=== PATIENT | female | born 1940 | race Caucasian/White ===

== ENCOUNTER 2016-07-25 13:57 | Inpatient (IN) | payer MEDICARE ==
[2016-07-25] MEDS ORDERED: methylPREDNISolone SOD SUCCI 125 MG/2 ML VIAL IV STA (14:29)
[2016-07-25] MEDS ORDERED: IPRATROPIUM-ALBUTEROL 3 ML NEB INHALATION STA ×2 (14:30→15:55)
--- NOTE | 2016-07-25 14:35 | ED ---
General Adult HPI - General Chief complaint: Shortness of Breath Stated complaint: Diff breathing Time Seen by Provider: 07/25/16 14:00 Source: EMS, RN notes reviewed Mode of arrival: EMS Limitations: no limitations - History of Present Illness Initial comments: This is a 76-year-old female who presents emergency Department complaining of inability to get her breath. Patient states phlegm gets caught in her airway and then she coughed so hard that eventually she fatigues herself to the point where she can't get any breath. Patient states currently she feels pretty good. Patient denies any shortness of breath at the moment. Patient denies chest pain or palpitations now or earlier. Patient denies any fever or chills. Patient denies headache patient denies numbness weakness. Patient denies any lightheadedness dizziness or near syncopal episode per patient denies abdominal pain patient denies nausea vomiting diarrhea. Patient does have a history of COPD. Patient takes her breathing treatments all the time. Patient states she was recently treated for sinusitis was on Levaquin and prednisone. - Related Data Home Medications Medication Instructions Recorded Confirmed Airborne 1 tab PO DAILY 07/25/16 07/25/16 Albuterol Nebulized [Ventolin 2.5 mg INHALATION RT-QID PRN 07/25/16 07/25/16 Nebulized] Fluticasone/Salmeterol [Advair 1 puff INHALATION RT-BID 07/25/16 07/25/16 250-50 Diskus] Montelukast [Singulair] 10 mg PO DAILY 07/25/16 07/25/16 Multivitamins, Thera [Multivitamin] 1 tab PO DAILY 07/25/16 07/25/16 Olmesartan [Benicar] 20 mg PO DAILY 07/25/16 07/25/16 metFORMIN HCL [Glucophage] 500 mg PO BID 07/25/16 07/25/16 Allergies Allergy/AdvReac Type Severity Reaction Status Date / Time No Known Drug Allergies Allergy Unknown Verified 07/25/16 14:58 Review of Systems ROS Statement: Those systems with pertinent positive or pertinent negative responses have been documented in the HPI. ROS Other: All systems not noted in ROS Statement are negative. Past Medical History Past Medical History: Asthma, COPD, Diabetes Mellitus History of Any Multi-Drug Resistant Organisms: None Reported Past Surgical History: Hysterectomy Additional Past Surgical History / Comment(s): cystocele Smoking Status: Former smoker Past Alcohol Use History: None Reported, Occasional Past Drug Use History: None Reported General Exam - General Exam Comments Initial Comments: GENERAL: Patient is well-developed and well-nourished. Patient is nontoxic and well- hydrated and is in mild distress. ENT: Neck is soft and supple. No significant lymphadenopathy is noted. Oropharynx is clear. Moist mucous membranes. Neck has full range of motion without eliciting any pain. EYES: The sclera were anicteric and conjunctiva were pink and moist. Extraocular movements were intact and pupils were equal round and reactive to light. Eyelids were unremarkable. PULMONARY: Unlabored respirations. Good breath sounds bilaterally. Patient has slight expiratory wheezing.. CARDIOVASCULAR: There is a regular rate and rhythm without any murmurs gallops or rubs. ABDOMEN: Soft and nontender with normal bowel sounds. No palpable organomegaly was noted. There is no palpable pulsatile mass. SKIN: Skin is clear with no lesions or rashes and otherwise unremarkable. NEUROLOGIC: Patient is alert and oriented x3. Cranial nerves II through XII are grossly intact. Motor and sensory are also intact. Normal speech, volume and content. Symmetrical smile. C MUSCULOSKELETAL: Normal extremities with adequate strength and full range of motion. No lower extremity swelling or edema. No calf tenderness. LYMPHATICS: No significant lymphadenopathy is noted PSYCHIATRIC: Normal psychiatric evaluation. Normal interpersonal interactions appears functionally intact in deals appropriately with others. No signs of depression. No signs of anxiety. Limitations: no limitations Course Vital Signs 07/25/16 07/25/16 07/25/16 13:59 14:06 14:33 Temperature 97 F L Pulse Rate 118 H 99 Respiratory 25 H 28 H Rate Blood Pressure 158/110 O2 Sat by Pulse 99 Oximetry 07/25/16 07/25/16 07/25/16 14:46 15:00 15:51 Temperature Pulse Rate 100 85 95 Respiratory 20 20 Rate Blood Pressure 152/89 128/74 O2 Sat by Pulse 97 99 Oximetry 07/25/16 07/25/16 15:58 16:03 Temperature Pulse Rate 85 118 H Respiratory 20 Rate Blood Pressure 152/83 O2 Sat by Pulse 98 Oximetry Medical Decision Making - Medical Decision Making EKG shows sinus tachycardia at 104 bpm GA interval is on a 44 Segundo is 82 QT interval 314 QTC is 412. Patient's EKG shows mild ST segment elevation in the precordial leads. Patient has some Q waves in the precordial leads as well which are new from an old EKG from 2012. Patient is currently chest pain-free Patient remained chest pain-free throughout her course in the emergency department . Troponin came back elevated to repeat an EKG did show normal sinus rhythm at 90 bpm GA interval 138 QRS is 82 QT interval 388 QTC is 474. Patient continues to have Q waves in the precordial leads however the ST segment elevation that was there previously is gone at this point. Because of the elevated troponin and EKG changes started the patient heparin give the patient aspirin and started Nitropaste. Patient continues to remain chest pain-free. - Lab Data Result diagrams: 07/25/16 14:10 07/25/16 14:10 Lab Results 07/25/16 07/25/16 07/25/16 Range/Units 14:10 14:10 14:10 WBC 13.3 H (3.8-10.6) k/uL RBC 5.40 (3.80-5.40) m/uL Hgb 15.6 (11.4-16.0) gm/dL Hct 47.3 H (34.0-46.0) % MCV 87.4 (80.0-100.0) fL MCH 28.8 (25.0-35.0) pg MCHC 32.9 (31.0-37.0) g/dL RDW 13.8 (11.5-15.5) % Plt Count 240 (150-450) k/uL Neutrophils % 69 % Lymphocytes % 22 % Monocytes % 5 % Eosinophils % 1 % Basophils % 1 % Neutrophils # 9.2 H (1.3-7.7) k/uL Lymphocytes # 2.9 (1.0-4.8) k/uL Monocytes # 0.7 (0-1.0) k/uL Eosinophils # 0.1 (0-0.7) k/uL Basophils # 0.1 (0-0.2) k/uL PT (9.0-12.0) sec INR (<1.1) APTT (22.0-30.0) sec D-Dimer (<0.60) mg/L FEU Sodium 140 (137-145) mmol/L Potassium 4.8 (3.5-5.1) mmol/L Chloride 108 H (98-107) mmol/L Carbon Dioxide 17 L (22-30) mmol/L Anion Gap 15 mmol/L BUN 23 H (7-17) mg/dL Creatinine 0.58 (0.52-1.04) mg/dL Est GFR (MDRD) Af Amer >60 (>60 ml/min/1.73 sqM) Est GFR (MDRD) Non-Af >60 (>60 ml/min/1.73 sqM) Glucose 167 H (74-99) mg/dL Calcium 9.2 (8.4-10.2) mg/dL Magnesium 1.9 (1.6-2.3) mg/dL Total Bilirubin 1.0 (0.2-1.3) mg/dL AST 50 H (14-36) U/L ALT 40 (9-52) U/L Alkaline Phosphatase 103 (38-126) U/L Total Creatine Kinase 131 (30-135) U/L CK-MB (CK-2) 6.5 H* (0.0-2.4) ng/mL CK-MB (CK-2) Rel Index 5.0 Troponin I 1.650 H* (0.000-0.034) ng/mL NT-Pro-B Natriuret Pep pg/mL Total Protein 7.2 (6.3-8.2) g/dL Albumin 4.2 (3.5-5.0) g/dL 07/25/16 07/25/16 Range/Units 14:10 14:10 WBC (3.8-10.6) k/uL RBC (3.80-5.40) m/uL Hgb (11.4-16.0) gm/dL Hct (34.0-46.0) % MCV (80.0-100.0) fL MCH (25.0-35.0) pg MCHC (31.0-37.0) g/dL RDW (11.5-15.5) % Plt Count (150-450) k/uL Neutrophils % % Lymphocytes % % Monocytes % % Eosinophils % % Basophils % % Neutrophils # (1.3-7.7) k/uL Lymphocytes # (1.0-4.8) k/uL Monocytes # (0-1.0) k/uL Eosinophils # (0-0.7) k/uL Basophils # (0-0.2) k/uL PT 9.8 (9.0-12.0) sec INR 1.0 (<1.1) APTT 21.5 L (22.0-30.0) sec D-Dimer 0.64 H (<0.60) mg/L FEU Sodium (137-145) mmol/L Potassium (3.5-5.1) mmol/L Chloride (98-107) mmol/L Carbon Dioxide (22-30) mmol/L Anion Gap mmol/L BUN (7-17) mg/dL Creatinine (0.52-1.04) mg/dL Est GFR (MDRD) Af Amer (>60 ml/min/1.73 sqM) Est GFR (MDRD) Non-Af (>60 ml/min/1.73 sqM) Glucose (74-99) mg/dL Calcium (8.4-10.2) mg/dL Magnesium (1.6-2.3) mg/dL Total Bilirubin (0.2-1.3) mg/dL AST (14-36) U/L ALT (9-52) U/L Alkaline Phosphatase (38-126) U/L Total Creatine Kinase (30-135) U/L CK-MB (CK-2) (0.0-2.4) ng/mL CK-MB (CK-2) Rel Index Troponin I (0.000-0.034) ng/mL NT-Pro-B Natriuret Pep 665 pg/mL Total Protein (6.3-8.2) g/dL Albumin (3.5-5.0) g/dL Disposition Clinical Impression: Acute RI, Acute bronchospasm Disposition: ADMITTED IP TO THIS HOSP Referrals: Catie Akhtar MD [Primary Care Provider] - 1-2 days Time of Disposition: 16:17
[2016-07-25 14:42] LABS: Basophils # (A) 0.1 k/uL (0-0.2); Basophils % (A) 1 %; CH 29.9; CHCM 34.5; Eosinophils # (A) 0.1 k/uL (0-0.7); Eosinophils % (A) 1 %; HCT 47.3 % (34.0-46.0); HDW 3.32; HGB 15.6 gm/dL (11.4-16.0); Luc # (Auto) 0.32; Luc % (Auto) 2; Lymphocytes # (A) 2.9 k/uL (1.0-4.8); Lymphocytes % (A) 22 %; MCH 28.8 pg (25.0-35.0); MCHC 32.9 g/dL (31.0-37.0); MCV 87.4 fL (80.0-100.0); Monocytes # (A) 0.7 k/uL (0-1.0); Monocytes % (A) 5 %; Neutrophils # (A) 9.2 k/uL (1.3-7.7); Neutrophils % (A) 69 %; RDW 13.8 % (11.5-15.5); WBC 13.3 k/uL (3.8-10.6); WBC (Perox) 12.99
[2016-07-25 14:56] LABS: ALT 40 U/L (9-52); AST 50 U/L (14-36); Alkaline Phosphatase 103 U/L (38-126); Anion Gap 15 mmol/L; Blood Urea Nitrogen 23 mg/dL (7-17); Calcium 9.2 mg/dL (8.4-10.2); Carbon Dioxide 17 mmol/L (22-30); Chloride 108 mmol/L (98-107); Glucose 167 mg/dL (74-99); Magnesium 1.9 mg/dL (1.6-2.3); Non-African American GFR(MDRD) >60 (>60 ml/min/1.73 sqM); Potassium 4.8 mmol/L (3.5-5.1); Sodium 140 mmol/L (137-145); Total Protein 7.2 g/dL (6.3-8.2)
[2016-07-25 15:10] LABS: Prothrombin Time 9.8 sec (9.0-12.0)
[2016-07-25 15:16] LABS: Partial Thromboplastin Time 21.5 sec (22.0-30.0)
[2016-07-25 15:18] LABS: Creatine Kinase MB 6.5 ng/mL (0.0-2.4); Troponin I 1.65 ng/mL (0.000-0.034)
[2016-07-25] MEDS ORDERED: HEPARIN SODIUM,PORCINE 5,000 UNIT/ML 1 ML VIAL IV ONE (15:21)
[2016-07-25] MEDS ORDERED: ASPIRIN 81 MG CHEW PO STA (15:23)
[2016-07-25] MEDS ORDERED: NITROGLYCERIN OINT 1 INCH/GM PACKET TOPICAL STA (15:23)
[2016-07-25] MEDS: HEPARIN SODIUM,PORCINE/D5W PMX 25,000 UNIT in DEXTROSE/WATER 1 500ML.BAG IV SCH (15:30)
--- NOTE | 2016-07-25 15:51 | XR ---
EXAMINATION TYPE: XR chest 2V DATE OF EXAM: 07/25/2016 3:37 PM COMPARISON: Prior chest x-ray 31 August 2012 HISTORY: Difficulty breathing, shortness of breath and asthma TECHNIQUE: Frontal and lateral views of the chest are obtained. FINDINGS: There is no focal air space opacity, pleural effusion, or pneumothorax seen. The cardiac silhouette size is stable. There are overlying cardiac leads and prominent lung volumes.. The osseo us structures are intact. IMPRESSION: No acute cardiopulmonary process.
[2016-07-25] MEDS ORDERED: LORazepam 2 MG/ML SYRINGE IV STA (15:55)
[2016-07-25] MEDS: SODIUM CHLORIDE 0.9% 1,000 ML IV SCH (16:10)
[2016-07-25] MEDS ORDERED: NITROGLYCERIN SL TABS 0.4 MG TAB SUBLINGUAL PRN (16:17)
[2016-07-25] MEDS ORDERED: BENZONATATE 100 MG CAP PO STA (16:19)
[2016-07-25] MEDS: methylPREDNISolone SOD SUCCI 125 MG/2 ML VIAL IV SCH ×2 (17:14→23:12)
[2016-07-25] MEDS: NITROGLYCERIN OINT 1 INCH/GM PACKET TOPICAL SCH ×2 (17:14→23:17)
[2016-07-25 18:40] VITALS: BMI 25.5
[2016-07-25] MEDS: IPRATROPIUM-ALBUTEROL 3 ML NEB INHALATION SCH (19:41)
[2016-07-25] MEDS ORDERED: ALPRAZolam 0.25 MG TAB PO STA (20:20)
[2016-07-25 20:57] LABS: Glucose,Whole Blood 223 mg/dL (75-99)
[2016-07-25] MEDS: metFORMIN 500 MG TAB PO SCH (21:50)
[2016-07-25] MEDS: MELATONIN 3 MG TABLET PO SCH (21:50)
[2016-07-25] MEDS: INSULIN LISPRO (humaLOG) 300 UNIT/3 ML VIAL SQ SCH (21:50)
[2016-07-25] MEDS: BENZONATATE 100 MG CAP PO SCH (21:56)
[2016-07-25 22:05] LABS: Creatine Kinase MB 6.4 ng/mL (0.0-2.4); Troponin I 1.27 ng/mL (0.000-0.034)
[2016-07-25] MEDS ORDERED: HEPARIN SODIUM,PORCINE 5,000 UNIT/ML 1 ML VIAL IV PRN (22:08)
[2016-07-25 22:35] LABS: Hemoglobin A1C 6.6 % (4.2-6.1)
[2016-07-26] MEDS: IPRATROPIUM-ALBUTEROL 3 ML NEB INHALATION SCH ×6 (04:01→20:20)
[2016-07-26 04:15] LABS: Creatine Kinase MB 5.5 ng/mL (0.0-2.4); Troponin I 0.912 ng/mL (0.000-0.034)
[2016-07-26 04:29] LABS: Cholesterol 201 mg/dL (<200); HDL Cholesterol 66 mg/dL (40-60); Triglycerides 100 mg/dL (<150)
[2016-07-26] MEDS: NITROGLYCERIN OINT 1 INCH/GM PACKET TOPICAL SCH ×3 (05:43→17:29)
[2016-07-26 06:28] LABS: Glucose,Whole Blood 237 mg/dL (75-99)
[2016-07-26] MEDS: INSULIN LISPRO (humaLOG) 300 UNIT/3 ML VIAL SQ SCH ×4 (06:31→21:04)
[2016-07-26] MEDS: methylPREDNISolone SOD SUCCI 125 MG/2 ML VIAL IV SCH (06:32)
--- NOTE | 2016-07-26 08:21 | P.CRDCN ---
History of Present Illness Consult date: 07/26/16 Requesting physician: Jose Wolfe Reason for Consult (text): Non-STEMI Chief complaint: Shortness of breath History of present illness: This is a 76-year-old female with history of hypertension, hyperlipidemia, diabetes, prior nicotine dependence, COPD, who presents to the hospital with symptoms of fairly sudden onset of shortness of breath. She states that she's been dealing with a sinus an upper respiratory infection, has been on antibiotics and steroids as an outpatient, without much relief in symptoms. The day before yesterday she states that she became quite short of breath, felt like she had to cough something up in her chest, woke up from sleep. She denies any chest pressure or heaviness, no palpitations. Blood pressure on EMS arrival 144/92, heart rate in the 120s, respirations in the 20s 96% on room air. Initial EKG on presentation here showed a sinus tachycardia with minimal ST elevation noted in the anterior lateral leads. Subsequent EKG showed normal normal sinus rhythm with anterior lateral changes. EKG performed this morning showed normal sinus rhythm with anterior lateral T-wave inversions. Laboratory data, WBC 13.3, hemoglobin 15.6, d-dimer 0.6. Troponins 1.6, 1.2, 0.9. BNP level DCLXV. Cholesterol 201, LDL 1:15, HDL 66, triglycerides 100, influenza A and B-. S2 x-ray does not reveal any acute cardiopulmonary process. At the time of my examination this morning, patient is currently chest pain free, she had just returned back to bed from the commode , quite short of breath. Patient is currently on aspirin, IV heparin, and Nitropaste. The pressure this morning 99/50 with a heart rate in the 80s, 97% on 6 L of oxygen. Past Medical History Past Medical History: Asthma, COPD, Diabetes Mellitus History of Any Multi-Drug Resistant Organisms: None Reported Past Surgical History: Hysterectomy Additional Past Surgical History / Comment(s): cystocele, rectocele Past Anesthesia/Blood Transfusion Reactions: No Reported Reaction Past Psychological History: No Psychological Hx Reported Smoking Status: Former smoker Past Alcohol Use History: None Reported, Occasional Past Drug Use History: None Reported - Past Family History Mother Family Medical History: Memory Impairment Father Family Medical History: Prostate Disorder Medications and Allergies Home Medications Medication Instructions Recorded Confirmed Type Airborne 1 tab PO DAILY 07/25/16 07/25/16 History Albuterol Nebulized [Ventolin 2.5 mg INHALATION RT-QID PRN 07/25/16 07/25/16 History Nebulized] Fluticasone/Salmeterol [Advair 1 puff INHALATION RT-BID 07/25/16 07/25/16 History 250-50 Diskus] Montelukast [Singulair] 10 mg PO DAILY 07/25/16 07/25/16 History Multivitamins, Thera [Multivitamin] 1 tab PO DAILY 07/25/16 07/25/16 History Olmesartan [Benicar] 20 mg PO DAILY 07/25/16 07/25/16 History metFORMIN HCL [Glucophage] 500 mg PO BID 07/25/16 07/25/16 History Allergies Allergy/AdvReac Type Severity Reaction Status Date / Time No Known Drug Allergies Allergy Unknown Verified 07/25/16 14:58 Physical Exam Vitals: Vital Signs Temp Pulse Pulse Resp BP BP Pulse Ox 07/26/16 04:09 80 07/26/16 04:00 97.2 F L 81 18 99/52 97 07/26/16 03:58 80 07/26/16 00:14 80 07/26/16 00:02 84 07/26/16 00:00 96.3 F L 80 18 100/55 99 07/25/16 20:02 100 07/25/16 20:00 96.5 F L 101 H 20 111/64 96 07/25/16 19:42 108 H 07/25/16 18:36 96.5 F L 96 19 98 07/25/16 17:57 97.9 F 82 20 112/65 99 07/25/16 17:00 97.5 F L 61 18 127/70 98 07/25/16 16:19 112 H Intake and Output 07/25/16 07/26/16 07/26/16 22:59 06:59 14:59 Intake Total 365.641 160 Output Total 175 Balance 365.641 -15 Intake: IV 272 160 Heparin Sodium,Porcine/ 112 D5w Pmx 25,000 unit In Dextrose/Water 1 500ml. bag @ 12 UNITS/KG/HR 14. 26 mls/hr IV .Q24H ON LICENSE OF [facility] Rx #:[id number] Sodium Chloride 0.9% 1, 160 160 000 ml @ 20 mls/hr IV . Q24H [facility] Rx#:[id number] Intake, IV Titration 93.641 Amount Heparin Sodium,Porcine/ 93.641 D5w Pmx 25,000 unit In Dextrose/Water 1 500ml. bag @ 12 UNITS/KG/HR 14. 26 mls/hr IV .Q24H [facility] Rx #:[id number] Output: Urine 175 Other: Weight 59.421 kg 59.5 kg PHYSICAL EXAMINATION: HEENT: Head is atraumatic, normocephalic. Pupils equal, round. Neck is supple. There is no elevated jugular venous pressure. HEART EXAMINATION: S1 and S2 1 systolic murmur is heard. CHEST EXAMINATION: His are clear with mild diminished air entry to posterior bases. ABDOMEN: Soft, nontender. Bowel sounds are heard. No organomegaly noted. EXTREMITIES: 2+ peripheral pulses with no evidence of peripheral edema and no calf tenderness noted. NEUROLOGIC patient is awake, alert and oriented -3. . Results 07/25/16 14:10 07/25/16 14:10 Cardiac Enzymes 07/25/16 07/26/16 Range/Units 21:06 03:20 CK-MB (CK-2) 6.4 H* 5.5 H* (0.0-2.4) ng/mL Troponin I 1.270 H* 0.912 H* (0.000-0.034) ng/mL Coagulation 07/25/16 07/26/16 Range/Units 21:06 03:20 APTT 42.8 H 59.9 H (22.0-30.0) sec Lipids 07/26/16 Range/Units 03:20 Triglycerides 100 (<150) mg/dL Cholesterol 201 H (<200) mg/dL HDL Cholesterol 66 H (40-60) mg/dL Current Medications Generic Name Dose Route Start Last Admin Trade Name Freq PRN Reason Stop Dose Admin Albuterol/Ipratropium 3 ml 07/25/16 20:00 07/26/16 08:02 Duoneb 0.5 Mg-3 Mg/3 Ml Soln INHALATION 3 ml RT-Q4H [facility] Administration Aspirin 325 mg 07/26/16 09:00 Aspirin PO DAILY [facility] Benzonatate 200 mg 07/25/16 22:00 07/25/16 21:56 Tessalon Perles PO 200 mg TID [facility] Administration Heparin Sodium (Porcine) 0 unit 07/25/16 22:08 07/25/16 23:00 Heparin IV 1,475 unit PER PROTOCOL PRN Administration Low PTT Protocol Heparin Sodium/Dextrose 25,000 500 mls @ 14.26 mls/hr 07/25/16 15:30 22:04 unit/ IV Solution IV 13.95 units/kg/hr .Q24H [facility] 16.57 mls/hr Protocol Titration 12 UNITS/KG/HR Sodium Chloride 1,000 mls @ 20 mls/hr 07/25/16 16:15 07/25/16 16:10 Saline 0.9% IV 20 mls/hr .Q24H [facility] Administration Insulin Human Lispro 0 unit 07/25/16 21:00 07/26/16 06:31 Humalog SQ 8 unit ACHS [facility] Administration Protocol Melatonin 3 mg 07/25/16 21:00 07/25/16 21:50 Melatonin PO 3 mg HS [facility] Administration Metformin HCl 500 mg 07/25/16 21:00 07/25/16 21:50 Glucophage PO 500 mg BID [facility] Administration Methylprednisolone Sodium Succinate 60 mg 07/25/16 18:00 07/26/16 06:32 Solu-Medrol IV 60 mg Q6HR [facility] Administration Nitroglycerin 1 inch 07/25/16 18:00 07/26/16 05:43 Nitro-Bid Oint TOPICAL Not Given Q6HR ON LICENSE OF [facility] Nitroglycerin 0.4 mg 07/25/16 16:17 Nitrostat SUBLINGUAL Q5M PRN Chest Pain Intake and Output 07/25/16 07/26/16 07/26/16 22:59 06:59 14:59 Intake Total 365.641 160 Output Total 175 Balance 365.641 -15 Intake: IV 272 160 Heparin Sodium,Porcine/ 112 D5w Pmx 25,000 unit In Dextrose/Water 1 500ml. bag @ 12 UNITS/KG/HR 14. 26 mls/hr IV .Q24H [facility] Rx #:[id number] Sodium Chloride 0.9% 1, 160 160 000 ml @ 20 mls/hr IV . Q24H [facility] Rx#:[id number] Intake, IV Titration 93.641 Amount Heparin Sodium,Porcine/ 93.641 D5w Pmx 25,000 unit In Dextrose/Water 1 500ml. bag @ 12 UNITS/KG/HR 14. 26 mls/hr IV .Q24H ON LICENSE OF [facility] Rx #:[id number] Output: Urine 175 Other: Weight 59.421 kg 59.5 kg EKG Interpretations (text) Initial EKG shows a sinus tachycardia with anterior lateral ST elevation, EKG this morning shows normal sinus rhythm with anterior lateral T-wave inversions Assessment and Plan Plan: Assessment and plan #1 symptoms of fairly sudden onset of shortness of breath with evidence of EKG changes in the anterior lateral region and abnormal troponins suggestive of acute coronary syndrome. #2 recent treatment for upper respiratory infection with antibiotics and steroids #3 hypertension #4 hyperlipidemia #5 diabetes #6 prior smoking history, patient quit smoking 50 years ago #7COPD Plan We will obtain an echocardiogram with Doppler study. Continue IV heparin. We' ll also start the patient on Lipitor. Patient has been advised that she may need to undergo cardiac catheterization for more definitive diagnosis. The risks and the benefits were explained to the patient in detail. Further recommendations to follow. DNP note has been reviewed, I agree with a documented findings and plan of care. Patient was seen and examined.
[2016-07-26] MEDS ORDERED: ATORVASTATIN 80 MG TAB PO SCH (09:00)
[2016-07-26] MEDS: BENZONATATE 100 MG CAP PO SCH ×3 (09:21→21:04)
[2016-07-26] MEDS: ASPIRIN 325 MG TAB PO SCH (09:21)
[2016-07-26] MEDS ORDERED: ALPRAZolam 0.25 MG TAB PO PRN (11:02)
[2016-07-26] MEDS ORDERED: ATORVASTATIN 80 MG TAB PO STA (11:02)
[2016-07-26] MEDS ORDERED: SODIUM CHLORIDE 0.9% 1,000 ML in EMPTY BAG 1 BAG IV ONE (11:02)
[2016-07-26] MEDS ORDERED: ASPIRIN 325 MG TAB PO STA (11:02)
[2016-07-26] MEDS ORDERED: NITROGLYCERIN SL TABS 0.4 MG TAB SUBLINGUAL PRN (11:02)
[2016-07-26] MEDS ORDERED: ALPRAZolam 0.5 MG TAB PO PRN (11:02)
--- NOTE | 2016-07-26 11:14 | P.CNPUL ---
History of Present Illness Consult date: 07/26/16 Requesting physician: Jose Wolfe Chief complaint: Cough, shortness of breath, and congestion over the sinuses. History of present illness: This is a 76-year-old female with history of hypertension, diabetes, remote smoking history, mild COPD, patient has been seeing her primary care physician for symptoms of sinusitis and URI. Has been on 2 different courses of antibiotics, she also received 1 course of prednisone burst and taper. Not much improvement was noted to have symptoms, patient was advised to go to the ER. Her symptoms at the time of presentation were mostly symptoms of congestion , cough which was productive with tenacious sputum. Chest x-ray on presentation showed no evidence of active disease. Her initial EKG on presentation showed sinus tachycardia and minimal ST elevation noted in the anterior leads. However the patient had no chest pain whatsoever. Patient was also noted to have T-wave inversion in the anterior leads. Troponins were elevated. Patient was admitted, placed on bronchodilators, antibiotics, steroids, she is also on heparin as per cardiology, and she is scheduled to possibly undergo further cardiac workup. Today the patient has no symptoms whatsoever. She denies any nasal congestion, no cough, no wheezing, no fever, no chills, no hemoptysis. Patient is requesting to be discharged home even. Presently completely asymptomatic. And apparently responded well to the treatment. But her cardiac issues are to be addressed by cardiology. Review of Systems 14 point review of systems were obtained please refer to pertinent positives and negatives as per HPI. Past Medical History Past Medical History: Asthma, COPD, Diabetes Mellitus History of Any Multi-Drug Resistant Organisms: None Reported Past Surgical History: Hysterectomy Additional Past Surgical History / Comment(s): cystocele, rectocele Past Anesthesia/Blood Transfusion Reactions: No Reported Reaction Past Psychological History: No Psychological Hx Reported Smoking Status: Former smoker Past Alcohol Use History: None Reported, Occasional Past Drug Use History: None Reported - Past Family History Mother Family Medical History: Memory Impairment Father Family Medical History: Prostate Disorder Medications and Allergies Home Medications Medication Instructions Recorded Confirmed Type Airborne 1 tab PO DAILY 07/25/16 07/25/16 History Albuterol Nebulized [Ventolin 2.5 mg INHALATION RT-QID PRN 07/25/16 07/25/16 History Nebulized] Fluticasone/Salmeterol [Advair 1 puff INHALATION RT-BID 07/25/16 07/25/16 History 250-50 Diskus] Montelukast [Singulair] 10 mg PO DAILY 07/25/16 07/25/16 History Multivitamins, Thera [Multivitamin] 1 tab PO DAILY 07/25/16 07/25/16 History Olmesartan [Benicar] 20 mg PO DAILY 07/25/16 07/25/16 History metFORMIN HCL [Glucophage] 500 mg PO BID 07/25/16 07/25/16 History Allergies Allergy/AdvReac Type Severity Reaction Status Date / Time No Known Drug Allergies Allergy Unknown Verified 07/25/16 14:58 Physical Exam Vitals: Vital Signs Temp Pulse Pulse Resp BP BP Pulse Ox 07/26/16 08:10 76 07/26/16 08:04 76 07/26/16 04:09 80 07/26/16 04:00 97.2 F L 81 18 99/52 97 07/26/16 03:58 80 07/26/16 00:14 80 07/26/16 00:02 84 07/26/16 00:00 96.3 F L 80 18 100/55 99 07/25/16 20:02 100 07/25/16 20:00 96.5 F L 101 H 20 111/64 96 07/25/16 19:42 108 H 07/25/16 18:36 96.5 F L 96 19 98 07/25/16 17:57 97.9 F 82 20 112/65 99 07/25/16 17:00 97.5 F L 61 18 127/70 98 07/25/16 16:19 112 H Intake and Output 07/25/16 07/26/16 07/26/16 22:59 06:59 14:59 Intake Total 365.641 160 Output Total 175 Balance 365.641 -15 Intake: IV 272 160 Heparin Sodium,Porcine/ 112 D5w Pmx 25,000 unit In Dextrose/Water 1 500ml. bag @ 12 UNITS/KG/HR 14. 26 mls/hr IV .Q24H [facility] Rx #:[id number] Sodium Chloride 0.9% 1, 160 160 000 ml @ 20 mls/hr IV . Q24H [facility] Rx#:[id number] Intake, IV Titration 93.641 Amount Heparin Sodium,Porcine/ 93.641 D5w Pmx 25,000 unit In Dextrose/Water 1 500ml. bag @ 12 UNITS/KG/HR 14. 26 mls/hr IV .Q24H [facility] Rx #:[id number] Output: Urine 175 Other: Weight 59.421 kg 59.5 kg Physical Exam: Revealed a 76-year-old female in no distress. HEENT:[Neck is supple.] [No neck masses.] [No thyromegaly.] [No JVD.] Chest: [Clear throughout, no crackles, no rhonchi, no wheezes.] Cardiac Exam: [Normal S1 and S2, no S3 gallop, no murmur.] Abdomen: [Soft, nontender, no megaly, no rebound, no guarding, normal bowel sounds.] Extremities: [No clubbing, no edema, no cyanosis.] Neurological Exam: [No focal neurologic deficit.] Results - Laboratory Findings CBC and BMP: 07/25/16 14:10 07/25/16 14:10 PT/INR, D-dimer PT 9.8 sec (9.0-12.0) 07/25/16 14:10 INR 1.0 (<1.1) 07/25/16 14:10 D-Dimer 0.64 mg/L FEU (<0.60) H 07/25/16 14:10 Abnormal lab findings: Abnormal Labs 07/25/16 07/25/16 07/25/16 20:54 21:06 21:06 APTT 42.8 H POC Glucose (mg/dL) 223 H Hemoglobin A1c Total Creatine Kinase 148 H CK-MB (CK-2) 6.4 H* Troponin I 1.270 H* Cholesterol LDL Cholesterol, Calc HDL Cholesterol 07/25/16 07/26/16 07/26/16 21:06 03:20 03:20 APTT POC Glucose (mg/dL) Hemoglobin A1c 6.6 H Total Creatine Kinase CK-MB (CK-2) 5.5 H* Troponin I 0.912 H* Cholesterol 201 H LDL Cholesterol, Calc 115 H HDL Cholesterol 66 H 07/26/16 07/26/16 03:20 06:27 APTT 59.9 H POC Glucose (mg/dL) 237 H Hemoglobin A1c Total Creatine Kinase CK-MB (CK-2) Troponin I Cholesterol LDL Cholesterol, Calc HDL Cholesterol - Diagnostic Findings Chest x-ray: image reviewed (No evidence of active disease) Assessment and Plan Plan: Impression: 1 acute URI, acute maxillary sinusitis. 2 acute exacerbation of COPD secondary to URI 3 abnormal EKG and abnormal cardiac panel suggestive of acute coronary syndrome , workup is in progress as per cardiology. Patient remains on heparin in the meantime. Presently asymptomatic. 4 multiple comorbidities including COPD, diabetes, remote smoking history, history of hypertension Recommendation: Agree with the present treatment plan, consider switching methylprednisolone to oral prednisone burst and taper, patient already received more than adequate courses of antibiotics, and once the patient is cleared by cardiology, patient could be clear for discharge home. Time with Patient: Greater than 30
[2016-07-26 12:01] LABS: Glucose,Whole Blood 198 mg/dL (75-99)
[2016-07-26] MEDS: metFORMIN 500 MG TAB PO SCH ×2 (12:27→21:03)
[2016-07-26 16:42] LABS: Glucose,Whole Blood 239 mg/dL (75-99)
[2016-07-26] MEDS: predniSONE 20 MG TAB PO SCH (17:11)
--- NOTE | 2016-07-26 17:49 | P.HPIM ---
History of Present Illness H&P Date: 07/26/16 Chief Complaint: cough Is a 76-year-old female with history of chronic hypoxic respiratory failure remote history of smoking comes in the hospital with the intermittent episodes of choking. Patient apparently has had URI-like symptoms has undergone 2 courses of antibiotics and steroid therapy and has failed and was noted to have symptoms where patient falls asleep and suddenly wakes up to gasping for air. This happened multiple times over the past 2 weeks. Patient also states that she has had these episodes in the past as well. Patient denies any chest pain difficulty breathing nausea vomiting or diarrhea at this time. However patient states that she is sick of not knowing why her breathing gets worse intermittently. In the ER patient was noted to have a troponin leak and some subtle EKG changes. Patient is started on IV heparin was given steroids and thereafter triaged to the selective floor. Examination patient states that she has a cough however is minimally productive in nature. Review of Systems All systems: negative (noted In HPI) Past Medical History Past Medical History: Asthma, COPD, Diabetes Mellitus History of Any Multi-Drug Resistant Organisms: None Reported Past Surgical History: Hysterectomy Additional Past Surgical History / Comment(s): cystocele, rectocele Past Anesthesia/Blood Transfusion Reactions: No Reported Reaction Past Psychological History: No Psychological Hx Reported Smoking Status: Former smoker Past Alcohol Use History: None Reported, Occasional Past Drug Use History: None Reported - Past Family History Mother Family Medical History: Memory Impairment Father Family Medical History: Prostate Disorder Medications and Allergies Home Medications Medication Instructions Recorded Confirmed Type Airborne 1 tab PO DAILY 07/25/16 07/25/16 History Albuterol Nebulized [Ventolin 2.5 mg INHALATION RT-QID PRN 07/25/16 07/25/16 History Nebulized] Fluticasone/Salmeterol [Advair 1 puff INHALATION RT-BID 07/25/16 07/25/16 History 250-50 Diskus] Montelukast [Singulair] 10 mg PO DAILY 07/25/16 07/25/16 History Multivitamins, Thera [Multivitamin] 1 tab PO DAILY 07/25/16 07/25/16 History Olmesartan [Benicar] 20 mg PO DAILY 07/25/16 07/25/16 History metFORMIN HCL [Glucophage] 500 mg PO BID 07/25/16 07/25/16 History Allergies Allergy/AdvReac Type Severity Reaction Status Date / Time No Known Drug Allergies Allergy Unknown Verified 07/25/16 14:58 Physical Exam Vitals: Vital Signs Temp Pulse Pulse Resp BP BP Pulse Ox 07/26/16 16:08 76 07/26/16 15:57 72 07/26/16 12:00 67 16 113/63 95 07/26/16 11:47 72 07/26/16 11:39 68 07/26/16 08:10 76 07/26/16 08:04 76 07/26/16 04:09 80 07/26/16 04:00 97.2 F L 81 18 99/52 97 07/26/16 03:58 80 07/26/16 00:14 80 07/26/16 00:02 84 07/26/16 00:00 96.3 F L 80 18 100/55 99 07/25/16 20:02 100 07/25/16 20:00 96.5 F L 101 H 20 111/64 96 07/25/16 19:42 108 H 07/25/16 18:36 96.5 F L 96 19 98 07/25/16 17:57 97.9 F 82 20 112/65 99 Intake and Output 07/26/16 07/26/16 07/26/16 06:59 14:59 22:59 Intake Total 160 Output Total 175 Balance -15 Intake: IV 160 Sodium Chloride 0.9% 1, 160 000 ml @ 20 mls/hr IV . Q24H [facility] Rx#:[id number] Output: Urine 175 Other: Weight 59.5 kg Physical exam Gen. appearance oriented 3 in no distress Neck is supple no JVD Lungs good air entry clear to auscultation no rhonchi or wheezing Heart S1-S2 heard regular rate and rhythm no murmurs appreciated Abdomen is soft nontender no organomegaly bowel sounds are intact Neurologically cranial nerves II-12 grossly intact no focal motor or sensory deficits noted Skin no abnormalities appreciated Results CBC & Chem 7: 07/25/16 14:10 07/25/16 14:10 Labs: Abnormal Lab Results - Last 24 Hours (Table) 07/25/16 07/25/16 07/25/16 Range/Units 20:54 21:06 21:06 APTT 42.8 H (22.0-30.0) sec POC Glucose (mg/dL) 223 H (75-99) mg/dL Hemoglobin A1c (4.2-6.1) % Total Creatine Kinase 148 H (30-135) U/L CK-MB (CK-2) 6.4 H* (0.0-2.4) ng/mL Troponin I 1.270 H* (0.000-0.034) ng/mL Cholesterol (<200) mg/dL LDL Cholesterol, Calc (0-99) mg/dL HDL Cholesterol (40-60) mg/dL 07/25/16 07/26/16 07/26/16 Range/Units 21:06 03:20 03:20 APTT (22.0-30.0) sec POC Glucose (mg/dL) (75-99) mg/dL Hemoglobin A1c 6.6 H (4.2-6.1) % Total Creatine Kinase (30-135) U/L CK-MB (CK-2) 5.5 H* (0.0-2.4) ng/mL Troponin I 0.912 H* (0.000-0.034) ng/mL Cholesterol 201 H (<200) mg/dL LDL Cholesterol, Calc 115 H (0-99) mg/dL HDL Cholesterol 66 H (40-60) mg/dL 07/26/16 07/26/16 07/26/16 Range/Units 03:20 06:27 12:00 APTT 59.9 H (22.0-30.0) sec POC Glucose (mg/dL) 237 H 198 H (75-99) mg/dL Hemoglobin A1c (4.2-6.1) % Total Creatine Kinase (30-135) U/L CK-MB (CK-2) (0.0-2.4) ng/mL Troponin I (0.000-0.034) ng/mL Cholesterol (<200) mg/dL LDL Cholesterol, Calc (0-99) mg/dL HDL Cholesterol (40-60) mg/dL 07/26/16 Range/Units 16:40 APTT (22.0-30.0) sec POC Glucose (mg/dL) 239 H (75-99) mg/dL Hemoglobin A1c (4.2-6.1) % Total Creatine Kinase (30-135) U/L CK-MB (CK-2) (0.0-2.4) ng/mL Troponin I (0.000-0.034) ng/mL Cholesterol (<200) mg/dL LDL Cholesterol, Calc (0-99) mg/dL HDL Cholesterol (40-60) mg/dL Thrombosis Risk Factor Assmnt - Choose All That Apply Each Factor Represents 1 point: Acute VA, Obesity (BMI >25) Each Risk Factor Represents 3 Points: Age 75 years or older Thrombosis Risk Factor Assessment Total Risk Factor Score: 5 Thrombosis Risk Factor Assessment Level: High Risk Assessment and Plan Plan: #1 acute on chronic hypoxic respiratory failure secondary to bronchospasm likely from postnasal drip versus reflux disease #2 non-Q wave myocardial infarction per #3 history of COPD #4 history of hypertension #5 dyslipidemia. #6 acute maxillary sinusitis 7 diabetes mellitus type 2 Plan Continue IV heparin therapy. Patient is to undergo catheterization. Likely is from prolonged hypoxia however patient does not have a previous workup. Steroids were tapered. Blood pressure stable. Patient is encouraged to maintain greater than 30 at night PPI is to be continued are started.
[2016-07-26] MEDS: HEPARIN SODIUM,PORCINE/D5W PMX 25,000 UNIT in DEXTROSE/WATER 1 500ML.BAG IV SCH (20:09)
[2016-07-26] MEDS: SODIUM CHLORIDE 0.9% 1,000 ML IV SCH (20:12)
[2016-07-26 21:01] LABS: Glucose,Whole Blood 204 mg/dL (75-99)
[2016-07-26] MEDS: MELATONIN 3 MG TABLET PO SCH (21:03)
[2016-07-26] MEDS: PANTOPRAZOLE 40 MG TABLET PO SCH (21:05)
[2016-07-27] MEDS: IPRATROPIUM-ALBUTEROL 3 ML NEB INHALATION SCH ×6 (00:02→19:58)
[2016-07-27] MEDS: NITROGLYCERIN OINT 1 INCH/GM PACKET TOPICAL SCH ×4 (00:19→20:25)
[2016-07-27] MEDS: INSULIN LISPRO (humaLOG) 300 UNIT/3 ML VIAL SQ SCH ×5 (05:12→21:18)
[2016-07-27] MEDS: predniSONE 20 MG TAB PO SCH (05:42)
[2016-07-27] MEDS: ATORVASTATIN 80 MG TAB PO SCH (05:42)
[2016-07-27] MEDS: BENZONATATE 100 MG CAP PO SCH ×3 (05:42→21:18)
[2016-07-27] MEDS: ASPIRIN 325 MG TAB PO SCH (05:42)
[2016-07-27] MEDS: PANTOPRAZOLE 40 MG TABLET PO SCH (05:42)
[2016-07-27 06:19] LABS: Glucose,Whole Blood 184 mg/dL (75-99)
[2016-07-27 06:36] LABS: Basophils % (A) 0 %; CH 29.9; CHCM 33.5; Eosinophils % (A) 0 %; HCT 40.7 % (34.0-46.0); HDW 3.38; HGB 13.3 gm/dL (11.4-16.0); Luc # (Auto) 0.18; Luc % (Auto) 1; Lymphocytes # (A) 0.9 k/uL (1.0-4.8); Lymphocytes % (A) 6 %; MCH 29.3 pg (25.0-35.0); MCHC 32.6 g/dL (31.0-37.0); MCV 89.9 fL (80.0-100.0); Monocytes # (A) 0.9 k/uL (0-1.0); Monocytes % (A) 6 %; Neutrophils # (A) 13.5 k/uL (1.3-7.7); Neutrophils % (A) 87 %; RBC 4.52 m/uL (3.80-5.40); RDW 14.4 % (11.5-15.5); WBC 15.6 k/uL (3.8-10.6); WBC (Perox) 16.89
[2016-07-27 07:08] LABS: ALT 37 U/L (9-52); AST 45 U/L (14-36); Alkaline Phosphatase 62 U/L (38-126); Anion Gap 13 mmol/L; Blood Urea Nitrogen 34 mg/dL (7-17); Calcium 9.2 mg/dL (8.4-10.2); Carbon Dioxide 17 mmol/L (22-30); Chloride 112 mmol/L (98-107); Glucose 180 mg/dL (74-99); Non-African American GFR(MDRD) >60 (>60 ml/min/1.73 sqM); Sodium 142 mmol/L (137-145); Total Bilirubin 0.8 mg/dL (0.2-1.3); Total Protein 6.1 g/dL (6.3-8.2)
[2016-07-27] MEDS ORDERED: LIDOCAINE 2% INJ 20 MG/ML (20 ML MDV) ONE (09:49)
[2016-07-27] MEDS ORDERED: diphenhydrAMINE 50 MG/ML 1 ML VIAL ONE (09:50)
[2016-07-27] MEDS ORDERED: fentaNYL (PF) 50 MCG/ML 2 ML AMP ONE (09:50)
[2016-07-27] MEDS ORDERED: SODIUM CHLORIDE 0.9% 1,000 ML IV ONE (09:58)
[2016-07-27] MEDS ORDERED: MIDAZOLAM 2 MG/2 ML VIAL ONE (10:12)
[2016-07-27] MEDS ORDERED: diphenhydrAMINE 50 MG/ML 1 ML VIAL IVP ONE (10:15)
[2016-07-27] MEDS ORDERED: MIDAZOLAM 2 MG/2 ML VIAL IVP ONE (10:15)
[2016-07-27] MEDS ORDERED: fentaNYL (PF) 50 MCG/ML 2 ML AMP IV ONE (10:15)
[2016-07-27] MEDS ORDERED: LIDOCAINE 2% INJ 20 MG/ML SQ ONE (10:16)
[2016-07-27] MEDS ORDERED: TICAGRELOR 90 MG TAB ONE (10:34)
[2016-07-27] MEDS ORDERED: TICAGRELOR 90 MG TAB PO ONE (10:37)
[2016-07-27] MEDS ORDERED: BIVALIRUDIN 250 MG in SODIUM CHLORIDE 0.9% 50 ML IV ONE ×4 (10:53)
[2016-07-27] MEDS ORDERED: BIVALIRUDIN BOLUS 250 MG/50 ML IV ONE ×2 (10:53)
[2016-07-27] MEDS ORDERED: NITROGLYCERIN 1000MCG/10ML SYRINGE INTRACORON ONE (11:16)
[2016-07-27] MEDS ORDERED: niCARdipine Syringe (1,000 mcg/10 mL) INTRACORON ONE (11:16)
[2016-07-27] MEDS ORDERED: RX INFO: IV CONTRAST WAS GIVEN 1 EACH MISC MISCELLANE PRN (11:23)
[2016-07-27] MEDS ORDERED: ZOLPIDEM 5 MG TAB PO PRN (11:23)
[2016-07-27] MEDS ORDERED: MAG HYDROX/AL HYDROX/SIMETH 30 ML CUP PO PRN (11:23)
[2016-07-27] MEDS ORDERED: NITROGLYCERIN SL TABS 0.4 MG TAB SUBLINGUAL PRN (11:23)
[2016-07-27] MEDS ORDERED: ATROPINE SULFATE 0.1 MG/ML 10ML SYRINGE IV PRN (11:23)
[2016-07-27] MEDS ORDERED: SODIUM CHLORIDE 0.9% 1,000 ML IV SCH (11:30)
[2016-07-27] MEDS ORDERED: IODIXANOL 320 MG/ML 100 ML INTRAARTER ONE (11:38)
--- NOTE | 2016-07-27 11:38 | CC ---
DATE OF SERVICE: Mrs. Pro was admitted to the hospital with symptoms of shortness of breath of 2 to 3 days with some vague chest discomfort. Initial EKG showed minimal ST elevation in the anterolateral leads. Subsequent EKG showed a progressive T-wave inversions in the anterolateral leads. Troponin was mildly elevated suggestive of ser-PQ-arxflru elevation myocardial infarction. Echocardiogram revealed extensive anteroapical and apical septal hypokinesia. In view of that, the patient was recommended to have a cardiac catheterization for definitive diagnosis. PROCEDURE: The right groin was prepped and draped in the usual manner and the skin was infiltrated with 2% Xylocaine. The right femoral artery was entered using Seldinger technique, a #6 Bulgarian sheath was placed. The selective coronary angiography was then performed in multiple projections and the left ventricular pressure was obtained. Patient tolerated the procedure well. HEMODYNAMICS: Left ventricular end-diastolic pressure is 20 to 24 mmHg prior to angiography. No gradient is noted across the aortic valve. SELECTIVE CORONARY ANGIOGRAPHY: The left main coronary artery is normal and patent. LAD is a good caliber blood vessel and mid-LAD has a long area of stenosis with focal stenosis of about 80%. There is a diffuse stenosis of 70%. Circumflex coronary artery is a good caliber blood vessel and gives a good size obtuse marginal branch. Circumflex coronary artery and its branches are normal. The right coronary artery is normal caliber blood vessels, gives rise to the posterior descending artery and it is normal. RECOMMENDATIONS: We will proceed with stent, films were reviewed with Dr. Turner and proceed with stent to the LAD.
--- NOTE | 2016-07-27 11:46 | PTCA ---
DATE OF SERVICE: 07/27/2016 PERCUTANEOUS CORONARY INTERVENTION PERFORMING PHYSICIAN: Chase Lua, Customer Relations Consultant. PROCEDURE PERFORMED: Successful stenting of the proximal left anterior descending artery, LAD using 2.75 x 38 mm Xience YENNIFER which was postdilated using 3.5 mm balloon with a good angiographic results. INDICATION: This is a pleasant 76-year-old female patient who presented to the hospital with dyspnea. She was ruled in for acute non-ST elevation myocardial infarction. She underwent a heart catheterization by Dr. Roslyn Camejo and was found to have severe lesion, which was a long tubular lesion involving the proximal LAD. The decision was made toward percutaneous coronary intervention. APPROACH: Right common femoral artery. COMPLICATIONS: None. LEVEL OF SEDATION: Moderate with a length of sedation of about 30 minutes. PROCEDURE DESCRIPTION: After diagnostic heart catheterization was performed by Dr. Roslyn Camejo and after reviewing the angiogram, we decided to pursue with an intervention on the LAD. Anticoagulation was initiated using Angiomax. Subsequently, I tried to engage the left main using an XB35 LAD guide but the guide was not seated well in the left main so at that point, I decided to switch to a JL4 guide. Subsequently, I wired the LAD using a whisper wire. I did predilatation using 2.5 x 20 mm balloon and subsequently I deployed a 2.75 x 38 mm Xience YENNIFER, where the stent was positioned under fluoroscopy guidance and it was deployed under 14 atmospheres for 20 seconds. After that, I did post dilate using 3.0 x 27 mm balloon which was inflated 3 times inside the stent. The following angiogram showed good angiographic result without perforation and without dissection with excellent flow in the LAD. POSTPROCEDURE MANAGEMENT: 1. Dual antiplatelet therapy. 2. Risk factor modification. 3. Follow up with the patient.
[2016-07-27 12:03] LABS: Glucose,Whole Blood 131 mg/dL (75-99)
--- NOTE | 2016-07-27 15:42 | P.PN ---
Subjective Is a 76-year-old female with history of chronic hypoxic respiratory failure remote history of smoking comes in the hospital with the intermittent episodes of choking. Patient apparently has had URI-like symptoms has undergone 2 courses of antibiotics and steroid therapy and has failed and was noted to have symptoms where patient falls asleep and suddenly wakes up to gasping for air. This happened multiple times over the past 2 weeks. Patient also states that she has had these episodes in the past as well. Patient denies any chest pain difficulty breathing nausea vomiting or diarrhea at this time. However patient states that she is sick of not knowing why her breathing gets worse intermittently. In the ER patient was noted to have a troponin leak and some subtle EKG changes. Patient is started on IV heparin was given steroids and thereafter triaged to the selective floor. Examination patient states that she has a cough however is minimally productive in nature. 07/27/2069 Patient is seen status post cardiac catheterization and PCI. States her breathing is significantly improved. Patient states that her condition and the sinuses is improved. States that she has some pain in her right knee. Denies any fevers chills nausea vomiting diarrhea. Objective - Vital Signs Vital signs: Vital Signs Temp 96.6 F L 07/27/16 04:00 Pulse 84 07/27/16 07:34 Resp 16 07/27/16 11:38 BP 140/74 07/27/16 13:08 Pulse Ox 96 07/27/16 11:23 Intake & Output 07/26/16 07/27/16 07/27/16 18:59 06:59 18:59 Intake Total 620 1125.921 405.613 Output Total 500 Balance 620 625.921 405.613 Weight 60.3 kg Intake: IV 400 760 225 Heparin Sodium,Porcine/ 120 D5w Pmx 25,000 unit In Dextrose/Water 1 500ml. bag @ 12 UNITS/KG/HR 14. 26 mls/hr IV .Q24H [facility] Rx #:[id number] Sodium Chloride 0.9% 1, 400 640 000 ml @ 20 mls/hr IV . Q24H [facility] Rx#:[id number] Intake, IV Titration 365.921 180.613 Amount Heparin Sodium,Porcine/ 365.921 180.613 D5w Pmx 25,000 unit In Dextrose/Water 1 500ml. bag @ 12 UNITS/KG/HR 14. 26 mls/hr IV .Q24H [facility] Rx #:[id number] Oral 220 Output: Urine 500 Other: Voiding Method Bedside Commode Bedside Commode # Voids 2 - Exam Physical exam Gen. appearance oriented 3 in no distress Neck is supple no JVD Lungs good air entry clear to auscultation no rhonchi or wheezing Heart S1-S2 heard regular rate and rhythm no murmurs appreciated Abdomen is soft nontender no organomegaly bowel sounds are intact Neurologically cranial nerves II-12 grossly intact no focal motor or sensory deficits noted Left groin there is a FemoStop that is noted during the time of my examination Skin no abnormalities appreciated - Labs CBC & Chem 7: 07/27/16 06:24 07/27/16 06:24 Labs: Abnormal Lab Results - Last 24 Hours (Table) 07/26/16 07/26/16 07/27/16 Range/Units 16:40 20:59 06:17 WBC (3.8-10.6) k/uL Neutrophils # (1.3-7.7) k/uL Lymphocytes # (1.0-4.8) k/uL APTT (22.0-30.0) sec Chloride (98-107) mmol/L Carbon Dioxide (22-30) mmol/L BUN (7-17) mg/dL Glucose (74-99) mg/dL POC Glucose (mg/dL) 239 H 204 H 184 H (75-99) mg/dL AST (14-36) U/L Total Protein (6.3-8.2) g/dL 07/27/16 07/27/16 07/27/16 Range/Units 06:24 06:24 06:24 WBC 15.6 H (3.8-10.6) k/uL Neutrophils # 13.5 H (1.3-7.7) k/uL Lymphocytes # 0.9 L (1.0-4.8) k/uL APTT 40.3 H (22.0-30.0) sec Chloride 112 H (98-107) mmol/L Carbon Dioxide 17 L (22-30) mmol/L BUN 34 H (7-17) mg/dL Glucose 180 H (74-99) mg/dL POC Glucose (mg/dL) (75-99) mg/dL AST 45 H (14-36) U/L Total Protein 6.1 L (6.3-8.2) g/dL 07/27/16 07/27/16 Range/Units 12:01 12:54 WBC (3.8-10.6) k/uL Neutrophils # (1.3-7.7) k/uL Lymphocytes # (1.0-4.8) k/uL APTT 51.5 H (22.0-30.0) sec Chloride (98-107) mmol/L Carbon Dioxide (22-30) mmol/L BUN (7-17) mg/dL Glucose (74-99) mg/dL POC Glucose (mg/dL) 131 H (75-99) mg/dL AST (14-36) U/L Total Protein (6.3-8.2) g/dL Assessment and Plan Plan: #1 acute on chronic hypoxic respiratory failure secondary to bronchospasm likely from postnasal drip versus reflux disease #2 non-Q wave myocardial infarction , CAD status post PCI and PTCA to the LAD #3 history of COPD #4 history of hypertension #5 dyslipidemia. #6 acute maxillary sinusitis 7 diabetes mellitus type 2 Plan Continue ongoing care. Dual antiplatelet therapy. Blood pressure management. States patient is feeling better. Vascular checks. Potential discharge in the next 24-48 hours.
[2016-07-27 16:42] LABS: Glucose,Whole Blood 160 mg/dL (75-99)
[2016-07-27] MEDS: HEPARIN SODIUM,PORCINE/D5W PMX 25,000 UNIT in DEXTROSE/WATER 1 500ML.BAG IV SCH (17:01)
[2016-07-27 20:53] LABS: Glucose,Whole Blood 192 mg/dL (75-99)
[2016-07-27] MEDS: metFORMIN 500 MG TAB PO SCH (21:17)
[2016-07-27] MEDS: MELATONIN 3 MG TABLET PO SCH (21:18)
[2016-07-27] MEDS: TICAGRELOR 90 MG TAB PO SCH (21:18)
[2016-07-27] MEDS: SODIUM CHLORIDE 0.9% 1,000 ML IV SCH (21:29)
[2016-07-28] MEDS: IPRATROPIUM-ALBUTEROL 3 ML NEB INHALATION SCH ×7 (00:02→23:22)
[2016-07-28] MEDS: NITROGLYCERIN OINT 1 INCH/GM PACKET TOPICAL SCH ×4 (00:41→17:49)
[2016-07-28 06:39] LABS: Basophils % (A) 0 %; CHCM 34.3; Eosinophils % (A) 0 %; HCT 39.6 % (34.0-46.0); HDW 3.34; HGB 12.9 gm/dL (11.4-16.0); Luc # (Auto) 0.17; Luc % (Auto) 2; Lymphocytes % (A) 10 %; MCH 28.6 pg (25.0-35.0); MCHC 32.4 g/dL (31.0-37.0); MCV 88.2 fL (80.0-100.0); Mean Platelet Volume 8.4; Monocytes % (A) 9 %; Neutrophils # (A) 8.5 k/uL (1.3-7.7); Neutrophils % (A) 80 %; RBC 4.49 m/uL (3.80-5.40); RDW 14.5 % (11.5-15.5); WBC 10.7 k/uL (3.8-10.6); WBC (Perox) 11.07
[2016-07-28 06:48] LABS: Anion Gap 11 mmol/L; Blood Urea Nitrogen 23 mg/dL (7-17); Calcium 8.9 mg/dL (8.4-10.2); Carbon Dioxide 19 mmol/L (22-30); Chloride 110 mmol/L (98-107); Glucose 180 mg/dL (74-99); Non-African American GFR(MDRD) >60 (>60 ml/min/1.73 sqM); Potassium 3.9 mmol/L (3.5-5.1); Sodium 140 mmol/L (137-145)
[2016-07-28] MEDS: PANTOPRAZOLE 40 MG TABLET PO SCH (06:48)
[2016-07-28] MEDS: INSULIN LISPRO (humaLOG) 300 UNIT/3 ML VIAL SQ SCH ×4 (06:50→21:20)
[2016-07-28 07:05] LABS: Glucose,Whole Blood 170 mg/dL (75-99)
[2016-07-28] MEDS: BENZONATATE 100 MG CAP PO SCH ×3 (09:44→21:19)
[2016-07-28] MEDS: ASPIRIN 81 MG CHEW PO SCH (09:45)
[2016-07-28] MEDS: ATORVASTATIN 80 MG TAB PO SCH (09:45)
[2016-07-28] MEDS: predniSONE 20 MG TAB PO SCH (09:46)
[2016-07-28] MEDS: TICAGRELOR 90 MG TAB PO SCH ×2 (09:47→21:19)
[2016-07-28] MEDS: LISINOPRIL 10 MG TAB PO SCH (11:56)
[2016-07-28] MEDS: METOPROLOL TARTRATE 25 MG TAB PO SCH ×2 (11:56→21:20)
[2016-07-28 12:01] LABS: Glucose,Whole Blood 160 mg/dL (75-99)
--- NOTE | 2016-07-28 13:47 | P.PN ---
Subjective Progress note dated 07/28/2016 This is a 76-year-old female with history of upper respiratory infection and a maxillary sinusitis as well as COPD exacerbation. Patient is doing relatively well for the pulmonary standpoint. Was not seen by Dr. Green yesterday. I believe he sign off of her. Anyway the patient is doing relatively well. Feeling well. The patient apparently sees Dr. Vance and our clinic for her COPD. She states she may be discharged home today. She wasn't sure. She was eating time of the evaluation. No distress. Not wearing any supplemental oxygen. She was actually eating [employer]'s. Objective - Vital Signs Vital signs: Vital Signs Temp 97.5 F L 07/28/16 08:00 Pulse 102 H 07/28/16 12:00 Resp 20 07/28/16 12:00 BP 187/90 07/28/16 12:00 Pulse Ox 96 07/28/16 12:00 Intake & Output 07/27/16 07/28/16 07/28/16 18:59 06:59 18:59 Intake Total 1125.613 960 120 Output Total 550 200 Balance 1125.613 410 -80 Weight 61.8 kg Intake: IV 825 960 Sodium Chloride 0.9% 1, 800 000 ml @ 100 mls/hr IV . Q10H [facility] Rx#:[id number] Sodium Chloride 0.9% 1, 600 160 000 ml @ 20 mls/hr IV . Q24H [facility] Rx#:[id number] Intake, IV Titration 180.613 Amount Heparin Sodium,Porcine/ 180.613 D5w Pmx 25,000 unit In Dextrose/Water 1 500ml. bag @ 12 UNITS/KG/HR 14. 26 mls/hr IV .Q24H [facility] Rx #:[id number] Oral 120 120 Output: Urine 550 200 Other: Voiding Method Bedside Commode Bedside Commode Bedside Commode # Bowel Movements 0 - Exam No acute distress, oriented 3. Sitting up in bed eating her lunch. HEENT examination is grossly unremarkable. Mucous membranes are moist. No oral lesions. TMs EACs normal. Neck supple. Full range of motion. No adenopathy or thyromegaly. Cardiovascular examination reveals regular rhythm rate. S1 and S2 normal. No S3-S4 murmur. Lungs are clear breath sounds are equal. No wheezes rhonchi or crackles. Abdomen soft bowel sounds are heard. Extremities are intact. - Labs CBC & Chem 7: 07/28/16 06:02 07/28/16 06:02 Labs: Abnormal Lab Results - Last 24 Hours (Table) 07/27/16 07/27/16 07/28/16 Range/Units 16:40 20:51 06:02 WBC 10.7 H (3.8-10.6) k/uL Neutrophils # 8.5 H (1.3-7.7) k/uL Chloride (98-107) mmol/L Carbon Dioxide (22-30) mmol/L BUN (7-17) mg/dL Glucose (74-99) mg/dL POC Glucose (mg/dL) 160 H 192 H (75-99) mg/dL 07/28/16 07/28/16 07/28/16 Range/Units 06:02 06:50 11:44 WBC (3.8-10.6) k/uL Neutrophils # (1.3-7.7) k/uL Chloride 110 H (98-107) mmol/L Carbon Dioxide 19 L (22-30) mmol/L BUN 23 H (7-17) mg/dL Glucose 180 H (74-99) mg/dL POC Glucose (mg/dL) 170 H 160 H (75-99) mg/dL Assessment and Plan (1) Acute SD Status: Acute Plan: Plan dated 07/28/2016 The patient's doing well. Possible discharge home today. Additional recommendations are made. She does have an appointment to see Dr. Swift I believe on August 11. We'll continue to follow. Prognosis is guarded. Time with Patient: Less than 30
--- NOTE | 2016-07-28 15:03 | P.PN ---
Subjective This is a 76-year-old female with history of hypertension, hyperlipidemia, diabetes, prior nicotine dependence, COPD, who presents to the hospital with symptoms of fairly sudden onset of shortness of breath. She states that she's been dealing with a sinus an upper respiratory infection, has been on antibiotics and steroids as an outpatient, without much relief in symptoms. The day before yesterday she states that she became quite short of breath, felt like she had to cough something up in her chest, woke up from sleep. Patient ruled in for non-Q-wave myocardial infarction, was taken to the cardiac catheterization lab yesterday where she underwent angioplasty with stent placement of the left anterior descending artery. Patient was seen and examined this morning, denies any chest pain, breathing is overall stable. Continues to have some mild wheezing. Blood pressure 145/85 with a heart rate in the 90s. Echo pending. EKG shows normal sinus rhythm with improvement in anterior ST-T wave changes. Objective - Vital Signs Vital signs: Vital Signs Temp 97.5 F L 07/28/16 08:00 Pulse 102 H 07/28/16 12:00 Resp 20 07/28/16 12:00 BP 187/90 07/28/16 12:00 Pulse Ox 96 07/28/16 12:00 Intake & Output 07/27/16 07/28/16 07/28/16 18:59 06:59 18:59 Intake Total 1125.613 960 120 Output Total 550 200 Balance 1125.613 410 -80 Weight 61.8 kg Intake: IV 825 960 Sodium Chloride 0.9% 1, 800 000 ml @ 100 mls/hr IV . Q10H [facility] Rx#:[id number] Sodium Chloride 0.9% 1, 600 160 000 ml @ 20 mls/hr IV . Q24H [facility] Rx#:[id number] Intake, IV Titration 180.613 Amount Heparin Sodium,Porcine/ 180.613 D5w Pmx 25,000 unit In Dextrose/Water 1 500ml. bag @ 12 UNITS/KG/HR 14. 26 mls/hr IV .Q24H [facility] Rx #:[id number] Oral 120 120 Output: Urine 550 200 Other: Voiding Method Bedside Commode Bedside Commode Bedside Commode # Bowel Movements 0 - Exam PHYSICAL EXAMINATION: HEENT: Head is atraumatic, normocephalic. Pupils equal, round. Neck is supple. There is no elevated jugular venous pressure. HEART EXAMINATION: Heart S1, S2 normal. No murmur or gallop heard. CHEST EXAMINATION: His reveal decreased air exchange with wheezing throughout. ABDOMEN: Soft, nontender. Bowel sounds are heard. No organomegaly noted. Right groin soft, no evidence of hematoma. EXTREMITIES: 2+ peripheral pulses with no evidence of peripheral edema and no calf tenderness noted. NEUROLOGIC patient is awake, alert and oriented -3. . - Labs CBC & Chem 7: 07/28/16 06:02 07/28/16 06:02 Labs: Abnormal Lab Results - Last 24 Hours (Table) 07/27/16 07/27/16 07/28/16 Range/Units 16:40 20:51 06:02 WBC 10.7 H (3.8-10.6) k/uL Neutrophils # 8.5 H (1.3-7.7) k/uL Chloride (98-107) mmol/L Carbon Dioxide (22-30) mmol/L BUN (7-17) mg/dL Glucose (74-99) mg/dL POC Glucose (mg/dL) 160 H 192 H (75-99) mg/dL 07/28/16 07/28/16 07/28/16 Range/Units 06:02 06:50 11:44 WBC (3.8-10.6) k/uL Neutrophils # (1.3-7.7) k/uL Chloride 110 H (98-107) mmol/L Carbon Dioxide 19 L (22-30) mmol/L BUN 23 H (7-17) mg/dL Glucose 180 H (74-99) mg/dL POC Glucose (mg/dL) 170 H 160 H (75-99) mg/dL Assessment and Plan Plan: Assessment and plan #1 symptoms of fairly sudden onset of shortness of breath with evidence of EKG changes in the anterior lateral region and abnormal troponins suggestive of acute coronary syndrome.s/p Stent of LAD. #2 recent treatment for upper respiratory infection with antibiotics and steroids #3 hypertension #4 hyperlipidemia #5 diabetes #6 prior smoking history, patient quit smoking 50 years ago #[id number] Plan Cardiology's perspective, we will add JOCY inhibitor and beta jarvis to the patient's medication regime. Continue baby aspirin, Brilinta, Lipitor. Increase activity as tolerated today. DNP note has been reviewed, I agree with a documented findings and plan of care. Patient was seen and examined.
--- NOTE | 2016-07-28 15:36 | ECHOF ---
Referral Reason:nstemi MEASUREMENTS -------- HEIGHT: 152.4 cm WEIGHT: 59.4 kg BP: 99/52 RVIDd: 2.6 cm (< 3.3) IVSd: 1.0 cm (0.6 - 1.1) LVIDd: 4.0 cm (3.9 - 5.3) LVPWd: 1.3 cm (0.6 - 1.1) IVSs: 1.1 cm LVIDs: 3.3 cm LVPWs: 1.8 cm LA Diam: 3.1 cm (2.7 - 3.8) LAESV Index (A-L): 20.92 ml/m Ao Diam: 2.5 cm (2.0 - 3.7) AV Cusp: 1.4 cm (1.5 - 2.6) LA Diam: 2.7 cm (2.7 - 3.8) MV EXCURSION: 13.189 mm (> 18.000) MV EF SLOPE: 49 mm/s (70 - 150) EPSS: 0.7 cm MV E Osmin: 0.80 m/s MV DecT: 140 ms MV A Osmin: 1.15 m/s MV E/A Ratio: 0.70 FINDINGS -------- Sinus rhythm. This was a technically good study. There is mild concentric left ventricular hypertrophy. Overall left ventricular systolic function is mildly impaired with, an EF between 45 - 50 %. Basal anteroseptal LV wall motion is hypokinetic. Mid anteroseptal LV wall motion is hypokinetic. Apical septum LV wall motion is hypokinetic. Possible [place] The right ventricle is normal in size. Normal LA size by volume 22+/-6 ml/m2. The right atrium is normal in size. Aneurysmal Interatrial septum. Aortic valve is trileaflet and is mildly thickened. The mitral valve leaflets are mildly thickened. Mild mitral annular calcification present. Mild mitral regurgitation is present. Trace tricuspid regurgitation present. Pulmonic valve appears structurally normal. The aortic root, ascending aorta and aortic arch are normal. Normal inferior vena cava with normal inspiratory collapse consistent with estimated right atrial pressure of 5 mmHg. Echo free space may represent effusion or a pericardial fat pad. CONCLUSIONS -------- 1. Sinus rhythm. 2. Normal LA size by volume 22+/-6 ml/m2. 3. The right atrium is normal in size. 4. Aneurysmal Interatrial septum. 5. Aortic valve is trileaflet and is mildly thickened. 6. The mitral valve leaflets are mildly thickened. 7. Mild mitral annular calcification present. 8. Mild mitral regurgitation is present. 9. Trace tricuspid regurgitation present. 10. Pulmonic valve appears structurally normal. 11. The aortic root, ascending aorta and aortic arch are normal. 12. This was a technically good study. 13. Normal inferior vena cava with normal inspiratory collapse consistent with estimated right atrial pressure of 5 mmHg. 14. Echo free space may represent effusion or a pericardial fat pad. 15. There is mild concentric left ventricular hypertrophy. 16. Overall left ventricular systolic function is mildly impaired with, an EF between 45 - 50 %. 17. Basal anteroseptal LV wall motion is hypokinetic. 18. Mid anteroseptal LV wall motion is hypokinetic. 19. Apical septum LV wall motion is hypokinetic. 20. Possible [place] 21. The right ventricle is normal in size. TAILING HAND: Kenneth Burns RDCS
[2016-07-28 16:58] LABS: Glucose,Whole Blood 220 mg/dL (75-99)
--- NOTE | 2016-07-28 17:41 | P.PN ---
Subjective Is a 76-year-old female with history of chronic hypoxic respiratory failure remote history of smoking comes in the hospital with the intermittent episodes of choking. Patient apparently has had URI-like symptoms has undergone 2 courses of antibiotics and steroid therapy and has failed and was noted to have symptoms where patient falls asleep and suddenly wakes up to gasping for air. This happened multiple times over the past 2 weeks. Patient also states that she has had these episodes in the past as well. Patient denies any chest pain difficulty breathing nausea vomiting or diarrhea at this time. However patient states that she is sick of not knowing why her breathing gets worse intermittently. In the ER patient was noted to have a troponin leak and some subtle EKG changes. Patient is started on IV heparin was given steroids and thereafter triaged to the selective floor. Examination patient states that she has a cough however is minimally productive in nature. 07/27/2069 Patient is seen status post cardiac catheterization and PCI. States her breathing is significantly improved. Patient states that her condition and the sinuses is improved. States that she has some pain in her right knee. Denies any fevers chills nausea vomiting diarrhea. 07/28/2016 Patient states her symptoms are significantly improved states to have mild cough which is also improving. Denies having any chest pain, difficulty breathing, nausea, vomiting. Objective - Vital Signs Vital signs: Vital Signs Temp 97.5 F L 07/28/16 08:00 Pulse 88 07/28/16 15:15 Resp 20 07/28/16 12:00 BP 187/90 07/28/16 12:00 Pulse Ox 96 07/28/16 12:00 Intake & Output 07/27/16 07/28/16 07/28/16 18:59 06:59 18:59 Intake Total 1125.613 960 120 Output Total 550 200 Balance 1125.613 410 -80 Weight 61.8 kg Intake: IV 825 960 Sodium Chloride 0.9% 1, 800 000 ml @ 100 mls/hr IV . Q10H [facility] Rx#:[id number] Sodium Chloride 0.9% 1, 600 160 000 ml @ 20 mls/hr IV . Q24H [facility] Rx#:[id number] Intake, IV Titration 180.613 Amount Heparin Sodium,Porcine/ 180.613 D5w Pmx 25,000 unit In Dextrose/Water 1 500ml. bag @ 12 UNITS/KG/HR 14. 26 mls/hr IV .Q24H [facility] Rx #:[id number] Oral 120 120 Output: Urine 550 200 Other: Voiding Method Bedside Commode Bedside Commode Bedside Commode # Voids 1 # Bowel Movements 0 - Exam Physical exam Gen. appearance oriented 3 in no distress Neck is supple no JVD Lungs good air entry clear to auscultation no rhonchi or wheezing Heart S1-S2 heard regular rate and rhythm no murmurs appreciated Abdomen is soft nontender no organomegaly bowel sounds are intact Neurologically cranial nerves II-12 grossly intact no focal motor or sensory deficits noted Skin no abnormalities appreciated - Labs CBC & Chem 7: 07/28/16 06:02 07/28/16 06:02 Labs: Abnormal Lab Results - Last 24 Hours (Table) 07/27/16 07/28/16 07/28/16 Range/Units 20:51 06:02 06:02 WBC 10.7 H (3.8-10.6) k/uL Neutrophils # 8.5 H (1.3-7.7) k/uL Chloride 110 H (98-107) mmol/L Carbon Dioxide 19 L (22-30) mmol/L BUN 23 H (7-17) mg/dL Glucose 180 H (74-99) mg/dL POC Glucose (mg/dL) 192 H (75-99) mg/dL 07/28/16 07/28/16 07/28/16 Range/Units 06:50 11:44 16:27 WBC (3.8-10.6) k/uL Neutrophils # (1.3-7.7) k/uL Chloride (98-107) mmol/L Carbon Dioxide (22-30) mmol/L BUN (7-17) mg/dL Glucose (74-99) mg/dL POC Glucose (mg/dL) 170 H 160 H 220 H (75-99) mg/dL Assessment and Plan Plan: #1 acute on chronic hypoxic respiratory failure secondary to bronchospasm likely from postnasal drip versus reflux disease #2 non-Q wave myocardial infarction , CAD status post PCI and PTCA to the LAD #3 history of COPD #4 history of hypertension #5 dyslipidemia. #6 acute maxillary sinusitis 7 diabetes mellitus type 2 Plan Dual antiplatelet therapy . JOCY inhibitor, beta jarvis. Continue ongoing care cough suppressants. Patient's dyspnea is significantly improved.
[2016-07-28] MEDS: SODIUM CHLORIDE 0.9% 1,000 ML IV SCH (17:55)
[2016-07-28 21:18] LABS: Glucose,Whole Blood 183 mg/dL (75-99)
[2016-07-28] MEDS: MELATONIN 3 MG TABLET PO SCH (21:20)
[2016-07-29] MEDS: NITROGLYCERIN OINT 1 INCH/GM PACKET TOPICAL SCH ×3 (00:49→13:03)
[2016-07-29] MEDS: IPRATROPIUM-ALBUTEROL 3 ML NEB INHALATION SCH ×4 (03:43→17:18)
[2016-07-29 06:06] LABS: Glucose,Whole Blood 151 mg/dL (75-99)
[2016-07-29 06:09] LABS: Basophils % (A) 0 %; CH 29.9; CHCM 34.5; Eosinophils # (A) 0.1 k/uL (0-0.7); Eosinophils % (A) 1 %; HCT 40.8 % (34.0-46.0); HDW 3.38; HGB 13.7 gm/dL (11.4-16.0); Luc # (Auto) 0.16; Luc % (Auto) 1; Lymphocytes # (A) 1.7 k/uL (1.0-4.8); Lymphocytes % (A) 14 %; MCH 29.5 pg (25.0-35.0); MCHC 33.7 g/dL (31.0-37.0); MCV 87.5 fL (80.0-100.0); Monocytes % (A) 8 %; Neutrophils # (A) 9.3 k/uL (1.3-7.7); Neutrophils % (A) 76 %; RBC 4.66 m/uL (3.80-5.40); RDW 14.3 % (11.5-15.5); WBC 12.3 k/uL (3.8-10.6); WBC (Perox) 12.88
[2016-07-29 06:23] LABS: ALT 48 U/L (9-52); AST 53 U/L (14-36); Alkaline Phosphatase 99 U/L (38-126); Anion Gap 9 mmol/L; Blood Urea Nitrogen 24 mg/dL (7-17); Calcium 8.4 mg/dL (8.4-10.2); Carbon Dioxide 21 mmol/L (22-30); Chloride 108 mmol/L (98-107); Glucose 153 mg/dL (74-99); Non-African American GFR(MDRD) >60 (>60 ml/min/1.73 sqM); Potassium 3.8 mmol/L (3.5-5.1); Sodium 138 mmol/L (137-145); Total Bilirubin 0.8 mg/dL (0.2-1.3); Total Protein 5.6 g/dL (6.3-8.2)
[2016-07-29] MEDS: INSULIN LISPRO (humaLOG) 300 UNIT/3 ML VIAL SQ SCH ×2 (06:49→13:03)
[2016-07-29] MEDS: PANTOPRAZOLE 40 MG TABLET PO SCH (06:49)
[2016-07-29] MEDS: ATORVASTATIN 80 MG TAB PO SCH (09:10)
[2016-07-29] MEDS: LISINOPRIL 10 MG TAB PO SCH (09:10)
[2016-07-29] MEDS: BENZONATATE 100 MG CAP PO SCH (09:10)
[2016-07-29] MEDS: ASPIRIN 81 MG CHEW PO SCH (09:10)
[2016-07-29] MEDS: METOPROLOL TARTRATE 25 MG TAB PO SCH (09:11)
[2016-07-29] MEDS: TICAGRELOR 90 MG TAB PO SCH (09:11)
[2016-07-29] MEDS: predniSONE 20 MG TAB PO SCH (09:11)
[2016-07-29 11:36] VITALS: BP 133/71; RESP 18; TEMP 96.8
[2016-07-29 11:38] LABS: Glucose,Whole Blood 156 mg/dL (75-99)
--- NOTE | 2016-07-29 13:58 | P.PN ---
Subjective Progress note dated 07/28/2016 This is a 76-year-old female with history of upper respiratory infection and a maxillary sinusitis as well as COPD exacerbation. Patient is doing relatively well for the pulmonary standpoint. Was not seen by Dr. Green yesterday. I believe he sign off of her. Anyway the patient is doing relatively well. Feeling well. The patient apparently sees Dr. Vance and our clinic for her COPD. She states she may be discharged home today. She wasn't sure. She was eating time of the evaluation. No distress. Not wearing any supplemental oxygen. She was actually eating [employer]. Progress note dated 07/29/2016 This is a 76-year-old female with history of upper respiratory infection maxillary sinusitis and recent acute myocardial infarction with stent placement. From the pulmonary standpoint she is doing very well. She likely will be discharged home today. Feeling much better. No cough no wheezing. No chest pain. No fever no chills. No nausea vomiting or diarrhea. Objective - Vital Signs Vital signs: Vital Signs Temp 96.8 F L 07/29/16 11:15 Pulse 88 07/29/16 11:36 Resp 18 07/29/16 11:15 BP 133/71 07/29/16 11:15 Pulse Ox 95 07/29/16 11:15 Intake & Output 07/28/16 07/29/16 07/29/16 18:59 06:59 18:59 Intake Total 240 640 240 Output Total 900 1150 300 Balance -660 -510 -60 Weight 61.8 kg 60.6 kg Intake: IV 40 Sodium Chloride 0.9% 1, 40 000 ml @ 20 mls/hr IV . Q24H [facility] Rx#:[id number] Oral 240 600 240 Output: Urine 900 1150 300 Other: Voiding Method Bedside Commode Bedside Commode # Voids 1 1 # Bowel Movements 0 1 - Exam No acute distress, oriented 3. Sitting up in bed eating her lunch. HEENT examination is grossly unremarkable. Mucous membranes are moist. No oral lesions. TMs EACs normal. Neck supple. Full range of motion. No adenopathy or thyromegaly. Cardiovascular examination reveals regular rhythm rate. S1 and S2 normal. No S3-S4 murmur. Lungs are clear breath sounds are equal. No wheezes rhonchi or crackles. Abdomen soft bowel sounds are heard. Extremities are intact. - Labs CBC & Chem 7: 07/29/16 05:55 07/29/16 05:55 Labs: Abnormal Lab Results - Last 24 Hours (Table) 07/28/16 07/28/16 07/29/16 Range/Units 16:27 21:01 05:55 WBC 12.3 H (3.8-10.6) k/uL Neutrophils # 9.3 H (1.3-7.7) k/uL Chloride (98-107) mmol/L Carbon Dioxide (22-30) mmol/L BUN (7-17) mg/dL Glucose (74-99) mg/dL POC Glucose (mg/dL) 220 H 183 H (75-99) mg/dL AST (14-36) U/L Total Protein (6.3-8.2) g/dL Albumin (3.5-5.0) g/dL 07/29/16 07/29/16 07/29/16 Range/Units 05:55 06:04 11:34 WBC (3.8-10.6) k/uL Neutrophils # (1.3-7.7) k/uL Chloride 108 H (98-107) mmol/L Carbon Dioxide 21 L (22-30) mmol/L BUN 24 H (7-17) mg/dL Glucose 153 H (74-99) mg/dL POC Glucose (mg/dL) 151 H 156 H (75-99) mg/dL AST 53 H (14-36) U/L Total Protein 5.6 L (6.3-8.2) g/dL Albumin 3.3 L (3.5-5.0) g/dL Assessment and Plan (1) Acute NM Status: Acute Plan: Plan dated 07/28/2016 The patient's doing well. Possible discharge home today. Additional recommendations are made. She does have an appointment to see Dr. Swift I believe on August 11. We'll continue to follow. Prognosis is guarded. Next Plan dated 07/29/2016 The patient is doing much better. Will likely be discharged from the hospital today. Feeling better. Family at the bedside. This 20 for the primary service and the millwright apprentice if they're okay. For the pulmonary service doing well. We'll sign off this patient. Time with Patient: Less than 30
[2016-07-29 14:45] VITALS: PULSE 72
--- NOTE | 2016-07-29 16:08 | P.PN ---
Subjective Principal diagnosis: 9 STEMI This is a 76-year-old female with history of hypertension, hyperlipidemia, diabetes, prior nicotine dependence, COPD, who presents to the hospital with symptoms of fairly sudden onset of shortness of breath. She states that she's been dealing with a sinus an upper respiratory infection, has been on antibiotics and steroids as an outpatient, without much relief in symptoms. The day before yesterday she states that she became quite short of breath, felt like she had to cough something up in her chest, woke up from sleep. Patient ruled in for non-Q-wave myocardial infarction, was taken to the cardiac catheterization lab yesterday where she underwent angioplasty with stent placement of the left anterior descending artery. Patient was seen and examined this morning, denies any chest pain, breathing is overall stable. Patient should be able to be discharged home today. A follow-up appointment will be made with Dr. Camejo in the office post discharge. Objective - Vital Signs Vital signs: Vital Signs Temp 96.8 F L 07/29/16 11:15 Pulse 72 07/29/16 12:00 Resp 18 07/29/16 11:15 BP 133/71 07/29/16 11:15 Pulse Ox 95 07/29/16 11:15 Intake & Output 07/28/16 07/29/16 07/29/16 18:59 06:59 18:59 Intake Total 240 640 240 Output Total 900 1150 300 Balance -660 -510 -60 Weight 61.8 kg 60.6 kg Intake: IV 40 Sodium Chloride 0.9% 1, 40 000 ml @ 20 mls/hr IV . Q24H [facility] Rx#:[id number] Oral 240 600 240 Output: Urine 900 1150 300 Other: Voiding Method Bedside Commode Bedside Commode # Voids 1 1 # Bowel Movements 0 1 - Exam PHYSICAL EXAMINATION: HEENT: Head is atraumatic, normocephalic. Pupils equal, round. Neck is supple. There is no elevated jugular venous pressure. HEART EXAMINATION: Heart S1, S2 normal. No murmur or gallop heard. CHEST EXAMINATION: His reveal decreased air exchange with wheezing throughout. ABDOMEN: Soft, nontender. Bowel sounds are heard. No organomegaly noted. Right groin soft, no evidence of hematoma. EXTREMITIES: 2+ peripheral pulses with no evidence of peripheral edema and no calf tenderness noted. NEUROLOGIC patient is awake, alert and oriented -3. . - Labs CBC & Chem 7: 07/29/16 05:55 07/29/16 05:55 Labs: Abnormal Lab Results - Last 24 Hours (Table) 07/28/16 07/28/16 07/29/16 Range/Units 16:27 21:01 05:55 WBC 12.3 H (3.8-10.6) k/uL Neutrophils # 9.3 H (1.3-7.7) k/uL Chloride (98-107) mmol/L Carbon Dioxide (22-30) mmol/L BUN (7-17) mg/dL Glucose (74-99) mg/dL POC Glucose (mg/dL) 220 H 183 H (75-99) mg/dL AST (14-36) U/L Total Protein (6.3-8.2) g/dL Albumin (3.5-5.0) g/dL 07/29/16 07/29/16 07/29/16 Range/Units 05:55 06:04 11:34 WBC (3.8-10.6) k/uL Neutrophils # (1.3-7.7) k/uL Chloride 108 H (98-107) mmol/L Carbon Dioxide 21 L (22-30) mmol/L BUN 24 H (7-17) mg/dL Glucose 153 H (74-99) mg/dL POC Glucose (mg/dL) 151 H 156 H (75-99) mg/dL AST 53 H (14-36) U/L Total Protein 5.6 L (6.3-8.2) g/dL Albumin 3.3 L (3.5-5.0) g/dL Assessment and Plan Plan: Assessment and plan #1 symptoms of fairly sudden onset of shortness of breath with evidence of EKG changes in the anterior lateral region and abnormal troponins suggestive of acute coronary syndrome.s/p Stent of LAD. #2 recent treatment for upper respiratory infection with antibiotics and steroids #3 hypertension #4 hyperlipidemia #5 diabetes #6 prior smoking history, patient quit smoking 50 years ago #7COPD Plan Cardiology's perspective, patient should be able to be discharged home today. We'll make a follow-up appointment with Dr. VC Camejo in the office post discharge. Patient will be discharged home on aspirin 81 mg daily, Lipitor 80 mg daily, lisinopril 10 mg daily, metoprolol tartrate 25 mg one tablet by mouth twice a day, Brilinta 90 mg twice a day and sublingual nitroglycerin as needed for chest pain. Patient has been provided prescriptions for the above medications and she has been educated regarding them as well. DNP note has been reviewed, I agree with a documented findings and plan of care. Patient was seen and examined.
--- NOTE | 2016-07-29 16:59 | P.DS ---
Providers Date of admission: 07/25/16 16:17 Attending physician: Jose Wolfe Consults: 07/25/16 16:20 Consult Physician Urgent Consulting Provider: Maynor Vance Consult Reason/Comments: Bronchospasms Do you want consulting provider notified?: Yes 07/27/16 11:23 Consult Physician Routine Consulting Provider: [facility] Consult Reason/Comments: Post Interventional patient Do you want consulting provider notified?: Already Contacted Primary care physician: Catie Akhtar [place] Hospital Course: Is a 76-year-old female with history of chronic hypoxic respiratory failure remote history of smoking comes in the hospital with the intermittent episodes of choking. Patient apparently has had URI-like symptoms has undergone 2 courses of antibiotics and steroid therapy and has failed and was noted to have symptoms where patient falls asleep and suddenly wakes up to gasping for air. This happened multiple times over the past 2 weeks. Patient also states that she has had these episodes in the past as well. Patient denies any chest pain difficulty breathing nausea vomiting or diarrhea at this time. However patient states that she is sick of not knowing why her breathing gets worse intermittently. In the ER patient was noted to have a troponin leak and some subtle EKG changes. Patient is started on IV heparin was given steroids and thereafter triaged to the selective floor. Examination patient states that she has a cough however is minimally productive in nature. 07/27/2069 Patient is seen status post cardiac catheterization and PCI. States her breathing is significantly improved. Patient states that her condition and the sinuses is improved. States that she has some pain in her right knee. Denies any fevers chills nausea vomiting diarrhea. 07/28/2016 Patient states her symptoms are significantly improved states to have mild cough which is also improving. Denies having any chest pain, difficulty breathing, nausea, vomiting. 07/29/2016 Patient is doing well denies having any chest pain cough, nausea, vomiting, difficulty breathing at this time. - Exam Physical exam Gen. appearance oriented 3 in no distress Neck is supple no JVD Lungs good air entry clear to auscultation no rhonchi or wheezing Heart S1-S2 heard regular rate and rhythm no murmurs appreciated Abdomen is soft nontender no organomegaly bowel sounds are intact Neurologically cranial nerves II-12 grossly intact no focal motor or sensory deficits noted Skin no abnormalities appreciated Plan: #1 dyspnea likely secondary to #2 and some degree of acute on chronic hypoxic respiratory failure secondary to his exacerbation of COPD #2 non-Q wave myocardial infarction , CAD status post PCI and PTCA to the LAD #3 history of COPD #4 history of hypertension #5 dyslipidemia. #6 acute maxillary sinusitis 7 diabetes mellitus type 2 Patient's meds reconciled. Patient is to follow-up with cardiology and PCP in 1 week. Plan - Discharge Summary New Discharge Prescriptions: Atorvastatin [Lipitor] 80 mg PO DAILY #30 tab Metoprolol Tartrate [Lopressor] 25 mg PO BID #60 tab Nitroglycerin Sl Tabs [Nitrostat] 0.4 mg SUBLINGUAL Q5M PRN #25 tab PRN Reason: Chest Pain Pantoprazole [Protonix] 40 mg PO AC-BRKFST #30 tablet. Ticagrelor [Brilinta] 90 mg PO BID #60 tab Discharge Medication List Airborne 1 tab PO DAILY 07/25/16 [History] Albuterol Nebulized [Ventolin Nebulized] 2.5 mg INHALATION RT-QID PRN 07/25/16 [ History] Fluticasone/Salmeterol [Advair 250-50 Diskus] 1 puff INHALATION RT-BID 07/25/16 [History] Montelukast [Singulair] 10 mg PO DAILY 07/25/16 [History] Multivitamins, Thera [Multivitamin] 1 tab PO DAILY 07/25/16 [History] Olmesartan [Benicar] 20 mg PO DAILY 07/25/16 [History] metFORMIN HCL [Glucophage] 500 mg PO BID 07/25/16 [History] Aspirin 81 mg PO DAILY chew 07/29/16 [Rx] Atorvastatin [Lipitor] 80 mg PO DAILY #30 tab 07/29/16 [Rx] Metoprolol Tartrate [Lopressor] 25 mg PO BID #60 tab 07/29/16 [Rx] Nitroglycerin Sl Tabs [Nitrostat] 0.4 mg SUBLINGUAL Q5M PRN #25 tab 07/29/16 [Rx ] Pantoprazole [Protonix] 40 mg PO AC-BRKFST #30 tablet. 07/29/16 [Rx] Ticagrelor [Brilinta] 90 mg PO BID #60 tab 07/29/16 [Rx] Follow up Appointment(s)/Referral(s): Catie Akhtar MD [Primary Care Provider] - 08/01/16 10:00 am Jamin Camejo MD [STAFF PHYSICIAN] - 08/05/16 3:45 pm Patient Instructions/Handouts: After Heart Catheterization - [employer] Discharge Disposition: HOME SELF-CARE
== END 2016-07-29 18:28 | disposition home or self-care (01) | DRG 246 ==
LOC: EC 13:57 → 6SEL 16:17
PROVIDERS: ADMIT Internal Medicine; ATTEND Internal Medicine
PROC: B211YZZ Fluoroscopy of Multiple Coronary Arteries using Other Contrast (ICD-10-PCS; 2016-07-27)
PROC: 027034Z Dilation of Coronary Artery, One Artery with Drug-eluting Intraluminal Device, Percutaneous Approach (ICD-10-PCS; principal; 2016-07-27 09:48)
PROC: 4A023N7 Measurement of Cardiac Sampling and Pressure, Left Heart, Percutaneous Approach (ICD-10-PCS; 2016-07-27 09:48)
DX: I21.4 Non-ST elevation (NSTEMI) myocardial infarction (principal); J96.21 Acute and chronic respiratory failure with hypoxia; J44.1 Chronic obstructive pulmonary disease with (acute) exacerbation; E11.9 Type 2 diabetes mellitus without complications; I10 Essential (primary) hypertension; J01.00 Acute maxillary sinusitis, unspecified; E78.5 Hyperlipidemia, unspecified; I25.10 Atherosclerotic heart disease of native coronary artery without angina pectoris; J45.909 Unspecified asthma, uncomplicated; E66.9 Obesity, unspecified; K21.9 Gastro-esophageal reflux disease without esophagitis; R09.82 Postnasal drip; Z79.84 Long term (current) use of oral hypoglycemic drugs; Z79.899 Other long term (current) drug therapy; Z87.891 Personal history of nicotine dependence; Z68.26 Body mass index [BMI] 26.0-26.9, adult
CPT/HCPCS: 36415; 71020; 80048; 80053; 80061; 82550; 82553; 83036; 83735; 83880; 84484; 85025; 85379; 85610; 85730; 87040; 87502; 93005; 93306; 93458; 94640; 94760; 96365; 96366; 96375; 96376; 99285

== ENCOUNTER → 2016-09-13 | Outpatient (CLI) | payer MEDICARE | END | disposition home or self-care (01) | LOC: LABWHC1 09:03 | PROVIDERS: ATTEND Internal Medicine Cardiovascular Disease | DX: I25.10 Atherosclerotic heart disease of native coronary artery without angina pectoris (principal) | CPT/HCPCS: 36415; 83704 ==

== ENCOUNTER 2017-02-25 11:00 | Emergency (ER) | payer MEDICARE ==
[2017-02-25 11:41] VITALS: BP 168/85; PULSE 77; RESP 24; TEMP 98.1
--- NOTE | 2017-02-25 11:59 | ED ---
General Adult HPI - General Chief complaint: Upper Respiratory Infection Stated complaint: mucous in throat Time Seen by Provider: 02/25/17 11:17 Source: patient Mode of arrival: wheelchair Limitations: no limitations - History of Present Illness Initial comments: Patient is a 76-year-old female who presents with a chief complaint of mucus in her throat, and postnasal drip. Patient has been seen 3 times by primary care recently for the same issue. Initially patient was given a course of steroids and antibiotics, and recently was given one shot of penicillin at the office. Patient states that despite previous treatment, her symptoms have not improved. She describes a sensation of having phlegm in her throat that she needs to clear all the time. Patient denies any shortness of breath, or chest pain. She denies any other symptoms, and further states that she feels good other than the fact that she has to keep clearing her throat. Patient states that she takes Zyrtec daily though this is not helping. Patient has no other complaints at this time - Related Data Home Medications Medication Instructions Recorded Confirmed Albuterol Nebulized [Ventolin 2.5 mg INHALATION RT-QID PRN 07/25/16 02/25/17 Nebulized] Fluticasone/Salmeterol [Advair 1 puff INHALATION RT-BID 07/25/16 02/25/17 250-50 Diskus] Montelukast [Singulair] 10 mg PO DAILY 07/25/16 02/25/17 Multivitamins, Thera [Multivitamin 1 tab PO DAILY 07/25/16 02/25/17 (formulary)] Olmesartan [Benicar] 20 mg PO DAILY 07/25/16 02/25/17 metFORMIN HCL [Glucophage] 500 mg PO BID 07/25/16 02/25/17 Levothyroxine Sodium [Synthroid] 50 mcg PO DAILY 02/25/17 02/25/17 Previous Rx's Medication Instructions Recorded Aspirin 81 mg PO DAILY chew 07/29/16 Atorvastatin [Lipitor] 80 mg PO DAILY #30 tab 07/29/16 Metoprolol Tartrate [Lopressor] 25 mg PO BID #60 tab 07/29/16 Nitroglycerin Sl Tabs [Nitrostat] 0.4 mg SUBLINGUAL Q5M PRN #25 tab 07/29/16 Pantoprazole [Protonix] 40 mg PO AC-BRKFST #30 tablet. 07/29/16 Ticagrelor [Brilinta] 90 mg PO BID #60 tab 07/29/16 Loratadine-Pseudoeph 10-240 mg 1 each PO DAILY #30 tab 02/25/17 [Claritin-D 24 Hr] Pseudoephedrine 12Hr [Sudafed 12 120 mg PO Q12H PRN #10 tablet.er 02/25/17 Hour] Allergies Allergy/AdvReac Type Severity Reaction Status Date / Time No Known Drug Allergies Allergy Unknown Verified 02/25/17 11:29 Review of Systems ROS Statement: Those systems with pertinent positive or pertinent negative responses have been documented in the HPI. ROS Other: All systems not noted in ROS Statement are negative. Constitutional: Denies: fever Eyes: Denies: vision change ENT: Reports: congestion Respiratory: Reports: cough Cardiovascular: Denies: chest pain, dyspnea on exertion Endocrine: Denies: fatigue Gastrointestinal: Denies: abdominal pain, nausea, vomiting Genitourinary: Denies: dysuria Musculoskeletal: Denies: back pain Skin: Denies: rash, lesions Neurological: Denies: headache Past Medical History Past Medical History: Asthma, COPD, Diabetes Mellitus History of Any Multi-Drug Resistant Organisms: None Reported Past Surgical History: Hysterectomy Additional Past Surgical History / Comment(s): cystocele, rectocele Past Anesthesia/Blood Transfusion Reactions: No Reported Reaction Past Psychological History: No Psychological Hx Reported Smoking Status: Former smoker Past Alcohol Use History: None Reported, Occasional Past Drug Use History: None Reported - Past Family History Mother Family Medical History: Memory Impairment Father Family Medical History: Prostate Disorder General Exam Limitations: no limitations General appearance: alert, in no apparent distress Head exam: Present: atraumatic, normocephalic Eye exam: Present: normal appearance ENT exam: Present: normal oropharynx, other (Post nasal drip is noted.) Neck exam: Present: normal inspection. Absent: lymphadenopathy Respiratory exam: Present: wheezes (Patient has mild wheezes however she is not in any respiratory distress. She has a history of COPD) Cardiovascular Exam: Present: regular rate, normal rhythm, normal heart sounds GI/Abdominal exam: Present: soft. Absent: distended, tenderness, guarding Rectal exam: Present: deferred Extremities exam: Present: normal inspection Neurological exam: Present: alert, oriented X3 Psychiatric exam: Present: normal affect, normal mood Skin exam: Present: warm, dry, intact Course Vital Signs 02/25/17 02/25/17 11:06 11:40 Temperature 97.8 F 98.1 F Pulse Rate 79 77 Respiratory 20 24 Rate Blood Pressure 150/80 168/85 O2 Sat by Pulse 96 95 Oximetry Medical Decision Making - Medical Decision Making Patient presents with a chief complaint nasal and throat congestion. Patient has been seen multiple times by primary care, and has been treated with antibiotics and steroids very recently. On initial evaluation, vital signs are stable. Patient states that she feels well other than the fact that she is to keep clearing her throat. At this time, there does not seem to be any infectious etiology of the patient's symptoms, but rather this is likely seasonal ALLERGIES. Patient takes Zyrtec but she states this does not help. I switched the patient to Claritin-D, and give her a short course of Sudafed for initial relief. I discussed these changes and management the patient, she is agreeable with the current care plan. At this time, all of her questions are answered as best my ability, patient is stable for discharge. She is instructed to return to the emergency department for symptoms worsen or change, otherwise follow-up with primary care. Disposition Clinical Impression: Allergic pharyngitis Disposition: HOME SELF-CARE Condition: Good Instructions: Allergies (ED) Prescriptions: Loratadine-Pseudoeph 10-240 mg [Claritin-D 24 Hr] 1 each PO DAILY #30 tab Pseudoephedrine 12Hr [Sudafed 12 Hour] 120 mg PO Q12H PRN #10 tablet.er PRN Reason: Congestion Referrals: Catie Akhtar MD [Primary Care Provider] - 1-2 days
== END 2017-02-25 12:30 | disposition home or self-care (01) ==
LOC: EC 11:00
DX: J02.9 Acute pharyngitis, unspecified (principal); J44.9 Chronic obstructive pulmonary disease, unspecified; E11.9 Type 2 diabetes mellitus without complications; Z87.891 Personal history of nicotine dependence; Z79.84 Long term (current) use of oral hypoglycemic drugs; Z79.51 Long term (current) use of inhaled steroids; Z79.899 Other long term (current) drug therapy
CPT/HCPCS: 99283

== ENCOUNTER 2017-07-15 16:02 | Inpatient (IN) | payer MEDICARE ==
[2017-07-15] MEDS ORDERED: ALBUTEROL NEBULIZED 2.5 MG/3 ML INHALATION STA (16:19)
[2017-07-15] MEDS ORDERED: methylPREDNISolone SOD SUCCI 125 MG/2 ML VIAL IV STA (16:19)
--- NOTE | 2017-07-15 16:27 | ED ---
General Adult HPI - General Chief complaint: Shortness of Breath Stated complaint: SOB Time Seen by Provider: 07/15/17 16:10 Source: patient, RN notes reviewed Mode of arrival: wheelchair Limitations: no limitations - History of Present Illness Initial comments: Is a 77-year-old female with a past medical history significant for COPD and appendix up on 2 L of oxygen as well as having had an IA in the past. Patient comes in today after she has had 6 days of coughing up green sputum. Patient states she saw her primary medical care doctor has been on Levaquin and steroids for the last few days and symptoms are getting any better so she went back to her physician the physician sent her into the emergency department. Patient denies any fever chills. Patient denies any chest pain or palpitations. Patient denies abdominal pain. Patient denies any nausea or vomiting. Patient denies headache patient denies numbness weakness. - Related Data Home Medications Medication Instructions Recorded Confirmed Albuterol Nebulized [Ventolin 2.5 mg INHALATION RT-QID PRN 07/25/16 07/15/17 Nebulized] Fluticasone/Salmeterol [Advair 1 puff INHALATION RT-BID 07/25/16 07/15/17 250-50 Diskus] Montelukast [Singulair] 10 mg PO DAILY 07/25/16 07/15/17 Multivitamins, Thera [Multivitamin 1 tab PO DAILY 07/25/16 07/15/17 (formulary)] Olmesartan [Benicar] 20 mg PO DAILY 07/25/16 07/15/17 metFORMIN HCL [Glucophage] 500 mg PO BID 07/25/16 07/15/17 Levothyroxine Sodium [Synthroid] 50 mcg PO DAILY 02/25/17 07/15/17 Albuterol Inhaler [Ventolin Hfa 2 puff INHALATION RT-Q6H PRN 05/07/17 07/15/17 Inhaler] Mv-Min/Vit C/Glut/Lysine/Hc124 1 tab PO DAILY 05/07/17 07/15/17 [Airborne Tablet Chewable] guaiFENesin [Mucinex] 600 mg PO Q12H PRN 07/15/17 07/15/17 predniSONE See Taper PO DIRECTED 07/15/17 07/15/17 Previous Rx's Medication Instructions Recorded Aspirin 81 mg PO DAILY chew 07/29/16 Atorvastatin [Lipitor] 80 mg PO DAILY #30 tab 07/29/16 Metoprolol Tartrate [Lopressor] 25 mg PO BID #60 tab 07/29/16 Nitroglycerin Sl Tabs [Nitrostat] 0.4 mg SUBLINGUAL Q5M PRN #25 tab 07/29/16 Pantoprazole [Protonix] 40 mg PO MALLORIE-MICHAELKFST #30 tablet. 07/29/16 Ticagrelor [Brilinta] 90 mg PO BID #60 tab 07/29/16 Allergies Allergy/AdvReac Type Severity Reaction Status Date / Time No Known Drug Allergies Allergy Unknown Verified 07/15/17 16:42 Review of Systems ROS Statement: Those systems with pertinent positive or pertinent negative responses have been documented in the HPI. ROS Other: All systems not noted in ROS Statement are negative. Past Medical History Past Medical History: Asthma, COPD, Diabetes Mellitus, Hearing Disorder / Deafness, Hyperlipidemia, Hypertension, Myocardial Infarction ([place]), Thyroid Disorder Last Myocardial Infarction Date:: 07/2016 History of Any Multi-Drug Resistant Organisms: None Reported Past Surgical History: Adenoidectomy, Heart Catheterization With Stent, Hysterectomy, Tonsillectomy Additional Past Surgical History / Comment(s): cystocele, rectocele Past Anesthesia/Blood Transfusion Reactions: No Reported Reaction Date of Last Stent Placement:: 07/2016 Past Psychological History: No Psychological Hx Reported Smoking Status: Former smoker Past Alcohol Use History: Rare Past Drug Use History: None Reported - Past Family History Mother Family Medical History: Memory Impairment Father Family Medical History: Prostate Disorder General Exam - General Exam Comments Initial Comments: GENERAL: Patient is well-developed and well-nourished. Patient is nontoxic and well- hydrated and is in mild distress. ENT: Neck is soft and supple. No significant lymphadenopathy is noted. Oropharynx is clear. Moist mucous membranes. Neck has full range of motion without eliciting any pain. EYES: The sclera were anicteric and conjunctiva were pink and moist. Extraocular movements were intact and pupils were equal round and reactive to light. Eyelids were unremarkable. PULMONARY: Patient has diminished breath sounds CARDIOVASCULAR: There is a regular rate and rhythm without any murmurs gallops or rubs. ABDOMEN: Soft and nontender with normal bowel sounds. No palpable organomegaly was noted. There is no palpable pulsatile mass. SKIN: Skin is clear with no lesions or rashes and otherwise unremarkable. NEUROLOGIC: Patient is alert and oriented x3. Cranial nerves II through XII are grossly intact. Motor and sensory are also intact. Normal speech, volume and content. Symmetrical smile. MUSCULOSKELETAL: Normal extremities with adequate strength and full range of motion. LYMPHATICS: No significant lymphadenopathy is noted PSYCHIATRIC: Normal psychiatric evaluation. Normal interpersonal interactions appears functionally intact in deals appropriately with others. No signs of depression. No signs of anxiety. Limitations: no limitations Course Vital Signs 07/15/17 07/15/17 07/15/17 16:08 16:39 16:49 Temperature 97.7 F Pulse Rate 99 106 H Respiratory 20 24 Rate Blood Pressure 150/84 O2 Sat by Pulse 93 L Oximetry 07/15/17 07/15/17 07/15/17 16:52 17:02 17:15 Temperature Pulse Rate 99 100 104 H Respiratory 20 Rate Blood Pressure 138/68 O2 Sat by Pulse 100 Oximetry 07/15/17 17:46 Temperature 98.1 F Pulse Rate 103 H Respiratory 18 Rate Blood Pressure 118/74 O2 Sat by Pulse 96 Oximetry Medical Decision Making - Medical Decision Making EKG shows normal sinus rhythm at 93 bpm SD interval 130 QRS is 86 QT interval 336 QTC is 417. Patient's EKG shows no ST segment elevation or depression. Chest x-ray shows no obvious pneumonia. Patient continues to cough and coughs up green sputum. Patient doesn't like him. Patient's breathing is still difficult so I will be keeping the patient place her on antibiotics. - Lab Data Result diagrams: 07/15/17 16:55 07/15/17 16:55 Lab Results 07/15/17 07/15/17 07/15/17 Range/Units 16:55 16:55 16:55 WBC 13.7 H (3.8-10.6) k/uL RBC 5.04 (3.80-5.40) m/uL Hgb 14.7 (11.4-16.0) gm/dL Hct 43.6 (34.0-46.0) % MCV 86.5 (80.0-100.0) fL MCH 29.1 (25.0-35.0) pg MCHC 33.7 (31.0-37.0) g/dL RDW 14.7 (11.5-15.5) % Plt Count 230 (150-450) k/uL Neutrophils % 90 % Lymphocytes % 5 % Monocytes % 3 % Eosinophils % 1 % Basophils % 0 % Neutrophils # 12.4 H (1.3-7.7) k/uL Lymphocytes # 0.7 L (1.0-4.8) k/uL Monocytes # 0.4 (0-1.0) k/uL Eosinophils # 0.2 (0-0.7) k/uL Basophils # 0.0 (0-0.2) k/uL PT (9.0-12.0) sec INR (<1.2) APTT (22.0-30.0) sec Sodium 141 (137-145) mmol/L Potassium 4.0 (3.5-5.1) mmol/L Chloride 104 (98-107) mmol/L Carbon Dioxide 23 (22-30) mmol/L Anion Gap 14 mmol/L BUN 24 H (7-17) mg/dL Creatinine 0.50 L (0.52-1.04) mg/dL Est GFR (MDRD) Af Amer >60 (>60 ml/min/1.73 sqM) Est GFR (MDRD) Non-Af >60 (>60 ml/min/1.73 sqM) Glucose 191 H (74-99) mg/dL Calcium 9.5 (8.4-10.2) mg/dL Magnesium 1.8 (1.6-2.3) mg/dL Total Bilirubin 1.1 (0.2-1.3) mg/dL AST 29 (14-36) U/L ALT 45 (9-52) U/L Alkaline Phosphatase 113 (38-126) U/L Total Creatine Kinase 55 (30-135) U/L CK-MB (CK-2) 1.3 (0.0-2.4) ng/mL CK-MB (CK-2) Rel Index 2.4 Troponin I <0.012 (0.000-0.034) ng/mL NT-Pro-B Natriuret Pep pg/mL Total Protein 7.0 (6.3-8.2) g/dL Albumin 4.3 (3.5-5.0) g/dL 07/15/17 07/15/17 Range/Units 16:55 16:55 WBC (3.8-10.6) k/uL RBC (3.80-5.40) m/uL Hgb (11.4-16.0) gm/dL Hct (34.0-46.0) % MCV (80.0-100.0) fL MCH (25.0-35.0) pg MCHC (31.0-37.0) g/dL RDW (11.5-15.5) % Plt Count (150-450) k/uL Neutrophils % % Lymphocytes % % Monocytes % % Eosinophils % % Basophils % % Neutrophils # (1.3-7.7) k/uL Lymphocytes # (1.0-4.8) k/uL Monocytes # (0-1.0) k/uL Eosinophils # (0-0.7) k/uL Basophils # (0-0.2) k/uL PT 9.9 (9.0-12.0) sec INR 1.0 (<1.2) APTT 21.8 L (22.0-30.0) sec Sodium (137-145) mmol/L Potassium (3.5-5.1) mmol/L Chloride (98-107) mmol/L Carbon Dioxide (22-30) mmol/L Anion Gap mmol/L BUN (7-17) mg/dL Creatinine (0.52-1.04) mg/dL Est GFR (MDRD) Af Amer (>60 ml/min/1.73 sqM) Est GFR (MDRD) Non-Af (>60 ml/min/1.73 sqM) Glucose (74-99) mg/dL Calcium (8.4-10.2) mg/dL Magnesium (1.6-2.3) mg/dL Total Bilirubin (0.2-1.3) mg/dL AST (14-36) U/L ALT (9-52) U/L Alkaline Phosphatase (38-126) U/L Total Creatine Kinase (30-135) U/L CK-MB (CK-2) (0.0-2.4) ng/mL CK-MB (CK-2) Rel Index Troponin I (0.000-0.034) ng/mL NT-Pro-B Natriuret Pep 123 pg/mL Total Protein (6.3-8.2) g/dL Albumin (3.5-5.0) g/dL Disposition Clinical Impression: Acute exacerbation of chronic obstructive pulmonary disease (COPD), Acute bronchitis Disposition: ADMITTED IP TO THIS HOSP Referrals: Catie Akhtar MD [Primary Care Provider] - 1-2 days Time of Disposition: 19:07
[2017-07-15 17:05] LABS: Basophils % (A) 0 %; Eosinophils # (A) 0.2 k/uL (0-0.7); Eosinophils % (A) 1 %; HCT 43.6 % (34.0-46.0); HGB 14.7 gm/dL (11.4-16.0); Lymphocytes # (A) 0.7 k/uL (1.0-4.8); Lymphocytes % (A) 5 %; MCH 29.1 pg (25.0-35.0); MCHC 33.7 g/dL (31.0-37.0); MCV 86.5 fL (80.0-100.0); Mean Platelet Volume 7.3; Monocytes # (A) 0.4 k/uL (0-1.0); Monocytes % (A) 3 %; Neutrophils # (A) 12.4 k/uL (1.3-7.7); Neutrophils % (A) 90 %; Platelet Count 230 k/uL (150-450); RBC 5.04 m/uL (3.80-5.40); RDW 14.7 % (11.5-15.5); WBC 13.7 k/uL (3.8-10.6)
[2017-07-15 17:14] LABS: Prothrombin Time 9.9 sec (9.0-12.0)
[2017-07-15 17:17] LABS: ALT 45 U/L (9-52); AST 29 U/L (14-36); Albumin 4.3 g/dL (3.5-5.0); Alkaline Phosphatase 113 U/L (38-126); Anion Gap 14 mmol/L; Blood Urea Nitrogen 24 mg/dL (7-17); Calcium 9.5 mg/dL (8.4-10.2); Carbon Dioxide 23 mmol/L (22-30); Chloride 104 mmol/L (98-107); Glucose 191 mg/dL (74-99); Magnesium 1.8 mg/dL (1.6-2.3); Sodium 141 mmol/L (137-145); Total Bilirubin 1.1 mg/dL (0.2-1.3)
[2017-07-15 17:21] LABS: Partial Thromboplastin Time 21.8 sec (22.0-30.0)
[2017-07-15 17:31] LABS: Creatine Kinase 55 U/L (30-135)
[2017-07-15 17:44] LABS: Creatine Kinase MB 1.3 ng/mL (0.0-2.4); Troponin I <0.012 ng/mL (0.000-0.034)
[2017-07-15] MEDS ORDERED: LEVOFLOXACIN 750MG-D5W PMX 750 MG in DEXTROSE/WATER 1 150ML.BAG IVPB STA (19:08)
[2017-07-15] MEDS ORDERED: PIPERACILLIN-TAZOBACTAM 3.375 GM in DEXTROSE/WATER 1 50ML.BAG IVPB STA (19:08)
[2017-07-15] MEDS ORDERED: PNEUMONIA PROTOCOL UTILIZED 1 EACH MISC PO PRN (19:08)
--- NOTE | 2017-07-15 19:13 | XR ---
EXAMINATION TYPE: XR chest 2V DATE OF EXAM: 07/15/2017 COMPARISON: 05/07/2017 HISTORY: Shortness of breath TECHNIQUE: Frontal and lateral views of the chest are obtained. FINDINGS: Scattered senescent parenchymal changes noted. Hyperinflation compatible with COPD. No evidence for infiltrate. No evidence for atelectasis. Heart size is stable. Mediastinal structures are stable and grossly unremarkable. No evidence for hilar prominence. Degenerative changes dorsal spine. IMPRESSION: 1. No evidence for acute pulmonary disease.
[2017-07-15] MEDS ORDERED: IPRATROPIUM-ALBUTEROL 3 ML NEB INHALATION PRN (19:32)
[2017-07-15] MEDS ORDERED: IPRATROPIUM-ALBUTEROL 3 ML NEB INHALATION SCH (20:00)
[2017-07-15] MEDS: IPRATROPIUM-ALBUTEROL 3 ML NEB INHALATION SCH (20:26)
[2017-07-15 21:45] VITALS: BMI 22.8
[2017-07-15] MEDS ORDERED: guaiFENesin 600 MG TABLET.ER PO PRN (23:08)
[2017-07-15] MEDS: metFORMIN 500 MG TAB PO SCH (23:38)
[2017-07-15] MEDS: TICAGRELOR 90 MG TAB PO SCH (23:38)
[2017-07-15] MEDS: METOPROLOL TARTRATE 25 MG TAB PO SCH (23:38)
[2017-07-15] MEDS: methylPREDNISolone SOD SUCCI 125 MG/2 ML VIAL IV SCH (23:38)
[2017-07-16] MEDS ORDERED: NITROGLYCERIN SL TABS 0.4 MG TAB SUBLINGUAL PRN (00:30)
[2017-07-16] MEDS ORDERED: ALPRAZolam 0.25 MG TAB PO PRN (00:32)
--- NOTE | 2017-07-16 03:58 | HP ---
HISTORY AND PHYSICAL DATE OF SERVICE: 07/15/2017 CHIEF COMPLAINT: Shortness of breath. HISTORY OF PRESENT ILLNESS: This 77-year-old woman with a past medical history of multiple medical problems including COPD, history of CAD, diabetes and hypertension being followed by Dr. Akhtar in the outpatient setting, was complaining of shortness of breath over the past several days. Patient had 6 days of cough with green sputum and patient came to [facility] and was admitted for further evaluation and treatment. A chest x-ray did not show any acute pneumonia. There is no history of fever, rigors or chills. No history of headache, loss of consciousness, seizures at this time. The flu swab is negative. PAST MEDICAL HISTORY: History of COPD, history of asthma, diabetes type 2, hypertension, myocardial infarction, history of CAD, stent. MEDICATIONS: 1. Prednisone taper. 2. Glucophage 500 mg p.o. b.i.d. 3. Mucinex 600 mg p.o. b.i.d. 4. Brilinta 90 mg p.o. b.i.d. 5. Protonix 40 mg. 6. Benicar 20 mg daily. 7. Nitrostat 0.4 mg p.r.n. 8. Multivitamins one p.o. daily. 9. Singulair 10 mg p.o. daily. 10.Lopressor 25 mg p.o. b.i.d. 11.Synthroid 50 mcg p.o. daily. 12.Advair 250/50 one puff b.i.d. 13.Lipitor 80 mg daily. 14.Aspirin 81 mg. 15.Ventolin 2.5 q.i.d. p.r.n. ALLERGIES: None. FAMILY HISTORY: History of memory impairment in the family. SOCIAL HISTORY: No history of alcohol, previous history of being a smoker. REVIEW OF SYSTEMS: ENT: No diminished hearing or vision. Cardiovascular: No angina or palpitations. Respiration: No cough. GI: As mentioned earlier. : As mentioned earlier. Nervous systems: No numbness, weakness. Allergy/Immunology: No asthma or hayfever. Musculoskeletal: As mentioned earlier. Hematology/Oncology: No history of anemia. Endocrine: Hypothyroidism. Constitutional: As mentioned earlier. Dermatology: Negative. Rheumatology: Negative. Psychiatric: As mentioned earlier. EXAMINATION: The patient is alert, oriented times three. Pulse 78, blood pressure 145/63, respirations 16, temperature 97.4, pulse ox 98% on 2 L. HEENT: Conjunctivae normal. Neck: No jugular venous distention. Cardiovascular: S1, S2 muffled. Respiratory: Breath sounds diminished in the bases. A few rhonchi and expiratory wheezing and crackles also. ABDOMEN: Soft, nontender. No mass palpable. Legs: No edema and no swelling. NERVOUS SYSTEM: Higher functions as mentioned earlier. Moves all four limbs. No focal deficits. Lymphatics: No lymph nodes palpable in the neck, axillae or groin. SKIN: No ulcers, rash or bleeding. LABS: WBC 13.2, hemoglobin 14.7. ASSESSMENT: 1. Chronic obstructive pulmonary disease acute exacerbation with acute purulent tracheobronchitis with failure of outpatient treatment. 2. Increased WBC. 3. History of asthma. 4. Diabetes type 2. 5. Hard of hearing. 6. Hypertension. 7. Hyperlipidemia. 8. Myocardial infarction. 9. Hypothyroidism. 10.History of coronary artery disease/stent. 11.Remote history of nicotine dependence. RECOMMENDATIONS AND DISCUSSION: In this 77-year-old woman who presented with multiple complex medical issues, we will monitor the patient closely, continue the current medication, continue with symptomatic treatment. Continue the bronchodilators. Continue with steroids. Continue empiric antibiotics. Otherwise I would also recommend resume the home medications, also recommend evaluation with Dr. Green also. Otherwise prognosis guarded because of multiple complex medical issues and further recommendations to follow. MMODL / IJN: [id number] /
[2017-07-16] MEDS: PIPERACILLIN-TAZOBACTAM 3.375 GM in DEXTROSE/WATER 1 50ML.BAG IVPB SCH ×3 (04:52→19:47)
[2017-07-16] MEDS: methylPREDNISolone SOD SUCCI 125 MG/2 ML VIAL IV SCH ×2 (05:43→11:17)
[2017-07-16] MEDS: LEVOTHYROXINE 50 MCG TAB PO SCH (05:43)
[2017-07-16] MEDS: IPRATROPIUM-ALBUTEROL 3 ML NEB INHALATION SCH ×4 (07:10→21:15)
[2017-07-16] MEDS: SYMBICORT 80-4.5 MCG INHALER INHALATION SCH ×2 (07:11→21:15)
[2017-07-16 07:26] LABS: Glucose,Whole Blood 238 mg/dL (75-99)
[2017-07-16] MEDS: INSULIN ASPART 100 UNIT/ML 1 ML 10 ML VIAL SQ SCH ×4 (07:42→20:23)
--- NOTE | 2017-07-16 08:15 | XR ---
EXAMINATION TYPE: XR chest 2V DATE OF EXAM: 07/16/2017 COMPARISON: Prior chest x-ray 07/15/2017 HISTORY: Pneumonia TECHNIQUE: Frontal and lateral views of the chest are obtained. FINDINGS: Patchy basilar density persists. Prominent lung volumes compatible with underlying COPD. C ardiac mediastinal silhouette, pulmonary vascularity and forest are stable. No evident pneumothorax or pleural effusion. The aorta is dense. IMPRESSION: Correlate for pneumonia versus basilar atelectasis or scarring. Follow-up recommended.
[2017-07-16] MEDS: HEPARIN SODIUM,PORCINE 5,000 UNIT/ML 1 ML VIAL SQ SCH ×2 (08:46→20:24)
[2017-07-16] MEDS: LOSARTAN 50 MG TAB PO SCH (08:48)
[2017-07-16] MEDS: METOPROLOL TARTRATE 25 MG TAB PO SCH ×2 (08:50→20:24)
[2017-07-16] MEDS: MONTELUKAST 10 MG TAB PO SCH (08:50)
[2017-07-16] MEDS: PANTOPRAZOLE 40 MG TABLET PO SCH (08:51)
[2017-07-16] MEDS: ASPIRIN 81 MG PO SCH (08:52)
[2017-07-16] MEDS: metFORMIN 500 MG TAB PO SCH ×2 (08:52→17:59)
[2017-07-16] MEDS: MULTIVITAMINS, THERA 1 EACH TAB PO SCH (08:52)
[2017-07-16] MEDS: ATORVASTATIN 80 MG TAB PO SCH (08:53)
[2017-07-16] MEDS: TICAGRELOR 90 MG TAB PO SCH ×2 (08:54→20:24)
[2017-07-16] MEDS: [UNRECOGNIZED DRUG - OTHER] PO SCH (08:55)
[2017-07-16] MEDS: MV MIN PO SCH (08:55)
[2017-07-16] MEDS: LYSINE PO SCH (08:55)
[2017-07-16] MEDS: GLUT PO SCH (08:55)
[2017-07-16] MEDS: VIT C PO SCH (08:55)
[2017-07-16 11:39] LABS: Glucose,Whole Blood 207 mg/dL (75-99)
[2017-07-16 13:32] LABS: Hemoglobin A1C 7.2 % (4.0-6.0)
[2017-07-16] MEDS: guaiFENesin 600 MG TABLET.ER PO SCH ×2 (16:09→20:24)
[2017-07-16] MEDS: methylPREDNISolone SOD SUCCI 40 MG/ML 1 ML VIAL IV SCH ×2 (16:09→23:37)
--- NOTE | 2017-07-16 16:19 | P.CNPUL ---
History of Present Illness Consult date: 07/16/17 Requesting physician: Qamar Linares Reason for consult: dyspnea, cough, asthma, COPD Chief complaint: Dyspnea, cough, nasal congestion History of present illness: Beatriz is a 77-year-old white female patient of Dr. Catie Akhtar, who presented to the emergency department on 07/15/2017 at 1602 with complaints of increasing dyspnea, cough, and increased generalized fatigue after of weeklong upper respiratory illness which was being treated on an outpatient basis by Dr. Akhtar with a course of prednisone and Levaquin. She states a week ago on she started with increased nasal congestion, and drainage of copious amounts of green nasal drainage. Did have some chills then, but no fevers. Denied any body aches. Dr. Akhtar treated her with prednisone and Levaquin, and patient was starting to feel better, however yesterday on Thursday she noted that she was increasingly short of breath, even with normal conversation. Her nasal congestion and nasal drainage have subsided, but now she has a loose congested nonproductive cough, unable to clear any phlegm. Denies any fever, denies any chills, no body [place], no chest pain. She does have underlying history of COPD and asthma on home oxygen at 2 L/m. Other medical history includes diabetes mellitus type 2, coronary artery disease, myocardial infarction, previous coronary artery stenting, hyperlipidemia, hypertension, hypothyroidism. Patient is a former smoker. Her maintenance inhalers include Advair, albuterol nebulized treatment, Flonase, and albuterol rescue inhaler. Chest x-ray from showed hyperinflation compatible with COPD, scattered senescent parenchymal changes, but no evidence of any acute pulmonary disease. Follow-up chest x-ray from 07/16/2017 showed patchy basilar density, appears to be basilar atelectasis. She is afebrile, hemodynamically stable, she is wearing oxygen intermittently. Patient was started on IV steroids, Levaquin, Zosyn, DuoNeb nebulized treatments, Symbicort. Review of Systems All systems: negative Constitutional: Reports weakness, Denies chills, Denies fever Eyes: denies blurred vision, denies pain Ears, nose, mouth and throat: Reports nasal congestion, Reports nasal discharge , Reports post-nasal drip, Reports sinus pressure, Denies headache, Denies sore throat Cardiovascular: Denies chest pain, Denies shortness of breath Respiratory: Reports cough with sputum, Reports dyspnea, Reports home oxygen, Reports respiratory infections, Denies cough Gastrointestinal: Denies abdominal pain, Denies diarrhea, Denies nausea, Denies vomiting Genitourinary: Denies dysuria, Denies hematuria Musculoskeletal: Denies myalgias Integumentary: Denies pruritus, Denies rash Neurological: Denies numbness, Denies weakness Psychiatric: Denies anxiety, Denies depression Endocrine: Denies fatigue, Denies weight change Past Medical History Past Medical History: Asthma, COPD, Diabetes Mellitus, Hearing Disorder / Deafness, Hyperlipidemia, Hypertension, Myocardial Infarction ([place]), Thyroid Disorder Last Myocardial Infarction Date:: 07/2016 History of Any Multi-Drug Resistant Organisms: None Reported Past Surgical History: Adenoidectomy, Heart Catheterization With Stent, Hysterectomy, Tonsillectomy Additional Past Surgical History / Comment(s): cystocele, rectocele Past Anesthesia/Blood Transfusion Reactions: No Reported Reaction Date of Last Stent Placement:: 07/2016 Past Psychological History: No Psychological Hx Reported Smoking Status: Former smoker Past Alcohol Use History: Rare Past Drug Use History: None Reported - Past Family History Mother Family Medical History: Memory Impairment Father Family Medical History: Prostate Disorder Medications and Allergies Home Medications Medication Instructions Recorded Confirmed Type Albuterol Nebulized [Ventolin 2.5 mg INHALATION RT-QID PRN 07/25/16 07/15/17 History Nebulized] Fluticasone/Salmeterol [Advair 1 puff INHALATION RT-BID 07/25/16 07/15/17 History 250-50 Diskus] Montelukast [Singulair] 10 mg PO DAILY 07/25/16 07/15/17 History Multivitamins, Thera [Multivitamin 1 tab PO DAILY 07/25/16 07/15/17 History (formulary)] Olmesartan [Benicar] 20 mg PO DAILY 07/25/16 07/15/17 History metFORMIN HCL [Glucophage] 500 mg PO BID 07/25/16 07/15/17 History Aspirin 81 mg PO DAILY chew 07/29/16 07/15/17 Rx Atorvastatin [Lipitor] 80 mg PO DAILY #30 tab 07/29/16 07/15/17 Rx Metoprolol Tartrate [Lopressor] 25 mg PO BID #60 tab 07/29/16 07/15/17 Rx Nitroglycerin Sl Tabs [Nitrostat] 0.4 mg SUBLINGUAL Q5M PRN #25 tab 07/29/16 Rx Pantoprazole [Protonix] 40 mg PO AC-BRKFST #30 tablet. 07/29/16 07/15/17 Rx Ticagrelor [Brilinta] 90 mg PO BID #60 tab 07/29/16 07/15/17 Rx Levothyroxine Sodium [Synthroid] 50 mcg PO DAILY 02/25/17 07/15/17 History Albuterol Inhaler [Ventolin Hfa 2 puff INHALATION RT-Q6H PRN 05/07/17 07/15/17 History Inhaler] Mv-Min/Vit C/Glut/Lysine/Hc124 1 tab PO DAILY 05/07/17 07/15/17 History [Airborne Tablet Chewable] guaiFENesin [Mucinex] 600 mg PO Q12H PRN 07/15/17 07/15/17 History predniSONE See Taper PO DIRECTED 07/15/17 07/15/17 History Allergies Allergy/AdvReac Type Severity Reaction Status Date / Time No Known Drug Allergies Allergy Unknown Verified 07/15/17 16:42 Physical Exam Vitals: Vital Signs Temp Pulse Pulse Resp BP BP Pulse Ox 07/16/17 11:13 88 07/16/17 11:05 88 07/16/17 09:19 77 18 07/16/17 07:24 84 07/16/17 07:11 78 07/16/17 07:00 98.3 F 77 18 133/79 93 L 07/15/17 23:45 97.5 F L 76 16 145/63 98 07/15/17 20:36 99 07/15/17 20:30 97 07/15/17 20:26 96 07/15/17 19:55 109 H 20 122/55 96 07/15/17 19:10 98.5 F 106 H 18 116/59 98 07/15/17 17:46 98.1 F 103 H 18 118/74 96 07/15/17 17:15 104 H 07/15/17 17:02 100 20 138/68 100 07/15/17 16:52 99 07/15/17 16:49 24 07/15/17 16:39 106 H 07/15/17 16:08 97.7 F 99 20 150/84 93 L Intake and Output 07/15/17 07/16/17 07/16/17 22:59 06:59 14:59 Intake Total 640 Balance 640 Intake: Intake, IV Titration 50 Amount Piperacillin-Tazobactam 3 50 .375 gm In Dextrose/Water 1 50ml.bag @ 12.5 mls/hr IVPB Q8H [facility] Rx#: [id number] Oral 590 Other: Voiding Method Toilet # Voids 2 Weight 53.07 kg 53.07 kg Patient Weight 07/17/17 06:59 Weight 53.07 kg GENERAL EXAM: Alert, pleasant, 77-year-old white female, mildly dyspneic with normal conversation, comfortable in no apparent distress. HEAD: Normocephalic/atraumatic. EYES: Normal reaction of pupils, equal size. Conjunctiva pink, sclera white. NOSE: Clear with pink turbinates. THROAT: No erythema or exudates. NECK: No masses, no JVD, no thyroid enlargement, no adenopathy. CHEST: No chest wall deformity. Symmetrical expansion. LUNGS: Equal air entry with scattered coarse rhonchi, and bronchial sounds over left posterior lower lobe CVS: Regular rate and rhythm, normal S1 and S2, no gallops, no murmurs, no rubs ABDOMEN: Soft, nontender. No hepatosplenomegaly, normal bowel sounds, no guarding or rigidity. EXTREMITIES: No clubbing, no edema, no cyanosis, 2+ pulses and upper and lower extremities. MUSCULOSKELETAL: Muscle strength and tone normal. SPINE: No scoliosis or deformity SKIN: No rashes CENTRAL NERVOUS SYSTEM: Alert and oriented -3. No focal deficits, tone is normal in all 4 extremities. PSYCHIATRIC: Alert and oriented -3. Appropriate affect. Intact judgment and insight. Results - Laboratory Findings CBC and BMP: 07/15/17 16:55 07/15/17 16:55 PT/INR, D-dimer PT 9.9 sec (9.0-12.0) 07/15/17 16:55 INR 1.0 (<1.2) 07/15/17 16:55 Abnormal lab findings: Abnormal Labs 07/15/17 07/15/17 07/15/17 16:55 16:55 16:55 WBC 13.7 H Neutrophils # 12.4 H Lymphocytes # 0.7 L APTT 21.8 L BUN 24 H Creatinine 0.50 L Glucose 191 H POC Glucose (mg/dL) 07/16/17 07/16/17 07:23 11:32 WBC Neutrophils # Lymphocytes # APTT BUN Creatinine Glucose POC Glucose (mg/dL) 238 H 207 H - Diagnostic Findings Chest x-ray: report reviewed Additional studies: Twelve-lead EKG reviewed Assessment and Plan Plan: Assessment: #1. Acute exacerbation of COPD with tracheobronchitis. Chest x-ray patchy basilar density, consistent with atelectasis, no clear evidence of pneumonia noted. #2. Recent upper respiratory infection, treated on an outpatient basis with prednisone and Levaquin #3. Moderate persistent asthma #4. Diabetes mellitus type 2 #5. Coronary artery disease with previous stenting #6. Hypothyroidism #7. Hyperlipidemia, hypertension #8. Myocardial infarction in July 2016 #9. Nicotine dependence, in remission Plan: Continue nebulized treatments, Symbicort, continue IV steroids, continue Levaquin and Zosyn. We'll add Mucinex, we'll try to obtain a sputum specimen. She already reports some improvement in her condition, anticipate further improvement. Anticipate discharge home in the next 24-48 hours, provided she continues to improve. I performed a history & physical examination of the patient and discussed their management with my nurse practitioner, Gabby Jordan. I reviewed the nurse practitioner's note and agree with the documented findings and plan of care. Lung sounds are positive for scattered rhonchi. The findings and the impression was discussed with the patient. I attest to the documentation by the nurse practitioner. Time with Patient: Greater than 30
[2017-07-16 16:53] LABS: Glucose,Whole Blood 172 mg/dL (75-99)
--- NOTE | 2017-07-16 17:17 | PN ---
PROGRESS NOTE DATE OF SERVICE: 07/16/2017. INTERVAL HISTORY: This 77-year-old woman who was admitted after COPD acute exacerbation with acute purulent tracheobronchitis is being closely monitored. Patient is on broad-spectrum IV antibiotics. The most recent chest x-ray done today which was reviewed personally by me showed possible bronchopneumonia. No chest pain. No palpitations. No fever. The cough is still present. PHYSICAL EXAM: Alert and oriented times three. Pulse 94, blood pressure 100/90, respirations 18, temperature 98.1, pulse ox 94% on 2 L. HEENT: Conjunctivae normal. Neck: No jugular venous distention. Cardiovascular: S1, S2 muffled. Respiratory: Breath sounds diminished in the bases. Bilateral scattered rhonchi and expiratory wheezing and crackles. ABDOMEN: Soft, nontender. No mass palpable. Legs no edema and no swelling. NERVOUS SYSTEM: Higher functions as mentioned earlier, moves all 4 limbs. Lymphatics: No lymph nodes palpable in the neck, axillae or groin. Skin no ulcer, rash or bleeding. LAB STUDIES: WBC 13.7. Glucose 238. Influenza is negative. ASSESSMENT: 1. Chronic obstructive pulmonary disease acute exacerbation with acute purulent tracheobronchitis or early bronchopneumonia right. 2. Possibly gram-negative with failure of outpatient treatment. 3. Increased WBC. 4. History of asthma. 5. Diabetes type 2. 6. Hard of hearing. 7. Hypertension. 8. Hyperlipidemia. 9. History of myocardial infarction. 10.History of hypothyroidism. 11.History of coronary artery disease/stent. 12.Remote history of nicotine dependence. RECOMMENDATIONS AND DISCUSSION: Recommend to continue current medications, management. Symptomatic treatment. Otherwise at this time, we will monitor the patient closely. Taper the steroids. Closely follow with pulmonary. Guarded prognosis. Further recommendations to follow. MMODL / IJN: [id number] /
[2017-07-16] MEDS ORDERED: LEVOFLOXACIN 750MG-D5W PMX 750 MG in DEXTROSE/WATER 1 150ML.BAG IVPB SCH (18:00)
[2017-07-16] MEDS: MELATONIN 3 MG TABLET PO SCH (20:24)
[2017-07-16 20:29] LABS: Glucose,Whole Blood 266 mg/dL (75-99)
[2017-07-17] MEDS: PIPERACILLIN-TAZOBACTAM 3.375 GM in DEXTROSE/WATER 1 50ML.BAG IVPB SCH ×3 (03:50→21:36)
[2017-07-17] MEDS: LEVOTHYROXINE 50 MCG TAB PO SCH (05:54)
[2017-07-17] MEDS: SYMBICORT 80-4.5 MCG INHALER INHALATION SCH ×2 (07:20→20:32)
[2017-07-17] MEDS: IPRATROPIUM-ALBUTEROL 3 ML NEB INHALATION SCH ×4 (07:20→20:32)
[2017-07-17 07:41] LABS: Glucose,Whole Blood 167 mg/dL (75-99)
[2017-07-17] MEDS: INSULIN ASPART 100 UNIT/ML 1 ML 10 ML VIAL SQ SCH ×4 (08:25→20:27)
[2017-07-17] MEDS: HEPARIN SODIUM,PORCINE 5,000 UNIT/ML 1 ML VIAL SQ SCH ×2 (08:26→20:25)
[2017-07-17] MEDS: MONTELUKAST 10 MG TAB PO SCH (08:29)
[2017-07-17] MEDS: metFORMIN 500 MG TAB PO SCH ×2 (08:29→17:33)
[2017-07-17] MEDS: MULTIVITAMINS, THERA 1 EACH TAB PO SCH (08:30)
[2017-07-17 08:31] LABS: Basophils % (A) 0 %; Eosinophils % (A) 0 %; HGB 12.7 gm/dL (11.4-16.0); Lymphocytes % (A) 7 %; MCH 28.7 pg (25.0-35.0); MCHC 32.7 g/dL (31.0-37.0); MCV 87.9 fL (80.0-100.0); Mean Platelet Volume 7.6; Monocytes # (A) 0.7 k/uL (0-1.0); Monocytes % (A) 5 %; Neutrophils # (A) 12.6 k/uL (1.3-7.7); Neutrophils % (A) 88 %; Platelet Count 238 k/uL (150-450); RBC 4.44 m/uL (3.80-5.40); RDW 14.8 % (11.5-15.5); WBC 14.4 k/uL (3.8-10.6)
[2017-07-17] MEDS: ASPIRIN 81 MG PO SCH (08:31)
[2017-07-17] MEDS: guaiFENesin 600 MG TABLET.ER PO SCH ×2 (08:31→20:25)
[2017-07-17] MEDS: LOSARTAN 50 MG TAB PO SCH (08:32)
[2017-07-17] MEDS: METOPROLOL TARTRATE 25 MG TAB PO SCH ×2 (08:32→20:26)
[2017-07-17] MEDS: ATORVASTATIN 80 MG TAB PO SCH (08:33)
[2017-07-17] MEDS: PANTOPRAZOLE 40 MG TABLET PO SCH (08:33)
[2017-07-17] MEDS: TICAGRELOR 90 MG TAB PO SCH ×2 (08:33→20:26)
[2017-07-17] MEDS: [UNRECOGNIZED DRUG - OTHER] PO SCH (08:34)
[2017-07-17] MEDS: VIT C PO SCH (08:34)
[2017-07-17] MEDS: LYSINE PO SCH (08:34)
[2017-07-17] MEDS: MV MIN PO SCH (08:34)
[2017-07-17] MEDS: GLUT PO SCH (08:34)
[2017-07-17 08:53] LABS: Anion Gap 14 mmol/L; Blood Urea Nitrogen 28 mg/dL (7-17); Calcium 9.5 mg/dL (8.4-10.2); Carbon Dioxide 20 mmol/L (22-30); Chloride 105 mmol/L (98-107); Glucose 161 mg/dL (74-99); Sodium 139 mmol/L (137-145)
[2017-07-17] MEDS: methylPREDNISolone SOD SUCCI 40 MG/ML 1 ML VIAL IV SCH ×2 (09:16→17:47)
[2017-07-17 12:15] LABS: Glucose,Whole Blood 192 mg/dL (75-99)
--- NOTE | 2017-07-17 13:30 | P.PN ---
Subjective Progress Note Date: 07/17/17 Principal diagnosis: Acute exacerbation of COPD with tracheobronchitis Beatriz is a 77-year-old white female patient of Dr. Catie Akhtar, who presented to the emergency department on 07/15/2017 at 1602 with complaints of increasing dyspnea, cough, and increased generalized fatigue after of weeklong upper respiratory illness which was being treated on an outpatient basis by Dr. Akhtar with a course of prednisone and Levaquin. She states a week ago on she started with increased nasal congestion, and drainage of copious amounts of green nasal drainage. Did have some chills then, but no fevers. Denied any body aches. Dr. Akhtar treated her with prednisone and Levaquin, and patient was starting to feel better, however yesterday on Thursday she noted that she was increasingly short of breath, even with normal conversation. Her nasal congestion and nasal drainage have subsided, but now she has a loose congested nonproductive cough, unable to clear any phlegm. Denies any fever, denies any chills, no body Chano, no chest pain. She does have underlying history of COPD and asthma on home oxygen at 2 L/m. Other medical history includes diabetes mellitus type 2, coronary artery disease, myocardial infarction, previous coronary artery stenting, hyperlipidemia, hypertension, hypothyroidism. Patient is a former smoker. Her maintenance inhalers include Advair, albuterol nebulized treatment, Flonase, and albuterol rescue inhaler. Chest x-ray from showed hyperinflation compatible with COPD, scattered senescent parenchymal changes, but no evidence of any acute pulmonary disease. Follow-up chest x-ray from 07/16/2017 showed patchy basilar density, appears to be basilar atelectasis. She is afebrile, hemodynamically stable, she is wearing oxygen intermittently. Patient was started on IV steroids, Levaquin, Zosyn, DuoNeb nebulized treatments, Symbicort. On 07/17/2017 patient seen in follow-up. She reports improvement in terms of coughing, head and chest congestion. Lung sounds are improved on today's exam, less rhonchorous, no wheezing or rales noted. Patient's cough is dry, nonproductive. The nasal congestion has completely resolved. Patient's vital signs are stable, she is on room air with O2 sat 96%. She has been up ambulating, tolerated well. Blood culture is negative, patient continues on Levaquin, nebulized treatments, Symbicort, and IV steroids. Anticipate further improvement, and anticipate discharge home in the next 24 hours. Objective - Vital Signs Vital signs: Vital Signs Temp 98.3 F 07/17/17 07:52 Pulse 92 07/17/17 11:22 Resp 16 07/17/17 09:20 BP 139/71 07/17/17 07:52 Pulse Ox 96 07/17/17 07:52 Intake & Output 07/16/17 07/17/17 07/17/17 18:59 06:59 18:59 Intake Total 50 240 Balance 50 240 Weight 53.07 kg Intake: Intake, IV Titration 50 Amount Piperacillin-Tazobactam 3 50 .375 gm In Dextrose/Water 1 50ml.bag @ 12.5 mls/hr IVPB Q8H [facility] Rx#: [id number] Oral 240 Other: Voiding Method Toilet Toilet Toilet # Voids 3 2 - Exam GENERAL EXAM: Alert, pleasant, 77-year-old white female, mildly dyspneic with normal conversation, comfortable in no apparent distress. HEAD: Normocephalic/atraumatic. EYES: Normal reaction of pupils, equal size. Conjunctiva pink, sclera white. NOSE: Clear with pink turbinates. THROAT: No erythema or exudates. NECK: No masses, no JVD, no thyroid enlargement, no adenopathy. CHEST: No chest wall deformity. Symmetrical expansion. LUNGS: Equal air entry with some diminished rhonchi, improvement noted since yesterday exam. CVS: Regular rate and rhythm, normal S1 and S2, no gallops, no murmurs, no rubs ABDOMEN: Soft, nontender. No hepatosplenomegaly, normal bowel sounds, no guarding or rigidity. EXTREMITIES: No clubbing, no edema, no cyanosis, 2+ pulses and upper and lower extremities. MUSCULOSKELETAL: Muscle strength and tone normal. SPINE: No scoliosis or deformity SKIN: No rashes CENTRAL NERVOUS SYSTEM: Alert and oriented -3. No focal deficits, tone is normal in all 4 extremities. PSYCHIATRIC: Alert and oriented -3. Appropriate affect. Intact judgment and insight. - Labs CBC & Chem 7: 07/17/17 07:18 07/17/17 07:18 Labs: Abnormal Lab Results - Last 24 Hours (Table) 07/15/17 07/16/17 07/16/17 Range/Units 16:55 16:47 20:07 WBC (3.8-10.6) k/uL Neutrophils # (1.3-7.7) k/uL Carbon Dioxide (22-30) mmol/L BUN (7-17) mg/dL Glucose (74-99) mg/dL POC Glucose (mg/dL) 172 H 266 H (75-99) mg/dL Hemoglobin A1c 7.2 H (4.0-6.0) % 07/17/17 07/17/17 07/17/17 Range/Units 07:05 07:18 07:18 WBC 14.4 H (3.8-10.6) k/uL Neutrophils # 12.6 H (1.3-7.7) k/uL Carbon Dioxide 20 L (22-30) mmol/L BUN 28 H (7-17) mg/dL Glucose 161 H (74-99) mg/dL POC Glucose (mg/dL) 167 H (75-99) mg/dL Hemoglobin A1c (4.0-6.0) % 07/17/17 Range/Units 11:57 WBC (3.8-10.6) k/uL Neutrophils # (1.3-7.7) k/uL Carbon Dioxide (22-30) mmol/L BUN (7-17) mg/dL Glucose (74-99) mg/dL POC Glucose (mg/dL) 192 H (75-99) mg/dL Hemoglobin A1c (4.0-6.0) % Microbiology - Last 24 Hours (Table) 07/15/17 16:58 Blood Culture - Preliminary Blood No Growth after 24 hours Assessment and Plan Plan: Assessment: #1. Acute exacerbation of COPD with tracheobronchitis. Chest x-ray patchy basilar density, consistent with atelectasis, no clear evidence of pneumonia noted. #2. Recent upper respiratory infection, treated on an outpatient basis with prednisone and Levaquin #3. Moderate persistent asthma #4. Diabetes mellitus type 2 #5. Coronary artery disease with previous stenting #6. Hypothyroidism #7. Hyperlipidemia, hypertension #8. Myocardial infarction in July 2016 #9. Nicotine dependence, in remission Plan: Patient reports improvement as far as hadn't chest congestion, her cough is dry , nonproductive. She is able to tolerate ambulation, lung sounds are positive for some scattered rhonchi. Continue current medical treatment, continue Levaquin, Symbicort, DuoNeb and IV Solu-Medrol. Anticipate further improvement , patient may be considered for discharge in next 24 hours, if she remains stable. I performed a history & physical examination of the patient and discussed their management with my nurse practitioner, Gabby Jordan. I reviewed the nurse practitioner's note and agree with the documented findings and plan of care. Lung sounds are positive for scattered rhonchi. The findings and the impression was discussed with the patient. I attest to the documentation by the nurse practitioner. Time with Patient: Less than 30
[2017-07-17 16:19] VITALS: RESP 18
[2017-07-17 17:30] LABS: Glucose,Whole Blood 219 mg/dL (75-99)
[2017-07-17] MEDS: predniSONE 20 MG TAB PO SCH (17:45)
[2017-07-17] MEDS ORDERED: LEVOFLOXACIN 750 MG TAB PO SCH (18:00)
--- NOTE | 2017-07-17 19:48 | PN ---
PROGRESS NOTE DATE OF SERVICE: 07/17/2017 INTERVAL HISTORY: This 77-year-old woman was admitted with COPD acute exacerbation, acute purulent tracheobronchitis, early bronchopneumonia and pneumonia right has improved significantly. No chest pain. No palpitations. No fever. EXAM: Alert and oriented x3. The pulse is 95, blood pressure 134/62, respiration 18, temperature 98.4, pulse ox is 96% on 2 L. HEENT is conjunctivae normal. Neck is no jugular venous distention. Cardiovascular: S1, S2 muffled. Respiratory: Breath sounds diminished at the bases. Bilateral scattered rhonchi and crackles. Abdomen is soft nontender. Legs: No edema. No swelling. Central nervous system: No focal deficits. LABS: WBC 14.3, hemoglobin 12.7. ASSESSMENT: 1. Chronic obstructive pulmonary disease exacerbation with acute purulent tracheobronchitis with early bronchopneumonia possibly gram-negative with failure of outpatient treatment. 2. Increased WBC. 3. History of asthma. 4. Diabetes type 2. 5. History of hard of hearing. 6. Hypertension. 7. Hyperlipidemia. 8. History of myocardial infarction. 9. History of hypothyroidism. 10.History of coronary artery disease/stent. 11.Remote history of nicotine dependence. RECOMMENDATION AND DISCUSSION: Recommend to continue current management and symptomatic treatment. Otherwise at this time I would recommend continue the bronchodilators, continue with tapering steroids. Otherwise closely follow with Pulmonary. Further recommendations to follow. MMDAVIDL / IJN: [id number] /
[2017-07-17 20:08] VITALS: TEMP 98.7
[2017-07-17 20:22] LABS: Glucose,Whole Blood 180 mg/dL (75-99)
[2017-07-17] MEDS: MELATONIN 3 MG TABLET PO SCH (20:26)
[2017-07-18] MEDS: PIPERACILLIN-TAZOBACTAM 3.375 GM in DEXTROSE/WATER 1 50ML.BAG IVPB SCH ×2 (04:42→12:10)
[2017-07-18] MEDS: LEVOTHYROXINE 50 MCG TAB PO SCH (05:26)
[2017-07-18 07:12] LABS: Glucose,Whole Blood 244 mg/dL (75-99)
[2017-07-18 07:17] LABS: Basophils % (A) 0 %; Eosinophils % (A) 0 %; HCT 39.2 % (34.0-46.0); HGB 12.8 gm/dL (11.4-16.0); Lymphocytes # (A) 0.6 k/uL (1.0-4.8); Lymphocytes % (A) 5 %; MCH 28.9 pg (25.0-35.0); MCHC 32.7 g/dL (31.0-37.0); MCV 88.4 fL (80.0-100.0); Mean Platelet Volume 7.4; Monocytes # (A) 0.6 k/uL (0-1.0); Monocytes % (A) 6 %; Neutrophils # (A) 9.6 k/uL (1.3-7.7); Neutrophils % (A) 88 %; Platelet Count 243 k/uL (150-450); RBC 4.44 m/uL (3.80-5.40); RDW 14.8 % (11.5-15.5); WBC 10.9 k/uL (3.8-10.6)
[2017-07-18] MEDS: PANTOPRAZOLE 40 MG TABLET PO SCH (07:19)
[2017-07-18] MEDS: ASPIRIN 81 MG PO SCH (07:20)
[2017-07-18] MEDS: metFORMIN 500 MG TAB PO SCH (07:20)
[2017-07-18] MEDS: HEPARIN SODIUM,PORCINE 5,000 UNIT/ML 1 ML VIAL SQ SCH (07:21)
[2017-07-18] MEDS: guaiFENesin 600 MG TABLET.ER PO SCH (07:21)
[2017-07-18] MEDS: ATORVASTATIN 80 MG TAB PO SCH (07:21)
[2017-07-18] MEDS: predniSONE 20 MG TAB PO SCH (07:21)
[2017-07-18] MEDS: METOPROLOL TARTRATE 25 MG TAB PO SCH (07:22)
[2017-07-18] MEDS: MONTELUKAST 10 MG TAB PO SCH (07:22)
[2017-07-18] MEDS: LOSARTAN 50 MG TAB PO SCH (07:22)
[2017-07-18] MEDS: MULTIVITAMINS, THERA 1 EACH TAB PO SCH (07:22)
[2017-07-18] MEDS: TICAGRELOR 90 MG TAB PO SCH (07:27)
[2017-07-18] MEDS: MV MIN PO SCH (07:27)
[2017-07-18] MEDS: GLUT PO SCH (07:27)
[2017-07-18] MEDS: [UNRECOGNIZED DRUG - OTHER] PO SCH (07:27)
[2017-07-18] MEDS: LYSINE PO SCH (07:27)
[2017-07-18] MEDS: VIT C PO SCH (07:27)
[2017-07-18] MEDS: INSULIN ASPART 100 UNIT/ML 1 ML 10 ML VIAL SQ SCH ×2 (07:35→12:11)
[2017-07-18 07:36] LABS: Anion Gap 13 mmol/L; Blood Urea Nitrogen 28 mg/dL (7-17); Calcium 9.1 mg/dL (8.4-10.2); Carbon Dioxide 20 mmol/L (22-30); Chloride 104 mmol/L (98-107); Glucose 244 mg/dL (74-99); Potassium 4.1 mmol/L (3.5-5.1); Sodium 137 mmol/L (137-145)
[2017-07-18] MEDS: IPRATROPIUM-ALBUTEROL 3 ML NEB INHALATION SCH ×2 (08:06→11:40)
[2017-07-18] MEDS: SYMBICORT 80-4.5 MCG INHALER INHALATION SCH (08:07)
[2017-07-18 08:41] VITALS: BP 132/69
[2017-07-18 11:51] VITALS: PULSE 80
[2017-07-18 11:59] LABS: Glucose,Whole Blood 167 mg/dL (75-99)
--- NOTE | 2017-07-18 14:01 | P.PN ---
Subjective Progress Note Date: 07/18/17 Principal diagnosis: Acute exacerbation of COPD and tracheobronchitis Beatriz is a 77-year-old white female patient of Dr. Catie Akhtar, who presented to the emergency department on 07/15/2017 at 1602 with complaints of increasing dyspnea, cough, and increased generalized fatigue after of weeklong upper respiratory illness which was being treated on an outpatient basis by Dr. Akhtar with a course of prednisone and Levaquin. She states a week ago on she started with increased nasal congestion, and drainage of copious amounts of green nasal drainage. Did have some chills then, but no fevers. Denied any body aches. Dr. Akhtar treated her with prednisone and Levaquin, and patient was starting to feel better, however yesterday on Thursday she noted that she was increasingly short of breath, even with normal conversation. Her nasal congestion and nasal drainage have subsided, but now she has a loose congested nonproductive cough, unable to clear any phlegm. Denies any fever, denies any chills, no body Chano, no chest pain. She does have underlying history of COPD and asthma on home oxygen at 2 L/m. Other medical history includes diabetes mellitus type 2, coronary artery disease, myocardial infarction, previous coronary artery stenting, hyperlipidemia, hypertension, hypothyroidism. Patient is a former smoker. Her maintenance inhalers include Advair, albuterol nebulized treatment, Flonase, and albuterol rescue inhaler. Chest x-ray from showed hyperinflation compatible with COPD, scattered senescent parenchymal changes, but no evidence of any acute pulmonary disease. Follow-up chest x-ray from 07/16/2017 showed patchy basilar density, appears to be basilar atelectasis. She is afebrile, hemodynamically stable, she is wearing oxygen intermittently. Patient was started on IV steroids, Levaquin, Zosyn, DuoNeb nebulized treatments, Symbicort. On 07/17/2017 patient seen in follow-up. She reports improvement in terms of coughing, head and chest congestion. Lung sounds are improved on today's exam, less rhonchorous, no wheezing or rales noted. Patient's cough is dry, nonproductive. The nasal congestion has completely resolved. Patient's vital signs are stable, she is on room air with O2 sat 96%. She has been up ambulating, tolerated well. Blood culture is negative, patient continues on Levaquin, nebulized treatments, Symbicort, and IV steroids. Anticipate further improvement, and anticipate discharge home in the next 24 hours. Reevaluated today on 07/18/2017, patient is feeling much better, less cough and less wheezing less shortness of breath. Patient would like to be discharged home, and I believe that is reasonable to discharge the patient home today and follow up on outpatient basis with Dr. Vance. Labs were reviewed, meds were also reviewed. Objective - Vital Signs Vital signs: Vital Signs Temp 98.7 F 07/17/17 20:07 Pulse 80 07/18/17 11:51 Resp 18 07/18/17 07:00 BP 132/69 07/18/17 07:00 Pulse Ox 95 07/18/17 08:09 Intake & Output 07/17/17 07/18/17 07/18/17 18:59 06:59 18:59 Intake Total 370 325 700 Balance 370 325 700 Weight 53.07 kg Intake: IV 80 225 240 0.9 80 225 240 Intake, IV Titration 50 100 100 Amount Piperacillin-Tazobactam 3 50 100 100 .375 gm In Dextrose/Water 1 50ml.bag @ 12.5 mls/hr IVPB Q8H [facility] Rx#: [id number] Oral 240 360 Other: Voiding Method Toilet Toilet Toilet # Voids 2 3 # Bowel Movements 1 1 - Exam GENERAL EXAM: Alert, pleasant, 77-year-old white female, mildly dyspneic with normal conversation, comfortable in no apparent distress. HEAD: Normocephalic/atraumatic. EYES: Normal reaction of pupils, equal size. Conjunctiva pink, sclera white. NOSE: Clear with pink turbinates. THROAT: No erythema or exudates. NECK: No masses, no JVD, no thyroid enlargement, no adenopathy. CHEST: No chest wall deformity. Symmetrical expansion. LUNGS: Equal air entry minimal wheezing on forced expiratory maneuver only otherwise lungs are clear CVS: Regular rate and rhythm, normal S1 and S2, no gallops, no murmurs, no rubs ABDOMEN: Soft, nontender. No hepatosplenomegaly, normal bowel sounds, no guarding or rigidity. EXTREMITIES: No clubbing, no edema, no cyanosis, 2+ pulses and upper and lower extremities. MUSCULOSKELETAL: Muscle strength and tone normal. SPINE: No scoliosis or deformity SKIN: No rashes CENTRAL NERVOUS SYSTEM: Alert and oriented -3. No focal deficits, tone is normal in all 4 extremities. PSYCHIATRIC: Alert and oriented -3. Appropriate affect. Intact judgment and insight. - Labs CBC & Chem 7: 07/18/17 06:25 07/18/17 06:25 Labs: Abnormal Lab Results - Last 24 Hours (Table) 07/17/17 07/17/17 07/18/17 Range/Units 17:11 20:20 06:25 WBC 10.9 H (3.8-10.6) k/uL Neutrophils # 9.6 H (1.3-7.7) k/uL Lymphocytes # 0.6 L (1.0-4.8) k/uL Carbon Dioxide (22-30) mmol/L BUN (7-17) mg/dL Glucose (74-99) mg/dL POC Glucose (mg/dL) 219 H 180 H (75-99) mg/dL 07/18/17 07/18/17 07/18/17 Range/Units 06:25 07:07 11:53 WBC (3.8-10.6) k/uL Neutrophils # (1.3-7.7) k/uL Lymphocytes # (1.0-4.8) k/uL Carbon Dioxide 20 L (22-30) mmol/L BUN 28 H (7-17) mg/dL Glucose 244 H (74-99) mg/dL POC Glucose (mg/dL) 244 H 167 H (75-99) mg/dL Microbiology - Last 24 Hours (Table) 07/15/17 16:58 Blood Culture - Preliminary Blood No Growth after 48 hours Assessment and Plan Assessment: #1. Acute exacerbation of COPD with tracheobronchitis. Chest x-ray patchy basilar density, consistent with atelectasis, no clear evidence of pneumonia noted. #2. Recent upper respiratory infection, treated on an outpatient basis with prednisone and Levaquin #3. Moderate persistent asthma #4. Diabetes mellitus type 2 #5. Coronary artery disease with previous stenting #6. Hypothyroidism #7. Hyperlipidemia, hypertension #8. Myocardial infarction in July 2016 #9. Nicotine dependence, in remission Recommendation: Clear for discharge today on antibiotics, prednisone burst and taper onto she sees Dr. Vance next week. Patient could be discharged home on Levaquin, and prednisone 30 mg tapered over 21 days. Time with Patient: Less than 30
--- NOTE | 2017-07-18 23:31 | DS ---
DISCHARGE SUMMARY DATE OF SERVICE: 07/18/2017. FINAL DIAGNOSES: 1. Chronic obstructive pulmonary disease exacerbation with acute purulent tracheobronchitis with early bronchopneumonia possibly gram-negative with failure of outpatient treatment. 2. Increased WBC. 3. History of asthma chronic intermittent. 4. Diabetes type 2. 5. History of hard of hearing. 6. Hypertension. 7. Hyperlipidemia. 8. History of myocardial infarction. 9. History hypothyroidism. 10.History of coronary artery disease/stent. 11.Remote history of nicotine dependence. DISCHARGE DISPOSITION: The patient is being discharged in stable condition with guarded prognosis. HISTORY OF PRESENT ILLNESS: This 77-year-old woman with a past history of multiple medical problems, COPD exacerbation as well as bronchopneumonia. Treated with antibiotics, steroids and bronchodilators. Dr. Green saw the patient. Patient improved significantly. PHYSICAL EXAMINATION: On exam, vitals are stable. Cardiovascular: S1, S2. Respiratory: A few rhonchi. Abdomen soft, nontender. DISCHARGE ADVICE AND MEDICATION: The patient is being discharged in stable condition with guarded prognosis with the following advice and medications: 1. Diet is cardiac diet. 2. Activity limited until followup. 3. Follow up Dr. Akhtar in 2-3 days. 4. Follow up with Dr. Green as advised. MEDICATIONS: Will be as follows: 1. Albuterol p.r.n. 2. Albuterol nebulized q.i.d. and p.r.n. 3. Augmentin 875 mg p.o. b.i.d. 4. Aspirin 81 mg p.o. 5. Lipitor 80 mg p.o. daily. 6. Advair 1 puff b.i.d. 7. Mucinex 600 mg p.o. b.i.d. 8. Synthroid 50 mcg p.o. daily. 9. Glucophage 500 mg p.o. b.i.d. 10.Lopressor 25 mg p.o. b.i.d. 11.Singular 10 mg p.o. 12.Multivitamins 1 p.o. daily. 13.Nitro 0.4 mg p.r.n. 14.Benicar 20 mg daily. 15.Protonix 40 mg daily. 16.Prednisone taper that will be 40 mg for 3 days, 30 for three days, 20 for three days and then ten for 3 days. 17.Brilinta 90 mg p.o. b.i.d. 18.DuoNeb q.i.d. and p.r.n. UNA / CARLO: [id number] /
== END 2017-07-18 16:05 | disposition home or self-care (01) | DRG 190 ==
LOC: EC 16:02 → 5MS5E 19:08
PROVIDERS: ADMIT Hospitalist; ATTEND Hospitalist
DX: J44.1 Chronic obstructive pulmonary disease with (acute) exacerbation (principal); J15.6 Pneumonia due to other Gram-negative bacteria; E11.9 Type 2 diabetes mellitus without complications; Z99.81 Dependence on supplemental oxygen; J98.11 Atelectasis; E03.9 Hypothyroidism, unspecified; J44.0 Chronic obstructive pulmonary disease with (acute) lower respiratory infection; E78.5 Hyperlipidemia, unspecified; F17.201 Nicotine dependence, unspecified, in remission; H91.90 Unspecified hearing loss, unspecified ear; I10 Essential (primary) hypertension; I25.10 Atherosclerotic heart disease of native coronary artery without angina pectoris; I25.2 Old myocardial infarction; J45.40 Moderate persistent asthma, uncomplicated; Z79.84 Long term (current) use of oral hypoglycemic drugs; Z79.82 Long term (current) use of aspirin; Z79.899 Other long term (current) drug therapy; Z79.52 Long term (current) use of systemic steroids; Z95.5 Presence of coronary angioplasty implant and graft; Z90.710 Acquired absence of both cervix and uterus
CPT/HCPCS: 36415; 71046; 80048; 80053; 82550; 82553; 83036; 83735; 83880; 84484; 85025; 85610; 85730; 87040; 87502; 93005; 94640; 94760; 96365; 96375; 99285

== ENCOUNTER 2018-05-02 15:33 | Inpatient (IN) | payer MEDICARE ==
[2018-05-02] MEDS ORDERED: IPRATROPIUM-ALBUTEROL 3 ML NEB INHALATION STA (15:55)
[2018-05-02] MEDS ORDERED: methylPREDNISolone SOD SUCCI 125 MG/2 ML VIAL IV STA (15:55)
[2018-05-02] MEDS ORDERED: SODIUM CHLORIDE 0.9% 1,000 ML IV STA (15:55)
--- NOTE | 2018-05-02 15:57 | ED ---
General Adult HPI - General Chief complaint: Shortness of Breath Stated complaint: SOB Time Seen by Provider: 05/02/18 15:40 Source: patient, family, RN notes reviewed Mode of arrival: ambulatory Limitations: no limitations - History of Present Illness Initial comments: Patient is a pleasant 69-year-old female presenting to the emergency Department with complaints of difficulty in breathing. Symptoms have been intermittent over the past month. Patient started with sinus congestion and drainage. This does continue. Patient has had some associated cough with thick green sputum. Patient has some associated dyspnea. Patient did see her doctor twice and was prescribed antibiotics twice and steroids once with temporary improvement of symptoms. No chest pain. No fevers. Symptoms are similar to previous COPD problems. - Related Data Home Medications Medication Instructions Recorded Confirmed Albuterol Nebulized [Ventolin 2.5 mg INHALATION RT-QID PRN 07/25/16 05/02/18 Nebulized] Fluticasone/Salmeterol [Advair 1 puff INHALATION RT-BID 07/25/16 05/02/18 250-50 Diskus] Multivitamins, Thera [Multivitamin 1 tab PO DAILY 07/25/16 05/02/18 (formulary)] Levothyroxine Sodium [Synthroid] 50 mcg PO DAILY 02/25/17 05/02/18 Albuterol Inhaler [Ventolin Hfa 2 puff INHALATION RT-Q6H PRN 05/07/17 05/02/18 Inhaler] Alendronate Sodium 70 mg PO FR 05/02/18 05/02/18 Losartan(Unknown Dose) 1 tab PO DAILY 05/02/18 05/02/18 Montelukast [Singulair] 10 mg PO DAILY 05/02/18 05/02/18 Mv-Min/Vit C/Glut/Lysine/Hb124 1 tab PO DAILY 05/02/18 05/02/18 [Airborne Effervescent Tablet] guaiFENesin [Mucinex] 600 mg PO BID PRN 05/02/18 05/02/18 metFORMIN HCL [Glucophage] 500 mg PO BID 05/02/18 05/02/18 Previous Rx's Medication Instructions Recorded Aspirin 81 mg PO DAILY chew 07/29/16 Atorvastatin [Lipitor] 80 mg PO DAILY #30 tab 07/29/16 Metoprolol Tartrate [Lopressor] 25 mg PO BID #60 tab 07/29/16 Pantoprazole [Protonix] 40 mg PO AC-BRKFST #30 tablet. 07/29/16 Ticagrelor [Brilinta] 90 mg PO BID #60 tab 07/29/16 Allergies Allergy/AdvReac Type Severity Reaction Status Date / Time No Known Drug Allergies Allergy Unknown Verified 05/02/18 15:51 Review of Systems ROS Statement: Those systems with pertinent positive or pertinent negative responses have been documented in the HPI. ROS Other: All systems not noted in ROS Statement are negative. Constitutional: Denies: fever Eyes: Denies: eye pain ENT: Reports: congestion. Denies: ear pain Respiratory: Reports: cough, dyspnea Cardiovascular: Denies: chest pain Endocrine: Denies: fatigue Gastrointestinal: Denies: abdominal pain Genitourinary: Denies: dysuria Musculoskeletal: Denies: back pain Skin: Denies: rash Neurological: Denies: weakness Past Medical History Past Medical History: Asthma, COPD, Diabetes Mellitus, Hearing Disorder / Deafness, Hyperlipidemia, Hypertension, Myocardial Infarction ([place]), Thyroid Disorder Last Myocardial Infarction Date:: 07/2016 History of Any Multi-Drug Resistant Organisms: None Reported Past Surgical History: Adenoidectomy, Heart Catheterization With Stent, Hysterectomy, Tonsillectomy Additional Past Surgical History / Comment(s): cystocele, rectocele Past Anesthesia/Blood Transfusion Reactions: No Reported Reaction Date of Last Stent Placement:: 07/2016 Past Psychological History: No Psychological Hx Reported Smoking Status: Former smoker Past Alcohol Use History: Rare Past Drug Use History: None Reported - Past Family History Mother Family Medical History: Memory Impairment Father Family Medical History: Prostate Disorder General Exam Limitations: no limitations General appearance: alert, in no apparent distress Head exam: Present: atraumatic Eye exam: Present: normal appearance, PERRL ENT exam: Present: normal oropharynx Neck exam: Present: normal inspection Respiratory exam: Present: wheezes Cardiovascular Exam: Present: tachycardia GI/Abdominal exam: Present: soft. Absent: tenderness Extremities exam: Present: normal inspection. Absent: pedal edema, calf tenderness Neurological exam: Present: alert Psychiatric exam: Present: normal affect, normal mood Skin exam: Present: normal color Course Vital Signs 05/02/18 05/02/18 05/02/18 15:33 17:18 17:27 Temperature 98.6 F Pulse Rate 109 H 102 H 92 Respiratory 24 Rate Blood Pressure 173/89 O2 Sat by Pulse 92 L Oximetry EKG Findings - EKG Comments: EKG Findings:: Sinus tachycardia 106. NV 156. QRS 82. QT 292. QTC 387. Normal axis. Septal Q waves. No acute ST change. Medical Decision Making - Medical Decision Making Patient reevaluated and resting comfortably in bed. Heart rate remains 108. Patient with continued wheezing. Patient and family updated on results. Case was discussed in detail with Dr. Debora Carney, who will admit covered for Dr. Akhtar. - Lab Data Result diagrams: 05/02/18 16:19 05/02/18 16:19 Lab Results 05/02/18 05/02/18 05/02/18 Range/Units 16:19 16:19 16:19 WBC 10.3 (3.8-10.6) k/uL RBC 4.75 (3.80-5.40) m/uL Hgb 14.1 (11.4-16.0) gm/dL Hct 40.9 (34.0-46.0) % MCV 86.0 (80.0-100.0) fL MCH 29.6 (25.0-35.0) pg MCHC 34.4 (31.0-37.0) g/dL RDW 13.8 (11.5-15.5) % Plt Count 210 (150-450) k/uL Neutrophils % 71 % Lymphocytes % 15 % Monocytes % 7 % Eosinophils % 4 % Basophils % 0 % Neutrophils # 7.3 (1.3-7.7) k/uL Lymphocytes # 1.6 (1.0-4.8) k/uL Monocytes # 0.8 (0-1.0) k/uL Eosinophils # 0.4 (0-0.7) k/uL Basophils # 0.0 (0-0.2) k/uL PT (9.0-12.0) sec INR (<1.2) APTT (22.0-30.0) sec Sodium 142 (137-145) mmol/L Potassium 4.2 (3.5-5.1) mmol/L Chloride 109 H (98-107) mmol/L Carbon Dioxide 21 L (22-30) mmol/L Anion Gap 12 mmol/L BUN 16 (7-17) mg/dL Creatinine 0.46 L (0.52-1.04) mg/dL Est GFR (CKD-EPI)AfAm >90 (>60 ml/min/1.73 sqM) Est GFR (CKD-EPI)NonAf >90 (>60 ml/min/1.73 sqM) Glucose 122 H (74-99) mg/dL Calcium 9.8 (8.4-10.2) mg/dL Total Bilirubin 0.8 (0.2-1.3) mg/dL AST 31 (14-36) U/L ALT 33 (9-52) U/L Alkaline Phosphatase 111 (38-126) U/L Total Creatine Kinase 110 (30-135) U/L CK-MB (CK-2) 1.6 (0.0-2.4) ng/mL CK-MB (CK-2) Rel Index 1.5 Troponin I <0.012 (0.000-0.034) ng/mL Total Protein 7.4 (6.3-8.2) g/dL Albumin 4.3 (3.5-5.0) g/dL 05/02/18 Range/Units 16:19 WBC (3.8-10.6) k/uL RBC (3.80-5.40) m/uL Hgb (11.4-16.0) gm/dL Hct (34.0-46.0) % MCV (80.0-100.0) fL MCH (25.0-35.0) pg MCHC (31.0-37.0) g/dL RDW (11.5-15.5) % Plt Count (150-450) k/uL Neutrophils % % Lymphocytes % % Monocytes % % Eosinophils % % Basophils % % Neutrophils # (1.3-7.7) k/uL Lymphocytes # (1.0-4.8) k/uL Monocytes # (0-1.0) k/uL Eosinophils # (0-0.7) k/uL Basophils # (0-0.2) k/uL PT 9.6 (9.0-12.0) sec INR 0.9 (<1.2) APTT 23.0 (22.0-30.0) sec Sodium (137-145) mmol/L Potassium (3.5-5.1) mmol/L Chloride (98-107) mmol/L Carbon Dioxide (22-30) mmol/L Anion Gap mmol/L BUN (7-17) mg/dL Creatinine (0.52-1.04) mg/dL Est GFR (CKD-EPI)AfAm (>60 ml/min/1.73 sqM) Est GFR (CKD-EPI)NonAf (>60 ml/min/1.73 sqM) Glucose (74-99) mg/dL Calcium (8.4-10.2) mg/dL Total Bilirubin (0.2-1.3) mg/dL AST (14-36) U/L ALT (9-52) U/L Alkaline Phosphatase (38-126) U/L Total Creatine Kinase (30-135) U/L CK-MB (CK-2) (0.0-2.4) ng/mL CK-MB (CK-2) Rel Index Troponin I (0.000-0.034) ng/mL Total Protein (6.3-8.2) g/dL Albumin (3.5-5.0) g/dL - Radiology Data Radiology results: image reviewed (Chest x-ray shows no acute process) Disposition Clinical Impression: Acute exacerbation of chronic obstructive pulmonary disease (COPD) Disposition: ADMITTED IP TO THIS HOSP Is patient prescribed a controlled substance at d/c from ED?: No Referrals: Catie Akhtar MD [Primary Care Provider] - 1-2 days Decision Time: 17:42
[2018-05-02 16:51] LABS: ALT 33 U/L (9-52); AST 31 U/L (14-36); Albumin 4.3 g/dL (3.5-5.0); Alkaline Phosphatase 111 U/L (38-126); Anion Gap 12 mmol/L; Blood Urea Nitrogen 16 mg/dL (7-17); Calcium 9.8 mg/dL (8.4-10.2); Carbon Dioxide 21 mmol/L (22-30); Chloride 109 mmol/L (98-107); Glucose 122 mg/dL (74-99); INR 0.9 (<1.2); Potassium 4.2 mmol/L (3.5-5.1); Prothrombin Time 9.6 sec (9.0-12.0); Sodium 142 mmol/L (137-145); Total Bilirubin 0.8 mg/dL (0.2-1.3); Total Protein 7.4 g/dL (6.3-8.2)
[2018-05-02 16:54] LABS: Creatine Kinase 110 U/L (30-135)
[2018-05-02 16:55] LABS: Basophils % (A) 0 %; Eosinophils # (A) 0.4 k/uL (0-0.7); Eosinophils % (A) 4 %; HCT 40.9 % (34.0-46.0); HGB 14.1 gm/dL (11.4-16.0); Lymphocytes # (A) 1.6 k/uL (1.0-4.8); Lymphocytes % (A) 15 %; MCH 29.6 pg (25.0-35.0); MCHC 34.4 g/dL (31.0-37.0); Monocytes # (A) 0.8 k/uL (0-1.0); Monocytes % (A) 7 %; Neutrophils # (A) 7.3 k/uL (1.3-7.7); Neutrophils % (A) 71 %; Platelet Count 210 k/uL (150-450); RBC 4.75 m/uL (3.80-5.40); RDW 13.8 % (11.5-15.5); WBC 10.3 k/uL (3.8-10.6)
[2018-05-02 17:07] LABS: Creatine Kinase MB 1.6 ng/mL (0.0-2.4); Troponin I <0.012 ng/mL (0.000-0.034)
--- NOTE | 2018-05-02 17:33 | XR ---
EXAMINATION TYPE: XR chest 2V DATE OF EXAM: 05/02/2018 COMPARISON: 07/16/2017 HISTORY: Difficulty breathing TECHNIQUE: Frontal and lateral views of the chest are obtained. FINDINGS: There is no heart failure nor confluent pneumonic infiltrate. Costophrenic angles are carter r. Thoracic aorta is atheromatous. Bony thorax is intact. IMPRESSION: No active cardiopulmonary disease. No change.
[2018-05-02] MEDS ORDERED: IPRATROPIUM-ALBUTEROL 3 ML NEB INHALATION PRN (17:42)
[2018-05-02] MEDS: IPRATROPIUM-ALBUTEROL 3 ML NEB INHALATION SCH (20:17)
[2018-05-02] MEDS ORDERED: guaiFENesin 600 MG TABLET.ER PO PRN (20:37)
[2018-05-02] MEDS ORDERED: ALBUTEROL INHALER 60 PUFF/8 GM INHALER INHALATION PRN (20:37)
[2018-05-02] MEDS ORDERED: ALBUTEROL NEBULIZED 2.5 MG/3 ML INHALATION PRN (20:37)
[2018-05-02] MEDS ORDERED: CEFDINIR 300 MG CAP PO SCH (21:00)
[2018-05-02 21:01] LABS: Glucose,Whole Blood 222 mg/dL (75-99)
[2018-05-02] MEDS ORDERED: MELATONIN 3 MG TABLET PO PRN (23:33)
[2018-05-02] MEDS ORDERED: AZITHROMYCIN 500 MG in SODIUM CHLORIDE 0.9% 250 ML IVPB SCH (23:45)
[2018-05-03] MEDS: methylPREDNISolone SOD SUCCI 125 MG/2 ML VIAL IV SCH ×5 (00:14→23:34)
[2018-05-03] MEDS: metFORMIN 500 MG TAB PO SCH ×3 (00:15→22:17)
[2018-05-03] MEDS: METOPROLOL TARTRATE 25 MG TAB PO SCH ×3 (00:15→22:17)
[2018-05-03] MEDS: ALPRAZolam 0.25 MG TAB PO PRN (00:15)
[2018-05-03] MEDS: INSULIN ASPART 100 UNIT/ML 1 ML 10 ML VIAL SQ SCH ×5 (00:15→22:16)
[2018-05-03] MEDS: TICAGRELOR 90 MG TAB PO SCH ×3 (00:15→22:17)
[2018-05-03] MEDS: LEVOTHYROXINE 50 MCG TAB PO SCH (05:38)
[2018-05-03 07:03] LABS: Glucose,Whole Blood 218 mg/dL (75-99)
[2018-05-03] MEDS: PANTOPRAZOLE 40 MG TABLET PO SCH (07:52)
[2018-05-03] MEDS: HEPARIN SODIUM,PORCINE 5,000 UNIT/ML 1 ML VIAL SQ SCH ×2 (07:52→22:17)
[2018-05-03] MEDS: MONTELUKAST 10 MG TAB PO SCH (07:52)
[2018-05-03] MEDS: ATORVASTATIN 80 MG TAB PO SCH (07:53)
[2018-05-03] MEDS: ASPIRIN 81 MG PO SCH (07:53)
[2018-05-03] MEDS: MULTIVITAMINS, THERA 1 EACH TAB PO SCH (07:53)
--- NOTE | 2018-05-03 08:27 | HP ---
HISTORY AND PHYSICAL CHIEF COMPLAINT: Shortness of breath. HISTORY OF PRESENT ILLNESS: This 77-year-old woman with a past medical history of COPD, history of asthma, diabetes mellitus type 2, hypertension, hyperlipidemia, myocardial infarction being followed by Dr. Akhtar in the outpatient setting, was complaining of shortness of breath. Patient had shortness of breath intermittently for the past 1 month and the patient also has sinus drainage and congestion. Today, patient also had thick green sputum. Patient came to [facility] and admitted for further evaluation and treatment. Patient is seeing Dr. Vance from the Pulmonary standpoint. Chest x-ray done in the ER showed no active pulmonary disease. There is no history of fever, chills, or rigors. There is no history of headache, loss of consciousness, or seizures. PAST MEDICAL HISTORY: History of COPD, history of asthma, diabetes, CAD, hypertension, hypertension, myocardial infarction, history of CAD stent. HOME MEDICATIONS: 1. Metformin 500 mg p.o. b.i.d. 2. Mucinex 60 mg b.i.d. p.r.n. 3. Brilinta 90 mg p.o. b.i.d. 4. Protonix 40 mg a.c. breakfast. 5. Airborne effervescent tablets 1 p.o. daily. 6. Multivitamin 1 p.o. daily. 7. Singulair 10 mg p.o. daily. 8. Lopressor 25 mg p.o. b.i.d. 9. Losartan 1 tablet p.o. daily. 10.Synthroid 50 mcg p.o. daily. 11.Advair 260 one puff b.i.d. 12.Lipitor 80 mg p.o. daily. 13.Aspirin 81 mg p.o. daily. 14.Fosamax 70 mg p.o. Thursday. 15.Ventolin inhaler 2.5 q.i.d. p.r.n.. ALLERGIES: None. FAMILY HISTORY: Memory impairment in the family. SOCIAL HISTORY: Previous history of smoking. No history of smoking or alcohol intake. REVIEW OF SYSTEMS: ENT: Diminished hearing, diminished vision. CARDIOVASCULAR: No angina. RESPIRATORY: As mentioned earlier. GI: No nausea. : No dysuria. NERVOUS SYSTEM: No numbness or weakness. ALLERGY/IMMUNOLOGY: No asthma. MUSCULOSKELETAL: As mentioned earlier. HEMATOLOGY: No history of anemia. ENDOCRINE: Diabetes, hypothyroidism present. CONSTITUTIONAL: mentioned earlier. DERMATOLOGY: Negative. RHEUMATOLOGY: Negative. PSYCHIATRY: As mentioned earlier. PHYSICAL EXAMINATION: Patient is alert, oriented x3. Pulse 82, blood pressure 151/82, respirations 16, temperature 98.2, pulse ox 98% on room air. HEENT: Conjunctive normal NECK: No jugular venous distension. CARDIOVASCULAR: S1, S2, muffled. RESPIRATORY: Breath sounds diminished at the bases, bilateral scattered rhonchi, no crackles. ABDOMEN: Soft, nontender, no mass palpable. LEGS: No edema. No swelling. NERVOUS SYSTEM: Higher functions as mentioned earlier. LYMPHATICS: No lymph node enlargement of the neck and axilla. SKIN: No ulcer, rash, bleeding. LABS: WBC is 9.2, hemoglobin is 14.1, creatinine 0.46. Chest x-ray personally reviewed. ASSESSMENT: 1. Chronic obstructive pulmonary disease acute exacerbation with acute purulent tracheobronchitis. 2. History of bronchial asthma, chronic intermittent. 3. Diabetes mellitus type 2. 4. Hard of hearing. 5. Hypertension. 6. Hyperlipidemia. 7. Myocardial infarction. 8. Hypothyroidism. 9. History of coronary artery disease, stent. 10.Remote history of nicotine dependence. RECOMMENDATION: In this 77-year-old woman who presented with multiple complex medical issues, will monitor the patient closely, continue with the current management and symptomatic treatment. Will initiate intensive bronchodilator treatment, empiric antibiotics. I would also recommend consultation with Dr. Vance; otherwise, IV steroids. Monitor blood sugars closely. Guarded prognosis because of multiple complex medical issues. Further recommendation will be made. MMODL / IJN: [id number] /
[2018-05-03] MEDS: SYMBICORT 80-4.5 MCG INHALER INHALATION SCH ×2 (09:09→19:53)
[2018-05-03] MEDS: IPRATROPIUM-ALBUTEROL 3 ML NEB INHALATION SCH ×4 (09:10→19:53)
--- NOTE | 2018-05-03 09:33 | P.CNPUL ---
History of Present Illness Consult date: 05/03/18 Requesting physician: Qamar Linares Reason for consult: dyspnea, cough, asthma Chief complaint: Acute exacerbation of moderate persistent bronchial asthma History of present illness: This is a 77-year-old white female patient of Dr. Akhtar, with past medical history of moderate persistent bronchial asthma, chronic hypercapnic respiratory failure, diabetes mellitus type 2, coronary artery disease, previous myocardial infarction, hypertension, hyperlipidemia, hypothyroidism who presented to the emergency department on 05/12/2018 for evaluation of worsening shortness of breath, month-long history of upper respiratory infection , cough, production of green sputum, sinus congestion. Patient was treated for upper respiratory infection a month ago by Dr. Akhtar with a 5 day course of oral prednisone and Levaquin, had initial improvement, however in the last few days her symptoms recurred, and patient was having increased sinus congestion, copious drainage of green sputum, some mild cough with production, increased shortness of breath. She denied any fever or chills, patient's has similar symptoms at home. Shiela in the pulmonary office, has a remote history of smoking, she quit smoking in 1966, and prior to that smoked only for 10 years. She does wear oxygen on as-needed basis, usually her exacerbation of bronchial asthma are associated with the upper respiratory infections. Patient was started on a combination of Rocephin and Zithromax, IV steroids, nebulized bronchodilators, this morning she seen in consultation for evaluation for breathing problems. She still tight and congested, not bringing up much phlegm , having coughing spells and still very dyspneic with exertion. Chest x-ray did not show any acute cardiopulmonary disease. Lab work was negative for leukocytosis, sodium was 142, potassium 0.2, chloride is 109, CO2 is 21, BUN 16 and creatinine 0.46, were within normal limits, troponin was negative 1. Review of Systems All systems: negative Constitutional: Denies chills, Denies fever Eyes: denies blurred vision, denies pain Ears, nose, mouth and throat: Denies headache, Denies sore throat Cardiovascular: Denies chest pain, Denies shortness of breath Respiratory: Reports congestion, Reports cough with sputum, Reports dyspnea, Reports home oxygen, Reports respiratory infections, Reports wheezing, Denies cough Gastrointestinal: Denies abdominal pain, Denies diarrhea, Denies nausea, Denies vomiting Genitourinary: Denies dysuria, Denies hematuria Musculoskeletal: Denies myalgias Integumentary: Denies pruritus, Denies rash Neurological: Denies numbness, Denies weakness Psychiatric: Denies anxiety, Denies depression Endocrine: Denies fatigue, Denies weight change Past Medical History Past Medical History: Asthma, COPD, Diabetes Mellitus, Hearing Disorder / Deafness, Hyperlipidemia, Hypertension, Myocardial Infarction ([place]), Thyroid Disorder Last Myocardial Infarction Date:: 06/25/2016 History of Any Multi-Drug Resistant Organisms: None Reported Past Surgical History: Adenoidectomy, Heart Catheterization With Stent, Hysterectomy, Tonsillectomy Additional Past Surgical History / Comment(s): cystocele, rectocele Past Anesthesia/Blood Transfusion Reactions: No Reported Reaction Date of Last Stent Placement:: 07/2016 Past Psychological History: No Psychological Hx Reported Smoking Status: Former smoker Past Alcohol Use History: Rare Past Drug Use History: None Reported - Past Family History Mother Family Medical History: Memory Impairment Father Family Medical History: Prostate Disorder Medications and Allergies Home Medications Medication Instructions Recorded Confirmed Type Albuterol Nebulized [Ventolin 2.5 mg INHALATION RT-QID PRN 07/25/16 05/02/18 History Nebulized] Fluticasone/Salmeterol [Advair 1 puff INHALATION RT-BID 07/25/16 05/02/18 History 250-50 Diskus] Multivitamins, Thera [Multivitamin 1 tab PO DAILY 07/25/16 05/02/18 History (formulary)] Aspirin 81 mg PO DAILY chew 07/29/16 05/02/18 Rx Atorvastatin [Lipitor] 80 mg PO DAILY #30 tab 07/29/16 05/02/18 Rx Metoprolol Tartrate [Lopressor] 25 mg PO BID #60 tab 07/29/16 05/02/18 Rx Pantoprazole [Protonix] 40 mg PO AC-BRKFST #30 tablet.dr 07/29/16 05/02/18 Rx Ticagrelor [Brilinta] 90 mg PO BID #60 tab 07/29/16 05/02/18 Rx Levothyroxine Sodium [Synthroid] 50 mcg PO DAILY 02/25/17 05/02/18 History Albuterol Inhaler [Ventolin Hfa 2 puff INHALATION RT-Q6H PRN 05/07/17 05/02/18 History Inhaler] Alendronate Sodium 70 mg PO FR 05/02/18 05/02/18 History Losartan(Unknown Dose) 1 tab PO DAILY 05/02/18 05/02/18 History Montelukast [Singulair] 10 mg PO DAILY 05/02/18 05/02/18 History Mv-Min/Vit C/Glut/Lysine/Hb124 1 tab PO DAILY 05/02/18 05/02/18 History [Airborne Effervescent Tablet] guaiFENesin [Mucinex] 600 mg PO BID PRN 05/02/18 05/02/18 History metFORMIN HCL [Glucophage] 500 mg PO BID 05/02/18 05/02/18 History Allergies Allergy/AdvReac Type Severity Reaction Status Date / Time No Known Drug Allergies Allergy Unknown Verified 05/02/18 15:51 Physical Exam Vitals: Vital Signs Temp Pulse Pulse Pulse Resp BP BP 05/03/18 09:10 84 05/03/18 01:00 97.4 F L 81 16 05/03/18 00:38 98.2 F 81 18 147/60 05/02/18 21:55 98.0 F 77 18 05/02/18 21:10 96.3 F L 89 14 05/02/18 20:28 92 05/02/18 20:21 88 05/02/18 19:05 98.6 F 82 16 151/82 05/02/18 18:37 82 16 151/82 05/02/18 18:00 91 23 128/92 05/02/18 17:27 92 05/02/18 17:18 102 H 05/02/18 17:00 90 9 L 128/92 05/02/18 16:40 18 05/02/18 16:31 05/02/18 15:33 98.6 F 109 H 24 173/89 BP Pulse Ox 05/03/18 09:10 05/03/18 01:00 135/77 97 05/03/18 00:38 96 05/02/18 21:55 139/80 97 05/02/18 21:10 147/70 94 L 05/02/18 20:28 05/02/18 20:21 05/02/18 19:05 96 05/02/18 18:37 96 05/02/18 18:00 95 05/02/18 17:27 1209/18 17:18 05/02/18 17:00 96 05/02/18 16:40 05/02/18 16:31 95 05/02/18 15:33 92 L Intake and Output 05/02/18 05/03/18 05/03/18 22:59 06:59 14:59 Intake Total 640 Balance 640 Intake: Intake, IV Titration 100 Amount Sodium Chloride 0.9% 1, 100 000 ml @ 100 mls/hr IV . Q10H STA Rx#:[id number] Oral 540 Other: Voiding Method Toilet # Voids 1 Weight 51.256 kg GENERAL EXAM: Alert, pleasant 77-year-old white female, comfortable in no apparent distress. HEAD: Normocephalic/atraumatic. EYES: Normal reaction of pupils, equal size. Conjunctiva pink, sclera white. NOSE: Clear with pink turbinates. THROAT: No erythema or exudates. NECK: No masses, no JVD, no thyroid enlargement, no adenopathy. CHEST: No chest wall deformity. Symmetrical expansion. LUNGS: Diminished air entry bilaterally, deep breathing triggers coughing spells , faint wheezing on forced exhale maneuver, scattered rhonchi CVS: Regular rate and rhythm, normal S1 and S2, no gallops, no murmurs, no rubs ABDOMEN: Soft, nontender. No hepatosplenomegaly, normal bowel sounds, no guarding or rigidity. EXTREMITIES: No clubbing, no edema, no cyanosis, 2+ pulses and upper and lower extremities. MUSCULOSKELETAL: Muscle strength and tone normal. SPINE: No scoliosis or deformity SKIN: No rashes CENTRAL NERVOUS SYSTEM: Alert and oriented -3. No focal deficits, tone is normal in all 4 extremities. PSYCHIATRIC: Alert and oriented -3. Appropriate affect. Intact judgment and insight. Results - Laboratory Findings CBC and BMP: 05/02/18 16:19 05/02/18 16:19 PT/INR, D-dimer PT 9.6 sec (9.0-12.0) 05/02/18 16:19 INR 0.9 (<1.2) 05/02/18 16:19 Abnormal lab findings: Abnormal Labs 05/02/18 05/02/18 05/03/18 16:19 20:50 06:48 Chloride 109 H Carbon Dioxide 21 L Creatinine 0.46 L Glucose 122 H POC Glucose (mg/dL) 222 H 218 H - Diagnostic Findings Chest x-ray: report reviewed, image reviewed Additional studies: EKG reviewed Assessment and Plan Plan: Assessment: #1. Acute exacerbation of moderate persistent bronchial asthma and acute purulent tracheobronchitis. Chest x-ray did not show any evidence of pneumonic infiltrate #2. Recent upper respiratory infection, treated on an outpatient basis with prednisone and Levaquin #3. Moderate persistent asthma #4. Chronic hypoxemic respiratory failure, patient wears 2 L of oxygen at home on is needed basis #5. Diabetes mellitus type 2 #6. Coronary artery disease with previous stenting #7. Hypothyroidism #8. Hyperlipidemia, hypertension #9. Myocardial infarction in July 2016 #10. Remote history of nicotine dependence, patient quit in 1966, smoked for 10 years Plan: We'll continue current antibiotics, IV steroids and nebulized bronchodilators. We'll check the influenza screen. Monitor blood sugars. His x-ray did not show any evidence of pneumonia. Continue to follow I performed a history & physical examination of the patient and discussed their management with my nurse practitioner, Gabby Jordan. I reviewed the nurse practitioner's note and agree with the documented findings and plan of care. Lung sounds are positive for faint wheezes, prolongation of expiratory phase. The findings and the impression was discussed with the patient. I attest to the documentation by the nurse practitioner. Time with Patient: Greater than 30
[2018-05-03 09:51] LABS: Basophils % (A) 0 %; Eosinophils # (A) 0.1 k/uL (0-0.7); Eosinophils % (A) 1 %; Lymphocytes % (A) 12 %; MCHC 32.6 g/dL (31.0-37.0); Mean Platelet Volume 7.7; Monocytes # (A) 0.1 k/uL (0-1.0); Monocytes % (A) 2 %; Neutrophils # (A) 7.1 k/uL (1.3-7.7); Neutrophils % (A) 85 %; Platelet Count 205 k/uL (150-450); RBC 4.83 m/uL (3.80-5.40); WBC 8.4 k/uL (3.8-10.6)
[2018-05-03 10:00] LABS: Anion Gap 14 mmol/L; Blood Urea Nitrogen 20 mg/dL (7-17); Calcium 9.5 mg/dL (8.4-10.2); Carbon Dioxide 17 mmol/L (22-30); Chloride 111 mmol/L (98-107); Glucose 206 mg/dL (74-99); Potassium 4.4 mmol/L (3.5-5.1); Sodium 142 mmol/L (137-145)
[2018-05-03 11:25] LABS: Glucose,Whole Blood 253 mg/dL (75-99)
[2018-05-03] MEDS: guaiFENesin 600 MG TABLET.ER PO SCH ×2 (15:08→22:26)
[2018-05-03 16:55] LABS: Glucose,Whole Blood 266 mg/dL (75-99)
[2018-05-03 18:17] LABS: Hemoglobin A1C 6.8 % (4.0-6.0)
--- NOTE | 2018-05-03 18:39 | PN ---
PROGRESS NOTE This 77-year-old woman was admitted with COPD exacerbation also had tracheobronchitis. Patient being closely monitored. Pulmonary is following the patient closely. No chest pain. No palpitations. No fever. EXAM: Alert and oriented times three. Pulse 98, blood pressure ntd. Respirations 16. Temperature 98.2, pulse ox 94% on room air. HEENT: Conjunctivae normal. NECK: No jugular venous distention. Cardiovascular: S1, S2 muffled. Respirations: Breath sounds diminished in the bases. Bilateral scattered rhonchi and crackles. Abdomen is soft, nontender. Legs are no edema, no swelling. Central nervous system: No focal deficits. LABS: WBC 8.2, hemoglobin is 14. Sodium 142, potassium 4.4. ASSESSMENT: 1. Chronic obstructive pulmonary disease exacerbation with acute purulent tracheobronchitis. 2. History of bronchial asthma chronic and intermittent. 3. Diabetes type 2. 4. Hard of hearing. 5. Hypertension. 6. Hyperlipidemia. 7. History of myocardial infarction. 8. Hypothyroidism. 9. History of coronary artery disease, stent. 10.Remote history of nicotine dependence. RECOMMENDATIONS AND DISCUSSION: Recommend to continue current medications, continue with monitoring and symptomatic treatment. Otherwise, at this time, I recommend continue with current medications. We will closely follow with Pulmonary and monitor blood sugars closely. Continue with IV steroids. I would also recommend increase ambulation. Further recommendations to follow. MMODL / IJN: [id number] / DEIDRE
[2018-05-03 20:54] LABS: Glucose,Whole Blood 308 mg/dL (75-99)
[2018-05-03] MEDS: AZITHROMYCIN 500 MG TAB PO SCH (22:17)
[2018-05-04] MEDS: ALPRAZolam 0.25 MG TAB PO PRN (00:47)
[2018-05-04] MEDS: LEVOTHYROXINE 50 MCG TAB PO SCH (05:54)
[2018-05-04] MEDS: methylPREDNISolone SOD SUCCI 125 MG/2 ML VIAL IV SCH ×3 (05:54→17:28)
[2018-05-04] MEDS: SYMBICORT 80-4.5 MCG INHALER INHALATION SCH (07:12)
[2018-05-04] MEDS: IPRATROPIUM-ALBUTEROL 3 ML NEB INHALATION SCH ×4 (07:12→20:53)
[2018-05-04 07:49] LABS: Glucose,Whole Blood 197 mg/dL (75-99)
[2018-05-04] MEDS: MULTIVITAMINS, THERA 1 EACH TAB PO SCH (08:07)
[2018-05-04] MEDS: MONTELUKAST 10 MG TAB PO SCH (08:08)
[2018-05-04] MEDS: metFORMIN 500 MG TAB PO SCH ×2 (08:08→21:35)
[2018-05-04] MEDS: METOPROLOL TARTRATE 25 MG TAB PO SCH ×2 (08:08→21:35)
[2018-05-04] MEDS: PANTOPRAZOLE 40 MG TABLET PO SCH (08:08)
[2018-05-04] MEDS: ATORVASTATIN 80 MG TAB PO SCH (08:08)
[2018-05-04] MEDS: ASPIRIN 81 MG PO SCH (08:08)
[2018-05-04] MEDS: HEPARIN SODIUM,PORCINE 5,000 UNIT/ML 1 ML VIAL SQ SCH ×2 (08:09→21:35)
[2018-05-04] MEDS: INSULIN ASPART 100 UNIT/ML 1 ML 10 ML VIAL SQ SCH ×4 (08:09→21:35)
[2018-05-04] MEDS: TICAGRELOR 90 MG TAB PO SCH ×2 (08:10→22:14)
[2018-05-04] MEDS: guaiFENesin 600 MG TABLET.ER PO SCH ×2 (08:11→21:35)
[2018-05-04 10:00] LABS: Basophils % (A) 0 %; Eosinophils % (A) 0 %; HCT 40.6 % (34.0-46.0); HGB 13.1 gm/dL (11.4-16.0); Lymphocytes # (A) 0.7 k/uL (1.0-4.8); Lymphocytes % (A) 5 %; MCH 28.6 pg (25.0-35.0); MCHC 32.2 g/dL (31.0-37.0); MCV 88.8 fL (80.0-100.0); Monocytes # (A) 0.4 k/uL (0-1.0); Monocytes % (A) 3 %; Neutrophils % (A) 91 %; Platelet Count 217 k/uL (150-450); RBC 4.57 m/uL (3.80-5.40); RDW 13.9 % (11.5-15.5); WBC 13.1 k/uL (3.8-10.6)
[2018-05-04 10:17] LABS: Anion Gap 13 mmol/L; Blood Urea Nitrogen 25 mg/dL (7-17); Calcium 9.6 mg/dL (8.4-10.2); Carbon Dioxide 17 mmol/L (22-30); Chloride 110 mmol/L (98-107); Glucose 316 mg/dL (74-99); Potassium 4.1 mmol/L (3.5-5.1); Sodium 140 mmol/L (137-145)
[2018-05-04 12:12] LABS: Glucose,Whole Blood 213 mg/dL (75-99)
[2018-05-04] MEDS ORDERED: guaiFENesin-Coden 100-10MG/5ML 10 ML CUP PO PRN (13:37)
--- NOTE | 2018-05-04 13:40 | P.PN ---
Subjective Progress Note Date: 05/04/18 Principal diagnosis: Exacerbation of moderate persistent bronchial asthma This is a 77-year-old white female patient of Dr. Akhtar, with past medical history of moderate persistent bronchial asthma, chronic hypercapnic respiratory failure, diabetes mellitus type 2, coronary artery disease, previous myocardial infarction, hypertension, hyperlipidemia, hypothyroidism who presented to the emergency department on 05/12/2018 for evaluation of worsening shortness of breath, month-long history of upper respiratory infection , cough, production of green sputum, sinus congestion. Patient was treated for upper respiratory infection a month ago by Dr. Akhtar with a 5 day course of oral prednisone and Levaquin, had initial improvement, however in the last few days her symptoms recurred, and patient was having increased sinus congestion, copious drainage of green sputum, some mild cough with production, increased shortness of breath. She denied any fever or chills, patient's has similar symptoms at home. Shiela in the pulmonary office, has a remote history of smoking, she quit smoking in 1966, and prior to that smoked only for 10 years. She does wear oxygen on as-needed basis, usually her exacerbation of bronchial asthma are associated with the upper respiratory infections. Patient was started on a combination of Rocephin and Zithromax, IV steroids, nebulized bronchodilators, this morning she seen in consultation for evaluation for breathing problems. She still tight and congested, not bringing up much phlegm , having coughing spells and still very dyspneic with exertion. Chest x-ray did not show any acute cardiopulmonary disease. Lab work was negative for leukocytosis, sodium was 142, potassium 0.2, chloride is 109, CO2 is 21, BUN 16 and creatinine 0.46, were within normal limits, troponin was negative 1. On 05/04/2018 patient seen in follow-up on medical surgical floor. She is awake and alert, she states she is still quite dyspneic with any exertion, although slightly improved, patient was able to get up and walk to the bathroom and brush her teeth today, however does take her a long time to recover. She states she had an episode of respiratory distress early in the morning, needed a dose of Xanax, nebulized treatments. Still coughing some, not able to clear any phlegm, remains on 3 L per nasal cannula her pulse ox of 95%, no fever no chills, blood culture showed no growth at the 24-hour demarcus. She is on Zithromax and Rocephin, IV steroids, Mucinex, and she has made very modest improvement if any. Continue current plan of treatment, not ready for discharge. Continue antibiotics, nebulized dilators and current dose of steroids Objective - Vital Signs Vital signs: Vital Signs Temp 98.2 F 05/04/18 07:56 Pulse 100 05/04/18 11:07 Resp 19 05/04/18 08:30 BP 165/68 05/04/18 07:56 Pulse Ox 95 05/04/18 07:56 Intake & Output 05/03/18 05/04/18 05/04/18 18:59 06:59 18:59 Intake Total 1320 260 Balance 1320 260 Intake: Oral 1320 260 Other: Voiding Method Toilet # Voids 2 1 1 # Bowel Movements 1 - Exam GENERAL EXAM: Alert, pleasant 77-year-old white female, moderately short of breath at rest HEAD: Normocephalic/atraumatic. EYES: Normal reaction of pupils, equal size. Conjunctiva pink, sclera white. NOSE: Clear with pink turbinates. THROAT: No erythema or exudates. NECK: No masses, no JVD, no thyroid enlargement, no adenopathy. CHEST: No chest wall deformity. Symmetrical expansion. LUNGS: Diminished air entry bilaterally, deep breathing triggers coughing spells , faint wheezing on forced exhale maneuver, scattered rhonchi CVS: Regular rate and rhythm, normal S1 and S2, no gallops, no murmurs, no rubs ABDOMEN: Soft, nontender. No hepatosplenomegaly, normal bowel sounds, no guarding or rigidity. EXTREMITIES: No clubbing, no edema, no cyanosis, 2+ pulses and upper and lower extremities. MUSCULOSKELETAL: Muscle strength and tone normal. SPINE: No scoliosis or deformity SKIN: No rashes CENTRAL NERVOUS SYSTEM: Alert and oriented -3. No focal deficits, tone is normal in all 4 extremities. PSYCHIATRIC: Alert and oriented -3. Appropriate affect. Intact judgment and insight. - Labs CBC & Chem 7: 05/04/18 09:36 05/04/18 09:36 Labs: Abnormal Lab Results - Last 24 Hours (Table) 05/03/18 05/03/18 05/03/18 Range/Units 09:14 16:42 20:42 WBC (3.8-10.6) k/uL Neutrophils # (1.3-7.7) k/uL Lymphocytes # (1.0-4.8) k/uL Chloride (98-107) mmol/L Carbon Dioxide (22-30) mmol/L BUN (7-17) mg/dL Glucose (74-99) mg/dL POC Glucose (mg/dL) 266 H 308 H (75-99) mg/dL Hemoglobin A1c 6.8 H (4.0-6.0) % 05/04/18 05/04/18 05/04/18 Range/Units 07:37 09:36 09:36 WBC 13.1 H (3.8-10.6) k/uL Neutrophils # 12.0 H (1.3-7.7) k/uL Lymphocytes # 0.7 L (1.0-4.8) k/uL Chloride 110 H (98-107) mmol/L Carbon Dioxide 17 L (22-30) mmol/L BUN 25 H (7-17) mg/dL Glucose 316 H (74-99) mg/dL POC Glucose (mg/dL) 197 H (75-99) mg/dL Hemoglobin A1c (4.0-6.0) % 05/04/18 Range/Units 12:00 WBC (3.8-10.6) k/uL Neutrophils # (1.3-7.7) k/uL Lymphocytes # (1.0-4.8) k/uL Chloride (98-107) mmol/L Carbon Dioxide (22-30) mmol/L BUN (7-17) mg/dL Glucose (74-99) mg/dL POC Glucose (mg/dL) 213 H (75-99) mg/dL Hemoglobin A1c (4.0-6.0) % Microbiology - Last 24 Hours (Table) 05/02/18 16:19 Blood Culture - Preliminary Blood No Growth after 24 hours Assessment and Plan Plan: Assessment: #1. Acute exacerbation of moderate persistent bronchial asthma and acute purulent tracheobronchitis. Chest x-ray did not show any evidence of pneumonic infiltrate #2. Recent upper respiratory infection, treated on an outpatient basis with prednisone and Levaquin #3. Moderate persistent asthma #4. Chronic hypoxemic respiratory failure, patient wears 2 L of oxygen at home on is needed basis #5. Diabetes mellitus type 2 #6. Coronary artery disease with previous stenting #7. Hypothyroidism #8. Hyperlipidemia, hypertension #9. Myocardial infarction in July 2016 #10. Remote history of nicotine dependence, patient quit in 1966, smoked for 10 years Plan: Continue current antibiotic coverage, nebulized bronchodilators, we'll switch Symbicort to Pulmicort and Perforomist, with current dose of IV steroids, although better air entry noted bilaterally and today's exam, she still remains quite tight and bronchospastic, dyspneic with any exertion. We'll continue to follow. I performed a history & physical examination of the patient and discussed their management with my nurse practitioner, Gabby Jordan. I reviewed the nurse practitioner's note and agree with the documented findings and plan of care. Lung sounds are positive for faint wheezes, prolongation of expiratory phase. The findings and the impression was discussed with the patient. I attest to the documentation by the nurse practitioner. Time with Patient: Less than 30
[2018-05-04 17:20] LABS: Glucose,Whole Blood 244 mg/dL (75-99)
--- NOTE | 2018-05-04 20:31 | PN ---
PROGRESS NOTE DATE OF SERVICE: 05/04/2018 This 77-year-old woman who was admitted with COPD, acute exacerbation, still has significant shortness of breath. Dr. Green is following the patient closely. Patient is on IV steroids. No chest pain. No palpitations. No fever. On exam, alert and oriented x3. Pulse 98, blood pressure 166/84, respiration 16, temperature 97.7, pulse ox 95% on room air. HEENT: Conjunctivae normal. NECK: No jugular venous distention. CARDIOVASCULAR SYSTEM: S1, S2 muffled. RESPIRATORY SYSTEM: Breath sounds diminished at the bases. Bilateral scattered rhonchi and expiratory wheezing and crackles. ABDOMEN: Soft, non-tender. NERVOUS SYSTEM: No focal deficit. LABS: WBC 13.2, hemoglobin 13.1. ASSESSMENT: 1. Chronic obstructive pulmonary disease, acute exacerbation, with acute purulent tracheobronchitis. 2. History of bronchial asthma, chronic intermittent. 3. Diabetes mellitus, type 2. 4. Hard of hearing. 5. Hypertension. 6. Hyperlipidemia. 7. History of myocardial infarction. 8. History of hypothyroidism. 9. History of coronary artery disease, stent. 10.Remote history of nicotine dependence. RECOMMENDATIONS AND DISCUSSION: I recommend to continue current medication, continue with the monitoring, symptomatic treatment. Otherwise at this time I would recommend continuing with the bronchodilators, IV steroids, empiric antibiotics. Guarded prognosis because of multiple complex medical issues. Further recommendations to follow. MMODL / IJN: [id number] /
[2018-05-04 20:52] LABS: Glucose,Whole Blood 222 mg/dL (75-99)
[2018-05-04] MEDS: FORMOTEROL FUMARATE 20 MCG/2 ML NEBU INHALATION SCH (20:53)
[2018-05-04] MEDS: BUDESONIDE 1 MG/2 ML NEBU INHALATION SCH (20:53)
[2018-05-04] MEDS: AZITHROMYCIN 500 MG TAB PO SCH (22:14)
[2018-05-05 00:20] LABS: Appearance,Urine Clear (Clear); Bilirubin,Urine Negative (Negative); Blood,Urine Moderate (Negative); Color,Urine Yellow; Glucose,Urine (UA) 3+ (Negative); Ketones,Urine Negative (Negative); Leukocyte Esterase,Urine Negative (Negative); Mucus,Urine Rare /hpf; Nitrite,Urine Negative (Negative); PH, Urine 5.5 (5.0-8.0); Protein,Urine Trace (Negative); RBC,Urine 139 /hpf (0-5); Specific Gravity,Urine 1.013 (1.001-1.035); Squamous Epithelial Cell,Urine 1 /hpf (0-4); Urobilinogen,Urine <2.0 mg/dL (<2.0); WBC,Urine 1 /hpf (0-5)
[2018-05-05] MEDS: methylPREDNISolone SOD SUCCI 125 MG/2 ML VIAL IV SCH ×4 (00:55→18:30)
[2018-05-05] MEDS: LEVOTHYROXINE 50 MCG TAB PO SCH (05:33)
[2018-05-05 07:10] LABS: Glucose,Whole Blood 271 mg/dL (75-99)
[2018-05-05] MEDS: BUDESONIDE 1 MG/2 ML NEBU INHALATION SCH ×2 (07:16→20:14)
[2018-05-05] MEDS: IPRATROPIUM-ALBUTEROL 3 ML NEB INHALATION SCH ×4 (07:16→20:14)
[2018-05-05] MEDS: FORMOTEROL FUMARATE 20 MCG/2 ML NEBU INHALATION SCH ×2 (07:16→20:14)
[2018-05-05 08:38] LABS: Basophils % (A) 0 %; Eosinophils % (A) 0 %; HCT 39.7 % (34.0-46.0); HGB 12.8 gm/dL (11.4-16.0); Lymphocytes # (A) 0.6 k/uL (1.0-4.8); Lymphocytes % (A) 5 %; MCH 28.5 pg (25.0-35.0); MCHC 32.2 g/dL (31.0-37.0); MCV 88.5 fL (80.0-100.0); Mean Platelet Volume 8.1; Monocytes # (A) 0.4 k/uL (0-1.0); Monocytes % (A) 4 %; Neutrophils # (A) 10.1 k/uL (1.3-7.7); Neutrophils % (A) 90 %; Platelet Count 188 k/uL (150-450); RBC 4.49 m/uL (3.80-5.40); WBC 11.2 k/uL (3.8-10.6)
[2018-05-05] MEDS: HEPARIN SODIUM,PORCINE 5,000 UNIT/ML 1 ML VIAL SQ SCH ×2 (09:03→21:12)
[2018-05-05] MEDS: INSULIN ASPART 100 UNIT/ML 1 ML 10 ML VIAL SQ SCH ×4 (09:03→21:13)
[2018-05-05] MEDS: METOPROLOL TARTRATE 25 MG TAB PO SCH ×2 (09:04→21:13)
[2018-05-05] MEDS: PANTOPRAZOLE 40 MG TABLET PO SCH (09:04)
[2018-05-05] MEDS: metFORMIN 500 MG TAB PO SCH ×2 (09:04→21:13)
[2018-05-05] MEDS: guaiFENesin 600 MG TABLET.ER PO SCH ×2 (09:04→21:13)
[2018-05-05] MEDS: MULTIVITAMINS, THERA 1 EACH TAB PO SCH (09:04)
[2018-05-05] MEDS: ATORVASTATIN 80 MG TAB PO SCH (09:04)
[2018-05-05] MEDS: MONTELUKAST 10 MG TAB PO SCH (09:04)
[2018-05-05] MEDS: ASPIRIN 81 MG PO SCH (09:04)
[2018-05-05] MEDS: TICAGRELOR 90 MG TAB PO SCH ×2 (09:05→18:57)
[2018-05-05 09:06] LABS: Anion Gap 12 mmol/L; Blood Urea Nitrogen 26 mg/dL (7-17); Calcium 9.3 mg/dL (8.4-10.2); Carbon Dioxide 17 mmol/L (22-30); Chloride 111 mmol/L (98-107); Glucose 278 mg/dL (74-99); Potassium 4.2 mmol/L (3.5-5.1); Sodium 140 mmol/L (137-145)
[2018-05-05 11:39] LABS: Glucose,Whole Blood 209 mg/dL (75-99)
--- NOTE | 2018-05-05 14:03 | P.PN ---
Subjective Progress Note Date: 05/05/18 Principal diagnosis: Exacerbation of moderate persistent bronchial asthma This is a 77-year-old white female patient of Dr. Akhtar, with past medical history of moderate persistent bronchial asthma, chronic hypercapnic respiratory failure, diabetes mellitus type 2, coronary artery disease, previous myocardial infarction, hypertension, hyperlipidemia, hypothyroidism who presented to the emergency department on 05/12/2018 for evaluation of worsening shortness of breath, month-long history of upper respiratory infection , cough, production of green sputum, sinus congestion. Patient was treated for upper respiratory infection a month ago by Dr. Akhtar with a 5 day course of oral prednisone and Levaquin, had initial improvement, however in the last few days her symptoms recurred, and patient was having increased sinus congestion, copious drainage of green sputum, some mild cough with production, increased shortness of breath. She denied any fever or chills, patient's has similar symptoms at home. Shiela in the pulmonary office, has a remote history of smoking, she quit smoking in 1966, and prior to that smoked only for 10 years. She does wear oxygen on as-needed basis, usually her exacerbation of bronchial asthma are associated with the upper respiratory infections. Patient was started on a combination of Rocephin and Zithromax, IV steroids, nebulized bronchodilators, this morning she seen in consultation for evaluation for breathing problems. She still tight and congested, not bringing up much phlegm , having coughing spells and still very dyspneic with exertion. Chest x-ray did not show any acute cardiopulmonary disease. Lab work was negative for leukocytosis, sodium was 142, potassium 0.2, chloride is 109, CO2 is 21, BUN 16 and creatinine 0.46, were within normal limits, troponin was negative 1. On 05/04/2018 patient seen in follow-up on medical surgical floor. She is awake and alert, she states she is still quite dyspneic with any exertion, although slightly improved, patient was able to get up and walk to the bathroom and brush her teeth today, however does take her a long time to recover. She states she had an episode of respiratory distress early in the morning, needed a dose of Xanax, nebulized treatments. Still coughing some, not able to clear any phlegm, remains on 3 L per nasal cannula her pulse ox of 95%, no fever no chills, blood culture showed no growth at the 24-hour demarcus. She is on Zithromax and Rocephin, IV steroids, Mucinex, and she has made very modest improvement if any. Continue current plan of treatment, not ready for discharge. Continue antibiotics, nebulized dilators and current dose of steroids On 05/05/2018 patient seen in follow-up on the surgical floor. She is breathing easier, she is able to tolerate activity better, she is walking to the bathroom. Lung sounds reveal better air entry bilaterally. She is now able to bring up some greenish colored sputum. She is on 3 L per nasal cannula and her pulse ox is 94%, fever no chills, blood cultures negative, today's blood work has been reviewed, WBC is 11.2, sodium is 140, potassium is 4.2, chloride is 111, CO2 17, bun is 26 and creatinine 0.55. Objective - Vital Signs Vital signs: Vital Signs Temp 98.4 F 05/05/18 07:55 Pulse 92 05/05/18 11:52 Resp 16 05/05/18 07:55 BP 174/89 05/05/18 07:55 Pulse Ox 94 L 05/05/18 07:55 Intake & Output 05/04/18 05/05/18 05/05/18 18:59 06:59 18:59 Intake Total 260 210 300 Balance 260 210 300 Intake: Intake, IV Titration 50 Amount cefTRIAXone 1,000 mg In 50 Sodium Chloride 0.9% 50 ml @ 100 mls/hr IVPB Q24H [facility] Rx#:[id number] Oral 260 160 300 Other: Voiding Method Toilet Toilet # Voids 1 1 - Exam GENERAL EXAM: Alert, pleasant 77-year-old white female, moderately short of breath at rest HEAD: Normocephalic/atraumatic. EYES: Normal reaction of pupils, equal size. Conjunctiva pink, sclera white. NOSE: Clear with pink turbinates. THROAT: No erythema or exudates. NECK: No masses, no JVD, no thyroid enlargement, no adenopathy. CHEST: No chest wall deformity. Symmetrical expansion. LUNGS: Improved air entry bilaterally, with some faint is on forced expiration CVS: Regular rate and rhythm, normal S1 and S2, no gallops, no murmurs, no rubs ABDOMEN: Soft, nontender. No hepatosplenomegaly, normal bowel sounds, no guarding or rigidity. EXTREMITIES: No clubbing, no edema, no cyanosis, 2+ pulses and upper and lower extremities. MUSCULOSKELETAL: Muscle strength and tone normal. SPINE: No scoliosis or deformity SKIN: No rashes CENTRAL NERVOUS SYSTEM: Alert and oriented -3. No focal deficits, tone is normal in all 4 extremities. PSYCHIATRIC: Alert and oriented -3. Appropriate affect. Intact judgment and insight. - Labs CBC & Chem 7: 05/05/18 07:09 05/05/18 07:09 Labs: Abnormal Lab Results - Last 24 Hours (Table) 05/04/18 05/04/18 05/04/18 Range/Units 17:08 20:40 21:40 WBC (3.8-10.6) k/uL Neutrophils # (1.3-7.7) k/uL Lymphocytes # (1.0-4.8) k/uL Chloride (98-107) mmol/L Carbon Dioxide (22-30) mmol/L BUN (7-17) mg/dL Glucose (74-99) mg/dL POC Glucose (mg/dL) 244 H 222 H (75-99) mg/dL Urine Protein Trace H (Negative) Urine Glucose (UA) 3+ H (Negative) Urine Blood Moderate H (Negative) Urine RBC 139 H (0-5) /hpf Urine Mucus Rare H (None) /hpf 05/05/18 05/05/18 05/05/18 Range/Units 06:57 07:09 07:09 WBC 11.2 H (3.8-10.6) k/uL Neutrophils # 10.1 H (1.3-7.7) k/uL Lymphocytes # 0.6 L (1.0-4.8) k/uL Chloride 111 H (98-107) mmol/L Carbon Dioxide 17 L (22-30) mmol/L BUN 26 H (7-17) mg/dL Glucose 278 H (74-99) mg/dL POC Glucose (mg/dL) 271 H (75-99) mg/dL Urine Protein (Negative) Urine Glucose (UA) (Negative) Urine Blood (Negative) Urine RBC (0-5) /hpf Urine Mucus (None) /hpf 05/05/18 Range/Units 11:26 WBC (3.8-10.6) k/uL Neutrophils # (1.3-7.7) k/uL Lymphocytes # (1.0-4.8) k/uL Chloride (98-107) mmol/L Carbon Dioxide (22-30) mmol/L BUN (7-17) mg/dL Glucose (74-99) mg/dL POC Glucose (mg/dL) 209 H (75-99) mg/dL Urine Protein (Negative) Urine Glucose (UA) (Negative) Urine Blood (Negative) Urine RBC (0-5) /hpf Urine Mucus (None) /hpf Microbiology - Last 24 Hours (Table) 05/02/18 16:19 Blood Culture - Preliminary Blood No Growth after 48 hours Assessment and Plan Plan: Assessment: #1. Acute exacerbation of moderate persistent bronchial asthma and acute purulent tracheobronchitis. Chest x-ray did not show any evidence of pneumonic infiltrate #2. Recent upper respiratory infection, treated on an outpatient basis with prednisone and Levaquin #3. Moderate persistent asthma #4. Chronic hypoxemic respiratory failure, patient wears 2 L of oxygen at home on is needed basis #5. Diabetes mellitus type 2 #6. Coronary artery disease with previous stenting #7. Hypothyroidism #8. Hyperlipidemia, hypertension #9. Myocardial infarction in July 2016 #10. Remote history of nicotine dependence, patient quit in 1966, smoked for 10 years Plan: Continue current medical treatment, current dose of IV steroids, nebulized bronchodilators and antibiotics, starting to improve, breathing easier, tolerating activity better, improved air entry bilaterally. Starting to clear some sputum. Vital signs are stable, we'll continue to follow I performed a history & physical examination of the patient and discussed their management with my nurse practitioner, Gabby Jordan. I reviewed the nurse practitioner's note and agree with the documented findings and plan of care. Lung sounds are positive for faint wheezes, prolongation of expiratory phase. The findings and the impression was discussed with the patient. I attest to the documentation by the nurse practitioner. Time with Patient: Less than 30
--- NOTE | 2018-05-05 15:17 | PN ---
PROGRESS NOTE DATE OF SERVICE: 05/05/2018 This is a 77-year-old woman who was admitted with COPD acute exacerbation, is still having periodic exacerbation of shortness of breath. Pulmonary is following the patient closely. No chest pain. No palpitations. No fever. PHYSICAL EXAM: Alert and oriented x3, pulse 111, blood pressure 175/89, respirations 16, temperature 98.4, pulse ox 94% on room air. HEENT: Conjunctivae normal. NECK: No jugular venous distension. CARDIOVASCULAR SYSTEM: S1, S2, muffled. RESPIRATION: Breath sounds diminished at the bases, a few scattered rhonchi, no crackles. Expiratory wheezing also present. ABDOMEN: Soft, nontender. LEGS: No edema. No swelling. LABS: WBC is 11.2, sodium 140, potassium 4.2, UA noted. ASSESSMENT: 1. Chronic obstructive pulmonary disease exacerbation with acute purulent tracheobronchitis with slow improvement. 2. History of bronchial asthma, chronic intermittent. 3. Diabetes type 2. 4. Hard of hearing. 5. Hypertension. 6. Hyperlipidemia. 7. History of myocardial infarction. 8. History of hypothyroidism. 9. History of coronary artery disease, stent. 10.Remote history of nicotine dependence. RECOMMENDATION: Recommend to continue medication and symptomatic treatment. Continue with bronchodilators. Continue with the IV steroids. Patient is still on Solu-Medrol [address] Green's and Dr. Jarrett' notes appreciated. Guarded prognosis because of multiple complex medical issues. Further recommendations to follow. MMODL / IJN: [id number] /
[2018-05-05 17:37] LABS: Glucose,Whole Blood 254 mg/dL (75-99)
[2018-05-05 20:40] LABS: Glucose,Whole Blood 235 mg/dL (75-99)
[2018-05-05] MEDS: BRILINTA 60MG PO SCH (21:07)
[2018-05-05] MEDS: AZITHROMYCIN 500 MG TAB PO SCH (21:13)
[2018-05-06] MEDS: methylPREDNISolone SOD SUCCI 125 MG/2 ML VIAL IV SCH ×3 (00:21→11:54)
[2018-05-06] MEDS: LEVOTHYROXINE 50 MCG TAB PO SCH (05:57)
[2018-05-06 07:16] LABS: Basophils % (A) 0 %; Eosinophils # (A) 0.1 k/uL (0-0.7); Eosinophils % (A) 1 %; HCT 41.9 % (34.0-46.0); HGB 13.6 gm/dL (11.4-16.0); Lymphocytes % (A) 9 %; MCH 28.6 pg (25.0-35.0); MCHC 32.5 g/dL (31.0-37.0); MCV 88.1 fL (80.0-100.0); Mean Platelet Volume 7.4; Monocytes # (A) 0.6 k/uL (0-1.0); Monocytes % (A) 5 %; Neutrophils # (A) 9.5 k/uL (1.3-7.7); Neutrophils % (A) 84 %; Platelet Count 213 k/uL (150-450); RBC 4.76 m/uL (3.80-5.40); WBC 11.3 k/uL (3.8-10.6)
[2018-05-06 07:27] LABS: Anion Gap 12 mmol/L; Blood Urea Nitrogen 29 mg/dL (7-17); Calcium 9.3 mg/dL (8.4-10.2); Carbon Dioxide 18 mmol/L (22-30); Chloride 109 mmol/L (98-107); Glucose 230 mg/dL (74-99); Potassium 4.1 mmol/L (3.5-5.1); Sodium 139 mmol/L (137-145)
[2018-05-06 07:40] LABS: Glucose,Whole Blood 228 mg/dL (75-99)
[2018-05-06] MEDS: HEPARIN SODIUM,PORCINE 5,000 UNIT/ML 1 ML VIAL SQ SCH (08:21)
[2018-05-06] MEDS: MONTELUKAST 10 MG TAB PO SCH (08:21)
[2018-05-06] MEDS: ATORVASTATIN 80 MG TAB PO SCH (08:21)
[2018-05-06] MEDS: MULTIVITAMINS, THERA 1 EACH TAB PO SCH (08:21)
[2018-05-06] MEDS: guaiFENesin 600 MG TABLET.ER PO SCH (08:22)
[2018-05-06] MEDS: PANTOPRAZOLE 40 MG TABLET PO SCH (08:22)
[2018-05-06] MEDS: INSULIN ASPART 100 UNIT/ML 1 ML 10 ML VIAL SQ SCH ×2 (08:22→11:59)
[2018-05-06] MEDS: METOPROLOL TARTRATE 25 MG TAB PO SCH (08:22)
[2018-05-06] MEDS: ASPIRIN 81 MG PO SCH (08:22)
[2018-05-06] MEDS: metFORMIN 500 MG TAB PO SCH (08:22)
[2018-05-06 08:28] VITALS: TEMP 98
[2018-05-06] MEDS: FORMOTEROL FUMARATE 20 MCG/2 ML NEBU INHALATION SCH (08:45)
[2018-05-06] MEDS: IPRATROPIUM-ALBUTEROL 3 ML NEB INHALATION SCH ×3 (08:45→15:54)
[2018-05-06] MEDS: BUDESONIDE 1 MG/2 ML NEBU INHALATION SCH (08:45)
[2018-05-06] MEDS: BRILINTA 60MG PO SCH (09:41)
--- NOTE | 2018-05-06 11:37 | P.PN ---
Subjective Progress Note Date: 05/06/18 Principal diagnosis: Exacerbation of moderate persistent bronchial asthma This is a 77-year-old white female patient of Dr. Akhtar, with past medical history of moderate persistent bronchial asthma, chronic hypercapnic respiratory failure, diabetes mellitus type 2, coronary artery disease, previous myocardial infarction, hypertension, hyperlipidemia, hypothyroidism who presented to the emergency department on 05/12/2018 for evaluation of worsening shortness of breath, month-long history of upper respiratory infection , cough, production of green sputum, sinus congestion. Patient was treated for upper respiratory infection a month ago by Dr. Akhtar with a 5 day course of oral prednisone and Levaquin, had initial improvement, however in the last few days her symptoms recurred, and patient was having increased sinus congestion, copious drainage of green sputum, some mild cough with production, increased shortness of breath. She denied any fever or chills, patient's has similar symptoms at home. Shiela in the pulmonary office, has a remote history of smoking, she quit smoking in 1966, and prior to that smoked only for 10 years. She does wear oxygen on as-needed basis, usually her exacerbation of bronchial asthma are associated with the upper respiratory infections. Patient was started on a combination of Rocephin and Zithromax, IV steroids, nebulized bronchodilators, this morning she seen in consultation for evaluation for breathing problems. She still tight and congested, not bringing up much phlegm , having coughing spells and still very dyspneic with exertion. Chest x-ray did not show any acute cardiopulmonary disease. Lab work was negative for leukocytosis, sodium was 142, potassium 0.2, chloride is 109, CO2 is 21, BUN 16 and creatinine 0.46, were within normal limits, troponin was negative 1. On 05/04/2018 patient seen in follow-up on medical surgical floor. She is awake and alert, she states she is still quite dyspneic with any exertion, although slightly improved, patient was able to get up and walk to the bathroom and brush her teeth today, however does take her a long time to recover. She states she had an episode of respiratory distress early in the morning, needed a dose of Xanax, nebulized treatments. Still coughing some, not able to clear any phlegm, remains on 3 L per nasal cannula her pulse ox of 95%, no fever no chills, blood culture showed no growth at the 24-hour demarcus. She is on Zithromax and Rocephin, IV steroids, Mucinex, and she has made very modest improvement if any. Continue current plan of treatment, not ready for discharge. Continue antibiotics, nebulized dilators and current dose of steroids On 05/05/2018 patient seen in follow-up on the surgical floor. She is breathing easier, she is able to tolerate activity better, she is walking to the bathroom. Lung sounds reveal better air entry bilaterally. She is now able to bring up some greenish colored sputum. She is on 3 L per nasal cannula and her pulse ox is 94%, fever no chills, blood cultures negative, today's blood work has been reviewed, WBC is 11.2, sodium is 140, potassium is 4.2, chloride is 111, CO2 17, bun is 26 and creatinine 0.55. On 05/06/2018 patient seen in follow-up on medical surgical floor. She continues to improve, lung sounds show better air entry bilaterally, she is coughing less. She still dyspneic with exertion, takes her a while to recover after even going to the bathroom brushing her teeth. But overall she is improving, vital signs are stable. Pulse ox on 3 L per nasal cannula is 96%, she started to bring up some phlegm, and it's holistic health practitioner in color. Blood cultures negative. Today's labs have been reviewed, WBC is 11.3, hemoglobin is 13.6, sodium is 139, potassium is 4.1, chloride is 109 CO2 is 18, BUN is 29 creatinine 0.54. Objective - Vital Signs Vital signs: Vital Signs Temp 98.0 F 05/06/18 07:00 Pulse 92 05/06/18 09:10 Resp 18 05/06/18 08:00 BP 153/75 05/06/18 07:00 Pulse Ox 96 05/06/18 07:00 Intake & Output 05/05/18 05/06/18 05/06/18 18:59 06:59 18:59 Intake Total 450 Balance 450 Intake: Oral 450 Other: Voiding Method Toilet # Voids 3 2 - Exam GENERAL EXAM: Alert, pleasant 77-year-old white female, moderately short of breath at rest HEAD: Normocephalic/atraumatic. EYES: Normal reaction of pupils, equal size. Conjunctiva pink, sclera white. NOSE: Clear with pink turbinates. THROAT: No erythema or exudates. NECK: No masses, no JVD, no thyroid enlargement, no adenopathy. CHEST: No chest wall deformity. Symmetrical expansion. LUNGS: Improved air entry bilaterally, with some faint is on forced expiration CVS: Regular rate and rhythm, normal S1 and S2, no gallops, no murmurs, no rubs ABDOMEN: Soft, nontender. No hepatosplenomegaly, normal bowel sounds, no guarding or rigidity. EXTREMITIES: No clubbing, no edema, no cyanosis, 2+ pulses and upper and lower extremities. MUSCULOSKELETAL: Muscle strength and tone normal. SPINE: No scoliosis or deformity SKIN: No rashes CENTRAL NERVOUS SYSTEM: Alert and oriented -3. No focal deficits, tone is normal in all 4 extremities. PSYCHIATRIC: Alert and oriented -3. Appropriate affect. Intact judgment and insight. - Labs CBC & Chem 7: 05/06/18 06:23 05/06/18 06:23 Labs: Abnormal Lab Results - Last 24 Hours (Table) 05/05/18 05/05/18 05/05/18 Range/Units 11:26 17:25 20:29 WBC (3.8-10.6) k/uL Neutrophils # (1.3-7.7) k/uL Chloride (98-107) mmol/L Carbon Dioxide (22-30) mmol/L BUN (7-17) mg/dL Glucose (74-99) mg/dL POC Glucose (mg/dL) 209 H 254 H 235 H (75-99) mg/dL 05/06/18 05/06/18 05/06/18 Range/Units 06:23 06:23 07:10 WBC 11.3 H (3.8-10.6) k/uL Neutrophils # 9.5 H (1.3-7.7) k/uL Chloride 109 H (98-107) mmol/L Carbon Dioxide 18 L (22-30) mmol/L BUN 29 H (7-17) mg/dL Glucose 230 H (74-99) mg/dL POC Glucose (mg/dL) 228 H (75-99) mg/dL Microbiology - Last 24 Hours (Table) 05/02/18 16:19 Blood Culture - Preliminary Blood No Growth after 72 hours Assessment and Plan Plan: Assessment: #1. Acute exacerbation of moderate persistent bronchial asthma and acute purulent tracheobronchitis. Chest x-ray did not show any evidence of pneumonic infiltrate #2. Recent upper respiratory infection, treated on an outpatient basis with prednisone and Levaquin #3. Moderate persistent asthma #4. Chronic hypoxemic respiratory failure, patient wears 2 L of oxygen at home on is needed basis #5. Diabetes mellitus type 2 #6. Coronary artery disease with previous stenting #7. Hypothyroidism #8. Hyperlipidemia, hypertension #9. Myocardial infarction in July 2016 #10. Remote history of nicotine dependence, patient quit in 1966, smoked for 10 years Plan: Patient is improving, less coughing, better air entry noted bilaterally. Still quite dyspneic with any exertion. Continue current medical treatment, current dose of IV steroids, antibiotics, and bronchodilators. We'll continue to follow. I performed a history & physical examination of the patient and discussed their management with my nurse practitioner, Gabby Jordan. I reviewed the nurse practitioner's note and agree with the documented findings and plan of care. Lung sounds are positive for faint wheezes, prolongation of expiratory phase. The findings and the impression was discussed with the patient. I attest to the documentation by the nurse practitioner. Time with Patient: Less than 30
[2018-05-06 12:03] LABS: Glucose,Whole Blood 181 mg/dL (75-99)
[2018-05-06] MEDS ORDERED: predniSONE 10 MG TAB PO SCH (12:30)
[2018-05-06] MEDS ORDERED: NYSTATIN 100,000 UNIT/ML SUSP 500,000 UNIT/5 ML CUP PO SCH (13:00)
[2018-05-06 16:04] VITALS: BP 152/73; PULSE 86; RESP 15
--- NOTE | 2018-05-06 23:15 | DS ---
DISCHARGE SUMMARY DATE OF SERVICE: 05/06/2018. FINAL DIAGNOSES: 1. Chronic obstructive pulmonary disease/bronchial asthma exacerbation with acute purulent tracheobronchitis. 2. History of bronchial asthma, chronic and intermittent. 3. Diabetes mellitus type 2. 4. Hard of hearing. 5. History of hypertension. 6. History of hyperlipidemia. 7. History of myocardial infarction. 8. History of hypothyroidism. 9. History of coronary artery disease with stent. 10.Remote history of nicotine dependence. DISCHARGE CONDITION: The patient is being discharged in stable condition with guarded prognosis. HISTORY OF PRESENT ILLNESS: This 77-year-old woman presented with multiple medical problems, being followed by Dr. Akhtar in the outpatient setting. The patient has COPD, bronchial asthma acute exacerbation, treated with bronchodilators and steroids. Dr. Green saw the patient. The patient improved significantly. The patient is being discharged in stable condition with guarded prognosis. On exam, vital signs are stable. Cardiovascular, S1 and S2 muffled. Few scattered rhonchi. Abdomen soft. No. DISCHARGE INSTRUCTIONS: 1. Diet is cardiac. 2. Activity is limited. FOLLOWUP: 1. Follow up with Dr. Akhtar to in 2 to 3 days. 2. Follow up with Dr. Green and Dr. Vance as recommend. MEDICATIONS: 1. Albuterol every 6 hours p.r.n. 2. Fosamax 70 mg p.o. Thursday. 3. Advair 1 puff b.i.d. 4. Mucinex 600 mg b.i.d. p.r.n. 5. Synthroid 50 mcg p.o. daily. 6. Losartan 1 tablet p.o. daily. 7. Glucophage 500 mg p.o. b.i.d. 8. Singular 10 mg p.o. daily. 9. Multivitamins 1 p.o. daily. 10.Brilinta 60 mg p.o. b.i.d. 11.Aspirin 81 mg p.o. daily. 12.Lipitor 80 mg. 13.Zithromax 500 mg at bedtime for 3 days. 14.Ceftin 500 mg p.o. daily for 3 days. 15.DuoNeb q.i.d. and p.r.n. 16.Lopressor 25 mg p.o. b.i.d. 17.Mycostatin q.i.d. 18.Protonix 40 mg daily. 19.Prednisone taper 30 mg daily for 3 days, 20 for 3 days, 10 for 3 days, then stop. Once again, the patient will be discharged in stable condition with guarded prognosis. MMLESLIE / ENION: [id number] /
[2018-05-07] MEDS ORDERED: NON-FORMULARY DRUG (Alendronate Sodium [Alendronate Sodium] 70 MG) PO SCH (20:37)
== END 2018-05-06 16:56 | disposition home or self-care (01) | DRG 191 ==
LOC: EC 15:33 → 4SSUR 17:44 → OBSVTOIN 05-04 23:10
PROVIDERS: ADMIT Internal Medicine; ATTEND Internal Medicine
DX: J44.0 Chronic obstructive pulmonary disease with (acute) lower respiratory infection (principal); J45.41 Moderate persistent asthma with (acute) exacerbation; J96.11 Chronic respiratory failure with hypoxia; J96.12 Chronic respiratory failure with hypercapnia; J44.1 Chronic obstructive pulmonary disease with (acute) exacerbation; J20.9 Acute bronchitis, unspecified; E11.9 Type 2 diabetes mellitus without complications; E78.5 Hyperlipidemia, unspecified; I10 Essential (primary) hypertension; E03.9 Hypothyroidism, unspecified; I25.10 Atherosclerotic heart disease of native coronary artery without angina pectoris; I25.2 Old myocardial infarction; H91.90 Unspecified hearing loss, unspecified ear; Z79.84 Long term (current) use of oral hypoglycemic drugs; Z79.02 Long term (current) use of antithrombotics/antiplatelets; Z79.82 Long term (current) use of aspirin; Z79.83 Long term (current) use of bisphosphonates; Z79.890 Hormone replacement therapy; Z79.51 Long term (current) use of inhaled steroids; Z79.899 Other long term (current) drug therapy; Z87.891 Personal history of nicotine dependence; Z95.5 Presence of coronary angioplasty implant and graft; Z90.710 Acquired absence of both cervix and uterus; Z99.81 Dependence on supplemental oxygen; Z81.8 Family history of other mental and behavioral disorders; Z84.89 Family history of other specified conditions
CPT/HCPCS: 36415; 71046; 80048; 80053; 81001; 82550; 82553; 83036; 84484; 85025; 85610; 85730; 87040; 87502; 93005; 94640; 94760; 96361; 96374; 99285

== ENCOUNTER 2018-10-07 10:09 | Inpatient (IN) | payer MEDICARE ==
[2018-10-07] MEDS ORDERED: ALBUTEROL NEBULIZED 2.5 MG/3 ML INHALATION STA (10:25)
[2018-10-07] MEDS ORDERED: IPRATROPIUM 0.5 MG/2.5 ML NEBU INHALATION STA (10:25)
[2018-10-07] MEDS ORDERED: methylPREDNISolone SOD SUCCI 125 MG/2 ML VIAL IV STA (10:25)
--- NOTE | 2018-10-07 10:27 | ED ---
General Adult HPI - General Chief complaint: Shortness of Breath Stated complaint: cough, SOB Time Seen by Provider: 10/07/18 10:16 Source: patient, RN notes reviewed, old records reviewed Mode of arrival: wheelchair Limitations: no limitations - History of Present Illness Initial comments: 78-year-old female history of COPD presenting with 4 days of cough and dyspnea. Patient describes cough is wet but was unable to cough up any significant sputum. She denies fever or chills. Denies chest pain. She was seen by her primary care physician earlier in the week and prescribed 10 mg prednisone daily and azithromycin. She has failed to improve to denies lower extremity pain or swelling. Denies abdominal pain. Denies chest pain. - Related Data Home Medications Medication Instructions Recorded Confirmed Multivitamins, Thera [Multivitamin 1 tab PO DAILY 07/25/16 10/07/18 (formulary)] Levothyroxine Sodium [Synthroid] 50 mcg PO DAILY 02/25/17 10/07/18 Alendronate Sodium 70 mg PO FR 05/02/18 10/07/18 Montelukast [Singulair] 10 mg PO DAILY 05/02/18 10/07/18 Mv-Min/Vit C/Glut/Lysine/Hb124 1 tab PO DAILY 05/02/18 10/07/18 [Airborne Effervescent Tablet] guaiFENesin [Mucinex] 600 mg PO BID PRN 05/02/18 10/07/18 metFORMIN HCL [Glucophage] 500 mg PO BID 05/02/18 10/07/18 Azithromycin [Zithromax] See Taper PO DIRECTED 10/07/18 10/07/18 Losartan Potassium 50 mg PO DAILY 10/07/18 10/07/18 predniSONE 10 mg PO DAILY 10/07/18 10/07/18 Previous Rx's Medication Instructions Recorded Aspirin 81 mg PO DAILY chew 07/29/16 Atorvastatin [Lipitor] 80 mg PO DAILY #30 tab 07/29/16 Metoprolol Tartrate [Lopressor] 25 mg PO BID #60 tab 07/29/16 Pantoprazole [Protonix] 40 mg PO AC-BRKFST #30 tablet. 07/29/16 Allergies Allergy/AdvReac Type Severity Reaction Status Date / Time No Known Drug Allergies Allergy Unknown Verified 10/07/18 10:29 Review of Systems ROS Statement: Those systems with pertinent positive or pertinent negative responses have been documented in the HPI. ROS Other: All systems not noted in ROS Statement are negative. Past Medical History Past Medical History: Asthma, COPD, Diabetes Mellitus, Hearing Disorder / Deafness, Hyperlipidemia, Hypertension, Myocardial Infarction ([place]), Thyroid Disorder Last Myocardial Infarction Date:: 06/25/2016 History of Any Multi-Drug Resistant Organisms: None Reported Past Surgical History: Adenoidectomy, Heart Catheterization With Stent, Hysterectomy, Tonsillectomy Additional Past Surgical History / Comment(s): cystocele, rectocele Past Anesthesia/Blood Transfusion Reactions: No Reported Reaction Date of Last Stent Placement:: 07/2016 Past Psychological History: No Psychological Hx Reported Smoking Status: Former smoker Past Alcohol Use History: Rare Past Drug Use History: None Reported - Past Family History Mother Family Medical History: Memory Impairment Father Family Medical History: Prostate Disorder General Exam Limitations: no limitations General appearance: alert, in no apparent distress Head exam: Present: atraumatic, normocephalic Eye exam: Present: normal appearance, PERRL ENT exam: Present: normal exam Neck exam: Present: normal inspection. Absent: tenderness, meningismus Respiratory exam: Present: respiratory distress, wheezes, rhonchi, decreased breath sounds, prolonged expiratory Cardiovascular Exam: Present: regular rate, normal rhythm GI/Abdominal exam: Present: soft. Absent: distended, tenderness Extremities exam: Present: normal inspection, normal capillary refill. Absent: pedal edema, calf tenderness Neurological exam: Present: alert, oriented X3 Psychiatric exam: Present: normal affect, normal mood Skin exam: Present: warm, dry, intact. Absent: cyanosis, diaphoretic Course Vital Signs 10/07/18 10/07/18 10/07/18 10:11 10:59 11:20 Temperature 98.3 F Pulse Rate 99 90 92 Respiratory 18 Rate Blood Pressure 157/71 O2 Sat by Pulse 96 Oximetry 10/07/18 10/07/18 11:30 12:00 Temperature Pulse Rate 111 H 95 Respiratory 15 21 Rate Blood Pressure 146/88 148/69 O2 Sat by Pulse 93 L 93 L Oximetry Medical Decision Making - Medical Decision Making 78-year-old female with 5 days of cough and dyspnea history of COPD. Patient is wheezing bilaterally with rhonchi and diminished breath sounds. Normal oxygenation. Moderate respiratory distress. Given albuterol, Atrovent steroids. Chest x-rays obtained, shows COPD with no focal pneumonia. Patient states has normal CBC, she has normal CMP, lactic is elevated 4.0. She is given IV hydration started on IV antibiotics. She will be admitted with COPD exacerbation fell outpatient treatment. Case discussed with admitting physician. Pulmonology placed on consult. - Lab Data Result diagrams: 10/07/18 10:45 10/07/18 10:45 Lab Results 10/07/18 10/07/18 10/07/18 Range/Units 10:45 10:45 10:45 WBC 8.8 (3.8-10.6) k/uL RBC 5.10 (3.80-5.40) m/uL Hgb 14.6 (11.4-16.0) gm/dL Hct 43.5 (34.0-46.0) % MCV 85.3 (80.0-100.0) fL MCH 28.7 (25.0-35.0) pg MCHC 33.6 (31.0-37.0) g/dL RDW 14.8 (11.5-15.5) % Plt Count 178 (150-450) k/uL Neutrophils % 86 % Lymphocytes % 8 % Monocytes % 5 % Eosinophils % 0 % Basophils % 0 % Neutrophils # 7.5 (1.3-7.7) k/uL Lymphocytes # 0.7 L (1.0-4.8) k/uL Monocytes # 0.4 (0-1.0) k/uL Eosinophils # 0.0 (0-0.7) k/uL Basophils # 0.0 (0-0.2) k/uL Sodium 140 (137-145) mmol/L Potassium 4.1 (3.5-5.1) mmol/L Chloride 107 (98-107) mmol/L Carbon Dioxide 20 L (22-30) mmol/L Anion Gap 13 mmol/L BUN 18 H (7-17) mg/dL Creatinine 0.45 L (0.52-1.04) mg/dL Est GFR (CKD-EPI)AfAm >90 (>60 ml/min/1.73 sqM) Est GFR (CKD-EPI)NonAf >90 (>60 ml/min/1.73 sqM) Glucose 198 H (74-99) mg/dL Plasma Lactic Acid Ramon 4.0 H* (0.7-2.0) mmol/L Calcium 9.8 (8.4-10.2) mg/dL Magnesium 1.8 (1.6-2.3) mg/dL Total Bilirubin 0.9 (0.2-1.3) mg/dL AST 38 H (14-36) U/L ALT 25 (9-52) U/L Alkaline Phosphatase 96 (38-126) U/L Total Protein 7.4 (6.3-8.2) g/dL Albumin 4.7 (3.5-5.0) g/dL Critical Care Time Critical Care Time: Yes Total Critical Care Time: 35 Disposition Clinical Impression: Acute exacerbation of chronic obstructive pulmonary disease (COPD) Disposition: [facility] Condition: Stable Is patient prescribed a controlled substance at d/c from ED?: No Referrals: Catie Akhtar MD [Primary Care Provider] - 1-2 days Decision to Admit Reason: Admit from EC Decision Date: 10/07/18 Decision Time: 13:11
[2018-10-07 11:05] LABS: Basophils % (A) 0 %; Eosinophils % (A) 0 %; HCT 43.5 % (34.0-46.0); HGB 14.6 gm/dL (11.4-16.0); Lymphocytes # (A) 0.7 k/uL (1.0-4.8); Lymphocytes % (A) 8 %; MCH 28.7 pg (25.0-35.0); MCHC 33.6 g/dL (31.0-37.0); MCV 85.3 fL (80.0-100.0); Mean Platelet Volume 8.5; Monocytes # (A) 0.4 k/uL (0-1.0); Monocytes % (A) 5 %; Neutrophils # (A) 7.5 k/uL (1.3-7.7); Neutrophils % (A) 86 %; Platelet Count 178 k/uL (150-450); RDW 14.8 % (11.5-15.5); WBC 8.8 k/uL (3.8-10.6)
[2018-10-07 11:17] LABS: ALT 25 U/L (9-52); AST 38 U/L (14-36); Albumin 4.7 g/dL (3.5-5.0); Alkaline Phosphatase 96 U/L (38-126); Anion Gap 13 mmol/L; Blood Urea Nitrogen 18 mg/dL (7-17); Calcium 9.8 mg/dL (8.4-10.2); Carbon Dioxide 20 mmol/L (22-30); Chloride 107 mmol/L (98-107); Glucose 198 mg/dL (74-99); Magnesium 1.8 mg/dL (1.6-2.3); Potassium 4.1 mmol/L (3.5-5.1); Sodium 140 mmol/L (137-145); Total Bilirubin 0.9 mg/dL (0.2-1.3); Total Protein 7.4 g/dL (6.3-8.2)
[2018-10-07] MEDS ORDERED: SODIUM CHLORIDE 0.9% 1,000 ML IV ONE (12:13)
--- NOTE | 2018-10-07 12:49 | XR ---
EXAMINATION TYPE: XR chest 2V DATE OF EXAM: 10/07/2018 COMPARISON: 05/02/2018 HISTORY: 78-year-old female difficulty breathing TECHNIQUE: AP and lateral views FINDINGS: Heart upper limits of normal in size. Hyperinflation. Mild strandy bibasilar densities. No denilson cons olidation or pleural effusion. IMPRESSION: 1. Borderline heart size. 2. COPD. 3. Strandy bibasilar atelectasis. No definite acute process.
[2018-10-07] MEDS ORDERED: IPRATROPIUM-ALBUTEROL 3 ML NEB INHALATION PRN (13:05)
[2018-10-07] MEDS ORDERED: AZITHROMYCIN 500 MG in SODIUM CHLORIDE 0.9% 250 ML IVPB STA (13:09)
[2018-10-07] MEDS ORDERED: guaiFENesin 600 MG TABLET.ER PO PRN (14:22)
--- NOTE | 2018-10-07 15:06 | P.HPIM ---
History of Present Illness [id number] pleasant female with history of COPD he quit smoking in 1966 came in with complaints of cough sputum production has been going on for 4 days patient was given oral steroids and antibiotics as an outpatient without any significant improvement patient continued to get worse because of his came to ER in today patient received breathing treatments and systemic strides after that patient has significant improvement. Patient is presently on 2 L of falls and doesn't use oxygen at home on regular basis. Patient the is unable to cough up much, whenever she coughs sputum is greenish in color there is no fever and the patient chest x-ray did not show any pneumonic process. Patient follows with Dr. Vance who will be consulted. Review of Systems REVIEW OF SYSTEMS: CONSTITUTIONAL: No fever, no malaise, no fatigue. HEENT: No recent visual problems or hearing problems. Denied any sore throat. CARDIOVASCULAR: No chest pain, orthopnea, PND, no palpitations, no syncope. PULMONARY no hemoptysis. GASTROINTESTINAL: No diarrhea, no nausea, no vomiting, no abdominal pain. NEUROLOGICAL: No headaches, no weakness, no numbness. HEMATOLOGICAL: Denies any bleeding or petechiae. GENITOURINARY: Denies any burning micturition, frequency, or urgency. MUSCULOSKELETAL/RHEUMATOLOGICAL: Denies any joint pain, swelling, or any muscle pain. ENDOCRINE: Denies any polyuria or polydipsia. The rest of the 14-point review of systems is negative. Past Medical History Past Medical History: Asthma, Coronary Artery Disease (CAD), COPD, Diabetes Megan itus, Hearing Disorder / Deafness, Hyperlipidemia, Hypertension, Myocardial Infarction ([place]), Thyroid Disorder Additional Past Medical History / Comment(s): Tracheobronchitis, bronchiectasis, home O2 at @2L/[place] prn, NIDDM type II, hypothyroid, past migraines, sinus problems, anemia, past L wrist fracture, [place] bilaterally-wears aides. Last Myocardial Infarction Date:: 07/25/2016 History of Any Multi-Drug Resistant Organisms: None Reported Past Surgical History: Adenoidectomy, Heart Catheterization With Stent, Hysterectomy, Tonsillectomy Additional Past Surgical History / Comment(s): cystocele, rectocele, D&C Past Anesthesia/Blood Transfusion Reactions: No Reported Reaction Date of Last Stent Placement:: 07/2016 Smoking Status: Former smoker - Past Family History Mother Family Medical History: Dementia, Memory Impairment Father Family Medical History: Prostate Disorder Medications and Allergies Home Medications Medication Instructions Recorded Confirmed Type Multivitamins, Thera [Multivitamin 1 tab PO DAILY 07/25/16 10/07/18 History (formulary)] Aspirin 81 mg PO DAILY chew 07/29/16 10/07/18 Rx Atorvastatin [Lipitor] 80 mg PO DAILY #30 tab 07/29/16 10/07/18 Rx Metoprolol Tartrate [Lopressor] 25 mg PO BID #60 tab 07/29/16 10/07/18 Rx Pantoprazole [Protonix] 40 mg PO AC-BRKFST #30 tablet.dr 07/29/16 10/07/18 Rx Levothyroxine Sodium [Synthroid] 50 mcg PO DAILY 02/25/17 10/07/18 History Alendronate Sodium 70 mg PO FR 05/02/18 10/07/18 History Montelukast [Singulair] 10 mg PO DAILY 05/02/18 10/07/18 History Mv-Min/Vit C/Glut/Lysine/Hb124 1 tab PO DAILY 05/02/18 10/07/18 History [Airborne Effervescent Tablet] guaiFENesin [Mucinex] 600 mg PO BID PRN 05/02/18 10/07/18 History metFORMIN HCL [Glucophage] 500 mg PO BID 05/02/18 10/07/18 History Azithromycin [Zithromax] See Taper PO DIRECTED 10/07/18 10/07/18 History Losartan Potassium 50 mg PO DAILY 10/07/18 10/07/18 History predniSONE 10 mg PO DAILY 10/07/18 10/07/18 History Allergies Allergy/AdvReac Type Severity Reaction Status Date / Time No Known Drug Allergies Allergy Unknown Verified 10/07/18 10:29 Physical Exam Vitals: Vital Signs Temp Pulse Resp BP Pulse Ox 10/07/18 13:43 71 20 141/66 94 L 10/07/18 12:00 95 21 148/69 93 L 10/07/18 11:30 111 H 15 146/88 93 L 10/07/18 11:20 92 10/07/18 10:59 90 10/07/18 10:11 98.3 F 99 18 157/71 96 Intake and Output 10/07/18 10/07/18 10/07/18 06:59 14:59 22:59 Other: Voiding Method Toilet Weight 53.977 kg PHYSICAL EXAMINATION: GENERAL: The patient is alert and oriented x3, not in any acute distress. Well developed, well nourished. HEENT: Pupils are round and equally reacting to light. EOMI. No scleral icterus. No conjunctival pallor. Normocephalic, atraumatic. No pharyngeal erythema. No thyromegaly. CARDIOVASCULAR: S1 and S2 present. No murmurs, rubs, or gallops. PULMONARY: Rate entry with minimal expiratory wheezing on exam ABDOMEN: Soft, nontender, nondistended, normoactive bowel sounds. No palpable organomegaly. MUSCULOSKELETAL: No joint swelling or deformity. EXTREMITIES: No cyanosis, clubbing, or pedal edema. NEUROLOGICAL: Gross neurological examination did not reveal any focal deficits. SKIN: No rashes. Results CBC & Chem 7: 10/07/18 10:45 10/07/18 10:45 Labs: Abnormal Lab Results - Last 24 Hours (Table) 10/07/18 10/07/18 10/07/18 Range/Units 10:45 10:45 10:45 Lymphocytes # 0.7 L (1.0-4.8) k/uL Carbon Dioxide 20 L (22-30) mmol/L BUN 18 H (7-17) mg/dL Creatinine 0.45 L (0.52-1.04) mg/dL Glucose 198 H (74-99) mg/dL Plasma Lactic Acid Ramon 4.0 H* (0.7-2.0) mmol/L AST 38 H (14-36) U/L Thrombosis Risk Factor Assmnt - Choose All That Apply Any of the Below Risk Factors Present?: Yes Each Factor Represents 1 point: Abnormal pulmonary function (COPD) Other Risk Factors: Yes Each Risk Factor Represents 3 Points: Age 75 years or older Other congenital or acquired thrombophilia - If yes, enter type in comment: No Thrombosis Risk Factor Assessment Total Risk Factor Score: 4 Thrombosis Risk Factor Assessment Level: Moderate Risk Assessment and Plan Plan: -COPD exacerbation: Patient will be started on replacement treatment systemic steroids patient was started on doxycycline for bronchitis -Coronary artery disease -Type 2 diabetes mellitus blood sugars are expected to go up because of systemic steroids -Hyperlipidemia -Hypertension -Hypothyroidism For above-mentioned chronic medical problems patient will be resumed and continued on appropriate home medications patient will need pharmacologic GI and DVT prophylaxis
[2018-10-07] MEDS: IPRATROPIUM-ALBUTEROL 3 ML NEB INHALATION SCH ×2 (16:32→19:47)
[2018-10-07] MEDS: SODIUM CHLORIDE 0.9% 1,000 ML IV SCH (16:56)
[2018-10-07] MEDS: INSULIN ASPART (NovoLOG) 100 UNIT/ML VIAL SQ SCH ×2 (16:57→21:59)
[2018-10-07 16:59] LABS: Glucose,Whole Blood 269 mg/dL (75-99)
[2018-10-07] MEDS ORDERED: metFORMIN 500 MG TAB PO SCH (17:30)
[2018-10-07] MEDS ORDERED: methylPREDNISolone SOD SUCCI 125 MG/2 ML VIAL IV SCH (18:00)
[2018-10-07 20:36] LABS: Glucose,Whole Blood 335 mg/dL (75-99)
[2018-10-07] MEDS: methylPREDNISolone SOD SUCCI 40 MG/ML 1 ML VIAL IV SCH (21:59)
[2018-10-07] MEDS: HEPARIN SODIUM,PORCINE 5,000 UNIT/ML 1 ML VIAL SQ SCH (21:59)
[2018-10-07] MEDS: METOPROLOL TARTRATE 25 MG TAB PO SCH (22:00)
[2018-10-07] MEDS: DOXYCYCLINE 100 MG CAP PO SCH (22:07)
[2018-10-08] MEDS: SODIUM CHLORIDE 0.9% 1,000 ML IV SCH ×3 (03:41→22:59)
[2018-10-08] MEDS: LEVOTHYROXINE 50 MCG TAB PO SCH (05:18)
[2018-10-08 06:53] LABS: Glucose,Whole Blood 144 mg/dL (75-99)
[2018-10-08] MEDS: HEPARIN SODIUM,PORCINE 5,000 UNIT/ML 1 ML VIAL SQ SCH ×2 (07:42→21:24)
[2018-10-08] MEDS: DOXYCYCLINE 100 MG CAP PO SCH ×2 (07:42→21:25)
[2018-10-08] MEDS: ATORVASTATIN 80 MG TAB PO SCH (07:42)
[2018-10-08] MEDS: methylPREDNISolone SOD SUCCI 40 MG/ML 1 ML VIAL IV SCH ×2 (07:42→21:22)
[2018-10-08] MEDS: ASPIRIN 81 MG PO SCH (07:42)
[2018-10-08] MEDS: METOPROLOL TARTRATE 25 MG TAB PO SCH ×2 (07:42→21:24)
[2018-10-08] MEDS: PANTOPRAZOLE 40 MG TABLET PO SCH (07:42)
[2018-10-08] MEDS: INSULIN ASPART (NovoLOG) 100 UNIT/ML VIAL SQ SCH ×4 (07:42→21:26)
[2018-10-08] MEDS: LOSARTAN 50 MG TAB PO SCH (07:42)
[2018-10-08] MEDS: IPRATROPIUM-ALBUTEROL 3 ML NEB INHALATION SCH ×4 (08:36→21:00)
--- NOTE | 2018-10-08 10:54 | P.PN ---
Subjective patient admitted for COPD exacerbation patient is still short of breath and does have expiratory wheeze mainly appears to have significant amount of phlegm which she is unable to bring up. When she coughs of the time patient will improve significantly patient has been coughing up phlegm since yesterday. Constitutional: Denied any fatigue denied any fever. Cardio vascular: denied any chest pain, palpitations Gastrointestinal denied any nausea vomiting Pulmonary: as mentioned in the interval history Neurologic denied any new focal deficits All inpatient medications were reviewed and appropriate changes in these medications as dictated in the interval history and assessment and plan. Objective - Vital Signs Vital signs: Vital Signs Temp 98.1 F 10/08/18 07:00 Pulse 86 10/08/18 08:36 Resp 16 10/08/18 08:00 BP 151/82 10/08/18 07:00 Pulse Ox 94 L 10/08/18 07:00 Intake & Output 10/07/18 10/08/18 10/08/18 18:59 06:59 18:59 Intake Total 800 480 Balance 800 480 Weight 53.977 kg Intake: Intake, IV Titration 800 Amount Sodium Chloride 0.9% 1, 800 000 ml @ 100 mls/hr IV . Q10H [facility] Rx#:[id number] Oral 480 Other: Voiding Method Toilet Toilet Toilet # Voids 2 - Exam PHYSICAL EXAMINATION: GENERAL: The patient is alert and oriented x3, not in any acute distress. Well developed, well nourished. HEENT: Pupils are round and equally reacting to light. EOMI. No scleral icterus. No conjunctival pallor. Normocephalic, atraumatic. No pharyngeal erythema. No thyromegaly. CARDIOVASCULAR: S1 and S2 present. No murmurs, rubs, or gallops. PULMONARY: good air entry entry with minimal expiratory wheezing on exam ABDOMEN: Soft, nontender, nondistended, normoactive bowel sounds. No palpable organomegaly. MUSCULOSKELETAL: No joint swelling or deformity. EXTREMITIES: No cyanosis, clubbing, or pedal edema. NEUROLOGICAL: Gross neurological examination did not reveal any focal deficits. SKIN: No rashes. - Labs CBC & Chem 7: 10/07/18 10:45 10/07/18 10:45 Labs: Abnormal Lab Results - Last 24 Hours (Table) 10/07/18 10/07/18 10/07/18 Range/Units 10:45 10:45 10:45 Lymphocytes # 0.7 L (1.0-4.8) k/uL Carbon Dioxide 20 L (22-30) mmol/L BUN 18 H (7-17) mg/dL Creatinine 0.45 L (0.52-1.04) mg/dL Glucose 198 H (74-99) mg/dL POC Glucose (mg/dL) (75-99) mg/dL Plasma Lactic Acid Ramon 4.0 H* (0.7-2.0) mmol/L AST 38 H (14-36) U/L 10/07/18 10/07/18 10/07/18 Range/Units 14:47 16:36 20:34 Lymphocytes # (1.0-4.8) k/uL Carbon Dioxide (22-30) mmol/L BUN (7-17) mg/dL Creatinine (0.52-1.04) mg/dL Glucose (74-99) mg/dL POC Glucose (mg/dL) 269 H 335 H (75-99) mg/dL Plasma Lactic Acid Ramon 5.1 H* (0.7-2.0) mmol/L AST (14-36) U/L 10/08/18 Range/Units 06:51 Lymphocytes # (1.0-4.8) k/uL Carbon Dioxide (22-30) mmol/L BUN (7-17) mg/dL Creatinine (0.52-1.04) mg/dL Glucose (74-99) mg/dL POC Glucose (mg/dL) 144 H (75-99) mg/dL Plasma Lactic Acid Ramon (0.7-2.0) mmol/L AST (14-36) U/L Assessment and Plan Plan: -COPD exacerbation: Patient will be started on replacement treatment systemic steroids patient was started on doxycycline for bronchitis -Coronary artery disease -Type 2 diabetes mellitus blood sugars are expected to go up because of systemic steroids -Hyperlipidemia -Hypertension -Hypothyroidism For above-mentioned chronic medical problems patient will be resumed and continued on appropriate home medications patient will need pharmacologic GI and DVT prophylaxis
[2018-10-08 11:15] LABS: Glucose,Whole Blood 248 mg/dL (75-99)
--- NOTE | 2018-10-08 11:36 | CONS ---
CONSULTATION PULMONARY/CRITICAL CARE CONSULTATION: DATE OF CONSULTATION: October 08, 2018. This is a very pleasant patient who sees one of my partners in the office for her asthma. She comes into the emergency room complaining of 4 days with a cough and shortness of breath. The patient's cough is wet and congested. She is unable to cough up any significant phlegm. She denied any fever or chills. She had no chest pain or chest discomfort. She apparently was seen by her primary doctor who prescribed a small dose of prednisone and a Z-Kun. Despite that, that did not work and she continues to have shortness of breath and cough. For that reason, she came into the emergency room to be evaluated. She was admitted with a diagnosis of asthma exacerbation. The patient's chest x-ray did not reveal any infiltrates or pneumonia. Again not having any fever or chills. There is no chest pain or chest discomfort. She is not producing much or any phlegm. MEDICATIONS: Her home medications include multivitamins, levothyroxine, alendronate, montelukast, Airborne effervescent tablet, guaifenesin, metformin, Zithromax, losartan, prednisone, aspirin, Lipitor, metoprolol, and Protonix. ALLERGIES: Allergies are denied. PAST MEDICAL HISTORY: Her past medical history includes asthma, hypothyroidism, diabetes, hypertension, hyperlipidemia, decreased hearing, myocardial infarction. SURGICAL HISTORY: Surgical history includes adenoidectomy, heart catheterization with stent, hysterectomy, and tonsillectomy. She has also had cystocele and rectocele repair. SOCIAL HISTORY: Positive for previous tobacco use. She drinks alcohol rarely. No illicit drug use. FAMILY HISTORY: Family history is positive for dementia and prostate disease. REVIEW OF SYSTEMS: CONSTITUTIONAL: Negative. NEUROLOGIC: Negative. HEENT: Negative. CARDIOVASCULAR: Negative. PULMONARY: Shortness of breath and cough with minimal phlegm production. GI: Negative. : Negative. RHEUMATOLOGIC: Negative. IMMUNOLOGIC: Negative. ENDOCRINOLOGIC: Negative. DERMATOLOGIC: Negative. PHYSICAL EXAMINATION: Current vital signs include temperature 98.1, heart rate 86, respiratory rate 16, blood pressure 138/69, mean 92, and 3 L saturation 94% to 95%. Appears in no acute distress. HEENT: Examination is grossly unremarkable. Mucous membranes are moist. No oral lesions. NECK: Supple. Full range of motion. No adenopathy or thyromegaly. Neck veins are flat. CARDIOVASCULAR: Examination reveals regular rhythm and rate. Heart sounds are distant. No S3, S4. No murmur. Heart rate about 80 beats per minute. PULMONARY: Examination reveals coarse expiratory wheezes and rhonchi. There is prolongation on forced maneuver. The patient coughs and wheezes on forced maneuver. Breath sounds equal bilaterally, but diminished throughout. ABDOMEN: Soft. Bowel sounds are heard. There is no masses or tenderness. EXTREMITIES: Are intact without cyanosis, clubbing, or edema. SKIN: Without rash. NEUROLOGIC: Examination is brief but nonfocal. Chest x-ray does not reveal any evidence of infiltrate. Lab data is reviewed. White count 8.8, hemoglobin 14.6, hematocrit 43.5, platelet count is normal. Sodium 140, potassium 4.1, chloride 107, CO2 is 20, anion gap is 13, BUN and creatinine were 18 and 0.45. Her plasma lactic acid was initially 5.4, then 1.4. AST was 38. Current medications are reviewed. From the pulmonary standpoint, she is on doxycycline 100 mg twice a day, albuterol and Atrovent updrafts q.i.d. and p.r.n., Solu-Medrol 40 mg twice a day. ASSESSMENT: 1. Acute exacerbation of moderate persistent asthma complicated by minimal purulent tracheobronchitis. No evidence of pneumonia on chest x-ray. 2. Hypothyroidism. 3. Osteoporosis. 4. Diabetes mellitus. 5. Hypertension. 6. Previous history of myocardial infarction. 7. History of deafness. PLAN: The patient's medications are reviewed. Please see my recommendations. Additional recommendations and suggestions are forthcoming. Prognosis is thought to be generally good. MMODL / IJN: [id number] /
[2018-10-08 17:07] LABS: Glucose,Whole Blood 131 mg/dL (75-99)
[2018-10-08 20:48] LABS: Glucose,Whole Blood 206 mg/dL (75-99)
[2018-10-08] MEDS: SYMBICORT 160-4.5 MCG INHALER INHALATION SCH (21:00)
[2018-10-08] MEDS: MONTELUKAST 10 MG TAB PO SCH (21:24)
[2018-10-09] MEDS: LEVOTHYROXINE 50 MCG TAB PO SCH (05:13)
[2018-10-09 07:04] LABS: Glucose,Whole Blood 158 mg/dL (75-99)
[2018-10-09] MEDS: INSULIN ASPART (NovoLOG) 100 UNIT/ML VIAL SQ SCH ×4 (07:38→20:51)
[2018-10-09] MEDS: PANTOPRAZOLE 40 MG TABLET PO SCH (07:39)
[2018-10-09] MEDS: IPRATROPIUM-ALBUTEROL 3 ML NEB INHALATION SCH ×4 (07:58→19:24)
[2018-10-09] MEDS: SYMBICORT 160-4.5 MCG INHALER INHALATION SCH ×2 (07:58→19:24)
[2018-10-09] MEDS: SODIUM CHLORIDE 0.9% 1,000 ML IV SCH (08:44)
[2018-10-09] MEDS: methylPREDNISolone SOD SUCCI 40 MG/ML 1 ML VIAL IV SCH ×2 (08:54→20:51)
[2018-10-09] MEDS: ASPIRIN 81 MG PO SCH (08:54)
[2018-10-09] MEDS: HEPARIN SODIUM,PORCINE 5,000 UNIT/ML 1 ML VIAL SQ SCH ×2 (08:54→20:51)
[2018-10-09] MEDS: DOXYCYCLINE 100 MG CAP PO SCH ×2 (08:54→20:51)
[2018-10-09] MEDS: LOSARTAN 50 MG TAB PO SCH (08:54)
[2018-10-09] MEDS: ATORVASTATIN 80 MG TAB PO SCH (08:54)
[2018-10-09] MEDS: METOPROLOL TARTRATE 25 MG TAB PO SCH ×2 (08:54→20:51)
[2018-10-09 11:54] LABS: Glucose,Whole Blood 164 mg/dL (75-99)
--- NOTE | 2018-10-09 12:41 | P.PN ---
Subjective Progress Note Date: 10/09/18 Principal diagnosis: Acute exacerbation of moderate persistent asthma complicated by minimal purulent tracheobronchitis. No pneumonia per chest x-ray. The patient is seen today in 10/09/2018 in follow-up on the regular medical floor. She is awake and alert in no acute distress. Sitting up at the bedside. Still some dyspnea on minimal exertion. Dry nonproductive cough. Eating good O2 saturations in the 90s on 2 L/m per nasal cannula. She's afebrile. Somewhat hypertensive. Blood culture reveals no growth to date. Glucose 164. She is continued on DuoNeb inhalations, Symbicort, IV Solu-Medrol. Empiric antibiotics in form of doxycycline. Objective - Vital Signs Vital signs: Vital Signs Temp 98.1 F 10/09/18 07:12 Pulse 92 10/09/18 11:23 Resp 15 10/09/18 07:12 BP 175/91 10/09/18 07:12 Pulse Ox 93 L 10/09/18 07:12 Intake & Output 10/08/18 10/09/18 10/09/18 18:59 06:59 18:59 Intake Total 720 240 Balance 720 240 Intake: Oral 720 240 Other: Voiding Method Toilet Toilet Toilet # Voids 2 11 - Exam GENERAL EXAM: Alert, active, comfortable in no apparent distress. On 2 L. HEAD: Normocephalic. EYES: Normal reaction of pupils, equal size. NOSE: Clear with pink turbinates. THROAT: No erythema or exudates. NECK: No masses, no JVD. CHEST: No chest wall deformity. LUNGS: Equal air entry with faint bilateral end expiratory wheeze, diminished. CVS: S1 and S2 normal with no audible murmur, regular rhythm. ABDOMEN: No hepatosplenomegaly, normal bowel sounds, no guarding or rigidity. SPINE: No scoliosis or deformity SKIN: No rashes CENTRAL NERVOUS SYSTEM: No focal deficits, tone is normal in all 4 extremities. EXTREMITIES: There is no peripheral edema. No clubbing, no cyanosis. Peripheral pulses are intact. - Labs CBC & Chem 7: 10/07/18 10:45 10/07/18 10:45 Labs: Abnormal Lab Results - Last 24 Hours (Table) 10/08/18 10/08/18 10/09/18 Range/Units 17:06 20:46 07:02 POC Glucose (mg/dL) 131 H 206 H 158 H (75-99) mg/dL 10/09/18 Range/Units 11:48 POC Glucose (mg/dL) 164 H (75-99) mg/dL Microbiology - Last 24 Hours (Table) 10/07/18 10:45 Blood Culture - Preliminary Blood No Growth after 24 hours Assessment and Plan Assessment: Impression: #1 Acute exacerbation of moderate persistent chronic bronchial asthma, com plicated by purulent tracheobronchitis. No clear evidence of pneumonia. #2 Hypothyroidism. #3 Osteoporosis. #4 Diabetes mellitus. #5 Hypertension. #6 History of myocardial infarction. #7 Hard of hearing. Plan: The patient was seen and evaluated by Dr. Olson. She is improved today compared to yesterday. Not quite back to her baseline. Continue with her current medications. Increase her activity as tolerated. We'll continue to follow. I, the cosigning physician, performed a history & physical examination of the patient. Lungs sounds with bilateral end expiratory wheeze Maintaining good O2 saturations in the 90s on 2 L/m per nasal cannula. I discussed the assessment and plan of care with my nurse practitioner, Era Maria. I attest to the above note as dictated by her.
[2018-10-09 17:26] LABS: Glucose,Whole Blood 191 mg/dL (75-99)
[2018-10-09 18:33] LABS: Appearance,Urine Clear (Clear); Bilirubin,Urine Negative (Negative); Blood,Urine Negative (Negative); Color,Urine Light Yellow; Glucose,Urine (UA) 1+ (Negative); Ketones,Urine Negative (Negative); Leukocyte Esterase,Urine Negative (Negative); Nitrite,Urine Negative (Negative); PH, Urine 5.5 (5.0-8.0); Protein,Urine Negative (Negative); Specific Gravity,Urine 1.007 (1.001-1.035); Urobilinogen,Urine <2.0 mg/dL (<2.0)
[2018-10-09 20:44] LABS: Glucose,Whole Blood 245 mg/dL (75-99)
[2018-10-09] MEDS: MONTELUKAST 10 MG TAB PO SCH (20:51)
--- NOTE | 2018-10-09 22:53 | P.PN ---
Subjective Progress Note Date: 10/09/18 Principal diagnosis: COPD exacerbation Ms. Pro is a 78-year-old female with a past medical history of COPD, diabetes mellitus, hypertension, hyperlipidemia, coronary artery disease admitted to the hospital with a chief complaint of difficulty in breathing. She is currently be ing treated for COPD exacerbation with IV steroids and breathing treatments. Today the patient is sitting up in the bed appears to be no acute distress. The patient states that she is trying to cough up on but could not get out a lot of phlegm. She states the difficulty in breathing is improving slowly. Review of systems Constitutional: No fever chills or rigors Cardio vascular: No chest pain or palpitations Gastrointestinal no abdominal pain nausea vomiting or diarrhea Pulmonary: Difficulty in breathing is improving Neurologic : No focal weakness Active Medications Albuterol/Ipratropium (Duoneb 0.5 Mg-3 Mg/3 Ml Soln) 3 ml INHALATION RT-Q4H PRN PRN Reason: Shortness Of Breath Or Wheezing Albuterol/Ipratropium (Duoneb 0.5 Mg-3 Mg/3 Ml Soln) 3 ml INHALATION RT-QID [facility] Last Admin: 10/09/18 11:10 Dose: 3 ml Documented by: Aspirin (Aspirin) 81 mg PO DAILY [facility] Last Admin: 10/09/18 08:54 Dose: 81 mg Documented by: Atorvastatin Calcium (Lipitor) 80 mg PO DAILY [facility] Last Admin: 10/09/18 08:54 Dose: 80 mg Documented by: Budesonide/Formoterol Fumarate (Symbicort 160-4.5 Mcg Inhaler) 2 puff INHALATION RT-BID [facility] Last Admin: 10/09/18 07:58 Dose: 2 puff Documented by: Doxycycline Monohydrate (Vibramycin) 100 mg PO BID [facility] Last Admin: 10/09/18 08:54 Dose: 100 mg Documented by: Guaifenesin (Mucinex) 600 mg PO BID PRN PRN Reason: Congestion Heparin Sodium (Porcine) (Heparin) 5,000 unit SQ Q12HR [facility] Last Admin: 10/09/18 08:54 Dose: 5,000 unit Documented by: Sodium Chloride (Saline 0.9%) 1,000 mls @ 100 mls/hr IV .Q10H [facility] Last Admin: 10/09/18 08:44 Dose: Not Given Documented by: Insulin Aspart (Novolog) 0 unit SQ ACHS [facility]; Protocol Last Admin: 10/09/18 12:05 Dose: 3 unit Documented by: Levothyroxine Sodium (Synthroid) 50 mcg PO DAILY@0630 [facility] Last Admin: 10/09/18 05:13 Dose: 50 mcg Documented by: Losartan Potassium (Cozaar) 50 mg PO DAILY [facility] Last Admin: 10/09/18 08:54 Dose: 50 mg Documented by: Methylprednisolone Sodium Succinate (Solu-Medrol) 40 mg IV BID [facility] Last Admin: 10/09/18 08:54 Dose: 40 mg Documented by: Metoprolol Tartrate (Lopressor) 25 mg PO BID [facility] Last Admin: 10/09/18 08:54 Dose: 25 mg Documented by: Montelukast Sodium (Singulair) 10 mg PO HS [facility] Last Admin: 10/08/18 21:24 Dose: 10 mg Documented by: Pantoprazole Sodium (Protonix) 40 mg PO AC-BRKFST [facility] Last Admin: 10/09/18 07:39 Dose: 40 mg Documented by: Objective - Vital Signs Vital signs: Vital Signs Temp 98.1 F 10/09/18 07:12 Pulse 92 10/09/18 11:23 Resp 15 10/09/18 07:12 BP 175/91 10/09/18 07:12 Pulse Ox 93 L 10/09/18 07:12 Intake & Output 10/08/18 10/09/18 10/09/18 18:59 06:59 18:59 Intake Total 720 240 Balance 720 240 Intake: Oral 720 240 Other: Voiding Method Toilet Toilet Toilet # Voids 2 11 - Exam PHYSICAL EXAMINATION: GENERAL: The patient is alert and oriented x3, not in any acute distress. Well developed, well nourished. HEENT: Pupils round and reactive to light. Head is normocephalic atraumatic. CARDIOVASCULAR: S1 and S2 present. No murmurs, rubs, or gallops. PULMONARY: Decreased bilateral air entry. No wheezes or crackles. ABDOMEN: Soft, nontender, nondistended, normoactive bowel sounds. No palpable organomegaly. MUSCULOSKELETAL: No joint swelling or deformity. EXTREMITIES: No cyanosis, clubbing, or pedal edema. NEUROLOGICAL: Gross neurological examination did not reveal any focal deficits. SKIN: No rashes. - Labs CBC & Chem 7: 10/07/18 10:45 10/07/18 10:45 Labs: Abnormal Lab Results - Last 24 Hours (Table) 10/08/18 10/08/18 10/09/18 Range/Units 17:06 20:46 07:02 POC Glucose (mg/dL) 131 H 206 H 158 H (75-99) mg/dL 10/09/18 Range/Units 11:48 POC Glucose (mg/dL) 164 H (75-99) mg/dL Microbiology - Last 24 Hours (Table) 10/07/18 10:45 Blood Culture - Preliminary Blood No Growth after 24 hours Assessment and Plan Assessment: ASSESSMENT Acute COPD exacerbation Coronary artery disease Type II diet is mellitus Hypertension Hyperlipidemia Hypothyroidism PLAN: Patient is still on IV steroids. Continue with the treatments. Patient showing mild improvement in her symptoms. Pulmonary on board. Continue with the current medication regimen. Further recommendations depending on the progress of the patient.
[2018-10-10] MEDS: LEVOTHYROXINE 50 MCG TAB PO SCH (05:17)
[2018-10-10 07:04] LABS: Glucose,Whole Blood 163 mg/dL (75-99)
[2018-10-10] MEDS: PANTOPRAZOLE 40 MG TABLET PO SCH (07:18)
[2018-10-10] MEDS: INSULIN ASPART (NovoLOG) 100 UNIT/ML VIAL SQ SCH ×2 (07:18→11:56)
[2018-10-10 07:41] VITALS: BP 166/70; RESP 15; TEMP 98.3
[2018-10-10] MEDS: SYMBICORT 160-4.5 MCG INHALER INHALATION SCH (07:53)
[2018-10-10] MEDS: IPRATROPIUM-ALBUTEROL 3 ML NEB INHALATION SCH ×2 (07:53→11:25)
[2018-10-10] MEDS: METOPROLOL TARTRATE 25 MG TAB PO SCH (08:33)
[2018-10-10] MEDS: methylPREDNISolone SOD SUCCI 40 MG/ML 1 ML VIAL IV SCH (08:33)
[2018-10-10] MEDS: ASPIRIN 81 MG PO SCH (08:33)
[2018-10-10] MEDS: HEPARIN SODIUM,PORCINE 5,000 UNIT/ML 1 ML VIAL SQ SCH (08:33)
[2018-10-10] MEDS: DOXYCYCLINE 100 MG CAP PO SCH (08:33)
[2018-10-10] MEDS: ATORVASTATIN 80 MG TAB PO SCH (08:33)
[2018-10-10] MEDS: LOSARTAN 50 MG TAB PO SCH (08:33)
[2018-10-10 08:41] LABS: Anion Gap 10 mmol/L; Blood Urea Nitrogen 22 mg/dL (7-17); Calcium 9.8 mg/dL (8.4-10.2); Carbon Dioxide 24 mmol/L (22-30); Chloride 107 mmol/L (98-107); Glucose 186 mg/dL (74-99); Potassium 3.9 mmol/L (3.5-5.1); Sodium 141 mmol/L (137-145)
[2018-10-10 08:49] LABS: Basophils % (A) 0 %; Eosinophils % (A) 0 %; HCT 44.4 % (34.0-46.0); HGB 14.6 gm/dL (11.4-16.0); Lymphocytes # (A) 1.8 k/uL (1.0-4.8); Lymphocytes % (A) 19 %; MCH 28.6 pg (25.0-35.0); MCHC 32.8 g/dL (31.0-37.0); MCV 87.2 fL (80.0-100.0); Mean Platelet Volume 8.1; Monocytes # (A) 0.6 k/uL (0-1.0); Monocytes % (A) 6 %; Neutrophils % (A) 73 %; Platelet Count 214 k/uL (150-450); RBC 5.09 m/uL (3.80-5.40); RDW 14.3 % (11.5-15.5); WBC 9.6 k/uL (3.8-10.6)
[2018-10-10 11:39] VITALS: PULSE 80
[2018-10-10 11:53] LABS: Glucose,Whole Blood 109 mg/dL (75-99)
--- NOTE | 2018-10-10 12:36 | P.DS ---
Providers Date of admission: 10/07/18 13:05 Expected date of discharge: 10/10/18 Attending physician: Jose Wolfe Consults: 10/07/18 13:05 Consult Physician Routine Consulting Provider: Maynor Vance Consult Reason/Comments: COPD Do you want consulting provider notified?: Yes Primary care physician: Catie Akhtar [facility] Course: Ms. Pro is a 78-year-old female with a past medical history of COPD, coronary artery disease, asthma, diabetes mellitus, hyperlipidemia, hypertension, coronary artery disease admitted to the hospital for complaints of cough with productive sputum. Patient was given oral steroids and antibiotics as an outpatient but did not show significant improvement. During the hospital course patient was put on IV steroids and her azithromycin has been discontinued. She was put on doxycycline. Patient responded to IV steroids and breathing treatments. She was also evaluated by Dr. Olson from pulmonary group. Today the patient is sitting comfortably in the bed appears to be no acute distress. She states that she just took a shower and feels that she is back to her baseline. She has been cleared by pulmonary to be discharged home in a stable condition. Vital Signs - 24 hr 10/09/18 10/09/18 10/09/18 14:51 15:15 15:25 Temperature 98.3 F Pulse Rate 90 90 Pulse Rate [ 83 Left] Respiratory 14 Rate Blood Pressure 124/88 [Left Arm] O2 Sat by Pulse 98 Oximetry 10/09/18 10/09/18 10/10/18 19:22 19:30 00:33 Temperature 97.8 F Pulse Rate 89 90 82 Pulse Rate [ 92 Left] Respiratory 19 Rate Blood Pressure 133/72 [Left Arm] O2 Sat by Pulse 94 L 95 Oximetry 10/10/18 10/10/18 10/10/18 00:47 01:14 07:04 Temperature 97.8 F 98.3 F Pulse Rate 80 Pulse Rate [ 88 85 Left] Respiratory 19 15 Rate Blood Pressure 167/84 166/70 [Left Arm] O2 Sat by Pulse 94 L 94 L Oximetry 10/10/18 10/10/18 10/10/18 07:54 08:06 11:25 Temperature Pulse Rate 76 80 84 Pulse Rate [ Left] Respiratory Rate Blood Pressure [Left Arm] O2 Sat by Pulse Oximetry 10/10/18 11:38 Temperature Pulse Rate 80 Pulse Rate [ Left] Respiratory Rate Blood Pressure [Left Arm] O2 Sat by Pulse Oximetry PHYSICAL EXAMINATION: GENERAL: The patient is alert and oriented x3, not in any acute distress. Well developed, well nourished. HEENT: Pupils round and reactive to light. Head is normocephalic atraumatic. CARDIOVASCULAR: S1 and S2 present. No murmurs, rubs, or gallops. PULMONARY: Decreased bilateral air entry. No wheezes or crackles. ABDOMEN: Soft, nontender, nondistended, normoactive bowel sounds. No palpable organomegaly. MUSCULOSKELETAL: No joint swelling or deformity. EXTREMITIES: No cyanosis, clubbing, or pedal edema. NEUROLOGICAL: Gross neurological examination did not reveal any focal deficits. SKIN: No rashes. DISCHARGE DIAGNOSIS Acute COPD exacerbation Coronary artery disease Type II diet is mellitus Hypertension Hyperlipidemia Hypothyroidism PLAN: Patient is being discharged home on a tapering dose of steroids. Also to complete a 10 day course of doxycycline. No other changes made to her medication list. Patient is being discharged home in a fair condition. She is advised to follow up with her primary care physician Dr. Akhtar in 2-3 days. More than 35 minutes spent towards the discharge of the patient. Patient Condition at Discharge: Fair Plan - Discharge Summary Discharge Rx Participant: No New Discharge Prescriptions: New Doxycycline Hyclate 200 mg PO DAILY #7 tablet. Continue Multivitamins, Thera [Multivitamin (formulary)] 1 tab PO DAILY Aspirin 81 mg PO DAILY chew Atorvastatin [Lipitor] 80 mg PO DAILY #30 tab Metoprolol Tartrate [Lopressor] 25 mg PO BID #60 tab Pantoprazole [Protonix] 40 mg PO AC-BRKFST #30 tablet. Levothyroxine Sodium [Synthroid] 50 mcg PO DAILY Mv-Min/Vit C/Glut/Lysine/Hb124 [Airborne Effervescent Tablet] 1 tab PO DAILY metFORMIN HCL [Glucophage] 500 mg PO BID Montelukast [Singulair] 10 mg PO DAILY Alendronate Sodium 70 mg PO FR guaiFENesin [Mucinex] 600 mg PO BID PRN PRN Reason: Congestion Losartan Potassium 50 mg PO DAILY predniSONE 10 mg PO DAILY 16 Days #40 Discontinued Azithromycin [Zithromax] See Taper PO DIRECTED Discharge Medication List Multivitamins, Thera [Multivitamin (formulary)] 1 tab PO DAILY 07/25/16 [History] Aspirin 81 mg PO DAILY chew 07/29/16 [Rx] Atorvastatin [Lipitor] 80 mg PO DAILY #30 tab 07/29/16 [Rx] Metoprolol Tartrate [Lopressor] 25 mg PO BID #60 tab 07/29/16 [Rx] Pantoprazole [Protonix] 40 mg PO AC-BRKFST #30 tablet. 07/29/16 [Rx] Levothyroxine Sodium [Synthroid] 50 mcg PO DAILY 02/25/17 [History] Alendronate Sodium 70 mg PO FR 05/02/18 [History] Montelukast [Singulair] 10 mg PO DAILY 05/02/18 [History] Mv-Min/Vit C/Glut/Lysine/Hb124 [Airborne Effervescent Tablet] 1 tab PO DAILY 05/02/18 [History] guaiFENesin [Mucinex] 600 mg PO BID PRN 05/02/18 [History] metFORMIN HCL [Glucophage] 500 mg PO BID 05/02/18 [History] Losartan Potassium 50 mg PO DAILY 10/07/18 [History] Doxycycline Hyclate 200 mg PO DAILY #7 tablet. 10/10/18 [Rx] predniSONE 10 mg PO DAILY 16 Days #40 10/10/18 [Rx] Follow up Appointment(s)/Referral(s): Catie Akhtar MD [Primary Care Provider] - 1-2 days Discharge Disposition: HOME SELF-CARE
--- NOTE | 2018-10-10 13:29 | P.PN ---
Subjective Progress Note Date: 10/10/18 Principal diagnosis: Exacerbation of moderate persistent asthma complicated by minimal pleural tracheobronchitis On 10/10/2018 patient seen in follow-up on the medical surgical floor. She is awake and alert, in no acute distress, nasal supplemental oxygen, currently at 2 L, with a pulse ox of 94%, she is afebrile, hemodynamically stable, she states she is improving, breathing easier, still has occasional coughing spells, and at times she feels like the phlegm gets stuck in her throat, but for the most part she is feeling better. Labs today have been reviewed, CBC is within normal limits, electrolytes were normal, B1 is 22 creatinine was 0.5. Urine and blood culture showed no growth, signs have been stable, patient has been ambulating in the room, tolerating activity fairly well, her steroids have been at 40 mg twice daily, she is on empiric antibiotics in the form of doxycycline, Symbicort and breathing treatments, new chest x-rays, admission chest x-ray did not show any focal pneumonias. Objective - Vital Signs Vital signs: Vital Signs Temp 98.3 F 10/10/18 07:04 Pulse 80 10/10/18 11:38 Resp 15 10/10/18 07:04 BP 166/70 10/10/18 07:04 Pulse Ox 94 L 10/10/18 07:04 Intake & Output 10/09/18 10/10/18 10/10/18 18:59 06:59 18:59 Intake Total 1000 0 Output Total 550 725 Balance 450 -725 0 Intake: Oral 1000 0 Output: Urine 550 725 Other: Voiding Method Toilet Toilet Incontinent Incontinent # Voids 1 3 - Exam GENERAL EXAM: Alert, pleasant, 78-year-old white female, on 2 L of oxygen comfortable in no apparent distress. HEAD: Normocephalic/atraumatic. EYES: Normal reaction of pupils, equal size. Conjunctiva pink, sclera white. NOSE: Clear with pink turbinates. THROAT: No erythema or exudates. NECK: No masses, no JVD, no thyroid enlargement, no adenopathy. CHEST: No chest wall deformity. Symmetrical expansion. LUNGS: Equal air entry with a few rhonchi, and end expiratory wheezes, less bronchospastic and congested CVS: Regular rate and rhythm, normal S1 and S2, no gallops, no murmurs, no rubs ABDOMEN: Soft, nontender. No hepatosplenomegaly, normal bowel sounds, no guar ding or rigidity. EXTREMITIES: No clubbing, no edema, no cyanosis, 2+ pulses and upper and lower extremities. MUSCULOSKELETAL: Muscle strength and tone normal. SPINE: No scoliosis or deformity SKIN: No rashes CENTRAL NERVOUS SYSTEM: Alert and oriented -3. No focal deficits, tone is normal in all 4 extremities. PSYCHIATRIC: Alert and oriented -3. Appropriate affect. Intact judgment and insight. - Labs CBC & Chem 7: 10/10/18 07:40 10/10/18 07:40 Labs: Abnormal Lab Results - Last 24 Hours (Table) 10/09/18 10/09/18 10/09/18 Range/Units 17:03 20:32 Unknown BUN (7-17) mg/dL Glucose (74-99) mg/dL POC Glucose (mg/dL) 191 H 245 H (75-99) mg/dL Urine Glucose (UA) 1+ H (Negative) 10/10/18 10/10/18 10/10/18 Range/Units 06:52 07:40 11:51 BUN 22 H (7-17) mg/dL Glucose 186 H (74-99) mg/dL POC Glucose (mg/dL) 163 H 109 H (75-99) mg/dL Urine Glucose (UA) (Negative) Microbiology - Last 24 Hours (Table) 10/07/18 10:45 Blood Culture - Preliminary Blood No Growth after 72 hours 10/09/18 Unknown Urine Culture - Preliminary Urine,Voided Assessment and Plan Plan: Assessment: #1 Acute exacerbation of moderate persistent chronic bronchial asthma, complicated by purulent tracheobronchitis. No clear evidence of pneumonia. #2 Hypothyroidism. #3 Osteoporosis. #4 Diabetes mellitus. #5 Hypertension. #6 History of myocardial infarction. #7 Hard of hearing. Plan: From pulmonary perspective patient is stable for discharge home today, on the prednisone taper, finish outpatient course of doxycycline, patient has oxygen and nebulized treatments at home, needs to be seen in the office within 7-10 days. I performed a history & physical examination of the patient and discussed their management with my nurse practitioner, Gabby Jordan. I reviewed the nurse practitioner's note and agree with the documented findings and plan of care. Lung sounds are positive for end expiratory wheezes, and a few rhonchi. The findings and the impression was discussed with the patient. I attest to the documentation by the nurse practitioner. Time with Patient: Less than 30
== END 2018-10-10 13:35 | disposition home or self-care (01) | DRG 191 ==
LOC: EC 10:09 → 4SSUR 13:05
PROVIDERS: ADMIT Internal Medicine; ATTEND Internal Medicine
DX: J44.1 Chronic obstructive pulmonary disease with (acute) exacerbation (principal); J45.41 Moderate persistent asthma with (acute) exacerbation; M81.0 Age-related osteoporosis without current pathological fracture; I25.2 Old myocardial infarction; E03.9 Hypothyroidism, unspecified; E11.9 Type 2 diabetes mellitus without complications; E78.5 Hyperlipidemia, unspecified; H91.90 Unspecified hearing loss, unspecified ear; I10 Essential (primary) hypertension; I25.10 Atherosclerotic heart disease of native coronary artery without angina pectoris; Z79.82 Long term (current) use of aspirin; Z79.84 Long term (current) use of oral hypoglycemic drugs; Z79.890 Hormone replacement therapy; Z79.899 Other long term (current) drug therapy; Z87.891 Personal history of nicotine dependence; Z90.710 Acquired absence of both cervix and uterus; Z79.52 Long term (current) use of systemic steroids; Z82.0 Family history of epilepsy and other diseases of the nervous system
CPT/HCPCS: 36415; 71046; 80048; 80053; 81003; 83605; 83735; 85025; 87040; 87086; 94640; 94760; 96361; 96365; 96375; 99291

== ENCOUNTER 2019-03-05 09:44 | Inpatient (IN) | payer MEDICARE ==
[2019-03-05] MEDS ORDERED: methylPREDNISolone SOD SUCCI 125 MG/2 ML VIAL IV STA (09:49)
[2019-03-05] MEDS ORDERED: IPRATROPIUM-ALBUTEROL 3 ML NEB INHALATION STA ×3 (09:49→11:38)
--- NOTE | 2019-03-05 09:55 | ED ---
SOB HPI - General Stated Complaint: Diff Breathing Time Seen by Provider: 03/05/19 09:44 Source: patient, EMS, RN notes reviewed Mode of arrival: EMS - History of Present Illness Initial Comments: This is a 77-year-old female history of COPD also history of an [place] one year ago who had the onset this morning of severe shortness of breath. She is on home oxygen 2 L. Per paramedics her saturation was in the 70s. She was given an IV dose of Solu-Medrol which is unclear whether she received as the IV pulled out. Additionally she was given a nebulizer treatment which did help somewhat. Patient denies any chest pain fevers chills nausea vomiting sweats he has had a cough and a cough up some stringy clear phlegm. She does state that this is similar to how she presented with her WI one year ago. No other current modifying factors MD Complaint: shortness of breath, cough - Related Data Home Medications Medication Instructions Recorded Confirmed Multivitamins, Thera [Multivitamin 1 tab PO DAILY 07/25/16 03/05/19 (formulary)] Levothyroxine Sodium [Synthroid] 50 mcg PO DAILY 02/25/17 03/05/19 Alendronate Sodium 70 mg PO Q7D 05/02/18 03/05/19 Montelukast [Singulair] 10 mg PO DAILY 05/02/18 03/05/19 metFORMIN HCL [Glucophage] 500 mg PO BID 05/02/18 03/05/19 Losartan Potassium 50 mg PO DAILY 10/07/18 03/05/19 Albuterol Nebulized [Ventolin 2.5 mg INHALATION RT-TID 03/05/19 03/05/19 Nebulized] Fluticasone/Salmeterol [Advair 1 puff INHALATION RT-BID 03/05/19 03/05/19 500-50 Diskus] Levofloxacin [Levaquin] 500 mg PO DAILY 03/05/19 03/05/19 Previous Rx's Medication Instructions Recorded Aspirin 81 mg PO DAILY chew 07/29/16 Atorvastatin [Lipitor] 80 mg PO DAILY #30 tab 07/29/16 Metoprolol Tartrate [Lopressor] 25 mg PO BID #60 tab 07/29/16 Allergies Allergy/AdvReac Type Severity Reaction Status Date / Time No Known Drug Allergies Allergy Unknown Verified 03/05/19 09:52 Review of Systems ROS Statement: Those systems with pertinent positive or pertinent negative responses have been documented in the HPI. ROS Other: All systems not noted in ROS Statement are negative. Past Medical History Past Medical History: Asthma, Coronary Artery Disease (CAD), COPD, Diabetes Mellitus, Hearing Disorder / Deafness, Hyperlipidemia, Hypertension, Myocardial Infarction ([place]), Thyroid Disorder Additional Past Medical History / Comment(s): Tracheobronchitis, bronchiectasis, home O2 at @2L/[place] prn, NIDDM type II, hypothyroid, past migraines, sinus problems, anemia, past L wrist fracture, [place] bilaterally-wears aides. Last Myocardial Infarction Date:: 07/25/2016 History of Any Multi-Drug Resistant Organisms: None Reported Past Surgical History: Adenoidectomy, Heart Catheterization With Stent, Hysterectomy, Tonsillectomy Additional Past Surgical History / Comment(s): cystocele, rectocele, D&C Past Anesthesia/Blood Transfusion Reactions: No Reported Reaction Date of Last Stent Placement:: 07/2016 Smoking Status: Former smoker - Past Family History Mother Family Medical History: Dementia, Memory Impairment Father Family Medical History: Prostate Disorder General Exam - General Exam Comments Initial Comments: Is a well-developed with sciatica. Female who is awake alert oriented 3 and obvious respiratory distress General appearance: alert, anxious, in distress Head exam: Present: atraumatic, normocephalic, normal inspection Eye exam: Present: normal appearance, PERRL, EOMI. Absent: scleral icterus, conjunctival injection, periorbital swelling ENT exam: Present: mucous membranes dry Neck exam: Present: normal inspection, full ROM, other (No stridor JVD or bruits). Absent: tenderness, meningismus, lymphadenopathy Respiratory exam: Present: wheezes, accessory muscle use, decreased breath sounds, other (Patient does demonstrate kyphosis). Absent: respiratory distress, rales, rhonchi, stridor Cardiovascular Exam: Present: regular rate, normal rhythm, normal heart sounds. Absent: systolic murmur, diastolic murmur, rubs, gallop, clicks GI/Abdominal exam: Present: soft, normal bowel sounds. Absent: distended, tenderness, guarding, rebound, rigid Extremities exam: Present: normal inspection, full ROM, normal capillary refill. Absent: tenderness, pedal edema, joint swelling, calf tenderness Back exam: Present: normal inspection Neurological exam: Present: alert, oriented X3, CN II-XII intact Psychiatric exam: Present: normal affect, anxious Skin exam: Present: warm, dry, intact, normal color. Absent: rash Course Vital Signs 03/05/19 03/05/19 03/05/19 09:52 10:02 10:07 Temperature 98.1 F Pulse Rate 93 91 Respiratory 24 28 H Rate Blood Pressure 160/94 O2 Sat by Pulse 84 L 88 L Oximetry - Reevaluation(s) Reevaluation #1: 03/05/19 11:36 Initial reevaluation patient reveals improvement in her aeration slightly she was feeling somewhat better Reevaluation #2: 03/05/19 11:40 Patient's chart complains some chest pain that increases with breathing. Medical Decision Making - Medical Decision Making I did discuss the findings with the patient as well as with Dr. Queen. Patient be admitted with consultation by Dr. Vance the patient seen in the past - Lab Data Result diagrams: 03/05/19 10:05 03/05/19 10:05 Lab Results 03/05/19 03/05/19 03/05/19 Range/Units 10:05 10:05 10:05 WBC 9.0 (3.8-10.6) k/uL RBC 5.11 (3.80-5.40) m/uL Hgb 14.9 (11.4-16.0) gm/dL Hct 44.4 (34.0-46.0) % MCV 86.8 (80.0-100.0) fL MCH 29.1 (25.0-35.0) pg MCHC 33.6 (31.0-37.0) g/dL RDW 14.1 (11.5-15.5) % Plt Count 185 (150-450) k/uL Neutrophils % 62 % Lymphocytes % 23 % Monocytes % 6 % Eosinophils % 6 % Basophils % 0 % Neutrophils # 5.6 (1.3-7.7) k/uL Lymphocytes # 2.1 (1.0-4.8) k/uL Monocytes # 0.6 (0-1.0) k/uL Eosinophils # 0.5 (0-0.7) k/uL Basophils # 0.0 (0-0.2) k/uL PT 9.7 (9.0-12.0) sec INR 0.9 (<1.2) APTT 23.5 (22.0-30.0) sec D-Dimer 0.50 (<0.60) mg/L FEU Sodium 141 (137-145) mmol/L Potassium 3.8 (3.5-5.1) mmol/L Chloride 106 (98-107) mmol/L Carbon Dioxide 21 L (22-30) mmol/L Anion Gap 14 mmol/L BUN 21 H (7-17) mg/dL Creatinine 0.57 (0.52-1.04) mg/dL Est GFR (CKD-EPI)AfAm >90 (>60 ml/min/1.73 sqM) Est GFR (CKD-EPI)NonAf 89 (>60 ml/min/1.73 sqM) Glucose 164 H (74-99) mg/dL Calcium 10.3 H (8.4-10.2) mg/dL Magnesium 1.8 (1.6-2.3) mg/dL Total Bilirubin 0.9 (0.2-1.3) mg/dL AST 33 (14-36) U/L ALT 32 (9-52) U/L Alkaline Phosphatase 94 (38-126) U/L Creatine Kinase 87 (30-135) U/L Troponin I (0.000-0.034) ng/mL NT-Pro-B Natriuret Pep pg/mL Total Protein 6.9 (6.3-8.2) g/dL Albumin 4.3 (3.5-5.0) g/dL 03/05/19 03/05/19 Range/Units 10:05 10:05 WBC (3.8-10.6) k/uL RBC (3.80-5.40) m/uL Hgb (11.4-16.0) gm/dL Hct (34.0-46.0) % MCV (80.0-100.0) fL MCH (25.0-35.0) pg MCHC (31.0-37.0) g/dL RDW (11.5-15.5) % Plt Count (150-450) k/uL Neutrophils % % Lymphocytes % % Monocytes % % Eosinophils % % Basophils % % Neutrophils # (1.3-7.7) k/uL Lymphocytes # (1.0-4.8) k/uL Monocytes # (0-1.0) k/uL Eosinophils # (0-0.7) k/uL Basophils # (0-0.2) k/uL PT (9.0-12.0) sec INR (<1.2) APTT (22.0-30.0) sec D-Dimer (<0.60) mg/L FEU Sodium (137-145) mmol/L Potassium (3.5-5.1) mmol/L Chloride (98-107) mmol/L Carbon Dioxide (22-30) mmol/L Anion Gap mmol/L BUN (7-17) mg/dL Creatinine (0.52-1.04) mg/dL Est GFR (CKD-EPI)AfAm (>60 ml/min/1.73 sqM) Est GFR (CKD-EPI)NonAf (>60 ml/min/1.73 sqM) Glucose (74-99) mg/dL Calcium (8.4-10.2) mg/dL Magnesium (1.6-2.3) mg/dL Total Bilirubin (0.2-1.3) mg/dL AST (14-36) U/L ALT (9-52) U/L Alkaline Phosphatase (38-126) U/L Creatine Kinase (30-135) U/L Troponin I <0.012 (0.000-0.034) ng/mL NT-Pro-B Natriuret Pep 74 pg/mL Total Protein (6.3-8.2) g/dL Albumin (3.5-5.0) g/dL - EKG Data -: EKG Interpreted by Ok EKG shows normal: sinus rhythm (Sinus rhythm rate of 85. Interval 144 QRS dura tion 84 QT since QTC 426/506 poor R-wave progression noted) - Radiology Data Radiology results: report reviewed (I did review the imaging and report is evidence a right lower lobe infiltrate with effusion.), image reviewed Critical Care Time Critical Care Time: Yes Critical Care Time: 37 minutes of critical care time which includes initial presentation with history physical labs x-rays. Discussed with paramedics brought the patient. Multiple reevaluation the patient responsive therapy review of old charting. Discussed with Dr. Queen admission orders and documentation the above Disposition Clinical Impression: Acute exacerbation of chronic obstructive pulmonary disease (COPD), Acute respiratory distress syndrome in adult, Right lower lobe pneumonia, Recurrent right pleural effusion Disposition: ADMITTED IP TO THIS HOSP Condition: Fair Referrals: Catie Akhtar MD [Primary Care Provider] - 1-2 days
[2019-03-05 10:18] LABS: Basophils % (A) 0 %; Eosinophils # (A) 0.5 k/uL (0-0.7); Eosinophils % (A) 6 %; HCT 44.4 % (34.0-46.0); HGB 14.9 gm/dL (11.4-16.0); Lymphocytes # (A) 2.1 k/uL (1.0-4.8); Lymphocytes % (A) 23 %; MCH 29.1 pg (25.0-35.0); MCHC 33.6 g/dL (31.0-37.0); MCV 86.8 fL (80.0-100.0); Mean Platelet Volume 7.3; Monocytes # (A) 0.6 k/uL (0-1.0); Monocytes % (A) 6 %; Neutrophils # (A) 5.6 k/uL (1.3-7.7); Neutrophils % (A) 62 %; Platelet Count 185 k/uL (150-450); RBC 5.11 m/uL (3.80-5.40); RDW 14.1 % (11.5-15.5)
--- NOTE | 2019-03-05 10:29 | XR ---
EXAMINATION TYPE: XR chest 2V DATE OF EXAM: 03/05/2019 HISTORY: difficulty breathing. REFERENCE: Previous study dated 10/07/2018. FINDINGS: There has developed a new right lower lobe infiltrate and effusion. The study is rotated to wards the right. The left lung appears clear. Heart is mildly enlarged. IMPRESSION: NEW RIGHT LOWER LOBE INFILTRATE WITH A CONCOMITANT EFFUSION.
[2019-03-05 10:30] LABS: ALT 32 U/L (9-52); AST 33 U/L (14-36); African American GFR (CKD) >90 (>60 ml/min/1.73 sqM); Albumin 4.3 g/dL (3.5-5.0); Alkaline Phosphatase 94 U/L (38-126); Anion Gap 14 mmol/L; Blood Urea Nitrogen 21 mg/dL (7-17); Calcium 10.3 mg/dL (8.4-10.2); Carbon Dioxide 21 mmol/L (22-30); Chloride 106 mmol/L (98-107); Creatine Kinase 87 U/L (30-135); Glucose 164 mg/dL (74-99); Magnesium 1.8 mg/dL (1.6-2.3); Potassium 3.8 mmol/L (3.5-5.1); Sodium 141 mmol/L (137-145); Total Bilirubin 0.9 mg/dL (0.2-1.3); Total Protein 6.9 g/dL (6.3-8.2)
[2019-03-05 10:32] LABS: D-Dimer 0.5 mg/L FEU (<0.60); INR 0.9 (<1.2); Partial Thromboplastin Time 23.5 sec (22.0-30.0); Prothrombin Time 9.7 sec (9.0-12.0)
[2019-03-05] MEDS ORDERED: cefTRIAXone IN SWFI 1,000 MG/10 ML SYRINGE IVP STA (11:33)
[2019-03-05] MEDS ORDERED: HYDROmorphone 1 MG/ML 1 ML SYRINGE IVP STA ×2 (11:38→13:35)
[2019-03-05] MEDS ORDERED: AZITHROMYCIN 500 MG in SODIUM CHLORIDE 0.9% 250 ML IVPB STA (11:43)
[2019-03-05] MEDS ORDERED: PNEUMONIA PROTOCOL UTILIZED 1 EACH MISC PO PRN (11:43)
[2019-03-05] MEDS: MAGNESIUM SULFATE-D5W PMX 1 GM in DEXTROSE/WATER 1 100ML.BAG IVPB SCH ×2 (11:52→12:54)
[2019-03-05] MEDS ORDERED: NON FORMULARY DRUG (Alendronate Sodium [Alendronate Sodium] 70 MG) PO SCH (12:00)
[2019-03-05] MEDS ORDERED: MIDAZOLAM 1 MG/ML 5 ML VIAL IV STA (12:09)
[2019-03-05] MEDS ORDERED: SUCCINYLCHOLINE CHLORIDE VIAL 200 MG/10 ML VIAL IV STA (12:19)
[2019-03-05] MEDS ORDERED: PROPOFOL 1,000 MG in EMPTY BAG 1 BAG IV ONE (12:31)
[2019-03-05] MEDS ORDERED: LORazepam 2 MG/ML INJ IV STA (12:33)
--- NOTE | 2019-03-05 12:42 | XR ---
EXAMINATION TYPE: XR chest 1V portable DATE OF EXAM: 03/05/2019 HISTORY: Post intubation. REFERENCE: Previous study dated 03/05/2019. FINDINGS: The study is markedly rotated. There is increased opacity right hemithorax. The heart is ma rkedly enlarged. There is unfolding and ectasia of the thoracic aorta. I suspect a small right effusi on. Patient has been intubated. ET tube is within the trachea above the yony is not well seen. IMPRESSION: MARKEDLY SUBOPTIMAL EXAMINATION. ET TUBE CANNOT BE ADEQUATELY ASSESSED WITH THIS DEGREE OF ROTATION. PLEASE REPEAT THE STUDY WITH THE PATIENT NONROTATED.
--- NOTE | 2019-03-05 13:21 | ED ---
Medical Decision Making - Medical Decision Making I did discuss case with Dr. Olson. I did discuss case also with family members were present and did discuss the fact that the patient's respiratory status was not getting better with the aggressive treatment that was done. the patient be admitted to intensive care unit - Lab Data Result diagrams: 03/05/19 10:05 03/05/19 10:05 Lab Results 03/05/19 03/05/19 03/05/19 Range/Units 10:05 10:05 10:05 WBC 9.0 (3.8-10.6) k/uL RBC 5.11 (3.80-5.40) m/uL Hgb 14.9 (11.4-16.0) gm/dL Hct 44.4 (34.0-46.0) % MCV 86.8 (80.0-100.0) fL MCH 29.1 (25.0-35.0) pg MCHC 33.6 (31.0-37.0) g/dL RDW 14.1 (11.5-15.5) % Plt Count 185 (150-450) k/uL Neutrophils % 62 % Lymphocytes % 23 % Monocytes % 6 % Eosinophils % 6 % Basophils % 0 % Neutrophils # 5.6 (1.3-7.7) k/uL Lymphocytes # 2.1 (1.0-4.8) k/uL Monocytes # 0.6 (0-1.0) k/uL Eosinophils # 0.5 (0-0.7) k/uL Basophils # 0.0 (0-0.2) k/uL PT 9.7 (9.0-12.0) sec INR 0.9 (<1.2) APTT 23.5 (22.0-30.0) sec D-Dimer 0.50 (<0.60) mg/L FEU Sodium 141 (137-145) mmol/L Potassium 3.8 (3.5-5.1) mmol/L Chloride 106 (98-107) mmol/L Carbon Dioxide 21 L (22-30) mmol/L Anion Gap 14 mmol/L BUN 21 H (7-17) mg/dL Creatinine 0.57 (0.52-1.04) mg/dL Est GFR (CKD-EPI)AfAm >90 (>60 ml/min/1.73 sqM) Est GFR (CKD-EPI)NonAf 89 (>60 ml/min/1.73 sqM) Glucose 164 H (74-99) mg/dL Calcium 10.3 H (8.4-10.2) mg/dL Magnesium 1.8 (1.6-2.3) mg/dL Total Bilirubin 0.9 (0.2-1.3) mg/dL AST 33 (14-36) U/L ALT 32 (9-52) U/L Alkaline Phosphatase 94 (38-126) U/L Creatine Kinase 87 (30-135) U/L Troponin I (0.000-0.034) ng/mL NT-Pro-B Natriuret Pep pg/mL Total Protein 6.9 (6.3-8.2) g/dL Albumin 4.3 (3.5-5.0) g/dL 03/05/19 03/05/19 Range/Units 10:05 10:05 WBC (3.8-10.6) k/uL RBC (3.80-5.40) m/uL Hgb (11.4-16.0) gm/dL Hct (34.0-46.0) % MCV (80.0-100.0) fL MCH (25.0-35.0) pg MCHC (31.0-37.0) g/dL RDW (11.5-15.5) % Plt Count (150-450) k/uL Neutrophils % % Lymphocytes % % Monocytes % % Eosinophils % % Basophils % % Neutrophils # (1.3-7.7) k/uL Lymphocytes # (1.0-4.8) k/uL Monocytes # (0-1.0) k/uL Eosinophils # (0-0.7) k/uL Basophils # (0-0.2) k/uL PT (9.0-12.0) sec INR (<1.2) APTT (22.0-30.0) sec D-Dimer (<0.60) mg/L FEU Sodium (137-145) mmol/L Potassium (3.5-5.1) mmol/L Chloride (98-107) mmol/L Carbon Dioxide (22-30) mmol/L Anion Gap mmol/L BUN (7-17) mg/dL Creatinine (0.52-1.04) mg/dL Est GFR (CKD-EPI)AfAm (>60 ml/min/1.73 sqM) Est GFR (CKD-EPI)NonAf (>60 ml/min/1.73 sqM) Glucose (74-99) mg/dL Calcium (8.4-10.2) mg/dL Magnesium (1.6-2.3) mg/dL Total Bilirubin (0.2-1.3) mg/dL AST (14-36) U/L ALT (9-52) U/L Alkaline Phosphatase (38-126) U/L Creatine Kinase (30-135) U/L Troponin I <0.012 (0.000-0.034) ng/mL NT-Pro-B Natriuret Pep 74 pg/mL Total Protein (6.3-8.2) g/dL Albumin (3.5-5.0) g/dL Critical Care Time Critical Care Time: Yes Critical Care Time: 17 additional minutes of critical care time which did include discussions with family members as well as the 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 This did not include procedural time Disposition Clinical Impression: Acute exacerbation of chronic obstructive pulmonary disease (COPD), Acute respiratory distress syndrome in adult, Right lower lobe pneumonia, Recurrent right pleural effusion, Acute respiratory failure Disposition: ADMITTED IP TO THIS HOSP Condition: Fair Procedures - Intubation Sedative: Versed Mg Given: 2 Paralytic: Succinylcholine Mg Given: 60 Laryngoscope: Del Cid Size: 3 ET Tube Size: 7.5 ET Tube Uncuffed: No Tube Secured Depth (cm): 23 Tube Secured Location: lips Tube Placement Confirmation: visualized tube passing through cords, confirmation by capnometry Patient Tolerated Procedure: well (The initial x-ray showed endotracheal tube heading towards the right mainstem. This was withdrawn to 21 cm.)
[2019-03-05 13:36] LABS: ABG Base Excess -5.3 mmol/L; ABG HCO3 21 mmol/L (21-25); ABG Oxygen Saturation 88.2 % (94-97); ABG PCO2 42 mmHg (35-45); ABG PH 7.31 (7.35-7.45); ABG PO2 60 mmHg (83-108); ABG TCO2 22 mmol/L (19-24); Allen Test Performed? Yes
--- NOTE | 2019-03-05 13:40 | XR ---
EXAMINATION TYPE: XR chest 1V confirm line [facility] DATE OF EXAM: 03/05/2019 HISTORY: OG tube, repeat endotracheal tube placement. REFERENCE: Previous study dated 03/05/2019. FINDINGS: Study continues to be moderately rotated. ET tube tip is seen to be approximately 1.7 cm ab ove the yony. There is increased opacity right hemithorax. There is airspace disease at the right lung base and the re is a right-sided effusion. Heart size is obscured. There is scarring at the left lung base. IMPRESSION: SATISFACTORY ET TUBE PLACEMENT.
[2019-03-05] MEDS ORDERED: IPRATROPIUM-ALBUTEROL 3 ML NEB INHALATION PRN (13:49)
[2019-03-05] MEDS ORDERED: CISATRACURIUM 2 MG/ML 5 ML VIAL IV ONE (14:28)
[2019-03-05] MEDS: PROPOFOL 1,000 MG in EMPTY BAG 1 BAG IV SCH ×2 (14:29→20:40)
[2019-03-05] MEDS ORDERED: NALOXONE 0.4 MG/ML 1 ML VIAL IV PRN (15:01)
[2019-03-05] MEDS: NOREPINEPHRINE 8 MG in SODIUM CHLORIDE 0.9% 250 ML IV SCH (15:09)
--- NOTE | 2019-03-05 15:39 | XR ---
EXAMINATION TYPE: XR chest 1V portable DATE OF EXAM: 03/05/2019 HISTORY: Central line placement, post bronch. REFERENCE: Previous study dated 03/05/2019. FINDINGS: The patient is ET tube remains in place, unchanged in appearance. The patient is NG tube ap pears to be coiled in the midesophagus. There is improved aeration of the right lung. There continues be a right-sided pleural effusion. The heart is mildly prominent. There is some scarring or atelectasis at the left lung base. There is a sm all left effusion. IMPRESSION: 1. NG TUBE APPEARS TO BE COILED IN THE DISTAL ESOPHAGUS. 2. IMPROVED AERATION, RIGHT LUNG BASE.
[2019-03-05] MEDS: IPRATROPIUM-ALBUTEROL 3 ML NEB INHALATION SCH ×3 (15:55→23:20)
[2019-03-05 15:59] LABS: ABG Base Excess -6.2 mmol/L; ABG HCO3 22 mmol/L (21-25); ABG Oxygen Saturation 99.8 % (94-97); ABG PCO2 59 mmHg (35-45); ABG PO2 >400 mmHg (83-108); ABG TCO2 24 mmol/L (19-24); Allen Test Performed? Yes
[2019-03-05] MEDS ORDERED: HEPARIN SODIUM,PORCINE 5,000 UNIT/ML 1 ML VIAL SQ SCH (16:00)
[2019-03-05] MEDS ORDERED: IPRATROPIUM-ALBUTEROL 3 ML NEB INHALATION SCH (16:00)
[2019-03-05 16:02] LABS: ABG PH 7.18 (7.35-7.45)
[2019-03-05 16:22] LABS: Glucose,Whole Blood 203 mg/dL (75-99)
[2019-03-05 16:47] LABS: Appearance,Urine Clear (Clear); Bilirubin,Urine Negative (Negative); Blood,Urine Negative (Negative); Color,Urine Yellow; Glucose,Urine (UA) Negative (Negative); Ketones,Urine Negative (Negative); Leukocyte Esterase,Urine Negative (Negative); Nitrite,Urine Negative (Negative); PH, Urine 5.5 (5.0-8.0); Protein,Urine Negative (Negative); Specific Gravity,Urine 1.013 (1.001-1.035); Urobilinogen,Urine <2.0 mg/dL (<2.0)
[2019-03-05] MEDS: SODIUM CHLORIDE 0.9% 1,000 ML IV SCH (16:51)
--- NOTE | 2019-03-05 17:28 | CONS ---
CONSULTATION Pulmonary/Critical care consultation. DATE OF SERVICE: March 05, 2019 REASON FOR CONSULTATION: Difficulty breathing. This is a 78-year-old female with a history of COPD/asthma. The patient more likely has asthma than COPD as she has never smoked or smoked minimally very remotely. She also apparently has a history of myocardial infarction 1 year ago. Anyway, this morning she apparently became acutely short of breath. She is apparently on home oxygen at 2 L. When EMS arrived to evaluate her, her saturations were in the 70s. She was given a dose of Solu-Medrol but it is not clear that she received the medication as her IV was possibly nonfunctional. She was also given a breathing treatment which seemed to help a bit. She apparently in the emergency room denied any chest pain, fever, chills, nausea, vomiting, sweat, but did have a cough with some stringy clear phlegm. Again she became acutely short of breath this morning. The patient was apparently found to be in extremis by the ER physician, Dr. Robert and he went ahead and decided to intubate her. A #7.5 tube was placed. She is currently on the ventilator. Her vent settings include the volume assist-control mode rate of 14, tidal volume 350, FiO2 100%, PEEP of 5. Blood gases are pending. Her initial endotracheal tube was down the right mainstem. It has been pulled back. She is on a basic IV. She is also getting some propofol and Ativan for sedation. Family members are present. They confirmed the fact that the patient really never smoked. MEDICATIONS: Reviewed. She is on multivitamins, levothyroxine, alendronate sodium, Singulair, metformin, losartan, albuterol updrafts, Advair, and Levaquin. Other medications include aspirin, Lipitor, and metoprolol. ALLERGIES: Denied. MEDICAL HISTORY: Includes asthma/COPD, more likely asthma, CAD, diabetes, hearing loss, hyperlipidemia, hypertension, myocardial infarction, and hypothyroidism. She also apparently has history of bronchiectasis and chronic hypoxemic respiratory failure as she is on home O2. The oxygen is used as needed. Her diabetes mellitus is type 2 diabetes. She also has a history of migraine cephalgia, chronic sinus disease, and anemia. SURGICAL HISTORY: Includes adenoidectomy, heart catheterization with stent, hysterectomy, and tonsillectomy. The patient has also had D and C, cystocele and rectocele repair. SOCIAL HISTORY: Positive for remote tobacco use. She has not smoked in over 40 years maybe more than that. When she did smoke, she was a light smoker and only smoked for a couple years. No illicit drug use. No alcohol use. FAMILY HISTORY: Positive for mother with dementia and a father with prostate disease. REVIEW OF SYSTEMS: Cannot be obtained. The patient is currently intubated. Her initial complaint in the emergency room was that of shortness of breath, but also cough, and stringy phlegm production. PHYSICAL EXAMINATION: VITAL SIGNS: Current vital signs are reviewed. Temperature is 98.1. Heart rate 104, respiratory rate 20, blood pressure 138/75. Mean 96. Saturations are 96% on mechanical ventilator. HEENT examination is grossly unremarkable. There is a nasally placed NG tube and orally placed endotracheal tube. NECK: Supple. Full range of motion. No adenopathy. Neck veins are flat. CARDIOVASCULAR examination reveals tachycardia. Heart rate about 105-110 beats per minute. It is regular. LUNGS: Some coarse inspiratory and expiratory rhonchi. Breath sounds are equal bilaterally. ABDOMEN: Soft. Bowel sounds are heard. EXTREMITIES are intact. No edema. SKIN: Without rash. NEUROLOGIC: Examination could not be assessed as the patient is currently sedated. LABORATORY DATA: Includes a CBC which is completely normal. White count 9, hemoglobin 14.9, hematocrit 185,000. PT/INR, PTT normal, D-dimer 0.5. Blood gases show pO2 of 60, pCO2 42, pH 7.31. This blood gas is consistent with relative hypoxemia and mild metabolic acidosis. Those blood gases were done on 100%. I am not sure if she was intubated or not. Sodium 141, potassium 3.8, chloride 106, CO2 21. Anion gap is 14. BUN and creatinine were 21 and 0.57, calcium 10.3. The rest of the comprehensive metabolic profile looks okay. The patient had multiple x-rays. The initial x-ray appears to show some volume loss in the right lung with a right basilar infiltrate and right-sided effusion. A followup x-ray shows an intubated patient with the endotracheal tube directed toward the right mainstem. There was additional volume loss on the right side with a right- sided effusion. There is diffuse infiltrate. A subsequent chest x-ray still reveals that the right endotracheal tube is only about 1.7 cm above the tracheal yony. It should be pulled back even further. Once again, there is again diffuse infiltrates throughout the right lung. Current medications are reviewed. ASSESSMENT: 1. Acute hypoxemic respiratory failure in a patient with chronic bronchial asthma, chronic obstructive pulmonary disease, likely complicated by right-sided pneumonia and right pleural effusion. 2. Remote history of tobacco use. 3. Status post intubation and mechanical ventilation, March 05, 2019. 4. History of coronary artery disease with previous myocardial infarction about 1 year ago. 5. History of gastroesophageal reflux disease. 6. History of diabetes mellitus, type 2. 7. Deafness. 8. Hyperlipidemia. 9. Hypertension. 10.Hypothyroidism. 11.Bronchiectasis. 12.Migraine cephalgia. 13.History of anemia. PLAN: The patient's medications are reviewed. Please see my orders. Additional recommendations and suggestions are forthcoming. Prognosis is guarded. The patient may benefit from an art line and central line. We will assess that when she gets up to the ICU. The patient will be placed on updrafts. We will also place her on Perforomist and Pulmicort. She will get Solu-Medrol. She also would benefit from antibiotics in the form of Zithromax and Rocephin. Prognosis again is guarded. MMODL / IJN: [id number] / MTDSavannah
--- NOTE | 2019-03-05 17:28 | PCN ---
PROCEDURE NOTE PROCEDURE PERFORMED: Left subclavian triple-lumen catheter. TRIPLE LUMEN CATHETER PLACEMENT: Indication: Hemodynamic monitoring/Intravenous access. A time-out was completed verifying correct patient, procedure, site, positioning, and implant(s) or special equipment if applicable. The patient was placed in a dependent position appropriate for triple lumen catheter placement based on the vein to be cannulated. The patient's left shoulder was prepped and draped in sterile fashion. 1% Lidocaine was used to anesthetize the surrounding skin area. A triple lumen 9F Cordis catheter was introduced into the subclavian vein using Seldinger technique. The catheter was threaded smoothly over the guide wire and appropriate blood return was obtained. Each lumen of the catheter was evacuated of air and flushed with sterile saline. The catheter was then sutured in place to the skin and a sterile dressing applied. Perfusion to the extremity distal to the point of catheter insertion was checked and found to be adequate. There was no immediate complication. There was good blood return from all 3 ports. The catheter was sutured in place. The nurse applied a dressing. A chest x-ray was ordered to check placement. Again, there was no immediate complication. PREOP DIAGNOSIS: Administration of fluids and pressors. POSTOP DIAGNOSIS: Administration of fluids and pressors. Tip of the catheter was found to be in the superior vena cava. MMODL / IJN: [id number] /
[2019-03-05] MEDS ORDERED: metFORMIN 500 MG TAB PO SCH (17:30)
--- NOTE | 2019-03-05 17:39 | PCN ---
PROCEDURE NOTE PROCEDURE PERFORMED: A bronchoscopy airway examination, therapeutic lavage, BAL. PREOP DIAGNOSIS: Mucous plugging and right lung collapse. POSTOP DIAGNOSIS: Mucous plugging and right lung collapse. OPERATORS: Dr. Olson and Dr. Maria. DESCRIPTION OF PROCEDURE: There was informed consent and universal timeout. After the patient was adequately sedated on the ventilator, the bronchoscope was inserted through the bronchoscope adapter, connected to the endotracheal tube. The endotracheal tube was found to be above the tracheal yony. The left lung was relatively clear. The right lung though had significant mucus plugging and secretions. It involved the right upper lobe, right middle lobe and right lower lobe. A saline was used to clear the secretions. We did a BAL. Copious amounts of saline were administered through the bronchoscope to clear the mucus plugging. After a good period of time, the mucus plugs were removed. The patient tolerated the procedure well. There was no immediate complications. The fluid will be sent to the laboratory for analysis. The bronchoscope was withdrawn. MMODL / IJN: [id number] /
--- NOTE | 2019-03-05 17:39 | PCN ---
PROCEDURE NOTE DATE OF PROCEDURE: 03/05/2019. PROCEDURE PERFORMED: Right radial arterial line insertion ARTERIAL LINE PLACEMENT: Indications: Hemodynamic monitoring. A time-out was completed verifying correct patient, procedure, site, positioning, and implant(s) or special equipment if applicable. Tim's test was performed to ensure adequate perfusion. The patient's right wrist was prepped and draped in sterile fashion. 1% Lidocaine was used to anesthetize the area. An 18G Arrow arterial line was introduced into the radial artery. The catheter was threaded over the guide wire and the needle was removed with appropriate pulsatile blood return. Blood loss was minimal. The catheter was then sutured in place to the skin and a sterile dressing applied. Perfusion to the extremity distal to the point of catheter insertion was checked and found to be adequate. The patient tolerated the procedure well and there were no complications. MMLESLIE / ENION: [id number] /
[2019-03-05 17:57] LABS: Glucose,Whole Blood 197 mg/dL (75-99)
[2019-03-05] MEDS: methylPREDNISolone SOD SUCCI 125 MG/2 ML VIAL IV SCH ×3 (17:59→23:37)
[2019-03-05] MEDS: HEPARIN SODIUM,PORCINE 5,000 UNIT/ML 1 ML VIAL SQ SCH ×2 (18:15→23:37)
[2019-03-05 18:28] LABS: ABG Base Excess -7.1 mmol/L; ABG HCO3 19 mmol/L (21-25); ABG PCO2 37 mmHg (35-45); ABG PH 7.32 (7.35-7.45); ABG PO2 138 mmHg (83-108); ABG TCO2 20 mmol/L (19-24); Allen Test Performed? Yes
[2019-03-05] MEDS: FORMOTEROL FUMARATE 20 MCG/2 ML NEBU INHALATION SCH (19:14)
[2019-03-05] MEDS: BUDESONIDE 1 MG/2 ML NEBU INHALATION SCH (19:14)
[2019-03-05 20:08] LABS: Appearance,BF Cloudy
[2019-03-05 20:09] LABS: Nucleated Cells, Body Fluid 170 /uL; RBC, Body Fluid 100 /uL
[2019-03-05 20:11] LABS: Mononuclear WBC,Body Fluid 97 %; Polynuclear WBC,Body Fluid 3 %; Total Cells Counted,Body Fluid 100
[2019-03-05] MEDS: CHLORHEXIDINE GLUCONATE 15 ML CUP MUCOUS MEM SCH (20:41)
[2019-03-05] MEDS ORDERED: INSULIN ASPART (NovoLOG) 100 UNIT/ML VIAL SQ SCH (21:00)
[2019-03-05] MEDS ORDERED: METOPROLOL TARTRATE 25 MG TAB PO SCH (21:00)
--- NOTE | 2019-03-05 21:12 | P.HPIM ---
History of Present Illness this is a pleasant 78 yo F with past medical history of COPD, and asthma, coronary artery disease, diabetes mellitus, hyperlipidemia, hypertension, hypothyroidism. Patient presents with worsening respiratory distress and he got intubated in the emergency room. Patient could not provide information was obtained from the medical staff and records. Patient is slightly tachycardic at 101, blood pressure 136/58, he is saturating 98% currently while he is on mechanical ventilation, lap showing normal CBC and d-dimer, ABG showing pH of 7.3 with CO2 of 42 and pO2 60. BMP and liver enzymes are within normal limits. Chest x-ray showing Right lower lobe infiltrates with pleural effusion. EKG showing normal sinus rhythm at [address]- T changes Review of Systems N/A Past Medical History Past Medical History: Asthma, Coronary Artery Disease (CAD), COPD, Diabetes Mellitus, Hearing Disorder / Deafness, Hyperlipidemia, Hypertension, Myocardial Infarction ([place]), Thyroid Disorder Additional Past Medical History / Comment(s): Tracheobronchitis, bronchiectasis, home O2 at @2L/NC prn, NIDDM type II, hypothyroid, past migraines, sinus problems, anemia, past L wrist fracture, [place] bilaterally-wears aides. Last Myocardial Infarction Date:: 07/25/2016 History of Any Multi-Drug Resistant Organisms: None Reported Past Surgical History: Adenoidectomy, Heart Catheterization With Stent, Hysterectomy, Tonsillectomy Additional Past Surgical History / Comment(s): cystocele, rectocele, D&C Past Anesthesia/Blood Transfusion Reactions: No Reported Reaction Date of Last Stent Placement:: 07/2016 Past Psychological History: No Psychological Hx Reported Additional Psychological History / Comment(s): Pt resides with her spouse. She has home oxygen and a nebulizer. She is independent Smoking Status: Former smoker Past Alcohol Use History: None Reported Additional Past Alcohol Use History / Comment(s): Pt started smoking in 1957 and quit in 1966. Past Drug Use History: None Reported - Past Family History Mother Family Medical History: Dementia, Memory Impairment Father Family Medical History: Prostate Disorder Medications and Allergies Home Medications Medication Instructions Recorded Confirmed Type Multivitamins, Thera [Multivitamin 1 tab PO DAILY 07/25/16 03/05/19 History (formulary)] Aspirin 81 mg PO DAILY chew 07/29/16 03/05/19 Rx Atorvastatin [Lipitor] 80 mg PO DAILY #30 tab 07/29/16 03/05/19 Rx Metoprolol Tartrate [Lopressor] 25 mg PO BID #60 tab 07/29/16 03/05/19 Rx Levothyroxine Sodium [Synthroid] 50 mcg PO DAILY 02/25/17 03/05/19 History Alendronate Sodium 70 mg PO Q7D 05/02/18 03/05/19 History Montelukast [Singulair] 10 mg PO DAILY 05/02/18 03/05/19 History metFORMIN HCL [Glucophage] 500 mg PO BID 05/02/18 03/05/19 History Losartan Potassium 50 mg PO DAILY 10/07/18 03/05/19 History Albuterol Nebulized [Ventolin 2.5 mg INHALATION RT-TID 03/05/19 03/05/19 History Nebulized] Fluticasone/Salmeterol [Advair 1 puff INHALATION RT-BID 03/05/19 03/05/19 History 500-50 Diskus] Levofloxacin [Levaquin] 500 mg PO DAILY 03/05/19 03/05/19 History Allergies Allergy/AdvReac Type Severity Reaction Status Date / Time No Known Drug Allergies Allergy Unknown Verified 03/05/19 09:52 Physical Exam Vitals: Vital Signs Temp Pulse Resp BP Pulse Ox 03/05/19 15:36 99 14 98 03/05/19 13:40 102 H 11 L 129/78 98 03/05/19 13:30 109 H 20 105/65 93 L 03/05/19 13:20 107 H 11 L 105/65 95 03/05/19 13:10 108 H 11 L 105/65 87 L 03/05/19 13:08 107 H 16 89 L 03/05/19 12:57 104 H 14 138/75 96 03/05/19 12:45 105 H 14 117/70 94 L 03/05/19 12:41 90 L 03/05/19 12:30 104 H 14 99/63 94 L 03/05/19 12:06 107 H 26 H 03/05/19 12:00 103 H 14 129/81 92 L 03/05/19 11:52 101 H 24 03/05/19 11:41 109 H 35 H 167/91 78 L 03/05/19 10:07 88 L 03/05/19 10:02 91 28 H 10/12/19 09:52 98.1 F 93 24 160/94 84 L Intake and Output 03/05/19 03/05/19 03/05/19 06:59 14:59 22:59 Intake Total 3.908 1002.333 Output Total 100 Balance 3.908 902.333 Intake: IV 1000 0.9 NACL 1000 Intake, IV Titration 3.908 2.333 Amount Norepinephrine 8 mg In 0 Sodium Chloride 0.9% 250 ml @ 0.05 MCG/KG/MIN 5. 644 mls/hr IV .Q24H CLARISSA Rx#:[id number] Propofol 1,000 mg In 3.908 Empty Bag 1 bag @ 10 MCG/ KG/MIN 3.5 mls/hr IV . Q24H ONE Rx#:[id number] Propofol 1,000 mg In 2.333 Empty Bag 1 bag @ Titrate IV .Q0M CLARISSA Rx#: [id number] Output: Urine 100 Other: Weight 58.332 kg ABP, PAP, CO, CI - Last 8 Hours Arterial Blood Pressure 136/58 GENERAL: Patient is intubated and sedated HEENT: Pupils are round and equally reacting to light. EOMI. No scleral icterus. No conjunctival pallor. Normocephalic, atraumatic. No pharyngeal erythema. No thyromegaly. CARDIOVASCULAR: S1 and S2 present. No murmurs, rubs, or gallops. -PULMONARY: Patient is tachypneic with crepitation decreased breath sounds on the right lower lobe, scattered wheezing bilaterally ABDOMEN: Soft, nontender, nondistended, normoactive bowel sounds. No palpable organomegaly. MUSCULOSKELETAL: No joint swelling or deformity. EXTREMITIES: No cyanosis, clubbing, or pedal edema. NEUROLOGICAL: Gross neurological examination did not reveal any focal deficits. SKIN: No rashes. no petechiae. Results CBC & Chem 7: 03/05/19 10:05 03/05/19 10:05 Labs: Abnormal Lab Results - Last 24 Hours (Table) 03/05/19 03/05/19 Range/Units 10: 13:32 ABG pH 7.31 L (7.35-7.45) ABG pO2 60 L (83-108) mmHg ABG O2 Saturation 88.2 L (94-97) % Carbon Dioxide 21 L (22-30) mmol/L BUN 21 H (7-17) mg/dL Glucose 164 H (74-99) mg/dL Calcium 10.3 H (8.4-10.2) mg/dL Assessment and Plan Assessment: Acute hypoxic respiratory failure status post intubation Acute right lower lobe pneumonia with right pleural effusion COPD/asthma with possible acute exacerbation Diabetes mellitus Hyperlipidemia Hypertension Hypothyroidism Plan: This is a pleasant 78 years old male who presents with acute respiratory failure status post intubation secondary to right lower lobe pneumonia. Continue with mechanical ventilation as per pulmonary/critical care team. Continue with antibiotics. Continue the bronchodilator and oxygen therapy. Continue with steroids Labs and medication were reviewed.. Continue same treatment. Continue with symptomatic treatment. Resume home medication. Monitor lytes and vitals. DVT and GI prophylaxis. Further recommendations of the clinical course of the patient DVT prophylaxis: Subcutaneous heparin GI Prophylaxis: Pepcid PT/OT: Pending Prognosis is guarded
[2019-03-05] MEDS: INSULIN ASPART (NovoLOG) 100 UNIT/ML VIAL SQ SCH (23:38)
[2019-03-05 23:40] LABS: Glucose,Whole Blood 227 mg/dL (75-99)
[2019-03-06] MEDS: SODIUM CHLORIDE 0.9% 1,000 ML IV SCH ×3 (00:43→20:02)
[2019-03-06] MEDS: PROPOFOL 1,000 MG in EMPTY BAG 1 BAG IV SCH ×5 (01:04→22:50)
[2019-03-06] MEDS ORDERED: ACETAMINOPHEN IV (For NPO) 1,000 MG in EMPTY BAG 1 BAG IVPB ONE (03:22)
[2019-03-06] MEDS: IPRATROPIUM-ALBUTEROL 3 ML NEB INHALATION SCH ×5 (03:25→19:59)
[2019-03-06 04:34] LABS: African American GFR (CKD) >90 (>60 ml/min/1.73 sqM); Anion Gap 12 mmol/L; Blood Urea Nitrogen 23 mg/dL (7-17); Calcium 8.1 mg/dL (8.4-10.2); Carbon Dioxide 16 mmol/L (22-30); Chloride 110 mmol/L (98-107); Glucose 246 mg/dL (74-99); Magnesium 2.3 mg/dL (1.6-2.3); Sodium 138 mmol/L (137-145)
[2019-03-06 04:50] LABS: Basophils % (A) 0 %; Eosinophils % (A) 0 %; HCT 39.8 % (34.0-46.0); HGB 12.3 gm/dL (11.4-16.0); Lymphocytes # (A) 0.8 k/uL (1.0-4.8); Lymphocytes % (A) 8 %; MCH 27.4 pg (25.0-35.0); MCHC 30.9 g/dL (31.0-37.0); MCV 88.5 fL (80.0-100.0); Mean Platelet Volume 7.5; Monocytes # (A) 0.3 k/uL (0-1.0); Monocytes % (A) 3 %; Neutrophils # (A) 8.7 k/uL (1.3-7.7); Neutrophils % (A) 89 %; Platelet Count 212 k/uL (150-450); RDW 14.3 % (11.5-15.5); WBC 9.8 k/uL (3.8-10.6)
[2019-03-06 05:07] LABS: ABG Base Excess -7.4 mmol/L; ABG HCO3 18 mmol/L (21-25); ABG Oxygen Saturation 99.2 % (94-97); ABG PCO2 33 mmHg (35-45); ABG PH 7.35 (7.35-7.45); ABG PO2 146 mmHg (83-108); ABG TCO2 19 mmol/L (19-24); Allen Test Performed? Yes
[2019-03-06 05:51] LABS: Glucose,Whole Blood 227 mg/dL (75-99)
[2019-03-06] MEDS: INSULIN ASPART (NovoLOG) 100 UNIT/ML VIAL SQ SCH ×6 (05:55→23:51)
[2019-03-06] MEDS: methylPREDNISolone SOD SUCCI 125 MG/2 ML VIAL IV SCH ×4 (05:55→23:52)
[2019-03-06] MEDS: LEVOTHYROXINE 50 MCG TAB PO SCH (05:56)
--- NOTE | 2019-03-06 06:08 | XR ---
EXAMINATION TYPE: XR chest 1V portable DATE OF EXAM: 03/06/2019 HISTORY: Tube placement. REFERENCE: Previous study dated 03/05/2019. FINDINGS: The patient is ET tube and left subclavian catheter remain in place, unchanged in appearanc e. The patient is NG tube has been repositioned and its tip is now within the stomach. There are small, bilateral effusions. Heart size upper limits of normal. There is bibasilar airspace disease which may represent atelectasis or pneumonia. IMPRESSION: 1. NO SIGNIFICANT CHANGE IN THE APPEARANCE OF THE CHEST. 2. IMPROVED POSITIONING OF THE NG TUBE.
[2019-03-06] MEDS ORDERED: LEVOTHYROXINE 50 MCG TAB PO SCH (06:30)
[2019-03-06] MEDS: FORMOTEROL FUMARATE 20 MCG/2 ML NEBU INHALATION SCH ×2 (07:20→19:59)
[2019-03-06] MEDS: BUDESONIDE 1 MG/2 ML NEBU INHALATION SCH ×2 (07:20→19:59)
[2019-03-06] MEDS ORDERED: ASPIRIN 81 MG PO SCH (09:00)
[2019-03-06] MEDS ORDERED: AZITHROMYCIN 500 MG TAB PO SCH (09:00)
[2019-03-06] MEDS ORDERED: MULTIVITAMINS, THERA 1 EACH TAB PO SCH (09:00)
[2019-03-06] MEDS ORDERED: ATORVASTATIN 80 MG TAB PO SCH (09:00)
[2019-03-06] MEDS ORDERED: LOSARTAN 50 MG TAB PO SCH (09:00)
[2019-03-06] MEDS ORDERED: MONTELUKAST 10 MG TAB PO SCH (09:00)
[2019-03-06 09:36] LABS: Glucose,Whole Blood 198 mg/dL (75-99)
[2019-03-06] MEDS: CHLORHEXIDINE GLUCONATE 15 ML CUP MUCOUS MEM SCH ×2 (09:43→20:01)
[2019-03-06] MEDS: PANTOPRAZOLE 40 MG/10 ML VIAL IV SCH (09:43)
[2019-03-06] MEDS: HEPARIN SODIUM,PORCINE 5,000 UNIT/ML 1 ML VIAL SQ SCH ×3 (09:43→23:53)
[2019-03-06] MEDS: AZITHROMYCIN 500 MG TAB PO SCH (09:43)
--- NOTE | 2019-03-06 09:43 | PN ---
PROGRESS NOTE DATE OF SERVICE: March 06, 2019 This is a 78-year-old female that we saw yesterday in the emergency room in consultation. She came in for difficulty breathing. She was evaluated there by Dr. Josh Robert. The patient developed worsening respiratory status, could not tolerate the BiPAP. She had continued desaturation and respiratory distress and was intubated. When she got up here, we placed an art line and a central line. She has a right radial art line and a left subclavian triple-lumen catheter. In addition, we went ahead and did a bronchoscopy on her. She had a partial right lung collapse with a right- sided pleural effusion. She had copious secretions and mucus plugs. They were suctioned with some difficulty. Chest x-ray significantly improved afterwards. Currently, she is on the volume assist-control mode rate of 22, tidal volume 350, FiO2 of 40%, PEEP of 10. Blood gases show PO2 146, pCO2 33, pH 7.35. Blood gases are consistent with mild hyperoxia and a mild metabolic acidosis. The PEEP was dropped from 10-5. She is currently on propofol at 45 mics per kg per minute, norepinephrine at 3.5 mcg per minute and saline IV at 100 mL an hour. Tube feeds have not yet been started. Urinalysis is negative. Flu testing was negative. Today we are going to start tube feeds. We are also going to do a daily interruption of sedation. I do not believe she is ready for extubation. Her chest x-ray still shows some infiltrate in the right lung. Certainly her aeration is improved. There appears to also be a small right- sided pleural effusion. Tubes and lines look okay. PHYSICAL EXAMINATION: VITAL SIGNS: Current vital signs are reviewed. Temperature is 98.4. Heart rate 74, respiratory rate 22, blood pressure 120/53. Central venous pressure is 5, saturations are 97% on 40% and 5 of PEEP. GENERAL: Appears in no acute distress. Currently sedated. HEENT examination is grossly unremarkable. There is an orally placed NG tube and endotracheal tube. NECK: Supple. Full range of motion. No adenopathy, thyromegaly or neck vein distention. CARDIOVASCULAR examination reveals regular rhythm and rate. S1, S2 normal. No distinct murmur. Heart sounds are distant. LUNGS: Reveal coarse rhonchi. No wheezes. No crackles. Breath sounds equal bilaterally. ABDOMEN: Soft. Bowel sounds are heard. EXTREMITIES are intact. No edema. SKIN: Without rash. NEUROLOGIC: Examination could not be adequately assessed. Current microbiology including bronch washings are negative. Most everything actually still pending. Chest x-rays reviewed. LABORATORY DATA: Includes a white count 9.8, hemoglobin 12.3, hematocrit 39.8, platelet count 312,000. Blood gases have been noted. Sodium 138, potassium 4, chloride 110, CO2 16. Anion gap is 12. BUN and creatinine were 23 and 0.57. Influenza studies were negative. Magnesium and phosphorus were normal. MEDICATIONS: Reviewed. She is currently on Zithromax, Pulmicort, chlorhexidine, ceftriaxone, formoterol, subcu heparin, insulin, updrafts with DuoNeb, levothyroxine, Cozaar, and Solu-Medrol. She is also getting Narcan norepinephrine, Protonix and propofol. ASSESSMENT: 1. Acute hypoxemic respiratory failure in a patient with chronic bronchial asthma, complicated by right-sided pneumonia requiring intubation and mechanical ventilation on March 05, 2019. 2. Volume loss and pleural effusion, right lung, improved, status post bronchoscopy. 3. Remote history of tobacco use. 4. History of coronary artery disease with previous myocardial infarction about 1 year ago. 5. History of gastroesophageal reflux disease. 6. History of diabetes mellitus, type 2. 7. Hearing loss. 8. Hyperlipidemia. 9. Hypertension. 10.Hypothyroidism. 11.Bronchiectasis. 12.Migraine cephalgia. 13.History of anemia. PLAN: Overall, the patient's situation is much improved. The PEEP was dropped from 10-5. We will maintain a mild metabolic acidosis which will shift the oxy-hemoglobin curve to the right decreasing oxygen affinity to hemoglobin making more oxygen available at the tissue level. Influenza studies were negative. UA is currently negative. She is on Diprivan and norepinephrine. We D/C'd the losartan. Tube feeds will be started today. We will do a daily interruption of sedation. Additional recommendations and suggestions are forthcoming. Overall prognosis remains guarded. I did talk to the family yesterday. Critical care time was 35 minutes. MMODL / ENION: [id number] / MTDD
[2019-03-06] MEDS ORDERED: SODIUM CHLORIDE 0.9% 1,000 ML IV ONE (09:44)
[2019-03-06] MEDS: HYDROmorphone 1 MG/ML 1 ML SYRINGE IVP PRN ×2 (10:13→18:36)
[2019-03-06 11:55] LABS: Glucose,Whole Blood 153 mg/dL (75-99)
--- NOTE | 2019-03-06 13:52 | P.PN ---
Subjective this is a pleasant 78 yo F with past medical history of COPD, and asthma, coronary artery disease, diabetes mellitus, hyperlipidemia, hypertension, hypothyroidism. Patient presents with worsening respiratory distress and he got intubated in the emergency room. Patient could not provide information was obtained from the medical staff and records. Patient is slightly tachycardic at 101, blood pressure 136/58, he is saturating 98% currently while he is on mechanical ventilation, lap showing normal CBC and d-dimer, ABG showing pH of 7.3 with CO2 of 42 and pO2 60. BMP and liver enzymes are within normal limits. Chest x-ray showing Right lower lobe infiltrates with pleural effusion. EKG showing normal sinus rhythm at [address]- T changes 03/06/2019 Patient remains in the ICU intubated and sedated. She is on mechanical ventilation with PEEP of 5 and FiO2 of 40%, however the vent management is through the pulmonary/critical care team R following the case closely. She saturating 97% blood pressure of 106/44. Heart rate 68. Respiratory rate 22. Repeat labs showing stable CBC. Blood gases reasonable with pH of 7.35 which is within normal and pCO2 33 and pCO2 of 146. Fluid was at the skin back as an detected. She remains on antibiotics of Zithromax and ceftriaxone and Solu- Medrol. Review of systems: N/a Active Medications Generic Name Dose Route Start Last Admin Trade Name Freq PRN Reason Stop Dose Admin Albuterol/Ipratropium 3 ml 03/05/19 16:00 03/06/19 11:14 Duoneb 0.5 Mg-3 Mg/3 Ml Soln INHALATION 3 ml RT-Q4H [facility] Administration Albuterol/Ipratropium 3 ml 03/05/19 13:49 Duoneb 0.5 Mg-3 Mg/3 Ml Soln INHALATION RT-Q2H PRN Shortness Of Breath Or Wheezing Azithromycin 500 mg 03/06/19 09:00 03/06/19 09:43 Zithromax PO 500 mg DAILY [facility] Administration Budesonide 1 mg 03/05/19 20:00 03/06/19 07:20 Pulmicort INHALATION 1 mg RT-BID [facility] Administration Chlorhexidine Gluconate 15 ml 03/05/19 21:00 03/06/19 09:43 Peridex MUCOUS MEM 15 ml BID [facility] Administration Formoterol Fumarate 20 mcg 03/05/19 20:00 03/06/19 07:20 Perforomist INHALATION 20 mcg RT-BID [facility] Administration Heparin Sodium (Porcine) 5,000 unit 03/05/19 16:00 03/06/19 09:43 Heparin SQ 5,000 unit Q8HR [facility] Administration Hydromorphone HCl 1 mg 03/06/19 09:55 03/06/19 10:13 Dilaudid IVP 1 mg Q4HR PRN Administration Pain Ceftriaxone Sodium 1 gm/ 50 mls @ 100 mls/hr 03/06/19 09:00 03/06/19 09:43 Sodium Chloride IVPB 03/09/19 09:01 100 mls/hr Q24HR [facility] Administration Norepinephrine Bitartrate 8 mg 258 mls @ 5.644 mls/hr 03/05/19 14:30 03/06/19 13:26 / Sodium Chloride IV 0.01 mcg/kg/min .Q24H [facility] 1.129 mls/hr Titration Protocol 0.05 MCG/KG/MIN Propofol 1,000 mg/ IV Solution 100 mls @ 0 mls/hr 03/05/19 14:30 03/06/19 13:03 IV 45 mcg/kg/min .Q0M [facility] 19.44 mls/hr Administration Protocol Titrate Sodium Chloride 1,000 mls @ 100 mls/hr 03/05/19 15:15 03/06/19 13:07 Saline 0.9% IV 100 mls/hr .Q10H [facility] Administration Insulin Aspart 0 unit 03/06/19 08:00 03/06/19 12:00 Novolog SQ 2 unit Q4H [facility] Administration Protocol Levothyroxine Sodium 50 mcg 03/06/19 06:30 03/06/19 05:56 Synthroid PO 50 mcg DAILY@0630 [facility] Administration Methylprednisolone Sodium Succinate 60 mg 03/05/19 14:00 03/06/19 13:09 Solu-Medrol IV 60 mg Q6HR [facility] Administration Miscellaneous Information 1 each 03/05/19 11:43 Pneumonia Protocol Utilized PO ONCE PRN Per Protocol Naloxone HCl 0.2 mg 03/05/19 15:01 Narcan IV Q2M PRN Opioid Reversal Pantoprazole Sodium 40 mg 03/06/19 09:00 03/06/19 09:43 Protonix IV 40 mg DAILY [facility] Administration Objective - Vital Signs Vital signs: Vital Signs Temp 98.4 F 03/06/19 12:00 Pulse 68 03/06/19 13:15 Resp 22 03/06/19 13:15 BP 100/60 03/06/19 13:15 Pulse Ox 97 03/06/19 13:15 Intake & Output 03/05/19 03/06/19 03/06/19 18:59 06:59 18:59 Intake Total 6018.457 4255.646 1924.972 Output Total 300 485 600 Balance 8042.584 5127.646 1324.972 Weight 58.332 kg 72 kg 72 kg Intake: IV 1300 2000 1700 0.9 NACL 1300 2000 700 0.9 NACL bolus 1000 Intake, IV Titration 28.291 163.646 224.972 Amount Norepinephrine 8 mg In 0 64.188 47.860 Sodium Chloride 0.9% 250 ml @ 0.05 MCG/KG/MIN 5. 644 mls/hr IV .Q24H [facility] Rx#:[id number] Propofol 1,000 mg In 3.908 Empty Bag 1 bag @ 10 MCG/ KG/MIN 3.5 mls/hr IV . Q24H [facility] Rx#:[id number] Propofol 1,000 mg In 24.383 99.458 177.112 Empty Bag 1 bag @ Titrate IV .Q0M [facility] Rx#: [id number] Output: Urine 300 485 600 Other: Voiding Method Indwelling Catheter Indwelling Catheter ABP, PAP, CO, CI - Last Documented Arterial Blood Pressure 106/44 - Exam GENERAL: Patient is intubated and sedated HEENT: Pupils are round and equally reacting to light. EOMI. No scleral icterus. No conjunctival pallor. Normocephalic, atraumatic. No pharyngeal erythema. No thyromegaly. CARDIOVASCULAR: S1 and S2 present. No murmurs, rubs, or gallops. -PULMONARY: Patient is tachypneic with crepitation decreased breath sounds on the right lower lobe, scattered wheezing bilaterally ABDOMEN: Soft, nontender, nondistended, normoactive bowel sounds. No palpable organomegaly. MUSCULOSKELETAL: No joint swelling or deformity. EXTREMITIES: No cyanosis, clubbing, or pedal edema. NEUROLOGICAL: Gross neurological examination did not reveal any focal deficits. SKIN: No rashes. no petechiae. - Labs CBC & Chem 7: 03/06/19 04:17 03/06/19 04:17 Labs: Abnormal Lab Results - Last 24 Hours (Table) 03/05/19 03/05/19 03/05/19 Range/Units 15:57 16:11 17:43 MCHC (31.0-37.0) g/dL Neutrophils # (1.3-7.7) k/uL Lymphocytes # (1.0-4.8) k/uL ABG pH 7.18 L* (7.35-7.45) ABG pCO2 59 H (35-45) mmHg ABG pO2 >400 H (83-108) mmHg ABG HCO3 (21-25) mmol/L ABG O2 Saturation 99.8 H (94-97) % Chloride (98-107) mmol/L Carbon Dioxide (22-30) mmol/L BUN (7-17) mg/dL Glucose (74-99) mg/dL POC Glucose (mg/dL) 203 H 197 H (75-99) mg/dL Calcium (8.4-10.2) mg/dL 03/05/19 03/05/19 03/06/19 Range/Units 18:27 23:28 04:17 MCHC 30.9 L (31.0-37.0) g/dL Neutrophils # 8.7 H (1.3-7.7) k/uL Lymphocytes # 0.8 L (1.0-4.8) k/uL ABG pH 7.32 L (7.35-7.45) ABG pCO2 (35-45) mmHg ABG pO2 138 H (83-108) mmHg ABG HCO3 19 L (21-25) mmol/L ABG O2 Saturation 99.0 H (94-97) % Chloride (98-107) mmol/L Carbon Dioxide (22-30) mmol/L BUN (7-17) mg/dL Glucose (74-99) mg/dL POC Glucose (mg/dL) 227 H (75-99) mg/dL Calcium (8.4-10.2) mg/dL 03/06/19 03/06/19 03/06/19 Range/Units 04:17 05:04 05:39 MCHC (31.0-37.0) g/dL Neutrophils # (1.3-7.7) k/uL Lymphocytes # (1.0-4.8) k/uL ABG pH (7.35-7.45) ABG pCO2 33 L (35-45) mmHg ABG pO2 146 H (83-108) mmHg ABG HCO3 18 L (21-25) mmol/L ABG O2 Saturation 99.2 H (94-97) % Chloride 110 H (98-107) mmol/L Carbon Dioxide 16 L (22-30) mmol/L BUN 23 H (7-17) mg/dL Glucose 246 H (74-99) mg/dL POC Glucose (mg/dL) 227 H (75-99) mg/dL Calcium 8.1 L (8.4-10.2) mg/dL 03/06/19 03/06/19 Range/Units 09:24 11:43 MCHC (31.0-37.0) g/dL Neutrophils # (1.3-7.7) k/uL Lymphocytes # (1.0-4.8) k/uL ABG pH (7.35-7.45) ABG pCO2 (35-45) mmHg ABG pO2 (83-108) mmHg ABG HCO3 (21-25) mmol/L ABG O2 Saturation (94-97) % Chloride (98-107) mmol/L Carbon Dioxide (22-30) mmol/L BUN (7-17) mg/dL Glucose (74-99) mg/dL POC Glucose (mg/dL) 198 H 153 H (75-99) mg/dL Calcium (8.4-10.2) mg/dL Microbiology - Last 24 Hours (Table) 03/05/19 14:30 Acid Fast Bacilli Culture - Preliminary Bronchial Washings - Right 03/05/19 14:30 Bronchial Washings Culture - Preliminary Bronchial Washings - Right 03/05/19 14:30 Fungal Culture - Preliminary Bronchial Washings - Right Assessment and Plan Assessment: Acute hypoxic respiratory failure status post intubation Acute right lower lobe pneumonia with right pleural effusion COPD/asthma with possible acute exacerbation Diabetes mellitus Hyperlipidemia Hypertension Hypothyroidism Plan: This is a pleasant 78 years old male who presents with acute respiratory failure status post intubation secondary to right lower lobe pneumonia. Continue with mechanical ventilation as per pulmonary/critical care team. Continue with antibiotics. Continue the bronchodilator and oxygen therapy. Continue with steroids Labs and medication were reviewed.. Continue same treatment. Continue with symptomatic treatment. Resume home medication. Monitor lytes and vitals. DVT and GI prophylaxis. Further recommendations of the clinical course of the patient DVT prophylaxis: Subcutaneous heparin GI Prophylaxis: Pepcid PT/OT: Pending Prognosis is guarded
[2019-03-06 16:40] LABS: Glucose,Whole Blood 165 mg/dL (75-99)
[2019-03-06] MEDS ORDERED: VANCOMYCIN 1,000 MG in SODIUM CHLORIDE 0.9% 250 ML IVPB ONE (20:00)
[2019-03-06 20:05] LABS: Glucose,Whole Blood 169 mg/dL (75-99)
[2019-03-07] MEDS: IPRATROPIUM-ALBUTEROL 3 ML NEB INHALATION SCH ×6 (00:05→19:46)
[2019-03-07 00:10] LABS: Glucose,Whole Blood 148 mg/dL (75-99)
[2019-03-07] MEDS: INSULIN ASPART (NovoLOG) 100 UNIT/ML VIAL SQ SCH ×6 (04:16→23:58)
[2019-03-07 04:17] LABS: Glucose,Whole Blood 200 mg/dL (75-99)
[2019-03-07 04:35] LABS: Basophils % (A) 0 %; Eosinophils % (A) 0 %; HCT 36.8 % (34.0-46.0); HGB 11.8 gm/dL (11.4-16.0); Lymphocytes # (A) 0.8 k/uL (1.0-4.8); Lymphocytes % (A) 7 %; MCH 28.4 pg (25.0-35.0); MCV 88.8 fL (80.0-100.0); Mean Platelet Volume 7.8; Monocytes # (A) 0.3 k/uL (0-1.0); Monocytes % (A) 3 %; Neutrophils # (A) 10.3 k/uL (1.3-7.7); Neutrophils % (A) 89 %; Platelet Count 142 k/uL (150-450); RBC 4.15 m/uL (3.80-5.40); RDW 14.5 % (11.5-15.5); WBC 11.5 k/uL (3.8-10.6)
[2019-03-07 04:41] LABS: African American GFR (CKD) >90 (>60 ml/min/1.73 sqM); Anion Gap 6 mmol/L; Blood Urea Nitrogen 20 mg/dL (7-17); Calcium 7.9 mg/dL (8.4-10.2); Carbon Dioxide 17 mmol/L (22-30); Chloride 115 mmol/L (98-107); Glucose 210 mg/dL (74-99); Potassium 3.5 mmol/L (3.5-5.1); Sodium 138 mmol/L (137-145)
[2019-03-07] MEDS ORDERED: Potassium Replacement Protocol 1 EACH MISC MISCELLANE PRN (04:58)
[2019-03-07 05:01] LABS: ABG Base Excess -7.1 mmol/L; ABG HCO3 19 mmol/L (21-25); ABG Oxygen Saturation 99.1 % (94-97); ABG PCO2 34 mmHg (35-45); ABG PH 7.35 (7.35-7.45); ABG PO2 132 mmHg (83-108); ABG TCO2 20 mmol/L (19-24); Allen Test Performed? Yes
[2019-03-07] MEDS: POTASSIUM BICARBONATE/CIT AC 20 MEQ TABLET.EFF NG-TUBE SCH ×2 (05:49→06:54)
[2019-03-07] MEDS: methylPREDNISolone SOD SUCCI 125 MG/2 ML VIAL IV SCH ×4 (05:50→23:59)
[2019-03-07] MEDS: LEVOTHYROXINE 50 MCG TAB PO SCH (05:50)
[2019-03-07] MEDS: PROPOFOL 1,000 MG in EMPTY BAG 1 BAG IV SCH (05:51)
[2019-03-07] MEDS: SODIUM CHLORIDE 0.9% 1,000 ML IV SCH ×2 (06:59→18:53)
[2019-03-07] MEDS: BUDESONIDE 1 MG/2 ML NEBU INHALATION SCH ×2 (07:43→19:46)
[2019-03-07] MEDS: FORMOTEROL FUMARATE 20 MCG/2 ML NEBU INHALATION SCH ×2 (07:43→19:46)
[2019-03-07] MEDS: NOREPINEPHRINE 8 MG in SODIUM CHLORIDE 0.9% 250 ML IV SCH ×2 (07:58→15:31)
--- NOTE | 2019-03-07 08:32 | XR ---
EXAMINATION TYPE: XR chest 1V portable DATE OF EXAM: 03/07/2019 COMPARISON: 03/06/2019 HISTORY: Tube placement TECHNIQUE: Single frontal view of the chest is obtained. FINDINGS: The patient is ET tube and left subclavian catheter remain in place, unchanged in appearan ce. The patient is NG tube has been repositioned and its tip is now within the stomach. There are sma ll, bilateral effusions. Heart size upper limits of normal. There is bibasilar airspace disease which may represent atelectasis or pneumonia. IMPRESSION: 1. Bilateral consolidation and pleural effusion suggesting CHF versus pneumonia. Amount of pleural fl uid and consolidation appears slightly increased.
[2019-03-07] MEDS: PANTOPRAZOLE 40 MG/10 ML VIAL IV SCH (08:34)
[2019-03-07] MEDS: HEPARIN SODIUM,PORCINE 5,000 UNIT/ML 1 ML VIAL SQ SCH ×3 (08:34→23:59)
[2019-03-07] MEDS: CHLORHEXIDINE GLUCONATE 15 ML CUP MUCOUS MEM SCH (08:34)
[2019-03-07] MEDS: AZITHROMYCIN 500 MG TAB PO SCH (08:34)
[2019-03-07] MEDS ORDERED: VANCOMYCIN 1,000 MG in SODIUM CHLORIDE 0.9% 250 ML IVPB ONE (09:00)
[2019-03-07] MEDS ORDERED: NON FORMULARY DRUG (Alendronate Sodium [Alendronate Sodium] 70 MG) PO SCH (09:00)
[2019-03-07 09:34] LABS: Glucose,Whole Blood 186 mg/dL (75-99)
--- NOTE | 2019-03-07 09:44 | P.PN ---
Subjective this is a pleasant 78 yo F with past medical history of COPD, and asthma, coronary artery disease, diabetes mellitus, hyperlipidemia, hypertension, hypothyroidism. Patient presents with worsening respiratory distress and he got intubated in the emergency room. Patient could not provide information was obtained from the medical staff and records. Patient is slightly tachycardic at 101, blood pressure 136/58, he is saturating 98% currently while he is on mechanical ventilation, lap showing normal CBC and d-dimer, ABG showing pH of 7.3 with CO2 of 42 and pO2 60. BMP and liver enzymes are within normal limits. Chest x-ray showing Right lower lobe infiltrates with pleural effusion. EKG showing normal sinus rhythm at [address]- T changes 03/06/2019 Patient remains in the ICU intubated and sedated. She is on mechanical ventilation with PEEP of 5 and FiO2 of 40%, however the vent management is through the pulmonary/critical care team R following the case closely. She saturating 97% blood pressure of 106/44. Heart rate 68. Respiratory rate 22. Repeat labs showing stable CBC. Blood gases reasonable with pH of 7.35 which is within normal and pCO2 33 and pCO2 of 146. Fluid was at the skin back as an detected. She remains on antibiotics of Zithromax and ceftriaxone and Solu- Medrol. 03/07/2019 Patient is in the ICU intubated and sedated. This morning she remains on mechanical ventilation with FiO2 of 40% and PEEP of 5. Vitals are stable. Lap showing WBC of 11.5 K, ABG showing pH of 7.3 which is within normal limits and pCO2 of 34 and pO2 of 132 which is acceptable. Sodium 138, creatinine 0.4. Sugar is controlled. Ulnar/critical care team R following the case closely. She remains on Zithromax and ceftriaxone as well as Solu-Medrol, however yesterday intravenous vancomycin was added to her antibiotic regimens. Repeat chest x-ray from today showing bilateral consolidation or pleural effusion suggesting CHF versus pneumonia with pleural fluid and consolidation appears slightly increased. Review of systems: N/a Active Medications Generic Name Dose Route Start Last Admin Trade Name Freq PRN Reason Stop Dose Admin Albuterol/Ipratropium 3 ml 03/05/19 16:00 03/07/19 07:43 Duoneb 0.5 Mg-3 Mg/3 Ml Soln INHALATION 3 ml RT-Q4H [facility] Administration Albuterol/Ipratropium 3 ml 03/05/19 13:49 Duoneb 0.5 Mg-3 Mg/3 Ml Soln INHALATION RT-Q2H PRN Shortness Of Breath Or Wheezing Azithromycin 500 mg 03/06/19 09:00 03/07/19 08:34 Zithromax PO 500 mg DAILY [facility] Administration Budesonide 1 mg 03/05/19 20:00 03/07/19 07:43 Pulmicort INHALATION 1 mg RT-BID [facility] Administration Chlorhexidine Gluconate 15 ml 03/05/19 21:00 03/07/19 08:34 Peridex MUCOUS MEM 15 ml BID [facility] Administration Formoterol Fumarate 20 mcg 03/05/19 20:00 03/07/19 07:43 Perforomist INHALATION 20 mcg RT-BID [facility] Administration Heparin Sodium (Porcine) 5,000 unit 03/05/19 16:00 03/07/19 08:34 Heparin SQ 5,000 unit Q8HR [facility] Administration Hydromorphone HCl 1 mg 03/06/19 09:55 03/06/19 18:36 Dilaudid IVP 1 mg Q4HR PRN Administration Pain Ceftriaxone Sodium 1 gm/ 50 mls @ 100 mls/hr 03/06/19 09:00 03/07/19 08:34 Sodium Chloride IVPB 03/09/19 09:01 100 mls/hr Q24HR [facility] Administration Norepinephrine Bitartrate 8 mg 258 mls @ 5.644 mls/hr 03/05/19 14:30 03/07/19 07:58 / Sodium Chloride IV Not Given .Q24H [facility] Protocol 0.05 MCG/KG/MIN Propofol 1,000 mg/ IV Solution 100 mls @ 0 mls/hr 03/05/19 14:30 03/07/19 05:51 IV 45 mcg/kg/min .Q0M [facility] 19.44 mls/hr Administration Protocol Titrate Sodium Chloride 1,000 mls @ 100 mls/hr 03/05/19 15:15 03/07/19 06:59 Saline 0.9% IV 100 mls/hr .Q10H [facility] Administration Insulin Aspart 0 unit 03/06/19 08:00 03/07/19 04:16 Novolog SQ 5 unit Q4H [facility] Administration Protocol Levothyroxine Sodium 50 mcg 03/06/19 06:30 03/07/19 05:50 Synthroid PO 50 mcg DAILY@0630 [facility] Administration Methylprednisolone Sodium Succinate 60 mg 03/05/19 14:00 03/07/19 05:50 Solu-Medrol IV 60 mg Q6HR [facility] Administration Miscellaneous Information 1 each 03/05/19 11:43 Pneumonia Protocol Utilized PO ONCE PRN Per Protocol Miscellaneous Information 1 each 03/07/19 04:58 Potassium Per Protocol MISCELLANE DAILY PRN Per Protocol Protocol Naloxone HCl 0.2 mg 03/05/19 15:01 Narcan IV Q2M PRN Opioid Reversal Pantoprazole Sodium 40 mg 03/06/19 09:00 03/07/19 08:34 Protonix IV 40 mg DAILY [facility] Administration Objective - Vital Signs Vital signs: Vital Signs Temp 98 F 03/07/19 04:00 Pulse 73 03/07/19 08:04 Resp 22 03/07/19 07:00 BP 118/62 03/07/19 07:00 Pulse Ox 98 03/07/19 07:00 Intake & Output 03/06/19 03/07/19 03/07/19 18:59 06:59 18:59 Intake Total 2544.972 1938.284 120 Output Total 805 449 40 Balance 1263.459 5116.284 80 Weight 72 kg Intake: IV 2200 1200 100 0.9 NACL 1200 1100 100 0.9 NACL bolus 1000 100 Intake, IV Titration 324.972 438.284 Amount Norepinephrine 8 mg In 47.860 8.58 Sodium Chloride 0.9% 250 ml @ 0.05 MCG/KG/MIN 5. 644 mls/hr IV .Q24H [facility] Rx#:[id number] Propofol 1,000 mg In 277.112 179.704 Empty Bag 1 bag @ Titrate IV .Q0M [facility] Rx#: [id number] Vancomycin 1,000 mg In 250 Sodium Chloride 0.9% 250 ml @ 125 mls/hr IVPB ONCE ONE Rx#:[id number] Tube Feeding 20 190 20 Other 110 Output: Urine 805 449 40 Other: Voiding Method Indwelling Catheter Indwelling Catheter ABP, PAP, CO, CI - Last Documented Arterial Blood Pressure 119/50 - Exam GENERAL: Patient is intubated and sedated HEENT: Pupils are round and equally reacting to light. EOMI. No scleral icterus. No conjunctival pallor. Normocephalic, atraumatic. No pharyngeal erythema. No thyromegaly. CARDIOVASCULAR: S1 and S2 present. No murmurs, rubs, or gallops. -PULMONARY: Patient is tachypneic with crepitation decreased breath sounds on the right lower lobe, scattered wheezing bilaterally ABDOMEN: Soft, nontender, nondistended, normoactive bowel sounds. No palpable organomegaly. MUSCULOSKELETAL: No joint swelling or deformity. EXTREMITIES: No cyanosis, clubbing, or pedal edema. NEUROLOGICAL: Gross neurological examination did not reveal any focal deficits. SKIN: No rashes. no petechiae. - Labs CBC & Chem 7: 03/07/19 04:00 03/07/19 04:00 Labs: Abnormal Lab Results - Last 24 Hours (Table) 03/06/19 03/06/19 03/06/19 Range/Units 11:43 16:28 19:54 WBC (3.8-10.6) k/uL Plt Count (150-450) k/uL Neutrophils # (1.3-7.7) k/uL Lymphocytes # (1.0-4.8) k/uL ABG pCO2 (35-45) mmHg ABG pO2 (83-108) mmHg ABG HCO3 (21-25) mmol/L ABG O2 Saturation (94-97) % Chloride (98-107) mmol/L Carbon Dioxide (22-30) mmol/L BUN (7-17) mg/dL Creatinine (0.52-1.04) mg/dL Glucose (74-99) mg/dL POC Glucose (mg/dL) 153 H 165 H 169 H (75-99) mg/dL Calcium (8.4-10.2) mg/dL 03/06/19 03/07/19 03/07/19 Range/Units 23:49 04:00 04:00 WBC 11.5 H (3.8-10.6) k/uL Plt Count 142 L (150-450) k/uL Neutrophils # 10.3 H (1.3-7.7) k/uL Lymphocytes # 0.8 L (1.0-4.8) k/uL ABG pCO2 (35-45) mmHg ABG pO2 (83-108) mmHg ABG HCO3 (21-25) mmol/L ABG O2 Saturation (94-97) % Chloride 115 H (98-107) mmol/L Carbon Dioxide 17 L (22-30) mmol/L BUN 20 H (7-17) mg/dL Creatinine 0.46 L (0.52-1.04) mg/dL Glucose 210 H (74-99) mg/dL POC Glucose (mg/dL) 148 H (75-99) mg/dL Calcium 7.9 L (8.4-10.2) mg/dL 03/07/19 03/07/19 03/07/19 Range/Units 04:05 04:55 09:23 WBC (3.8-10.6) k/uL Plt Count (150-450) k/uL Neutrophils # (1.3-7.7) k/uL Lymphocytes # (1.0-4.8) k/uL ABG pCO2 34 L (35-45) mmHg ABG pO2 132 H (83-108) mmHg ABG HCO3 19 L (21-25) mmol/L ABG O2 Saturation 99.1 H (94-97) % Chloride (98-107) mmol/L Carbon Dioxide (22-30) mmol/L BUN (7-17) mg/dL Creatinine (0.52-1.04) mg/dL Glucose (74-99) mg/dL POC Glucose (mg/dL) 200 H 186 H (75-99) mg/dL Calcium (8.4-10.2) mg/dL Microbiology - Last 24 Hours (Table) 03/05/19 16:31 Blood Culture Gram Stain - Preliminary Blood Blood Culture - Preliminary Coagulase Negative Staph 03/05/19 14:30 Acid Fast Bacilli Smear - Final Bronchial Washings - Right Acid Fast Bacilli Culture - Preliminary 03/05/19 16:31 Blood Culture - Preliminary Blood No Growth after 24 hours 03/05/19 16:31 Blood Culture - Final Blood 03/05/19 10:05 Blood Culture - Preliminary Blood No Growth after 24 hours Assessment and Plan Assessment: Acute hypoxic respiratory failure status post intubation Acute right lower lobe pneumonia with right pleural effusion COPD/asthma with possible acute exacerbation Diabetes mellitus Hyperlipidemia Hypertension Hypothyroidism Plan: This is a pleasant 78 years old male who presents with acute respiratory failure status post intubation secondary to right lower lobe pneumonia. We will follow recommendation by pulmonary team. Continue with antibiotics and vent management as per pulmonary team recommendations. Continue the bronchodilator and oxygen therapy. Continue with steroids. Labs and medication were reviewed.. Continue same treatment. Continue with symptomatic treatment. Resume home medication. Monitor lytes and vitals. DVT and GI prophylaxis. Further recommendations of the clinical course of the patient DVT prophylaxis: Subcutaneous heparin GI Prophylaxis: Pepcid PT/OT: Pending Prognosis is guarded
[2019-03-07 11:50] LABS: Glucose,Whole Blood 193 mg/dL (75-99)
--- NOTE | 2019-03-07 16:53 | P.PN ---
Subjective Progress Note Date: 03/07/19 78-year-old female patient intubated on a mechanical ventilator and the patient is being seen for a follow-up today. She is was sedated and she is calm and comfortable. On today's evaluation I have a right-sided volume of 350 with an FiO2 of 40% and a PEEP of 5 and the respiratory rate of 22. The patient is intubated by a #7.5 ET tube. She is receiving IV fluid at the rate of 100 mL an hour and his CVP is at 4. Chest x-ray shows improvement in the vital pulmonary infiltrates. White cell count is 11.5. The blood gases from today showed a pH of 7.35 with a pCO2 of 34 and pO2 of 132 and this was done and FiO2 of 40%. The blood work shows a component of non-anion gap metabolic acidosis with a serum bicarbonate of 17. The patient was tolerating her tube feeds. On today's evaluation, I asked the patient to come off the sedation to check weaning parameters. During the weaning process, the patient woke up from sedation and she pulled out her to. She remained hemodynamically stable and she did not have any major respiratory difficulties. As such I kept the patient extubated. Currently the patient on 40 Suboxone by nasal cannula her pulse ox is around 97%. No other significant events otherwise for now. No fever. No chills. Bronchoscopy was done earlier in the patient's bronchioloalveolar lavage has been essentially negative for any microbial growth. Objective - Vital Signs Vital signs: Vital Signs Temp 98.0 F 03/07/19 12:00 Pulse 78 03/07/19 15:46 Resp 14 03/07/19 15:00 BP 136/70 03/07/19 15:00 Pulse Ox 97 03/07/19 15:00 Intake & Output 03/06/19 03/07/19 03/07/19 18:59 06:59 18:59 Intake Total 2544.972 1938.284 320 Output Total 805 449 400 Balance 2918.126 2574.284 -80 Weight 72 kg 74 kg Intake: IV 2200 1200 300 0.9 NACL 1200 1100 300 0.9 NACL bolus 1000 100 Intake, IV Titration 324.972 438.284 Amount Norepinephrine 8 mg In 47.860 8.58 Sodium Chloride 0.9% 250 ml @ 0.05 MCG/KG/MIN 5. 644 mls/hr IV .Q24H [facility] Rx#:[id number] Propofol 1,000 mg In 277.112 179.704 Empty Bag 1 bag @ Titrate IV .Q0M [facility] Rx#: [id number] Vancomycin 1,000 mg In 250 Sodium Chloride 0.9% 250 ml @ 125 mls/hr IVPB ONCE ONE Rx#:[id number] Tube Feeding 20 190 20 Other 110 Output: Urine 805 449 400 Other: Voiding Method Indwelling Catheter Indwelling Catheter Indwelling Catheter ABP, PAP, CO, CI - Last Documented Arterial Blood Pressure 157/63 - Exam Gen. appearance, comfortable following commands and answering questions on 4 L of oxygen by nasal cannula with a pulse oximetry 97% Head exam was generally normal. There was no scleral icterus or corneal arcus. Mucous membranes were moist. Neck was supple and without jugular venous distension, thyromegaly, or carotid bruits. Carotids were easily palpable bilaterally. There was no adenopathy. Lungs sounds are diminished bilaterally along with crackles in lung bases. No wheezes or rhonchi. Cardiac exam revealed the PMI to be normally situated and sized. The rhythm was regular and no extrasystoles were noted during several minutes of auscultation. The first and second heart sounds were normal and physiologic splitting of the second heart sound was noted. There were no murmurs, rubs, clicks, or gallops. Abdominal exam revealed normal bowel sounds. The abdomen was soft, non-tender, and without masses, organomegaly, or appreciable enlargement of the abdominal aorta. Examination of the extremities revealed easily palpable radial, femoral and p edal pulses. There was no cyanosis, clubbing or edema. Examination of the skin revealed no evidence of significant rashes, suspicious appearing nevi or other concerning lesions. Neurologically awake and alert and there is no focal neurological deficits. - Labs CBC & Chem 7: 03/07/19 04:00 03/07/19 04:00 Labs: Abnormal Lab Results - Last 24 Hours (Table) 03/05/19 03/06/19 03/06/19 Range/Units 14:30 19:54 23:49 WBC (3.8-10.6) k/uL Plt Count (150-450) k/uL Neutrophils # (1.3-7.7) k/uL Lymphocytes # (1.0-4.8) k/uL ABG pCO2 (35-45) mmHg ABG pO2 (83-108) mmHg ABG HCO3 (21-25) mmol/L ABG O2 Saturation (94-97) % Chloride (98-107) mmol/L Carbon Dioxide (22-30) mmol/L BUN (7-17) mg/dL Creatinine (0.52-1.04) mg/dL Glucose (74-99) mg/dL POC Glucose (mg/dL) 169 H 148 H (75-99) mg/dL Calcium (8.4-10.2) mg/dL Viral Test See Below H 03/07/19 03/07/19 03/07/19 Range/Units 04:00 04:00 04:05 WBC 11.5 H (3.8-10.6) k/uL Plt Count 142 L (150-450) k/uL Neutrophils # 10.3 H (1.3-7.7) k/uL Lymphocytes # 0.8 L (1.0-4.8) k/uL ABG pCO2 (35-45) mmHg ABG pO2 (83-108) mmHg ABG HCO3 (21-25) mmol/L ABG O2 Saturation (94-97) % Chloride 115 H (98-107) mmol/L Carbon Dioxide 17 L (22-30) mmol/L BUN 20 H (7-17) mg/dL Creatinine 0.46 L (0.52-1.04) mg/dL Glucose 210 H (74-99) mg/dL POC Glucose (mg/dL) 200 H (75-99) mg/dL Calcium 7.9 L (8.4-10.2) mg/dL Viral Test 03/07/19 03/07/19 03/07/19 Range/Units 04:55 09:23 11:38 WBC (3.8-10.6) k/uL Plt Count (150-450) k/uL Neutrophils # (1.3-7.7) k/uL Lymphocytes # (1.0-4.8) k/uL ABG pCO2 34 L (35-45) mmHg ABG pO2 132 H (83-108) mmHg ABG HCO3 19 L (21-25) mmol/L ABG O2 Saturation 99.1 H (94-97) % Chloride (98-107) mmol/L Carbon Dioxide (22-30) mmol/L BUN (7-17) mg/dL Creatinine (0.52-1.04) mg/dL Glucose (74-99) mg/dL POC Glucose (mg/dL) 186 H 193 H (75-99) mg/dL Calcium (8.4-10.2) mg/dL Viral Test Microbiology - Last 24 Hours (Table) 03/05/19 10:05 Blood Culture - Preliminary Blood No Growth after 48 hours 03/05/19 14:30 Gram Stain - Final Bronchial Washings - Right Bronchial Washings Culture - Final 03/05/19 16:31 Blood Culture Gram Stain - Preliminary Blood Blood Culture - Preliminary Coagulase Negative Staph 03/05/19 14:30 Acid Fast Bacilli Smear - Final Bronchial Washings - Right Acid Fast Bacilli Culture - Preliminary 03/05/19 16:31 Blood Culture - Preliminary Blood No Growth after 24 hours 03/05/19 16:31 Blood Culture - Final Blood Assessment and Plan Plan: 1 acute hypoxic respiratory failure secondary to bilateral lower lobe pneumonia. Bronchoscopy showed no evidence of any microbial growth. The patient improved. Oxygenation improved. The patient as being weaned today she extubated herself and she is currently on 4 liters by nasal cannula with a pulse ox of 97% 2 small bilateral pleural effusion 3 coronary artery disease with previous myocardial infarction 4 diabetes mellitus type 2 5 hyperlipidemia 6 hypertension 7 hypothyroidism 8 migraine 9 non-anion gap metabolic acidosis Plan Keep the patient extubated for now. Continue Rocephin and Zithromax. Kept on IV fluids to 40 mL an hour. No fever. No hemodynamic instability. Hemoglobin stable at 11.8. We'll provide diet at the later stage. Incentive spirometer. Increased level of activity as tolerated. We'll continue to follow. There is a critically care evaluation was done and morning 30 minutes. The patient extubated herself unexpectedly during the weaning process. A repeat chest x-ray will be done tomorrow. We'll continue to follow.
[2019-03-07 16:54] LABS: Glucose,Whole Blood 133 mg/dL (75-99)
[2019-03-07 20:10] LABS: Glucose,Whole Blood 163 mg/dL (75-99)
[2019-03-07] MEDS: HYDROmorphone 1 MG/ML 1 ML SYRINGE IVP PRN (20:11)
[2019-03-08 00:17] LABS: Glucose,Whole Blood 152 mg/dL (75-99)
[2019-03-08] MEDS: INSULIN ASPART (NovoLOG) 100 UNIT/ML VIAL SQ SCH ×5 (04:33→21:08)
[2019-03-08 04:42] LABS: Glucose,Whole Blood 149 mg/dL (75-99)
[2019-03-08 04:44] LABS: African American GFR (CKD) >90 (>60 ml/min/1.73 sqM); Anion Gap 6 mmol/L; Blood Urea Nitrogen 26 mg/dL (7-17); Carbon Dioxide 22 mmol/L (22-30); Chloride 116 mmol/L (98-107); Glucose 163 mg/dL (74-99); Potassium 3.8 mmol/L (3.5-5.1); Sodium 144 mmol/L (137-145)
[2019-03-08] MEDS: POTASSIUM CHLORIDE 10 MEQ in WATER FOR INJECTION 1 100ML.BAG IVPB SCH ×2 (05:27→06:22)
[2019-03-08 05:40] LABS: Basophils % (A) 0 %; Eosinophils % (A) 0 %; HCT 35.7 % (34.0-46.0); HGB 11.6 gm/dL (11.4-16.0); Lymphocytes # (A) 0.5 k/uL (1.0-4.8); Lymphocytes % (A) 5 %; MCH 28.6 pg (25.0-35.0); MCHC 32.6 g/dL (31.0-37.0); MCV 87.9 fL (80.0-100.0); Mean Platelet Volume 7.9; Monocytes # (A) 0.3 k/uL (0-1.0); Monocytes % (A) 3 %; Neutrophils # (A) 9.4 k/uL (1.3-7.7); Neutrophils % (A) 92 %; Platelet Count 148 k/uL (150-450); RBC 4.06 m/uL (3.80-5.40); RDW 14.8 % (11.5-15.5); WBC 10.2 k/uL (3.8-10.6)
[2019-03-08] MEDS: LEVOTHYROXINE 50 MCG TAB PO SCH (06:21)
[2019-03-08] MEDS: methylPREDNISolone SOD SUCCI 125 MG/2 ML VIAL IV SCH (06:22)
[2019-03-08] MEDS: IPRATROPIUM-ALBUTEROL 3 ML NEB INHALATION SCH ×4 (07:07→19:04)
[2019-03-08] MEDS: FORMOTEROL FUMARATE 20 MCG/2 ML NEBU INHALATION SCH ×2 (07:07→19:04)
[2019-03-08] MEDS: BUDESONIDE 1 MG/2 ML NEBU INHALATION SCH ×2 (07:07→19:04)
--- NOTE | 2019-03-08 07:48 | P.PN ---
Subjective Progress Note Date: 03/08/19 Today's evaluation of 03/08/2019, the patient is extubated and she is currently on 40s about 2 by nasal cannula. She is sitting up on a chair. She is talking and she is alert and oriented 3 and she has no specific complaints. Chest x- ray shows some limited bibasilar pulmonary infiltrates. Lungs are essentially clear and there is no significant bronchospasm and wheezing. She has minimal cough without any congestion. No chest pain. No nausea or vomiting. No altered mentation. No other significant events overnight. As mentioned yesterday, the patient self extubated herself while there is proceeding with the weaning protocol. She remains somewhat edematous stable. She has a triple lumen catheter and she has also an art line catheter. Diet will be advanced today. She did have some sore throat probably due to the orotracheal tube. Cultures of been all negative thus far. She remains on broad-spectrum antibiotics including examination of Rocephin and Zithromax by mouth she is also on IV Solu Medrol. Objective - Vital Signs Vital signs: Vital Signs Temp 98 F 03/08/19 04:00 Pulse 77 03/08/19 07:27 Resp 18 03/08/19 07:27 BP 146/71 03/08/19 07:00 Pulse Ox 95 03/08/19 07:00 Intake & Output 03/07/19 03/08/19 03/08/19 18:59 06:59 18:59 Intake Total 440 580 140 Output Total 750 1070 50 Balance -310 -490 90 Weight 74 kg Intake: IV 420 540 140 0.9 NACL 420 400 40 0.9 NACL bolus 40 Potassium Chloride 10 meq 100 100 Intake, IV Titration 40 Amount Sodium Chloride 0.9% 1, 40 000 ml @ 40 mls/hr IV . Q24H [facility] Rx#:[id number] Tube Feeding 20 Output: Urine 750 1070 50 Other: Voiding Method Indwelling Catheter Indwelling Catheter ABP, PAP, CO, CI - Last Documented Arterial Blood Pressure 147/62 - Exam Gen. appearance, comfortable following commands and answering questions on 4 L of oxygen by nasal cannula with a pulse oximetry 97% Head exam was generally normal. There was no scleral icterus or corneal arcus. Mucous membranes were moist. Neck was supple and without jugular venous distension, thyromegaly, or carotid bruits. Carotids were easily palpable bilaterally. There was no adenopathy. Lungs sounds are diminished bilaterally along with crackles in lung bases. No wheezes or rhonchi. Cardiac exam revealed the PMI to be normally situated and sized. The rhythm was regular and no extrasystoles were noted during several minutes of auscultation. The first and second heart sounds were normal and physiologic splitting of the second heart sound was noted. There were no murmurs, rubs, clicks, or gallops. Abdominal exam revealed normal bowel sounds. The abdomen was soft, non-tender, and without masses, organomegaly, or appreciable enlargement of the abdominal aorta. Examination of the extremities revealed easily palpable radial, femoral and pedal pulses. There was no cyanosis, clubbing or edema. Examination of the skin revealed no evidence of significant rashes, suspicious appearing nevi or other concerning lesions. Neurologically awake and alert and there is no focal neurological deficits. - Labs CBC & Chem 7: 03/08/19 04:15 03/08/19 04:15 Labs: Abnormal Lab Results - Last 24 Hours (Table) 03/05/19 03/07/19 03/07/19 Range/Units 14:30 09:23 11:38 Plt Count (150-450) k/uL Neutrophils # (1.3-7.7) k/uL Lymphocytes # (1.0-4.8) k/uL Chloride (98-107) mmol/L BUN (7-17) mg/dL Creatinine (0.52-1.04) mg/dL Glucose (74-99) mg/dL POC Glucose (mg/dL) 186 H 193 H (75-99) mg/dL Calcium (8.4-10.2) mg/dL Viral Test See Below H 03/07/19 03/07/19 03/07/19 Range/Units 16:42 19:59 23:55 Plt Count (150-450) k/uL Neutrophils # (1.3-7.7) k/uL Lymphocytes # (1.0-4.8) k/uL Chloride (98-107) mmol/L BUN (7-17) mg/dL Creatinine (0.52-1.04) mg/dL Glucose (74-99) mg/dL POC Glucose (mg/dL) 133 H 163 H 152 H (75-99) mg/dL Calcium (8.4-10.2) mg/dL Viral Test 03/08/19 03/08/19 03/08/19 Range/Units 04:15 04:15 04:20 Plt Count 148 L (150-450) k/uL Neutrophils # 9.4 H (1.3-7.7) k/uL Lymphocytes # 0.5 L (1.0-4.8) k/uL Chloride 116 H (98-107) mmol/L BUN 26 H (7-17) mg/dL Creatinine 0.49 L (0.52-1.04) mg/dL Glucose 163 H (74-99) mg/dL POC Glucose (mg/dL) 149 H (75-99) mg/dL Calcium 8.0 L (8.4-10.2) mg/dL Viral Test Microbiology - Last 24 Hours (Table) 03/05/19 16:31 Blood Culture - Preliminary Blood No Growth after 48 hours 03/05/19 10:05 Blood Culture - Preliminary Blood No Growth after 48 hours 03/05/19 14:30 Gram Stain - Final Bronchial Washings - Right Bronchial Washings Culture - Final Assessment and Plan Plan: 1 acute hypoxic respiratory failure secondary to bilateral lower lobe pneumonia. Patient was extubated yesterday and currently she is on 40 to about 2 by nasal cannula. Chest x-ray shows some limited infiltration of the lung bases and the patient is still on a combination of Rocephin and Zithromax. Left culture from 03/05/2019 is positive for coagulase-negative staph, contaminant. The BAL collected earlier showed no evidence of any microbial growth. 2 small bilateral pleural effusion 3 coronary artery disease with previous myocardial infarction 4 diabetes mellitus type 2 5 hyperlipidemia 6 hypertension 7 hypothyroidism 8 migraine 9 non-anion gap metabolic acidosis Plan The patient 4 liters. by nasal cannula and wean it down to keep a saturation above 90%. The patient remains extubated. Continue Rocephin and Zithromax. Discontinue the Artline. Cut down the IV fluids to 40 mL an hour. Advance diet. Provided a regular breakfast today. This continued IV Solu Medrol start the patient prednisone burst taper starting with 30 mg to be tapered by 10 mg every 4 days. Provide the patient incentive spirometer. Continue bronchodilators. We'll continue to follow. Should be able to ambulate today and we'll consult physical therapy.. Chest x-ray from today was noted.
--- NOTE | 2019-03-08 08:47 | XR ---
EXAMINATION TYPE: XR chest 1V portable DATE OF EXAM: 03/08/2019 COMPARISON: 03/07/2019 HISTORY: Tube placement TECHNIQUE: Single frontal view of the chest is obtained. FINDINGS: Left-sided central line stable. ET and NG tube have been removed. Cardiomegaly, atheroscle rotic change aorta, diffuse hyperinflation suggests COPD. Stable bilateral infiltrate and pleural eff usion. Hypertrophic change of the spine. IMPRESSION: 1. COPD with stable bilateral infiltrate and pleural effusion. No overt failure on today's exam.
[2019-03-08] MEDS: AZITHROMYCIN 500 MG TAB PO SCH (09:26)
[2019-03-08] MEDS: HEPARIN SODIUM,PORCINE 5,000 UNIT/ML 1 ML VIAL SQ SCH ×3 (09:26→21:09)
[2019-03-08] MEDS: PANTOPRAZOLE 40 MG/10 ML VIAL IV SCH (09:26)
[2019-03-08] MEDS: predniSONE 10 MG TAB PO SCH (09:27)
[2019-03-08 12:23] LABS: Glucose,Whole Blood 219 mg/dL (75-99)
[2019-03-08] MEDS: NOREPINEPHRINE 8 MG in SODIUM CHLORIDE 0.9% 250 ML IV SCH (12:27)
--- NOTE | 2019-03-08 17:10 | P.PN ---
Subjective 78 yo F with past medical history of COPD, and asthma, coronary artery disease, diabetes mellitus, hyperlipidemia, hypertension, hypothyroidism. Patient presents with worsening respiratory distress and he got intubated in the emergency room. Patient could not provide information was obtained from the medical staff and records. Patient is slightly tachycardic at 101, blood pressure 136/58, he is saturating 98% currently while he is on mechanical ventilation, lap showing normal CBC and d-dimer, ABG showing pH of 7.3 with CO2 of 42 and pO2 60. BMP and liver enzymes are within normal limits. Chest x-ray showing Right lower lobe infiltrates with pleural effusion. EKG showing normal sinus rhythm at [address]- T changes 03/06/2019 Patient remains in the ICU intubated and sedated. She is on mechanical ventilation with PEEP of 5 and FiO2 of 40%, however the vent management is through the pulmonary/critical care team R following the case closely. She saturating 97% blood pressure of 106/44. Heart rate 68. Respiratory rate 22. Repeat labs showing stable CBC. Blood gases reasonable with pH of 7.35 which is within normal and pCO2 33 and pCO2 of 146. Fluid was at the skin back as an detected. She remains on antibiotics of Zithromax and ceftriaxone and Solu- Medrol. 03/07/2019 Patient is in the ICU intubated and sedated. This morning she remains on mechanical ventilation with FiO2 of 40% and PEEP of 5. Vitals are stable. Lap showing WBC of 11.5 K, ABG showing pH of 7.3 which is within normal limits and pCO2 of 34 and pO2 of 132 which is acceptable. Sodium 138, creatinine 0.4. Sugar is controlled. Ulnar/critical care team R following the case closely. She remains on Zithromax and ceftriaxone as well as Solu-Medrol, however yesterday intravenous vancomycin was added to her antibiotic regimens. Repeat chest x-ray from today showing bilateral consolidation or pleural effusion suggesting CHF versus pneumonia with pleural fluid and consolidation appears slightly increased. 03/08/2019 Patient is extubated clinically doing well but does have minimal expiratory wheeze and rhonchus breath sounds. Patient is feeling much better today. Constitutional: Denied any fatigue denied any fever. Cardio vascular: denied any chest pain, palpitations Gastrointestinal denied any nausea vomiting Pulmonary: Denied any shortness of breath cough Neurologic denied any new focal deficits All inpatient medications were reviewed and appropriate changes in these medications as dictated in the interval history and assessment and plan. Objective - Vital Signs Vital signs: Vital Signs Temp 98 F 03/08/19 16:00 Pulse 79 03/08/19 16:00 Resp 18 03/08/19 16:00 BP 137/77 03/08/19 16:00 Pulse Ox 95 03/08/19 16:00 Intake & Output 03/07/19 03/08/19 03/08/19 18:59 06:59 18:59 Intake Total 440 580 550 Output Total 750 1070 610 Balance -310 -490 -60 Weight 74 kg 74 kg Intake: IV 420 540 550 0.9 NACL 420 400 400 0.9 NACL bolus 40 Potassium Chloride 10 meq 100 100 cefTRIAXone 1 gm In 50 Sodium Chloride 0.9% 50 ml @ 100 mls/hr IVPB Q24HR [facility] Rx#:[id number] Intake, IV Titration 40 Amount Sodium Chloride 0.9% 1, 40 000 ml @ 40 mls/hr IV . Q24H [facility] Rx#:[id number] Tube Feeding 20 Output: Urine 750 1070 610 Other: Voiding Method Indwelling Catheter Indwelling Catheter Indwelling Catheter ABP, PAP, CO, CI - Last Documented Arterial Blood Pressure 147/62 - Exam PHYSICAL EXAMINATION: GENERAL: The patient is alert and oriented x3, not in any acute distress. Well developed, well nourished. HEENT: Pupils are round and equally reacting to light. EOMI. No scleral icterus. No conjunctival pallor. Normocephalic, atraumatic. No pharyngeal erythema. No thyromegaly. CARDIOVASCULAR: S1 and S2 present. No murmurs, rubs, or gallops. PULMONARY: None) office minimal expiratory wheeze on exam ABDOMEN: Soft, nontender, nondistended, normoactive bowel sounds. No palpable o rganomegaly. MUSCULOSKELETAL: No joint swelling or deformity. EXTREMITIES: No cyanosis, clubbing, or pedal edema. NEUROLOGICAL: Gross neurological examination did not reveal any focal deficits. SKIN: No rashes. - Labs CBC & Chem 7: 03/08/19 04:15 03/08/19 04:15 Labs: Abnormal Lab Results - Last 24 Hours (Table) 03/05/19 03/07/19 03/07/19 Range/Units 14:30 19:59 23:55 Plt Count (150-450) k/uL Neutrophils # (1.3-7.7) k/uL Lymphocytes # (1.0-4.8) k/uL Chloride (98-107) mmol/L BUN (7-17) mg/dL Creatinine (0.52-1.04) mg/dL Glucose (74-99) mg/dL POC Glucose (mg/dL) 163 H 152 H (75-99) mg/dL Calcium (8.4-10.2) mg/dL Viral Test See Below H 03/08/19 03/08/19 03/08/19 Range/Units 04:15 04:15 04:20 Plt Count 148 L (150-450) k/uL Neutrophils # 9.4 H (1.3-7.7) k/uL Lymphocytes # 0.5 L (1.0-4.8) k/uL Chloride 116 H (98-107) mmol/L BUN 26 H (7-17) mg/dL Creatinine 0.49 L (0.52-1.04) mg/dL Glucose 163 H (74-99) mg/dL POC Glucose (mg/dL) 149 H (75-99) mg/dL Calcium 8.0 L (8.4-10.2) mg/dL Viral Test 03/08/19 Range/Units 12:11 Plt Count (150-450) k/uL Neutrophils # (1.3-7.7) k/uL Lymphocytes # (1.0-4.8) k/uL Chloride (98-107) mmol/L BUN (7-17) mg/dL Creatinine (0.52-1.04) mg/dL Glucose (74-99) mg/dL POC Glucose (mg/dL) 219 H (75-99) mg/dL Calcium (8.4-10.2) mg/dL Viral Test Microbiology - Last 24 Hours (Table) 03/05/19 10:05 Blood Culture - Preliminary Blood No Growth after 72 hours 03/05/19 16:31 Blood Culture Gram Stain - Final Blood Blood Culture - Final Coagulase Negative Staph 03/05/19 16:31 Blood Culture - Preliminary Blood No Growth after 48 hours Assessment and Plan Plan: Acute hypoxic and hypercapnic respiratory failure secondary to pneumonia and COPD exacerbation patient is insistent steroids inhalational treatments is on Rocephin and azithromycin which will be continued. She is sitting a wheelchair feeling much better today Acute right lower lobe pneumonia with right pleural effusion COPD/asthma with acute exacerbation -Carotid artery disease Diabetes mellitus2 Hyperlipidemia Hypertension Hypothyroidism
[2019-03-08] MEDS: SODIUM CHLORIDE 0.9% 1,000 ML IV SCH (17:21)
[2019-03-08 17:22] LABS: Glucose,Whole Blood 218 mg/dL (75-99)
[2019-03-08 21:07] LABS: Glucose,Whole Blood 142 mg/dL (75-99)
[2019-03-08] MEDS: INSULIN DETEMIR (LEVEMIR) 100 UNIT/ML SYR SQ SCH (21:08)
[2019-03-09 07:28] LABS: Glucose,Whole Blood 101 mg/dL (75-99)
[2019-03-09] MEDS: IPRATROPIUM-ALBUTEROL 3 ML NEB INHALATION SCH ×4 (07:42→21:26)
[2019-03-09] MEDS: BUDESONIDE 1 MG/2 ML NEBU INHALATION SCH ×2 (07:42→21:31)
[2019-03-09] MEDS: FORMOTEROL FUMARATE 20 MCG/2 ML NEBU INHALATION SCH ×2 (07:42→21:30)
[2019-03-09 07:48] LABS: HCT 35.3 % (34.0-46.0); HGB 11.5 gm/dL (11.4-16.0); MCH 28.7 pg (25.0-35.0); MCHC 32.6 g/dL (31.0-37.0); Mean Platelet Volume 8.1; Platelet Count 124 k/uL (150-450); RBC 4.01 m/uL (3.80-5.40); RDW 14.6 % (11.5-15.5); WBC 8.5 k/uL (3.8-10.6)
[2019-03-09 08:04] LABS: African American GFR (CKD) >90 (>60 ml/min/1.73 sqM); Anion Gap 5 mmol/L; Blood Urea Nitrogen 22 mg/dL (7-17); Calcium 8.3 mg/dL (8.4-10.2); Carbon Dioxide 22 mmol/L (22-30); Chloride 111 mmol/L (98-107); Glucose 116 mg/dL (74-99); Potassium 4.1 mmol/L (3.5-5.1); Sodium 138 mmol/L (137-145)
[2019-03-09] MEDS: INSULIN ASPART (NovoLOG) 100 UNIT/ML VIAL SQ SCH ×4 (08:04→21:24)
[2019-03-09] MEDS: LEVOTHYROXINE 50 MCG TAB PO SCH (08:06)
--- NOTE | 2019-03-09 09:03 | P.PN ---
Subjective Progress Note Date: 03/09/19 His evaluation of 03/09/2019 patient is awake and alert. No signs of any significant respiratory distress. She is still on 4 L of oxygen by nasal cannula. She was able to sit up on a chair. No significant cough or sputum production. The bronchoscopy was done and the lavage was negative for any abiodun robial growth. The patient remains on examination of Rocephin and Zithromax. I took her off the IV Solu Medrol start her on a prednisone burst taper as of yesterday. Her blood culture was positive for coagulase-negative staph which was probably contaminant. She is using incentive spirometer. No fever. No chills. She was weaned down to 2 L of oxygen by nasal cannula for now. The art line catheter was discontinued yesterday. Able to walk only short distances. She is still weak. No cough. No sputum production. No chest pain. Altered mentation. Objective - Vital Signs Vital signs: Vital Signs Temp 97.8 F 03/09/19 05:00 Pulse 71 03/09/19 08:08 Resp 14 03/09/19 07:00 BP 162/80 03/09/19 07:00 Pulse Ox 96 03/09/19 07:00 Intake & Output 03/08/19 03/09/19 03/09/19 18:59 06:59 18:59 Intake Total 630 580 40 Output Total 735 785 75 Balance -105 -205 -35 Weight 74 kg Intake: IV 630 480 40 0.9 NACL 480 480 40 Potassium Chloride 10 meq 100 cefTRIAXone 1 gm In 50 Sodium Chloride 0.9% 50 ml @ 100 mls/hr IVPB Q24HR [facility] Rx#:[id number] Oral 100 Output: Urine 735 785 75 Other: Voiding Method Indwelling Catheter Indwelling Catheter ABP, PAP, CO, CI - Last Documented Arterial Blood Pressure 147/62 - Exam Gen. appearance, comfortable following commands and answering questions on 2 L of oxygen by nasal cannula with a pulse oximetry 96% Head exam was generally normal. There was no scleral icterus or corneal arcus. Mucous membranes were moist. Neck was supple and without jugular venous distension, thyromegaly, or carotid bruits. Carotids were easily palpable bilaterally. There was no adenopathy. Lungs sounds are diminished bilaterally along with crackles in lung bases. No wheezes or rhonchi. She is pulling approximately 1200 on his incentive spirometer. Cardiac exam revealed the PMI to be normally situated and sized. The rhythm was regular and no extrasystoles were noted during several minutes of auscultation. The first and second heart sounds were normal and physiologic splitting of the second heart sound was noted. There were no murmurs, rubs, clicks, or gallops. Abdominal exam revealed normal bowel sounds. The abdomen was soft, non-tender, and without masses, organomegaly, or appreciable enlargement of the abdominal aorta. Examination of the extremities revealed easily palpable radial, femoral and pedal pulses. There was no cyanosis, clubbing or edema. Examination of the skin revealed no evidence of significant rashes, suspicious appearing nevi or other concerning lesions. Neurologically awake and alert and there is no focal neurological deficits. - Labs CBC & Chem 7: 03/08/19 04:15 03/08/19 04:15 Labs: Abnormal Lab Results - Last 24 Hours (Table) 03/08/19 03/08/19 03/08/19 Range/Units 12:11 17:10 20:55 POC Glucose (mg/dL) 219 H 218 H 142 H (75-99) mg/dL 03/09/19 Range/Units 07:17 POC Glucose (mg/dL) 101 H (75-99) mg/dL Microbiology - Last 24 Hours (Table) 03/05/19 16:31 Blood Culture - Preliminary Blood No Growth after 72 hours 03/05/19 10:05 Blood Culture - Preliminary Blood No Growth after 72 hours 03/05/19 16:31 Blood Culture Gram Stain - Final Blood Blood Culture - Final Coagulase Negative Staph Assessment and Plan Plan: 1 acute hypoxic respiratory failure secondary to bilateral lower lobe pneumonia. Patient was extubated yesterday and currently she is on 2liters by nasal cannula. Chest x-ray shows some limited infiltration of the lung bases and the patient is still on a combination of Rocephin and Zithromax. Left culture from 03/05/2019 is positive for coagulase-negative staph, contaminant. The BAL collected earlier showed no evidence of any microbial growth. He was extubated without any major difficulties. The patient has no signs of any significant respiratory distress. 2 small bilateral pleural effusion 3 coronary artery disease with previous myocardial infarction 4 diabetes mellitus type 2 5 hyperlipidemia 6 hypertension 7 hypothyroidism 8 migraine 9 non-anion gap metabolic acidosis, improved and the serum bicarbonate is up to 22. Plan Using the DuoNeb nebulized treatments around the clock. Continue the Perforomist and Pulmicort overestimates twice a day. It is on burst taper starting with 30 mg. Lantus insulin for blood sugar control in addition to a size. Coverage. Continue using incentive spirometer. Physical therapy. I think it is been removed. Increase mobility. She is off pressors and she is in sinus rhythm. We'll continue to follow.
[2019-03-09] MEDS: HEPARIN SODIUM,PORCINE 5,000 UNIT/ML 1 ML VIAL SQ SCH ×2 (09:04→15:52)
[2019-03-09] MEDS: AZITHROMYCIN 500 MG TAB PO SCH (09:04)
[2019-03-09] MEDS: PANTOPRAZOLE 40 MG TABLET PO SCH (09:04)
[2019-03-09] MEDS: predniSONE 10 MG TAB PO SCH (09:05)
[2019-03-09 12:17] LABS: Glucose,Whole Blood 161 mg/dL (75-99)
--- NOTE | 2019-03-09 13:03 | CDI ---
Documentation Clarification Form Date: 03/09/2019 12:53:57 PM From: Natalia CondonPatelJEANINE prakash, CCDS Admit Date: 03/05/2019 11:43:00 AM Patient Name: Beatriz Pro Visit Number: [id number] Discharge Date: ATTENTION: The Clinical Documentation Specialists (CDI) and [facility] Coding Staff appreciate your assistance in clarifying documentation. Please respond to the clarification below the line at the bottom and electronically sign. The CDI & [facility] Coding staff will review the response and follow-up if needed. Please note: Queries are made part of the Legal Health Record. If you have any questions, please contact the author of this message via ITS. Dr. Jose Wolfe: Per the documentation, the patient is diagnosed with bilateral lower lobe pneumonia. History/Risk Factors: COPD, Asthma, CAD, DM, Hyperlipidemia, Hypertension, Hypothyroidism. Clinical Indicators: Presented with worsening respiratory distress, intubated in ED. Vital signs: T 98.1, P 98, R 24 - 28 (sob, labored, accessory muscle use, shallow), BP 160/94^, PO 84 ra - 88 nrb - 78 nrb 15% - intubated on 03/05, extubated on 03/07. LAB: CO2 21*, BUN 21^, Gluc 164^. Blood gas 03/05: pH 7.18, pCO2 59^, pO2 >400, O2 sat 99.8. Blood cx 03/05: final: coagulase negative staph. Fungal cx from bronchoscopy pending final. CXR: New RLL infiltrate w/concomitant effusion. Treatment: INH Albuterol, IV Solumedrol, IV Rocephin, IV Dilaudid, IV Azithromycin, IV MagSulfate. In order to capture the severity of condition, please clarify if the condition signifies and you are treating for: Bacterial Pneumonia, specify causal organism (if known) Viral Pneumonia, specify casual organism (if known) Ventilator Associated Pneumonia Healthcare Acquired Pneumonia/Pneumonia, unspecified Other, please specify Unable to determine (Last Revision: August 2017) Appropriate documentation was already dictated in progress note and this query is not necessarily MTDD
--- NOTE | 2019-03-09 14:47 | P.PN ---
Subjective 78 yo F with past medical history of COPD, and asthma, coronary artery disease, diabetes mellitus, hyperlipidemia, hypertension, hypothyroidism. Patient presents with worsening respiratory distress and he got intubated in the emergency room. Patient could not provide information was obtained from the medical staff and records. Patient is slightly tachycardic at 101, blood pressure 136/58, he is saturating 98% currently while he is on mechanical ventilation, lap showing normal CBC and d-dimer, ABG showing pH of 7.3 with CO2 of 42 and pO2 60. BMP and liver enzymes are within normal limits. Chest x-ray showing Right lower lobe infiltrates with pleural effusion. EKG showing normal sinus rhythm at [address]- T changes 03/06/2019 Patient remains in the ICU intubated and sedated. She is on mechanical ventilation with PEEP of 5 and FiO2 of 40%, however the vent management is through the pulmonary/critical care team R following the case closely. She saturating 97% blood pressure of 106/44. Heart rate 68. Respiratory rate 22. Repeat labs showing stable CBC. Blood gases reasonable with pH of 7.35 which is within normal and pCO2 33 and pCO2 of 146. Fluid was at the skin back as an detected. She remains on antibiotics of Zithromax and ceftriaxone and Solu- Medrol. 03/07/2019 Patient is in the ICU intubated and sedated. This morning she remains on mechanical ventilation with FiO2 of 40% and PEEP of 5. Vitals are stable. Lap showing WBC of 11.5 K, ABG showing pH of 7.3 which is within normal limits and pCO2 of 34 and pO2 of 132 which is acceptable. Sodium 138, creatinine 0.4. Sugar is controlled. Ulnar/critical care team R following the case closely. She remains on Zithromax and ceftriaxone as well as Solu-Medrol, however yesterday intravenous vancomycin was added to her antibiotic regimens. Repeat chest x-ray from today showing bilateral consolidation or pleural effusion suggesting CHF versus pneumonia with pleural fluid and consolidation appears slightly increased. 03/08/2019 Patient is extubated clinically doing well but does have minimal expiratory wheeze and rhonchus breath sounds. Patient is feeling much better today. 03/09/2019 Patient is clinically doing well today. Patient probably can be discharged to a regular floor patient the wheezing and and rhonchi improved Constitutional: Denied any fatigue denied any fever. Cardio vascular: denied any chest pain, palpitations Gastrointestinal denied any nausea vomiting Pulmonary: Denied any shortness of breath cough Neurologic denied any new focal deficits All inpatient medications were reviewed and appropriate changes in these medications as dictated in the interval history and assessment and plan. Objective - Vital Signs Vital signs: Vital Signs Temp 98.4 F 03/09/19 12:00 Pulse 80 03/09/19 14:00 Resp 18 03/09/19 14:00 BP 127/74 03/09/19 14:00 Pulse Ox 96 03/09/19 14:00 Intake & Output 03/08/19 03/09/19 03/09/19 18:59 06:59 18:59 Intake Total 630 580 370 Output Total 735 785 950 Balance -105 -205 -580 Weight 74 kg 78 kg Intake: IV 630 480 370 0.9 NACL 480 480 320 Potassium Chloride 10 meq 100 cefTRIAXone 1 gm In 50 50 Sodium Chloride 0.9% 50 ml @ 100 mls/hr IVPB Q24HR [facility] Rx#:[id number] Oral 100 Output: Urine 735 785 950 Other: Voiding Method Indwelling Catheter Indwelling Catheter Indwelling Catheter ABP, PAP, CO, CI - Last Documented Arterial Blood Pressure 147/62 - Exam PHYSICAL EXAMINATION: GENERAL: The patient is alert and oriented x3, not in any acute distress. Well developed, well nourished. HEENT: Pupils are round and equally reacting to light. EOMI. No scleral icterus. No conjunctival pallor. Normocephalic, atraumatic. No pharyngeal erythema. No thyromegaly. CARDIOVASCULAR: S1 and S2 present. No murmurs, rubs, or gallops. PULMONARY: Very minimal expiratory wheezing no rhonchi ABDOMEN: Soft, nontender, nondistended, normoactive bowel sounds. No palpable organomegaly. MUSCULOSKELETAL: No joint swelling or deformity. EXTREMITIES: No cyanosis, clubbing, or pedal edema. NEUROLOGICAL: Gross neurological examination did not reveal any focal deficits. SKIN: No rashes. - Labs CBC & Chem 7: 03/09/19 04:35 03/09/19 04:35 Labs: Abnormal Lab Results - Last 24 Hours (Table) 03/08/19 03/08/19 03/09/19 Range/Units 17:10 20:55 04:35 Plt Count 124 L (150-450) k/uL Chloride (98-107) mmol/L BUN (7-17) mg/dL Creatinine (0.52-1.04) mg/dL Glucose (74-99) mg/dL POC Glucose (mg/dL) 218 H 142 H (75-99) mg/dL Calcium (8.4-10.2) mg/dL 03/09/19 03/09/19 03/09/19 Range/Units 04:35 07:17 12:05 Plt Count (150-450) k/uL Chloride 111 H (98-107) mmol/L BUN 22 H (7-17) mg/dL Creatinine 0.46 L (0.52-1.04) mg/dL Glucose 116 H (74-99) mg/dL POC Glucose (mg/dL) 101 H 161 H (75-99) mg/dL Calcium 8.3 L (8.4-10.2) mg/dL Microbiology - Last 24 Hours (Table) 03/05/19 10:05 Blood Culture - Preliminary Blood No Growth after 96 hours 03/05/19 16:31 Blood Culture - Preliminary Blood No Growth after 72 hours Assessment and Plan Plan: Acute hypoxic and hypercapnic respiratory failure secondary to pneumonia and COPD exacerbation patient is insistent steroids inhalational treatments is on Rocephin and azithromycin which will be continued. She is sitting a wheelchair feeling much better today Acute right lower lobe pneumonia with right pleural effusion COPD/asthma with acute exacerbation -Carotid artery disease Diabetes mellitus2 Hyperlipidemia Hypertension Hypothyroidism
[2019-03-09] MEDS: SODIUM CHLORIDE 0.9% 1,000 ML IV SCH (17:12)
[2019-03-09 17:21] LABS: Glucose,Whole Blood 214 mg/dL (75-99)
[2019-03-09] MEDS: INSULIN DETEMIR (LEVEMIR) 100 UNIT/ML SYR SQ SCH (21:23)
[2019-03-09 21:26] LABS: Glucose,Whole Blood 174 mg/dL (75-99)
[2019-03-10] MEDS: HEPARIN SODIUM,PORCINE 5,000 UNIT/ML 1 ML VIAL SQ SCH ×4 (00:34→23:54)
[2019-03-10 04:34] LABS: Basophils % (A) 1 %; Eosinophils # (A) 0.1 k/uL (0-0.7); Eosinophils % (A) 1 %; HCT 36.2 % (34.0-46.0); Lymphocytes # (A) 2.1 k/uL (1.0-4.8); Lymphocytes % (A) 25 %; MCH 26.3 pg (25.0-35.0); MCHC 30.4 g/dL (31.0-37.0); MCV 86.5 fL (80.0-100.0); Mean Platelet Volume 7.4; Monocytes # (A) 0.6 k/uL (0-1.0); Monocytes % (A) 7 %; Neutrophils # (A) 5.6 k/uL (1.3-7.7); Neutrophils % (A) 66 %; Platelet Count 144 k/uL (150-450); RBC 4.19 m/uL (3.80-5.40); RDW 14.3 % (11.5-15.5); WBC 8.5 k/uL (3.8-10.6)
[2019-03-10 05:07] LABS: African American GFR (CKD) >90 (>60 ml/min/1.73 sqM); Anion Gap 5 mmol/L; Blood Urea Nitrogen 15 mg/dL (7-17); Calcium 8.2 mg/dL (8.4-10.2); Carbon Dioxide 25 mmol/L (22-30); Chloride 108 mmol/L (98-107); Glucose 105 mg/dL (74-99); Potassium 3.6 mmol/L (3.5-5.1); Sodium 138 mmol/L (137-145)
[2019-03-10] MEDS: INSULIN ASPART (NovoLOG) 100 UNIT/ML VIAL SQ SCH ×4 (06:19→20:35)
[2019-03-10] MEDS: POTASSIUM CHLORIDE ER 20 MEQ TAB.ER PO SCH ×2 (06:21→06:24)
[2019-03-10] MEDS: LEVOTHYROXINE 50 MCG TAB PO SCH (06:21)
[2019-03-10 06:31] LABS: Glucose,Whole Blood 93 mg/dL (75-99)
[2019-03-10] MEDS ORDERED: POTASSIUM BICARBONATE/CIT AC 20 MEQ TABLET.EFF NG-TUBE SCH (07:00)
[2019-03-10] MEDS: FORMOTEROL FUMARATE 20 MCG/2 ML NEBU INHALATION SCH ×2 (07:03→19:40)
[2019-03-10] MEDS: BUDESONIDE 1 MG/2 ML NEBU INHALATION SCH ×2 (07:03→19:40)
[2019-03-10] MEDS: IPRATROPIUM-ALBUTEROL 3 ML NEB INHALATION SCH ×4 (07:04→19:40)
[2019-03-10] MEDS: predniSONE 10 MG TAB PO SCH (08:37)
[2019-03-10] MEDS: AZITHROMYCIN 500 MG TAB PO SCH (08:37)
[2019-03-10] MEDS: PANTOPRAZOLE 40 MG TABLET PO SCH (08:37)
--- NOTE | 2019-03-10 09:37 | XR ---
EXAMINATION TYPE: XR chest 1V portable DATE OF EXAM: 03/10/2019 COMPARISON: 03/08/2019 HISTORY: Shortness of breath TECHNIQUE: Single frontal view of the chest is obtained. FINDINGS: Left-sided central line stable. ET and NG tube have been removed. Cardiomegaly, atheroscle rotic change aorta, diffuse hyperinflation suggests COPD. Stable bilateral infiltrate and pleural eff usion. Hypertrophic change of the spine. Arthropathy of the shoulders. No overt failure. IMPRESSION: Stable cardiomegaly, bilateral consolidation and pleural effusion with no overt failure.
[2019-03-10 11:41] LABS: Glucose,Whole Blood 120 mg/dL (75-99)
[2019-03-10 13:17] VITALS: BMI 33.5
--- NOTE | 2019-03-10 14:23 | P.PN ---
Subjective 78 yo F with past medical history of COPD, and asthma, coronary artery disease, diabetes mellitus, hyperlipidemia, hypertension, hypothyroidism. Patient presents with worsening respiratory distress and he got intubated in the emergency room. Patient could not provide information was obtained from the medical staff and records. Patient is slightly tachycardic at 101, blood pressure 136/58, he is saturating 98% currently while he is on mechanical ventilation, lap showing normal CBC and d-dimer, ABG showing pH of 7.3 with CO2 of 42 and pO2 60. BMP and liver enzymes are within normal limits. Chest x-ray showing Right lower lobe infiltrates with pleural effusion. EKG showing normal sinus rhythm at [address]- T changes 03/06/2019 Patient remains in the ICU intubated and sedated. She is on mechanical ventilation with PEEP of 5 and FiO2 of 40%, however the vent management is through the pulmonary/critical care team R following the case closely. She saturating 97% blood pressure of 106/44. Heart rate 68. Respiratory rate 22. Repeat labs showing stable CBC. Blood gases reasonable with pH of 7.35 which is within normal and pCO2 33 and pCO2 of 146. Fluid was at the skin back as an detected. She remains on antibiotics of Zithromax and ceftriaxone and Solu- Medrol. 03/07/2019 Patient is in the ICU intubated and sedated. This morning she remains on mechanical ventilation with FiO2 of 40% and PEEP of 5. Vitals are stable. Lap showing WBC of 11.5 K, ABG showing pH of 7.3 which is within normal limits and pCO2 of 34 and pO2 of 132 which is acceptable. Sodium 138, creatinine 0.4. Sugar is controlled. Ulnar/critical care team R following the case closely. She remains on Zithromax and ceftriaxone as well as Solu-Medrol, however yesterday intravenous vancomycin was added to her antibiotic regimens. Repeat chest x-ray from today showing bilateral consolidation or pleural effusion suggesting CHF versus pneumonia with pleural fluid and consolidation appears slightly increased. 03/08/2019 Patient is extubated clinically doing well but does have minimal expiratory wheeze and rhonchus breath sounds. Patient is feeling much better today. 03/09/2019 Patient is clinically doing well today. Patient probably can be discharged to a regular floor patient the wheezing and and rhonchi improved 03/10/2019 Patient is doing well today and will be transferred out of ICU. Patient probably can be discharged tomorrow Constitutional: Denied any fatigue denied any fever. Cardio vascular: denied any chest pain, palpitations Gastrointestinal denied any nausea vomiting Pulmonary: Denied any shortness of breath cough Neurologic denied any new focal deficits All inpatient medications were reviewed and appropriate changes in these medications as dictated in the interval history and assessment and plan. Objective - Vital Signs Vital signs: Vital Signs Temp 98.4 F 03/10/19 08:00 Pulse 74 03/10/19 12:00 Resp 17 03/10/19 12:00 BP 148/84 03/10/19 12:00 Pulse Ox 96 03/10/19 12:00 Intake & Output 03/09/19 03/10/19 03/10/19 18:59 06:59 18:59 Intake Total 530 480 760 Output Total 1350 2490 1005 Balance -820 -2010 -245 Weight 78 kg 78 kg Intake: IV 530 480 40 0.9 NACL 480 480 40 cefTRIAXone 1 gm In 50 Sodium Chloride 0.9% 50 ml @ 100 mls/hr IVPB Q24HR [facility] Rx#:[id number] Intake, IV Titration 240 Amount Sodium Chloride 0.9% 1, 240 000 ml @ 40 mls/hr IV . Q24H [facility] Rx#:[id number] Oral 480 Output: Urine 1350 2490 1005 Other: Voiding Method Indwelling Catheter Indwelling Catheter Indwelling Catheter ABP, PAP, CO, CI - Last Documented Arterial Blood Pressure 147/62 - Exam PHYSICAL EXAMINATION: GENERAL: The patient is alert and oriented x3, not in any acute distress. Well developed, well nourished. HEENT: Pupils are round and equally reacting to light. EOMI. No scleral icterus. No conjunctival pallor. Normocephalic, atraumatic. No pharyngeal erythema. No thyromegaly. CARDIOVASCULAR: S1 and S2 present. No murmurs, rubs, or gallops. PULMONARY: Very minimal expiratory wheezing no rhonchi ABDOMEN: Soft, nontender, nondistended, normoactive bowel sounds. No palpable organomegaly. MUSCULOSKELETAL: No joint swelling or deformity. EXTREMITIES: No cyanosis, clubbing, or pedal edema. NEUROLOGICAL: Gross neurological examination did not reveal any focal deficits. SKIN: No rashes. - Labs CBC & Chem 7: 03/10/19 04:10 03/10/19 04:10 Labs: Abnormal Lab Results - Last 24 Hours (Table) 03/09/19 03/09/19 03/10/19 Range/Units 17:10 21:15 04:10 Hgb 11.0 L (11.4-16.0) gm/dL MCHC 30.4 L (31.0-37.0) g/dL Plt Count 144 L (150-450) k/uL Chloride (98-107) mmol/L Creatinine (0.52-1.04) mg/dL Glucose (74-99) mg/dL POC Glucose (mg/dL) 214 H 174 H (75-99) mg/dL Calcium (8.4-10.2) mg/dL 03/10/19 03/10/19 Range/Units 04:10 11:30 Hgb (11.4-16.0) gm/dL MCHC (31.0-37.0) g/dL Plt Count (150-450) k/uL Chloride 108 H (98-107) mmol/L Creatinine 0.47 L (0.52-1.04) mg/dL Glucose 105 H (74-99) mg/dL POC Glucose (mg/dL) 120 H (75-99) mg/dL Calcium 8.2 L (8.4-10.2) mg/dL Microbiology - Last 24 Hours (Table) 03/05/19 10:05 Blood Culture - Preliminary Blood No Growth after 120 hours 03/05/19 16:31 Blood Culture - Preliminary Blood No Growth after 96 hours Assessment and Plan Plan: Acute hypoxic and hypercapnic respiratory failure secondary to pneumonia and COPD exacerbation patient is insistent steroids inhalational treatments is on Rocephin and azithromycin which will be continued. Patient probably can be discharged tomorrow will be transferred out of ICU Acute right lower lobe pneumonia with right pleural effusion COPD/asthma with acute exacerbation -Carotid artery disease Diabetes mellitus2 Hyperlipidemia Hypertension Hypothyroidism
--- NOTE | 2019-03-10 15:32 | P.PN ---
Subjective Progress Note Date: 03/10/19 On today's evaluation of 03/10/2019, patient is doing well. Currently on 2 L of oxygen by nasal cannula. Chest x-ray showing some atelectatic changes and small effusion the lung bases. Still on a combination of Rocephin and Zithromax and the patient is completing a prednisone burst taper. She is still on her bronchodilators. She underwent an approximate [id number]. She is also on examination Perforomist and Pulmicort neb last treatment twice a day. IV fluids are down to 40 mL an hour. Triple lumen catheter was to be removed today. I think at that is audible removed. No altered mentation. Tolerating her diet. Cultures remain negative. Objective - Vital Signs Vital signs: Vital Signs Temp 98.4 F 03/10/19 08:00 Pulse 74 03/10/19 12:00 Resp 17 03/10/19 12:00 BP 148/84 03/10/19 12:00 Pulse Ox 96 03/10/19 12:00 Intake & Output 03/09/19 03/10/19 03/10/19 18:59 06:59 18:59 Intake Total 530 480 840 Output Total 1350 2490 1355 Balance -820 -2010 -515 Weight 78 kg 78 kg Intake: IV 530 480 40 0.9 NACL 480 480 40 cefTRIAXone 1 gm In 50 Sodium Chloride 0.9% 50 ml @ 100 mls/hr IVPB Q24HR [facility] Rx#:[id number] Intake, IV Titration 320 Amount Sodium Chloride 0.9% 1, 320 000 ml @ 40 mls/hr IV . Q24H [facility] Rx#:[id number] Oral 480 Output: Urine 1350 2490 1355 Other: Voiding Method Indwelling Catheter Indwelling Catheter Indwelling Catheter ABP, PAP, CO, CI - Last Documented Arterial Blood Pressure 147/62 - Exam Gen. appearance, comfortable following commands and answering questions on 2 L of oxygen by nasal cannula with a pulse oximetry 96% Head exam was generally normal. There was no scleral icterus or corneal arcus. Mucous membranes were moist. Neck was supple and without jugular venous distension, thyromegaly, or carotid bruits. Carotids were easily palpable bilaterally. There was no adenopathy. Lungs sounds are diminished bilaterally along with crackles in lung bases. No wheezes or rhonchi. She is pulling approximately 1200 on his incentive spirometer. Cardiac exam revealed the PMI to be normally situated and sized. The rhythm was regular and no extrasystoles were noted during several minutes of auscultation. The first and second heart sounds were normal and physiologic splitting of the second heart sound was noted. There were no murmurs, rubs, clicks, or gallops. Abdominal exam revealed normal bowel sounds. The abdomen was soft, non-tender, and without masses, organomegaly, or appreciable enlargement of the abdominal aorta. Examination of the extremities revealed easily palpable radial, femoral and pedal pulses. There was no cyanosis, clubbing or edema. Examination of the skin revealed no evidence of significant rashes, suspicious appearing nevi or other concerning lesions. Neurologically awake and alert and there is no focal neurological deficits. - Labs CBC & Chem 7: 03/10/19 04:10 03/10/19 04:10 Labs: Abnormal Lab Results - Last 24 Hours (Table) 03/09/19 03/09/19 03/10/19 Range/Units 17:10 21:15 04:10 Hgb 11.0 L (11.4-16.0) gm/dL MCHC 30.4 L (31.0-37.0) g/dL Plt Count 144 L (150-450) k/uL Chloride (98-107) mmol/L Creatinine (0.52-1.04) mg/dL Glucose (74-99) mg/dL POC Glucose (mg/dL) 214 H 174 H (75-99) mg/dL Calcium (8.4-10.2) mg/dL 03/10/19 03/10/19 Range/Units 04:10 11:30 Hgb (11.4-16.0) gm/dL MCHC (31.0-37.0) g/dL Plt Count (150-450) k/uL Chloride 108 H (98-107) mmol/L Creatinine 0.47 L (0.52-1.04) mg/dL Glucose 105 H (74-99) mg/dL POC Glucose (mg/dL) 120 H (75-99) mg/dL Calcium 8.2 L (8.4-10.2) mg/dL Microbiology - Last 24 Hours (Table) 03/05/19 10:05 Blood Culture - Preliminary Blood No Growth after 120 hours 03/05/19 16:31 Blood Culture - Preliminary Blood No Growth after 96 hours Assessment and Plan Plan: 1 acute hypoxic respiratory failure secondary to bilateral lower lobe pneumonia. Patient is post respiratory failure requiring intubation mechanical ventilation on improved and the patient is currently on 2 L of oxygen by nasal cannula. 2 small bilateral pleural effusion 3 coronary artery disease with previous myocardial infarction 4 diabetes mellitus type 2 5 hyperlipidemia 6 hypertension 7 hypothyroidism 8 migraine 9 non-anion gap metabolic acidosis, recovered 10 COPD/asthma Plan Increase activity. Ambulate in the hallway. Chest and out of the intensive care unit. Possible discharge in a.m. Complete a prednisone burst taper. Completed the course of antibiotics. Has home O2. Has home nebulizer. Maintain a combination of Advair and Singulair on outpatient basis for COPD/ asthma
[2019-03-10 17:13] LABS: Glucose,Whole Blood 194 mg/dL (75-99)
[2019-03-10] MEDS: SODIUM CHLORIDE 0.9% 1,000 ML IV SCH (17:26)
[2019-03-10] MEDS: INSULIN DETEMIR (LEVEMIR) 100 UNIT/ML SYR SQ SCH (20:35)
[2019-03-10 20:45] LABS: Glucose,Whole Blood 221 mg/dL (75-99)
[2019-03-11] MEDS: LEVOTHYROXINE 50 MCG TAB PO SCH (06:06)
[2019-03-11 07:02] LABS: Glucose,Whole Blood 68 mg/dL (75-99)
[2019-03-11] MEDS: INSULIN ASPART (NovoLOG) 100 UNIT/ML VIAL SQ SCH ×4 (07:19→20:28)
[2019-03-11 07:39] LABS: Glucose,Whole Blood 75 mg/dL (75-99)
[2019-03-11] MEDS: PANTOPRAZOLE 40 MG TABLET PO SCH (07:46)
[2019-03-11] MEDS: HEPARIN SODIUM,PORCINE 5,000 UNIT/ML 1 ML VIAL SQ SCH ×3 (07:46→23:06)
[2019-03-11] MEDS: predniSONE 10 MG TAB PO SCH (07:46)
[2019-03-11] MEDS: AZITHROMYCIN 500 MG TAB PO SCH (07:46)
[2019-03-11] MEDS: BUDESONIDE 1 MG/2 ML NEBU INHALATION SCH ×2 (08:12→19:09)
[2019-03-11] MEDS: FORMOTEROL FUMARATE 20 MCG/2 ML NEBU INHALATION SCH ×2 (08:12→19:09)
[2019-03-11] MEDS: IPRATROPIUM-ALBUTEROL 3 ML NEB INHALATION SCH ×4 (08:12→19:09)
[2019-03-11 12:17] LABS: Glucose,Whole Blood 290 mg/dL (75-99)
[2019-03-11 12:21] LABS: HCT 38.3 % (34.0-46.0); HGB 13.1 gm/dL (11.4-16.0); MCH 29.8 pg (25.0-35.0); MCHC 34.3 g/dL (31.0-37.0); MCV 86.9 fL (80.0-100.0); Mean Platelet Volume 7.1; Platelet Count 162 k/uL (150-450); RBC 4.41 m/uL (3.80-5.40); RDW 14.2 % (11.5-15.5)
[2019-03-11 12:45] LABS: African American GFR (CKD) >90 (>60 ml/min/1.73 sqM); Anion Gap 11 mmol/L; Blood Urea Nitrogen 17 mg/dL (7-17); Calcium 9.1 mg/dL (8.4-10.2); Carbon Dioxide 21 mmol/L (22-30); Chloride 106 mmol/L (98-107); Glucose 258 mg/dL (74-99); Potassium 4.2 mmol/L (3.5-5.1); Sodium 138 mmol/L (137-145)
--- NOTE | 2019-03-11 12:53 | CDI ---
Documentation Clarification Form Date: 03/11/2019 12:43:24 PM From: Natalia CondonPatelJEANINE, CCDS Admit Date: 03/05/2019 11:43:00 AM Patient Name: Beatriz Pro Visit Number: [id number] Discharge Date: ATTENTION: The Clinical Documentation Specialists (CDI) and [facility] Coding Staff appreciate your assistance in clarifying documentation. Please respond to the clarification below the line at the bottom and electronically sign. The CDI & [facility] Coding staff will review the response and follow-up if needed. Please note: Queries are made part of the Legal Health Record. If you have any questions, please contact the author of this message via ITS. Dr. Maynor Vance: Per the initial pulmonary/critical care consult on 03/05: " The patient more likely has asthma than COPD as she has never smoked or smoked minimally very remotely. She also apparently has a history of myocardial infarction 1 year ago." Per the subsequent pulmonary progress notes: "Acute right lower lobe pneumonia with right pleural effusion COPD/asthma with acute exacerbation.: History/risk factors: COPD, Chronic bronchial asthma, Former smoker, CAD, DM, Hyperlipidemia, Hypertension, Hypothyroidism. Clinical Indicators: Presented with worsening respiratory distress, intubated in EC, admitted to ICU with exacerbation of COPD/Asthma nos & acute hypoxic & hypercapnic respiratory failure. Radiology: 03/05 CXR: RLL infiltrate with bilateral pleural effusions. Vital Signs: R 24 - 28 (sob, labored, accessory use & shallow), BP 160/94, PO 84 RA - 88 nrb - intubated. Treatment: INH Albuterol, IV Rocephin, IV Solumedrol, IV Dilaudid, IV Azithromycin, IV Vancomycin, IV Kcl, IV Rocephin & IV Zithromax. Intubatio & admission to ICU. In your professional opinion, can you please further specify the following, if known? With o Acute Exacerbation o Status asthmaticus o Chronic obstructive bronchitis o Other, please specify ___ o Unable to determine Severity o Mild intermittent o Mild persistent o Moderate persistent o Severe persistent o Other, please specify ____ o Unable to determine Form or Type o Cough variant o Childhood o Exercise induced bronchospasm o Extrinsic allergic o Idiosyncratic o Intrinsic nonallergic o Late-onset o Mixed o Other, please specify____ o Unable to determine (Last Revision: August 2017) severe persistant asthma MTDD
--- NOTE | 2019-03-11 15:07 | P.PN ---
Subjective Progress Note Date: 03/11/19 Principal diagnosis: Acute hypoxic respiratory failure secondary to bilateral lower lobe pneumonia On 03/11/2019 patient seen in follow-up on medical surgical floor. She is awak e and alert, in no acute distress. She states her breathing able, she hasn't ambulated in the hallway, and very well, cough, no congestion, no wheezing, 2 L of oxygen pulse ox of 97%, no fever or chills, bronchodilators cultures were positive for Mae and coagulase-negative staph. Patient has been treated with antibiotics, she is completed a course of Zithromax, she has also received some vancomycin, and Rocephin. Significantly improved, and she had been discharged home today Objective - Vital Signs Vital signs: Vital Signs Temp 98.1 F 03/11/19 05:33 Pulse 77 03/11/19 11:41 Resp 18 03/11/19 05:33 BP 154/81 03/11/19 05:33 Pulse Ox 99 03/11/19 05:33 Intake & Output 03/10/19 03/11/19 03/11/19 18:59 06:59 18:59 Intake Total 1320 120 Output Total 1855 100 Balance -535 20 Weight 78 kg 77.8 kg Intake: IV 40 0.9 NACL 40 Intake, IV Titration 440 120 Amount Sodium Chloride 0.9% 1, 440 120 000 ml @ 40 mls/hr IV . Q24H [facility] Rx#:[id number] Oral 840 Output: Urine 1855 100 Other: Voiding Method Indwelling Catheter Toilet Toilet # Voids 2 4 ABP, PAP, CO, CI - Last Documented Arterial Blood Pressure 147/62 - Exam GENERAL EXAM: Alert, pleasant, 78-year-old criselda female, on 2 L of oxygen with a pulse ox of 97% comfortable in no apparent distress. HEAD: Normocephalic/atraumatic. EYES: Normal reaction of pupils, equal size. Conjunctiva pink, sclera white. NOSE: Clear with pink turbinates. THROAT: No erythema or exudates. NECK: No masses, no JVD, no thyroid enlargement, no adenopathy. CHEST: No chest wall deformity. Symmetrical expansion. LUNGS: Equal air entry with no crackles, wheeze, rhonchi or dullness. CVS: Regular rate and rhythm, normal S1 and S2, no gallops, no murmurs, no rubs ABDOMEN: Soft, nontender. No hepatosplenomegaly, normal bowel sounds, no guarding or rigidity. EXTREMITIES: No clubbing, no edema, no cyanosis, 2+ pulses and upper and lower extremities. MUSCULOSKELETAL: Muscle strength and tone normal. SPINE: No scoliosis or deformity SKIN: No rashes CENTRAL NERVOUS SYSTEM: Alert and oriented -3. No focal deficits, tone is normal in all 4 extremities. PSYCHIATRIC: Alert and oriented -3. Appropriate affect. Intact judgment and insight. - Labs CBC & Chem 7: 03/11/19 11:48 03/11/19 11:48 Labs: Abnormal Lab Results - Last 24 Hours (Table) 03/10/19 03/10/19 03/11/19 Range/Units 17:01 20:22 06:58 WBC (3.8-10.6) k/uL Carbon Dioxide (22-30) mmol/L Creatinine (0.52-1.04) mg/dL Glucose (74-99) mg/dL POC Glucose (mg/dL) 194 H 221 H 68 L (75-99) mg/dL 03/11/19 03/11/19 03/11/19 Range/Units 11:48 11:48 12:14 WBC 11.0 H (3.8-10.6) k/uL Carbon Dioxide 21 L (22-30) mmol/L Creatinine 0.47 L (0.52-1.04) mg/dL Glucose 258 H (74-99) mg/dL POC Glucose (mg/dL) 290 H (75-99) mg/dL Microbiology - Last 24 Hours (Table) 03/05/19 10:05 Blood Culture - Final Blood No Growth after 144 hours 03/05/19 14:30 Fungal Culture - Preliminary Bronchial Washings - Right Mae albicans 03/05/19 16:31 Blood Culture - Preliminary Blood No Growth after 120 hours Assessment and Plan Plan: 1 acute hypoxic respiratory failure secondary to bilateral lower lobe pneumonia. Patient is post respiratory failure requiring intubation mechanical ventilation on improved and the patient is currently on 2 L of oxygen by nasal cannula. 2 small bilateral pleural effusion 3 coronary artery disease with previous myocardial infarction 4 diabetes mellitus type 2 5 hyperlipidemia 6 hypertension 7 hypothyroidism 8 migraine 9 non-anion gap metabolic acidosis, recovered 10 COPD/ moderate persistent asthma Plan: Patient continues to improve, tolerating ambulation, maintaining stable oxygenation on 2 L of oxygen, no fever or chills, no growth on the bronchial lavage cultures other than Mae and coagulase-negative staph, from pulmonary perspective she stable for discharge home today, on oral course of antibiotics, she can resume her maintenance nebulized treatments I performed a history & physical examination of the patient and discussed their management with my nurse practitioner, Gabby Jordan. I reviewed the nurse practitioner's note and agree with the documented findings and plan of care. Lung sounds are positive for diminished breath sounds. The findings and the impression was discussed with the patient. I attest to the documentation by the nurse practitioner. Time with Patient: Less than 30
--- NOTE | 2019-03-11 15:22 | PN ---
PROGRESS NOTE DATE OF SERVICE: 03/11/2019 This 78-year-old woman who was admitted with COPD, asthma, acute exacerbation, also had acute hypoxic respiratory failure. Patient was transferred to ICU. Patient is on broad- spectrum IV antibiotics. Dr. Vance is following the patient closely. No chest pain. No palpitations. No fever. On exam, alert and oriented x3. The pulse is 72, blood pressure 150/81, respiration 18, temperature 98.1, pulse ox 99% on 2 L. HEENT: Conjunctivae normal. NECK: No jugular venous distention. CARDIOVASCULAR SYSTEM: S1, S2 muffled. RESPIRATORY SYSTEM: Breath sounds diminished at the bases. Bilateral scattered rhonchi and crackles. Expiratory wheezing also present. ABDOMEN: Soft, non-tender. NERVOUS SYSTEM: No focal deficit. LABS: WBC 11, hemoglobin 13.1. Sodium 130, potassium 4.2. ASSESSMENT: 1. Chronic obstructive pulmonary disease, acute exacerbation, with acute hypoxic hypercarbic respiratory failure. 2. Acute right lower lobe pneumonia, possibly gram-negative, with right pleural effusion. 3. Chronic obstructive pulmonary disease, asthma, acute exacerbation. 4. History of carotid artery disease. 5. Diabetes mellitus, type 2. 6. Hyperlipidemia. 7. Hypertension. 8. Hypothyroidism. 9. Hard of hearing. 10.History of coronary artery disease, stent. 11.Remote history of nicotine dependence. RECOMMENDATIONS AND DISCUSSION: In this 78-year-old woman who presented with multiple complex medical issues, we will monitor the patient closely, continue the current medications, continue symptomatic treatment, continue the bronchodilators. Continue the antibiotics. Closely follow with Dr. Vance. Guarded prognosis. Further recommendations to follow. MMODL / IJN: [id number] /
[2019-03-11] MEDS: SODIUM CHLORIDE 0.9% 1,000 ML IV SCH (16:07)
[2019-03-11 17:00] LABS: Glucose,Whole Blood 140 mg/dL (75-99)
[2019-03-11 20:27] LABS: Glucose,Whole Blood 210 mg/dL (75-99)
[2019-03-11] MEDS: INSULIN DETEMIR (LEVEMIR) 100 UNIT/ML SYR SQ SCH (20:28)
[2019-03-11 23:40] VITALS: RESP 20
[2019-03-12 03:51] LABS: Glucose,Whole Blood 121 mg/dL (75-99)
[2019-03-12 04:58] VITALS: BP 146/76; TEMP 98.4
[2019-03-12] MEDS: LEVOTHYROXINE 50 MCG TAB PO SCH (05:35)
[2019-03-12 07:05] LABS: Glucose,Whole Blood 75 mg/dL (75-99)
[2019-03-12] MEDS: FORMOTEROL FUMARATE 20 MCG/2 ML NEBU INHALATION SCH (07:22)
[2019-03-12] MEDS: IPRATROPIUM-ALBUTEROL 3 ML NEB INHALATION SCH ×2 (07:22→10:55)
[2019-03-12] MEDS: BUDESONIDE 1 MG/2 ML NEBU INHALATION SCH (07:22)
[2019-03-12] MEDS: INSULIN ASPART (NovoLOG) 100 UNIT/ML VIAL SQ SCH (07:30)
[2019-03-12] MEDS: predniSONE 10 MG TAB PO SCH (07:47)
[2019-03-12] MEDS: HEPARIN SODIUM,PORCINE 5,000 UNIT/ML 1 ML VIAL SQ SCH (07:48)
[2019-03-12] MEDS: AZITHROMYCIN 500 MG TAB PO SCH (07:48)
[2019-03-12] MEDS: PANTOPRAZOLE 40 MG TABLET PO SCH (07:48)
[2019-03-12 08:07] LABS: Basophils % (A) 0 %; Eosinophils # (A) 0.3 k/uL (0-0.7); Eosinophils % (A) 3 %; HCT 38.8 % (34.0-46.0); HGB 12.8 gm/dL (11.4-16.0); Lymphocytes # (A) 2.9 k/uL (1.0-4.8); Lymphocytes % (A) 26 %; MCH 28.8 pg (25.0-35.0); MCV 87.3 fL (80.0-100.0); Mean Platelet Volume 7.6; Monocytes # (A) 0.6 k/uL (0-1.0); Monocytes % (A) 5 %; Neutrophils # (A) 7.3 k/uL (1.3-7.7); Neutrophils % (A) 64 %; Platelet Count 172 k/uL (150-450); RBC 4.44 m/uL (3.80-5.40); RDW 14.6 % (11.5-15.5); WBC 11.3 k/uL (3.8-10.6)
[2019-03-12 09:01] LABS: African American GFR (CKD) >90 (>60 ml/min/1.73 sqM); Anion Gap 9 mmol/L; Blood Urea Nitrogen 19 mg/dL (7-17); Calcium 9.2 mg/dL (8.4-10.2); Carbon Dioxide 27 mmol/L (22-30); Chloride 106 mmol/L (98-107); Glucose 86 mg/dL (74-99); Potassium 3.5 mmol/L (3.5-5.1); Sodium 142 mmol/L (137-145)
[2019-03-12 10:59] VITALS: PULSE 88
--- NOTE | 2019-03-12 20:17 | DS ---
DISCHARGE SUMMARY DATE OF SERVICE: 03/12/2019. FINAL DIAGNOSES: 1. Chronic obstructive pulmonary disease exacerbation with acute hypoxic respiratory failure, hypercarbic respiratory failure, improved. 2. Acute right lower lobe pneumonia possibly gram-negative with right pleural effusion. 3. Chronic obstructive pulmonary disease, asthma acute exacerbation. 4. History of coronary artery disease. 5. Diabetes mellitus type 2. 6. Hyperlipidemia. 7. Hypertension. 8. Hypothyroidism. 9. History of hard of hearing. 10.History of coronary artery disease/stent. 11.Remote history of nicotine dependence. DISCHARGE DISPOSITION: The patient will be discharged in stable condition with guarded prognosis. Total time taken: 35 minutes. HISTORY OF PRESENT ILLNESS: This 78-year-old woman with a past medical history of multiple medical problems including COPD, as well as pneumonia, hypoxic respiratory failure, treated with antibiotics, steroids, bronchodilators, improved significantly. On exam, vitals are stable. Cardio system: S1, S2 muffled. Respiratory: Few scattered rhonchi. ABDOMEN: Soft. NERVOUS SYSTEM: No focal deficits. The patient was seen by Dr. Vance and recommend the patient be discharge. The patient being followed by Dr. Akhtar in the outpatient setting. DISCHARGE ADVICE AND MEDICATIONS: 1. Discharge diet is cardiac diet. 2. Activity limited until follow up. 3. Followup with Dr. Akhtar in 1-2 days. 4. Follow up with Dr. Vance as recommended. DISCHARGE MEDICATIONS: 1. Advair 500/50 1 puff b.i.d. 2. Alendronate sodium 70 mg 7 days. 3. Glucophage 500 mg p.o. b.i.d. 4. Losartan 50 mg p.o. daily. 5. Multivitamins one p.o. daily. 6. Singulair 10 mg p.o. daily. 7. Synthroid 50 mcg p.o. daily. 8. Ventolin 2.5 t.i.d. 9. Aspirin 81 mg p.o. daily. 10.Ceftin 500 mg p.o. b.i.d. for 3 days. 11.DuoNeb q.i.d. 12.Lipitor 80 mg p.o. daily. 13.Lopressor 25 mg p.o. b.i.d. 14.Prednisone taper 40 mg daily for 3 days, 30 for 3 days, 20 for 3 days, 10 for 3 days. 15.Zithromax 500 mg daily for 5 days. Once again, the patient being discharged in stable condition with guarded prognosis. MMODL / IJN: [id number] /
== END 2019-03-12 11:59 | disposition home or self-care (01) | DRG 208 ==
LOC: EC 09:44 → 3SCARD 11:43 → 2SICU 13:18 → 4MS4W 03-10 22:13
PROVIDERS: ADMIT Internal Medicine; ATTEND Internal Medicine
PROC: 0BH17EZ Insertion of Endotracheal Airway into Trachea, Via Natural or Artificial Opening (ICD-10-PCS; principal; 2019-03-05)
PROC: 5A1945Z Respiratory Ventilation, 24-96 Consecutive Hours (ICD-10-PCS; 2019-03-05)
PROC: 02HV33Z Insertion of Infusion Device into Superior Vena Cava, Percutaneous Approach (ICD-10-PCS; 2019-03-05)
PROC: 03HY32Z Insertion of Monitoring Device into Upper Artery, Percutaneous Approach (ICD-10-PCS; 2019-03-05)
PROC: 4A133B1 Monitoring of Arterial Pressure, Peripheral, Percutaneous Approach (ICD-10-PCS; 2019-03-05)
PROC: 4A133J1 Monitoring of Arterial Pulse, Peripheral, Percutaneous Approach (ICD-10-PCS; 2019-03-05)
PROC: 0B9F8ZZ Drainage of Right Lower Lung Lobe, Via Natural or Artificial Opening Endoscopic (ICD-10-PCS; 2019-03-05)
PROC: 0B9C8ZZ Drainage of Right Upper Lung Lobe, Via Natural or Artificial Opening Endoscopic (ICD-10-PCS; 2019-03-05)
PROC: 0B9D8ZZ Drainage of Right Middle Lung Lobe, Via Natural or Artificial Opening Endoscopic (ICD-10-PCS; 2019-03-05)
DX: J96.22 Acute and chronic respiratory failure with hypercapnia (principal); J15.6 Pneumonia due to other Gram-negative bacteria; J44.0 Chronic obstructive pulmonary disease with (acute) lower respiratory infection; J44.1 Chronic obstructive pulmonary disease with (acute) exacerbation; J45.51 Severe persistent asthma with (acute) exacerbation; J91.8 Pleural effusion in other conditions classified elsewhere; J98.19 Other pulmonary collapse; E87.2 Acidosis; J96.21 Acute and chronic respiratory failure with hypoxia; Z99.81 Dependence on supplemental oxygen; Z87.891 Personal history of nicotine dependence; I25.2 Old myocardial infarction; I25.10 Atherosclerotic heart disease of native coronary artery without angina pectoris; I10 Essential (primary) hypertension; K21.9 Gastro-esophageal reflux disease without esophagitis; T17.990A Other foreign object in respiratory tract, part unspecified in causing asphyxiation, initial encounter; Z79.82 Long term (current) use of aspirin; Z79.84 Long term (current) use of oral hypoglycemic drugs; Z79.890 Hormone replacement therapy; Z79.899 Other long term (current) drug therapy; H91.90 Unspecified hearing loss, unspecified ear; E03.9 Hypothyroidism, unspecified; E11.9 Type 2 diabetes mellitus without complications; E78.5 Hyperlipidemia, unspecified; G43.909 Migraine, unspecified, not intractable, without status migrainosus; Z90.710 Acquired absence of both cervix and uterus; Z95.5 Presence of coronary angioplasty implant and graft; Z82.0 Family history of epilepsy and other diseases of the nervous system; Z84.2 Family history of other diseases of the genitourinary system; R00.0 Tachycardia, unspecified
CPT/HCPCS: 31500; 31624; 36415; 36600; 71045; 71046; 80048; 80053; 81003; 82533; 82550; 82805; 83735; 83880; 84100; 84484; 85025; 85027; 85379; 85610; 85730; 87040; 87070; 87102; 87116; 87205; 87206; 87252; 87496; 87498; 87502; 87529; 87634; 87798; 88108; 88305; 89050; 93005; 94002; 94003; 94640; 94660; 94760; 96365; 96366; 96368; 96375; 96376; 99291

== ENCOUNTER 2019-06-07 11:38 | Observation (INO) | payer MEDICARE ==
[2019-06-07] MEDS ORDERED: methylPREDNISolone SOD SUCCI 125 MG/2 ML VIAL IV STA (12:36)
[2019-06-07] MEDS ORDERED: IPRATROPIUM-ALBUTEROL 3 ML NEB INHALATION STA (12:36)
--- NOTE | 2019-06-07 12:38 | ED ---
General Adult HPI - General Chief complaint: Shortness of Breath Stated complaint: Congestion in lungs Time Seen by Provider: 06/07/19 12:32 Source: patient, family, RN notes reviewed Mode of arrival: wheelchair Limitations: no limitations - History of Present Illness Initial comments: Patient is a pleasant 78-year-old female presenting to the emergency Department with complaints of cough and congestion. Onset of symptoms was a couple of weeks ago. Patient has seen her doctor and placed on antibiotics without improvement of symptoms. Patient has green drainage from her cough and nasal. She does have COPD and some difficulty breathing. Cough is increased somewhat from normal. No fevers. No leg pain or leg swelling. - Related Data Home Medications Medication Instructions Recorded Confirmed Levothyroxine Sodium [Synthroid] 50 mcg PO DAILY 02/25/17 06/07/19 Montelukast [Singulair] 10 mg PO DAILY 05/02/18 06/07/19 metFORMIN HCL [Glucophage] 500 mg PO BID 05/02/18 06/07/19 Losartan Potassium 50 mg PO DAILY 10/07/18 06/07/19 Atorvastatin [Lipitor] 80 mg PO HS 06/07/19 06/07/19 Pantoprazole [Protonix] 40 mg PO DAILY 06/07/19 06/07/19 Previous Rx's Medication Instructions Recorded Aspirin 81 mg PO DAILY chew 07/29/16 Metoprolol Tartrate [Lopressor] 25 mg PO BID #60 tab 07/29/16 Allergies Allergy/AdvReac Type Severity Reaction Status Date / Time No Known Drug Allergies Allergy Unknown Verified 06/07/19 13:13 Review of Systems ROS Statement: Those systems with pertinent positive or pertinent negative responses have been documented in the HPI. ROS Other: All systems not noted in ROS Statement are negative. Constitutional: Denies: fever Eyes: Denies: eye pain ENT: Reports: congestion. Denies: throat pain Respiratory: Reports: cough, dyspnea Cardiovascular: Denies: chest pain Endocrine: Denies: fatigue Gastrointestinal: Denies: abdominal pain Genitourinary: Denies: dysuria Musculoskeletal: Denies: back pain Skin: Denies: rash Neurological: Denies: weakness Past Medical History Past Medical History: Asthma, Coronary Artery Disease (CAD), COPD, Diabetes Mellitus, Hearing Disorder / Deafness, Hyperlipidemia, Hypertension, Myocardial Infarction ([place]), Thyroid Disorder Additional Past Medical History / Comment(s): Tracheobronchitis, bronchiectasis, home O2 at @2L/[place] prn, NIDDM type II, hypothyroid, past migraines, sinus problems, anemia, past L wrist fracture, [place] bilaterally-wears aides. Last Myocardial Infarction Date:: 07/25/2016 History of Any Multi-Drug Resistant Organisms: None Reported Past Surgical History: Adenoidectomy, Heart Catheterization With Stent, Hysterectomy, Tonsillectomy Additional Past Surgical History / Comment(s): cystocele, rectocele, D&C Past Anesthesia/Blood Transfusion Reactions: No Reported Reaction Date of Last Stent Placement:: 07/2016 Past Psychological History: No Psychological Hx Reported Smoking Status: Former smoker Past Alcohol Use History: None Reported Past Drug Use History: None Reported - Past Family History Mother Family Medical History: Dementia, Memory Impairment Father Family Medical History: Prostate Disorder General Exam Limitations: no limitations General appearance: alert, in no apparent distress Head exam: Present: normocephalic Eye exam: Present: normal appearance, PERRL ENT exam: Present: normal oropharynx Neck exam: Present: normal inspection Respiratory exam: Present: wheezes, decreased breath sounds Cardiovascular Exam: Present: regular rate, normal rhythm GI/Abdominal exam: Present: soft. Absent: tenderness Extremities exam: Present: normal inspection. Absent: pedal edema, calf tenderness Neurological exam: Present: alert Psychiatric exam: Present: normal affect, normal mood Skin exam: Present: normal color Course Vital Signs 06/07/19 06/07/19 06/07/19 11:58 13:15 13:39 Temperature 98.1 F Pulse Rate 93 92 Respiratory 18 21 Rate Blood Pressure 177/77 O2 Sat by Pulse 94 L Oximetry 06/07/19 13:47 Temperature Pulse Rate 96 Respiratory Rate Blood Pressure O2 Sat by Pulse Oximetry Medical Decision Making - Medical Decision Making Patient reevaluated. No significant improvement in lung sounds. Patient and family updated on results and plan. Case discussed with Dr. Wolfe, who will admit covering for Dr. Akhtar. - Lab Data Result diagrams: 06/07/19 13:04 06/07/19 13:04 Lab Results 06/07/19 06/07/19 06/07/19 Range/Units 13:04 13:04 13:04 WBC 10.8 H (3.8-10.6) k/uL RBC 4.70 (3.80-5.40) m/uL Hgb 14.1 (11.4-16.0) gm/dL Hct 41.4 (34.0-46.0) % MCV 88.0 (80.0-100.0) fL MCH 29.9 (25.0-35.0) pg MCHC 34.0 (31.0-37.0) g/dL RDW 13.7 (11.5-15.5) % Plt Count 185 (150-450) k/uL Neutrophils % 89 % Lymphocytes % 6 % Monocytes % 4 % Eosinophils % 1 % Basophils % 0 % Neutrophils # 9.5 H (1.3-7.7) k/uL Lymphocytes # 0.7 L (1.0-4.8) k/uL Monocytes # 0.4 (0-1.0) k/uL Eosinophils # 0.1 (0-0.7) k/uL Basophils # 0.0 (0-0.2) k/uL Sodium 140 (137-145) mmol/L Potassium 4.1 (3.5-5.1) mmol/L Chloride 107 (98-107) mmol/L Carbon Dioxide 23 (22-30) mmol/L Anion Gap 10 mmol/L BUN 19 H (7-17) mg/dL Creatinine 0.46 L (0.52-1.04) mg/dL Est GFR (CKD-EPI)AfAm >90 (>60 ml/min/1.73 sqM) Est GFR (CKD-EPI)NonAf >90 (>60 ml/min/1.73 sqM) Glucose 201 H (74-99) mg/dL Calcium 9.2 (8.4-10.2) mg/dL Total Bilirubin 0.9 (0.2-1.3) mg/dL AST 36 (14-36) U/L ALT 46 H (4-34) U/L Alkaline Phosphatase 112 (38-126) U/L Total Protein 6.9 (6.3-8.2) g/dL Albumin 4.2 (3.5-5.0) g/dL Influenza Type A RNA Not Detected (Not Detectd) Influenza Type B (PCR) Not Detected (Not Detectd) - Radiology Data Radiology results: image reviewed (Chest x-ray shows no acute process, COPD) Disposition Clinical Impression: Acute exacerbation of chronic obstructive pulmonary disease (COPD) Disposition: ADMITTED IP TO THIS HOSP Is patient prescribed a controlled substance at d/c from ED?: No Referrals: Catie Akhtar MD [Primary Care Provider] - 1-2 days Decision Time: 14:17
[2019-06-07 13:20] LABS: Basophils % (A) 0 %; Eosinophils # (A) 0.1 k/uL (0-0.7); Eosinophils % (A) 1 %; HCT 41.4 % (34.0-46.0); HGB 14.1 gm/dL (11.4-16.0); Lymphocytes # (A) 0.7 k/uL (1.0-4.8); Lymphocytes % (A) 6 %; MCH 29.9 pg (25.0-35.0); Mean Platelet Volume 8.8; Monocytes # (A) 0.4 k/uL (0-1.0); Monocytes % (A) 4 %; Neutrophils # (A) 9.5 k/uL (1.3-7.7); Neutrophils % (A) 89 %; Platelet Count 185 k/uL (150-450); RDW 13.7 % (11.5-15.5); WBC 10.8 k/uL (3.8-10.6)
--- NOTE | 2019-06-07 13:32 | XR ---
EXAMINATION TYPE: XR chest 2V DATE OF EXAM: 06/07/2019 COMPARISON: 03/10/2019 HISTORY: Shortness of breath TECHNIQUE: Frontal and lateral views of the chest are obtained. FINDINGS: Scattered senescent parenchymal changes noted. Hyperinflation compatible with COPD. No evidence for infiltrate. No evidence for atelectasis. Heart size is stable. Mediastinal structures are stable and grossly unremarkable. No evidence for hilar prominence. Degenerative changes dorsal spine. IMPRESSION: 1. No evidence for acute pulmonary disease.
[2019-06-07 13:33] LABS: ALT 46 U/L (4-34); AST 36 U/L (14-36); African American GFR (CKD) >90 (>60 ml/min/1.73 sqM); Albumin 4.2 g/dL (3.5-5.0); Alkaline Phosphatase 112 U/L (38-126); Anion Gap 10 mmol/L; Blood Urea Nitrogen 19 mg/dL (7-17); Calcium 9.2 mg/dL (8.4-10.2); Carbon Dioxide 23 mmol/L (22-30); Chloride 107 mmol/L (98-107); Glucose 201 mg/dL (74-99); Non-African American GFR(CKD) >90 (>60 ml/min/1.73 sqM); Potassium 4.1 mmol/L (3.5-5.1); Sodium 140 mmol/L (137-145); Total Bilirubin 0.9 mg/dL (0.2-1.3); Total Protein 6.9 g/dL (6.3-8.2)
[2019-06-07] MEDS ORDERED: LEVOFLOXACIN 750MG-D5W PMX 750 MG in DEXTROSE/WATER 1 150ML.BAG IVPB STA (14:17)
[2019-06-07] MEDS ORDERED: IPRATROPIUM-ALBUTEROL 3 ML NEB INHALATION PRN (14:17)
[2019-06-07] MEDS: IPRATROPIUM-ALBUTEROL 3 ML NEB INHALATION SCH ×2 (16:01→22:06)
--- NOTE | 2019-06-07 16:20 | P.HPIM ---
History of Present Illness 78-year-old the pleasant female came in with complaints of cough and congestion with green sputum production patient symptoms has not been improving patient completed course of levofloxacin without any significant improvement in her symptoms. Patient shortness of breath is not bad but the bit short of breath wheezing patient uses solids and only on as-needed basis presently on 2 L of oxygen. Patient denied any fever chills patient and her nausea vomiting. Patient quit smoking years ago does have diagnosis of COPD Review of Systems REVIEW OF SYSTEMS: CONSTITUTIONAL: No fever, no malaise, no fatigue. HEENT: No recent visual problems or hearing problems. Denied any sore throat. CARDIOVASCULAR: No chest pain, orthopnea, PND, no palpitations, no syncope. PULMONARY: no hemoptysis. GASTROINTESTINAL: No diarrhea, no nausea, no vomiting, no abdominal pain. NEUROLOGICAL: No headaches, no weakness, no numbness. HEMATOLOGICAL: Denies any bleeding or petechiae. GENITOURINARY: Denies any burning micturition, frequency, or urgency. MUSCULOSKELETAL/RHEUMATOLOGICAL: Denies any joint pain, swelling, or any muscle pain. ENDOCRINE: Denies any polyuria or polydipsia. The rest of the 14-point review of systems is negative. Past Medical History Past Medical History: Asthma, Coronary Artery Disease (CAD), COPD, Diabetes Mellitus, Hearing Disorder / Deafness, Hyperlipidemia, Hypertension, Myocardial Infarction ([place]), Thyroid Disorder Additional Past Medical History / Comment(s): Tracheobronchitis, bronchiectasis, home O2 at @2L/[place] prn, NIDDM type II, hypothyroid, past migraines, sinus problems, anemia, past L wrist fracture, [place] bilaterally-wears aides. Last Myocardial Infarction Date:: 07/25/2016 History of Any Multi-Drug Resistant Organisms: None Reported Past Surgical History: Adenoidectomy, Heart Catheterization With Stent, Hysterectomy, Tonsillectomy Additional Past Surgical History / Comment(s): cystocele, rectocele, D&C Past Anesthesia/Blood Transfusion Reactions: No Reported Reaction Date of Last Stent Placement:: 07/2016 Past Psychological History: No Psychological Hx Reported Smoking Status: Former smoker Past Alcohol Use History: None Reported Past Drug Use History: None Reported - Past Family History Mother Family Medical History: Dementia, Memory Impairment Father Family Medical History: Prostate Disorder Medications and Allergies Home Medications Medication Instructions Recorded Confirmed Type Aspirin 81 mg PO DAILY chew 07/29/16 06/07/19 Rx Metoprolol Tartrate [Lopressor] 25 mg PO BID #60 tab 07/29/16 06/07/19 Rx Levothyroxine Sodium [Synthroid] 50 mcg PO DAILY 02/25/17 06/07/19 History Montelukast [Singulair] 10 mg PO DAILY 05/02/18 06/07/19 History metFORMIN HCL [Glucophage] 500 mg PO BID 05/02/18 06/07/19 History Losartan Potassium 50 mg PO DAILY 10/07/18 06/07/19 History Atorvastatin [Lipitor] 80 mg PO HS 06/07/19 06/07/19 History Pantoprazole [Protonix] 40 mg PO DAILY 06/07/19 06/07/19 History Allergies Allergy/AdvReac Type Severity Reaction Status Date / Time No Known Drug Allergies Allergy Unknown Verified 06/07/19 13:13 Physical Exam Vitals: Vital Signs Temp Pulse Resp BP Pulse Ox 06/07/19 16:12 98 06/07/19 16:01 90 06/07/19 14:39 98.0 F 85 18 142/74 97 06/07/19 13:47 96 06/07/19 13:39 92 06/07/19 13:15 21 06/07/19 11:58 98.1 F 93 18 177/77 94 L Intake and Output 06/07/19 06/07/19 06/07/19 06:59 14:59 22:59 Other: Weight 52.163 kg PHYSICAL EXAMINATION: GENERAL: The patient is alert and oriented x3, not in any acute distress. Well developed, well nourished. actually looks much endocrine her stated age HEENT: Pupils are round and equally reacting to light. EOMI. No scleral icterus. No conjunctival pallor. Normocephalic, atraumatic. Patient does have ph aryngeal erythema. No thyromegaly. CARDIOVASCULAR: S1 and S2 present. No murmurs, rubs, or gallops. PULMONARY: Lateral expiratory wheezing ABDOMEN: Soft, nontender, nondistended, normoactive bowel sounds. No palpable organomegaly. MUSCULOSKELETAL: No joint swelling or deformity. EXTREMITIES: No cyanosis, clubbing, or pedal edema. NEUROLOGICAL: Gross neurological examination did not reveal any focal deficits. SKIN: No rashes. Results CBC & Chem 7: 06/07/19 13:04 06/07/19 13:04 Labs: Abnormal Lab Results - Last 24 Hours (Table) 06/07/19 06/07/19 Range/Units 13:04 13:04 WBC 10.8 H (3.8-10.6) k/uL Neutrophils # 9.5 H (1.3-7.7) k/uL Lymphocytes # 0.7 L (1.0-4.8) k/uL BUN 19 H (7-17) mg/dL Creatinine 0.46 L (0.52-1.04) mg/dL Glucose 201 H (74-99) mg/dL ALT 46 H (4-34) U/L Assessment and Plan Plan: -COPD exacerbation: Patient will be continued on systemic steroids continue with inhalational treatments. -Bronchitis probably bacterial patient is comparing of greenish sputum production patient will be started on doxycycline she completed antibiotic therapy with the levofloxacin the bacteria that was not covered by levofloxacin staph aureus because of which I'm starting her on doxycycline. Which also covers other, and oral bacteria that normally causes bronchitis -Type 2 diabetes mellitus her blood sugars are expected to be uncontrolled and elevated due to systemic steroids will resume her metformin along with that will also use sliding scale insulin 9-hyperlipidemia hypertension -Hypothyroidism -Gastroesophageal reflux disease for above mentioned chronic medical problems patient will be resumed on appropriate home medications -DVT prophylaxis with subcutaneous heparin and GI prophylaxis with Protonix
[2019-06-07 16:33] LABS: Glucose,Whole Blood 345 mg/dL (75-99)
[2019-06-07] MEDS: INSULIN ASPART (NovoLOG) 100 UNIT/ML VIAL SQ SCH ×2 (16:37→20:53)
[2019-06-07] MEDS: PANTOPRAZOLE 40 MG TABLET PO SCH (16:40)
--- NOTE | 2019-06-07 17:22 | P.CNPUL ---
History of Present Illness Consult date: 06/07/19 Requesting physician: Jose Wolfe Reason for consult: dyspnea History of present illness: 78-year-old female patient of Dr. Akhtar with history of moderately persistent bronchial asthma, diabetes mellitus type 2, coronary artery disease, previous myocardial infarction, hypertension, hyperlipidemia, hypothyroidism, episodes of pneumonia. Patient has chronic hypoxemic respiratory failure and she usually wears 2 L of oxygen at home on as-needed basis. Follows with Dr. Vance in the pulmonary clinic, and she is on combination of Singulair, works cell in humble 500/50 one puff twice daily, Flonase, and Ventolin inhaler. In February 2019 patient had right lower lobe pneumonia, patient had acute decompensation of her pulmonary status requiring to patient on mechanical ventilator support briefly. Bronchoscopy with BAL was performed, BAL cultures only showed penicillium species. Patient had recovered from that episode. On 06/07/2019 patient presented to the emergency department for evaluatuation of cough, chest congestion, and apparently patient was treated with antibiotics and steroids on outpatient basis form of Levaquin and prednisone with no improvement of her symptoms. Patient verbalizes production green phlegm production, and green nasal drainage. Denied any fevers, denies any chills, no hemoptysis. X-rays completed in the emergency department showing no evidence for acute pulmonary disease. Lab work showed a white blood cell count of 10.8, hemoglobin of 14.1, electrolytes were within normal limits, BUN was 19 creatinine was 0.46, LFTs were relatively unremarkable, with ALT at 46, and influenza screen was negative. Patient was started on breathing treatments, doxycycline for antibiotic coverage, IV steroids, and admitted for further management. Review of Systems All systems: negative Constitutional: Denies chills, Denies fever Eyes: denies blurred vision, denies pain Ears, nose, mouth and throat: Denies headache, Denies sore throat Cardiovascular: Denies chest pain, Denies shortness of breath Respiratory: Reports cough with sputum, Reports dyspnea, Reports home oxygen, Denies cough Gastrointestinal: Denies abdominal pain, Denies diarrhea, Denies nausea, Denies vomiting Genitourinary: Denies dysuria, Denies hematuria Musculoskeletal: Denies myalgias Integumentary: Denies pruritus, Denies rash Neurological: Denies numbness, Denies weakness Psychiatric: Denies anxiety, Denies depression Endocrine: Denies fatigue, Denies weight change Past Medical History Past Medical History: Asthma, Coronary Artery Disease (CAD), COPD, Diabetes Mellitus, Hearing Disorder / Deafness, Hyperlipidemia, Hypertension, Myocardial Infarction (HI), Thyroid Disorder Additional Past Medical History / Comment(s): Tracheobronchitis, bronchiectasis, home O2 at @2L/[place] prn, NIDDM type II, hypothyroid, past migraines, sinus problems, anemia, past L wrist fracture, [place] bilaterally-wears aides. Last Myocardial Infarction Date:: 07/25/2016 History of Any Multi-Drug Resistant Organisms: None Reported Past Surgical History: Adenoidectomy, Heart Catheterization With Stent, Hysterectomy, Tonsillectomy Additional Past Surgical History / Comment(s): cystocele, rectocele, D&C Past Anesthesia/Blood Transfusion Reactions: No Reported Reaction Date of Last Stent Placement:: 07/2016 Past Psychological History: No Psychological Hx Reported Smoking Status: Former smoker Past Alcohol Use History: None Reported Past Drug Use History: None Reported - Past Family History Mother Family Medical History: Dementia, Memory Impairment Father Family Medical History: Prostate Disorder Medications and Allergies Home Medications Medication Instructions Recorded Confirmed Type Aspirin 81 mg PO DAILY chew 07/29/16 06/07/19 Rx Metoprolol Tartrate [Lopressor] 25 mg PO BID #60 tab 07/29/16 06/07/19 Rx Levothyroxine Sodium [Synthroid] 50 mcg PO DAILY 02/25/17 06/07/19 History Montelukast [Singulair] 10 mg PO DAILY 05/02/18 06/07/19 History metFORMIN HCL [Glucophage] 500 mg PO BID 05/02/18 06/07/19 History Losartan Potassium 50 mg PO DAILY 10/07/18 06/07/19 History Atorvastatin [Lipitor] 80 mg PO HS 06/07/19 06/07/19 History Pantoprazole [Protonix] 40 mg PO DAILY 06/07/19 06/07/19 History Allergies Allergy/AdvReac Type Severity Reaction Status Date / Time No Known Drug Allergies Allergy Unknown Verified 06/07/19 13:13 Physical Exam Vitals: Vital Signs Temp Pulse Resp BP Pulse Ox 06/07/19 16:40 103 H 18 129/64 96 06/07/19 16:12 98 06/07/19 16:01 90 06/07/19 14:39 98.0 F 85 18 142/74 97 06/07/19 13:47 96 06/07/19 13:39 92 06/07/19 13:15 21 06/07/19 11:58 98.1 F 93 18 177/77 94 L Intake and Output 06/07/19 06/07/19 06/07/19 06:59 14:59 22:59 Other: Weight 52.163 kg GENERAL EXAM: Alert, very pleasant, 78-year-old white female, which liters of oxygen, with pulse ox of 96% comfortable in no apparent distress. HEAD: Normocephalic/atraumatic. EYES: Normal reaction of pupils, equal size. Conjunctiva pink, sclera white. NOSE: Clear with pink turbinates. THROAT: No erythema or exudates. NECK: No masses, no JVD, no thyroid enlargement, no adenopathy. CHEST: No chest wall deformity. Symmetrical expansion. LUNGS: Equal air entry with diffuse wheezes, congested cough CVS: Regular rate and rhythm, normal S1 and S2, no gallops, no murmurs, no rubs ABDOMEN: Soft, nontender. No hepatosplenomegaly, normal bowel sounds, no guarding or rigidity. EXTREMITIES: No clubbing, no edema, no cyanosis, 2+ pulses and upper and lower extremities. MUSCULOSKELETAL: Muscle strength and tone normal. SPINE: No scoliosis or deformity SKIN: No rashes CENTRAL NERVOUS SYSTEM: Alert and oriented -3. No focal deficits, tone is normal in all 4 extremities. PSYCHIATRIC: Alert and oriented -3. Appropriate affect. Intact judgment and insight. Results - Laboratory Findings CBC and BMP: 06/07/19 13:04 06/07/19 13:04 Abnormal lab findings: Abnormal Labs 06/07/19 06/07/19 06/07/19 13:04 13:04 16:32 WBC 10.8 H Neutrophils # 9.5 H Lymphocytes # 0.7 L BUN 19 H Creatinine 0.46 L Glucose 201 H POC Glucose (mg/dL) 345 H ALT 46 H - Diagnostic Findings Chest x-ray: report reviewed, image reviewed Assessment and Plan Plan: Assessment: #1. Acute exacerbation of chronic bronchial asthma, moderately persistent at baseline, complicated by tracheobronchitis, chest x-ray showed no evidence for acute pulmonary disease #2. Failure of outpatient treatment for COPD and tracheobronchitis and patient was treated with Levaquin #3. Chronic hypoxemic respiratory failure related to chronic bronchial asthma #4. History of right lower lobe pneumonia in March 2019, at which time patient required intubation and brief mechanical ventilator support, bronchial wash cultures were positive for Mae and penicillium species #5. Coronary artery disease with history of stenting #6. Diabetes mellitus #7. Hypertension #8. Hyperlipidemia #9. History of myocardial infarction #10. Hypothyroidism Plan: Continue IV steroids, nebulized bronchodilators, continue doxycycline, patient currently completed a course of oral Levaquin, we'll add Pulmicort and Perforomist, GI and DVT prophylaxis, chest x-ray has been reviewed showing no acute pulmonary process. Patient was treated for 10 days and outpatient basis and failed to improve, we'll make patient nothing by mouth after midnight and will put her on the schedule for bronchoscopy with BAL tomorrow with Dr. Chatman, patient is agreeable to proceed. We'll continue to follow I performed a history & physical examination of the patient and discussed their management with my nurse practitioner, Gabby Jordan. I reviewed the nurse practitioner's note and agree with the documented findings and plan of care. Lung sounds are positive for diffuse wheezes throughout the lung velásquez. The findings and the impression was discussed with the patient. I attest to the documentation by the nurse practitioner. Time with Patient: Greater than 30
[2019-06-07] MEDS ORDERED: methylPREDNISolone SOD SUCCI 125 MG/2 ML VIAL IV SCH (18:00)
[2019-06-07 20:50] LABS: Glucose,Whole Blood 246 mg/dL (75-99)
[2019-06-07] MEDS: methylPREDNISolone SOD SUCCI 40 MG/ML 1 ML VIAL IV SCH (20:52)
[2019-06-07] MEDS: ATORVASTATIN 80 MG TAB PO SCH (20:52)
[2019-06-07] MEDS: METOPROLOL TARTRATE 25 MG TAB PO SCH (20:52)
[2019-06-07] MEDS: metFORMIN 500 MG TAB PO SCH (20:52)
[2019-06-07] MEDS: HEPARIN SODIUM,PORCINE 5,000 UNIT/ML 1 ML VIAL SQ SCH (20:53)
[2019-06-07] MEDS: DOXYCYCLINE 100 MG CAP PO SCH (21:25)
[2019-06-08] MEDS: LEVOTHYROXINE 50 MCG TAB PO SCH (06:08)
[2019-06-08 07:05] LABS: Glucose,Whole Blood 263 mg/dL (75-99)
[2019-06-08] MEDS: PANTOPRAZOLE 40 MG TABLET PO SCH (08:12)
[2019-06-08] MEDS: methylPREDNISolone SOD SUCCI 40 MG/ML 1 ML VIAL IV SCH ×2 (08:12→20:59)
[2019-06-08] MEDS: DOXYCYCLINE 100 MG CAP PO SCH ×2 (08:12→20:59)
[2019-06-08] MEDS: INSULIN ASPART (NovoLOG) 100 UNIT/ML VIAL SQ SCH ×4 (08:13→21:00)
[2019-06-08] MEDS: LOSARTAN 50 MG TAB PO SCH (08:13)
[2019-06-08] MEDS: METOPROLOL TARTRATE 25 MG TAB PO SCH ×2 (08:13→20:59)
[2019-06-08] MEDS: metFORMIN 500 MG TAB PO SCH ×2 (08:14→17:39)
[2019-06-08] MEDS: ASPIRIN 81 MG PO SCH (08:14)
[2019-06-08] MEDS: HEPARIN SODIUM,PORCINE 5,000 UNIT/ML 1 ML VIAL SQ SCH ×2 (08:14→20:58)
[2019-06-08] MEDS: IPRATROPIUM-ALBUTEROL 3 ML NEB INHALATION SCH ×4 (08:59→20:31)
[2019-06-08] MEDS ORDERED: LEVOFLOXACIN 500 MG TAB PO SCH (09:00)
[2019-06-08 11:41] LABS: Glucose,Whole Blood 148 mg/dL (75-99)
[2019-06-08] MEDS ORDERED: LIDOCAINE 1% INJ 10MG/ML (20 ML MDV) ONE (13:41)
[2019-06-08] MEDS ORDERED: PROPOFOL 10 MG/ML 20 ML VIAL IV ONE (13:41)
[2019-06-08] MEDS ORDERED: fentaNYL (PF) 50 MCG/ML 2 ML AMP ONE (13:41)
[2019-06-08] MEDS ORDERED: LIDOCAINE 2% INJ 20 MG/ML INTRATRACH ONE (13:59)
[2019-06-08] MEDS ORDERED: LACTATED RINGERS 1,000 ML IV ONE ×2 (13:59)
--- NOTE | 2019-06-08 15:32 | P.PN ---
Subjective Progress Note Date: 06/08/19 Principal diagnosis: Acute exacerbation of chronic bronchial asthma, with tracheobronchitis 78-year-old female patient of Dr. Akhtar with history of moderately persistent bronchial asthma, diabetes mellitus type 2, coronary artery disease, previous myocardial infarction, hypertension, hyperlipidemia, hypothyroidism, episodes of pneumonia. Patient has chronic hypoxemic respiratory failure and she usually wears 2 L of oxygen at home on as-needed basis. Follows with Dr. Vance in the pulmonary clinic, and she is on combination of Singulair, works cell in humble 500/50 one puff twice daily, Flonase, and Ventolin inhaler. In February 2019 patient had right lower lobe pneumonia, patient had acute decompensation of her pulmonary status requiring to patient on mechanical ventilator support briefly. Bronchoscopy with BAL was performed, BAL cultures only showed penicillium species. Patient had recovered from that episode. On 06/07/2019 patient presented to the emergency department for evaluatuation of cough, chest congestion, and apparently patient was treated with antibiotics and steroids on outpatient basis form of Levaquin and prednisone with no improvement of her symptoms. Patient verbalizes production green phlegm production, and green nasal drainage. Denied any fevers, denies any chills, no hemoptysis. X-rays completed in the emergency department showing no evidence for acute pulmonary disease. Lab work showed a white blood cell count of 10.8, hemoglobin of 14.1, electrolytes were within normal limits, BUN was 19 creatinine was 0.46, LFTs were relatively unremarkable, with ALT at 46, and influenza screen was negative. Patient was started on breathing treatments, doxycycline for antibiotic coverage, IV steroids, and admitted for further management. 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 Chatman, she continues on empiric antibiotic some the form of doxycycline, on IV steroids and nebulized bronchodilators, maintained on 2 L of oxygen with pulse ox of 94%, dynamically stable. Objective - Vital Signs Vital signs: Vital Signs Temp 97.4 F L 06/08/19 14:23 Pulse 77 06/08/19 14:47 Resp 22 06/08/19 14:47 BP 143/71 06/08/19 14:43 Pulse Ox 94 L 06/08/19 14:43 Intake & Output 06/07/19 06/08/19 06/08/19 18:59 06:59 18:59 Intake Total 240 300 Balance 240 300 Weight 52.163 kg 52.163 kg Intake: IV 300 Oral 240 0 Other: Voiding Method Toilet Toilet # Voids 2 # Bowel Movements 1 - Exam GENERAL EXAM: Alert, very pleasant, 78-year-old white female, on 2 liters of oxygen, with pulse ox of 96% comfortable in no apparent distress. HEAD: Normocephalic/atraumatic. EYES: Normal reaction of pupils, equal size. Conjunctiva pink, sclera white. NOSE: Clear with pink turbinates. THROAT: No erythema or exudates. NECK: No masses, no JVD, no thyroid enlargement, no adenopathy. CHEST: No chest wall deformity. Symmetrical expansion. LUNGS: Equal air entry with diffuse wheezes, congested cough CVS: Regular rate and rhythm, normal S1 and S2, no gallops, no murmurs, no rubs ABDOMEN: Soft, nontender. No hepatosplenomegaly, normal bowel sounds, no guarding or rigidity. EXTREMITIES: No clubbing, no edema, no cyanosis, 2+ pulses and upper and lower extremities. MUSCULOSKELETAL: Muscle strength and tone normal. SPINE: No scoliosis or deformity SKIN: No rashes CENTRAL NERVOUS SYSTEM: Alert and oriented -3. No focal deficits, tone is normal in all 4 extremities. PSYCHIATRIC: Alert and oriented -3. Appropriate affect. Intact judgment and insight. - Labs CBC & Chem 7: 06/07/19 13:04 06/07/19 13:04 Labs: Abnormal Lab Results - Last 24 Hours (Table) 06/07/19 06/07/19 06/08/19 Range/Units 16:32 20:48 07:04 POC Glucose (mg/dL) 345 H 246 H 263 H (75-99) mg/dL 06/08/19 Range/Units 11:37 POC Glucose (mg/dL) 148 H (75-99) mg/dL Microbiology - Last 24 Hours (Table) 06/07/19 13:04 Blood Culture - Preliminary Blood No Growth after 24 hours 06/08/19 03:00 Sputum Culture - Preliminary Sputum Assessment and Plan Plan: Assessment: #1. Acute exacerbation of chronic bronchial asthma, moderately persistent at baseline, complicated by tracheobronchitis, chest x-ray showed no evidence for acute pulmonary disease #2. Failure of outpatient treatment for COPD and tracheobronchitis and patient was treated with Levaquin #3. Chronic hypoxemic respiratory failure related to chronic bronchial asthma #4. History of right lower lobe pneumonia in March 2019, at which time patient required intubation and brief mechanical ventilator support, bronchial wash cultures were positive for Mae and penicillium species #5. Coronary artery disease with history of stenting #6. Diabetes mellitus #7. Hypertension #8. Hyperlipidemia #9. History of myocardial infarction #10. Hypothyroidism Plan: Continue current medications, continue antibiotics, IV steroids, we'll proceed with bronchoscopy with BAL today, patient is improving, possible discharge home tomorrow. I performed a history & physical examination of the patient and discussed their management with my nurse practitioner, Gabby Jordan. I reviewed the nurse practitioner's note and agree with the documented findings and plan of care. Lung sounds are positive for diffuse wheezes throughout the lung velásquez. The findings and the impression was discussed with the patient. I attest to the documentation by the nurse practitioner. Time with Patient: Less than 30
[2019-06-08 17:01] LABS: Appearance,BF Cloudy; Color,BF Pink; Nucleated Cells, Body Fluid 1667 /uL
[2019-06-08 17:02] LABS: RBC, Body Fluid 600 /uL
[2019-06-08 17:03] LABS: Mononuclear WBC,Body Fluid 6 %; Polynuclear WBC,Body Fluid 94 %; Total Cells Counted,Body Fluid 100
[2019-06-08 17:21] LABS: Glucose,Whole Blood 301 mg/dL (75-99)
[2019-06-08 20:16] LABS: Glucose,Whole Blood 271 mg/dL (75-99)
[2019-06-08] MEDS: ATORVASTATIN 80 MG TAB PO SCH (20:59)
[2019-06-08 21:43] VITALS: RESP 16
[2019-06-09] MEDS: LEVOTHYROXINE 50 MCG TAB PO SCH (04:58)
--- NOTE | 2019-06-09 05:55 | PCN ---
PROCEDURE NOTE PROCEDURE: Bronchoscopy, bronchoalveolar lavage of multiple lobes including left upper lobe lingula and right lower lobe as well as the right middle lobe with random bronchial washings. PREOPERATIVE DIAGNOSES: Acute exacerbation of chronic obstructive pulmonary disease, cough, unable to clear secretions. POSTOPERATIVE DIAGNOSES: Acute exacerbation of chronic obstructive pulmonary disease, tracheobronchitis, tracheal bronchomalacia, and chronic bronchitis. ANESTHESIA USED: IV conscious sedation. DESCRIPTION OF PROCEDURE: The patient was prepared according to the bronchoscopy protocol. O2 was applied via Ventimask and we monitored her O2 saturation continuously, blood pressure was intermittently monitored, cardiac rhythm was continuously monitored. After adequate IV conscious sedation, the right naris was anesthetized with topical lidocaine. Then the bronchoscope was advanced through the right naris down to the area of the vocal cords. Significant purulent secretions were noted around the vocal cords, and these were suctioned. Then, lidocaine was applied over the vocal cords, and the bronchoscope was advanced further down to the trachea. A thorough examination was done of trachea, yony, right upper lobe, right middle lobe, right lower lobe, left upper lobe lingula and left lower lobe. There was evidence of tracheal bronchomalacia. There was also evidence of significant thick purulent secretions in all her airways including the left upper lobe lingula and left lower lobe as well as right upper lobe, right middle lobe and right lower lobe. Lavage of the left upper lobe and lingula was done. Lavage of the right middle lobe and right lower lobe was done, and washings were done randomly from different lobes until secretions were all cleared. Procedure was well tolerated, no evidence of any immediate complication. The fluid obtained from the bronchial washing was sent for different diagnostic studies. MMODL / IJN: [id number] /
[2019-06-09 07:09] LABS: Glucose,Whole Blood 153 mg/dL (75-99)
[2019-06-09] MEDS: IPRATROPIUM-ALBUTEROL 3 ML NEB INHALATION SCH ×2 (07:24→11:35)
[2019-06-09] MEDS: METOPROLOL TARTRATE 25 MG TAB PO SCH (08:04)
[2019-06-09] MEDS: DOXYCYCLINE 100 MG CAP PO SCH (08:04)
[2019-06-09] MEDS: metFORMIN 500 MG TAB PO SCH (08:05)
[2019-06-09] MEDS: ASPIRIN 81 MG PO SCH (08:05)
[2019-06-09] MEDS: methylPREDNISolone SOD SUCCI 40 MG/ML 1 ML VIAL IV SCH (08:06)
[2019-06-09] MEDS: PANTOPRAZOLE 40 MG TABLET PO SCH (08:06)
[2019-06-09] MEDS: HEPARIN SODIUM,PORCINE 5,000 UNIT/ML 1 ML VIAL SQ SCH (08:06)
[2019-06-09] MEDS: LOSARTAN 50 MG TAB PO SCH (08:07)
[2019-06-09] MEDS: INSULIN ASPART (NovoLOG) 100 UNIT/ML VIAL SQ SCH (08:07)
[2019-06-09 10:07] LABS: Basophils % (A) 0 %; Eosinophils # (A) 0.1 k/uL (0-0.7); Eosinophils % (A) 1 %; HCT 39.1 % (34.0-46.0); Lymphocytes # (A) 1.1 k/uL (1.0-4.8); Lymphocytes % (A) 10 %; MCH 29.9 pg (25.0-35.0); MCHC 33.2 g/dL (31.0-37.0); MCV 90.2 fL (80.0-100.0); Mean Platelet Volume 8.8; Monocytes # (A) 0.6 k/uL (0-1.0); Monocytes % (A) 5 %; Neutrophils # (A) 9.7 k/uL (1.3-7.7); Neutrophils % (A) 84 %; Platelet Count 166 k/uL (150-450); RBC 4.34 m/uL (3.80-5.40); RDW 13.7 % (11.5-15.5); WBC 11.6 k/uL (3.8-10.6)
[2019-06-09 10:25] LABS: African American GFR (CKD) >90 (>60 ml/min/1.73 sqM); Anion Gap 10 mmol/L; Blood Urea Nitrogen 32 mg/dL (7-17); Calcium 9.2 mg/dL (8.4-10.2); Carbon Dioxide 22 mmol/L (22-30); Chloride 107 mmol/L (98-107); Glucose 305 mg/dL (74-99); Non-African American GFR(CKD) 87 (>60 ml/min/1.73 sqM); Potassium 3.8 mmol/L (3.5-5.1); Sodium 139 mmol/L (137-145)
[2019-06-09 11:45] VITALS: BP 141/73; PULSE 76; TEMP 98.2
[2019-06-09 12:02] LABS: Glucose,Whole Blood 278 mg/dL (75-99)
--- NOTE | 2019-06-09 12:03 | P.PN ---
Subjective Progress Note Date: 06/09/19 Principal diagnosis: Acute exacerbation of chronic bronchial asthma, with tracheobronchitis 78-year-old female patient of Dr. Akhtar with history of moderately persistent bronchial asthma, diabetes mellitus type 2, coronary artery disease, previous myocardial infarction, hypertension, hyperlipidemia, hypothyroidism, episodes of pneumonia. Patient has chronic hypoxemic respiratory failure and she usually wears 2 L of oxygen at home on as-needed basis. Follows with Dr. Vance in the pulmonary clinic, and she is on combination of Singulair, works cell in humble 500/50 one puff twice daily, Flonase, and Ventolin inhaler. In February 2019 patient had right lower lobe pneumonia, patient had acute decompensation of her pulmonary status requiring to patient on mechanical ventilator support briefly. Bronchoscopy with BAL was performed, BAL cultures only showed penicillium species. Patient had recovered from that episode. On 06/07/2019 patient presented to the emergency department for evaluatuation of cough, chest congestion, and apparently patient was treated with antibiotics and steroids on outpatient basis form of Levaquin and prednisone with no improvement of her symptoms. Patient verbalizes production green phlegm production, and green nasal drainage. Denied any fevers, denies any chills, no hemoptysis. X-rays completed in the emergency department showing no evidence for acute pulmonary disease. Lab work showed a white blood cell count of 10.8, hemoglobin of 14.1, electrolytes were within normal limits, BUN was 19 creatinine was 0.46, LFTs were relatively unremarkable, with ALT at 46, and influenza screen was negative. Patient was started on breathing treatments, doxycycline for antibiotic coverage, IV steroids, and admitted for further management. 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 Chatman, she continues on empiric antibiotic some the form of doxycycline, on IV steroids and nebulized bronchodilators, maintained on 2 L of oxygen with pulse ox of 94%, dynamically stable. On 06/09/2019 patient seen in follow-up on the general medical floor, she is improving, breathing easier, lung sounds are positive for a few scattered rhonchi, yesterday patient underwent bronchoscopy with BAL, BAL cultures are pending. No fever or chills, patient states she is breathing easier, less bronchospastic and less dyspneic on today's exam, she continues on doxycycline, IV steroids and breathing treatments, she is improving, and she is anticipated to be discharged home today Objective - Vital Signs Vital signs: Vital Signs Temp 98.2 F 06/09/19 11:45 Pulse 69 06/09/19 11:45 Resp 16 06/09/19 11:45 BP 141/73 06/09/19 11:45 Pulse Ox 97 06/09/19 11:45 Intake & Output 06/08/19 06/09/19 06/09/19 18:59 06:59 18:59 Intake Total 300 1180 720 Balance 300 1180 720 Intake: IV 300 Oral 0 1180 720 Other: Voiding Method Toilet Toilet Toilet # Voids 2 2 3 # Bowel Movements 1 - Exam GENERAL EXAM: Alert, very pleasant, 78-year-old white female, on room air with a pulse ox of 97%, with pulse ox of 96% comfortable in no apparent distress. HEAD: Normocephalic/atraumatic. EYES: Normal reaction of pupils, equal size. Conjunctiva pink, sclera white. NOSE: Clear with pink turbinates. THROAT: No erythema or exudates. NECK: No masses, no JVD, no thyroid enlargement, no adenopathy. CHEST: No chest wall deformity. Symmetrical expansion. LUNGS: Equal air entry with a few scattered rhonchi CVS: Regular rate and rhythm, normal S1 and S2, no gallops, no murmurs, no rubs ABDOMEN: Soft, nontender. No hepatosplenomegaly, normal bowel sounds, no guarding or rigidity. EXTREMITIES: No clubbing, no edema, no cyanosis, 2+ pulses and upper and lower extremities. MUSCULOSKELETAL: Muscle strength and tone normal. SPINE: No scoliosis or deformity SKIN: No rashes CENTRAL NERVOUS SYSTEM: Alert and oriented -3. No focal deficits, tone is normal in all 4 extremities. PSYCHIATRIC: Alert and oriented -3. Appropriate affect. Intact judgment and insight. - Labs CBC & Chem 7: 06/09/19 09:28 06/09/19 09:28 Labs: Abnormal Lab Results - Last 24 Hours (Table) 06/08/19 06/08/19 06/09/19 Range/Units 17:14 20:16 07:08 WBC (3.8-10.6) k/uL Neutrophils # (1.3-7.7) k/uL BUN (7-17) mg/dL Glucose (74-99) mg/dL POC Glucose (mg/dL) 301 H 271 H 153 H (75-99) mg/dL 06/09/19 06/09/19 Range/Units 09:28 09:28 WBC 11.6 H (3.8-10.6) k/uL Neutrophils # 9.7 H (1.3-7.7) k/uL BUN 32 H (7-17) mg/dL Glucose 305 H (74-99) mg/dL POC Glucose (mg/dL) (75-99) mg/dL Microbiology - Last 24 Hours (Table) 06/08/19 13:50 Gram Stain - Preliminary Bronchoalviolar Lavage - Right Bronchial Washings Culture - Preliminary 06/08/19 03:00 Gram Stain - Final Sputum Sputum Culture - Final 06/08/19 13:50 Fungal Culture - Preliminary Bronchoalviolar Lavage - Right 06/08/19 13:50 Acid Fast Bacilli Culture - Preliminary Bronchoalviolar Lavage - Right 06/07/19 13:04 Blood Culture - Preliminary Blood No Growth after 24 hours Assessment and Plan Plan: Assessment: #1. Acute exacerbation of chronic bronchial asthma, moderately persistent at baseline, complicated by tracheobronchitis, chest x-ray showed no evidence for acute pulmonary disease #2. Failure of outpatient treatment for COPD and tracheobronchitis and patient was treated with Levaquin #3. Chronic hypoxemic respiratory failure related to chronic bronchial asthma #4. History of right lower lobe pneumonia in March 2019, at which time patient required intubation and brief mechanical ventilator support, bronchial wash cultures were positive for Mae and penicillium species #5. Coronary artery disease with history of stenting #6. Diabetes mellitus #7. Hypertension #8. Hyperlipidemia #9. History of myocardial infarction #10. Hypothyroidism Plan: Patient is doing well, improving, BAL cultures are pending, no fever or chills, she is on room air, tolerating ablation, from pulmonary perspective she stable for discharge home today on current antibiotics and prednisone taper she can resume her maintenance inhalers and nebulized treatments, follow-up in the office with Dr. Vance in regards to BAL cultures and in regards to hospital follow-up. I performed a history & physical examination of the patient and discussed their management with my nurse practitioner, Gabby Jordan. I reviewed the nurse practitioner's note and agree with the documented findings and plan of care. Lung sounds are positive for diffuse wheezes throughout the lung velásquez. The findings and the impression was discussed with the patient. I attest to the documentation by the nurse practitioner. Time with Patient: Less than 30
--- NOTE | 2019-06-09 14:54 | P.DS ---
Providers Date of admission: 06/07/19 14:17 Expected date of discharge: 06/09/19 Attending physician: Jose Wolfe Consults: 06/07/19 14:17 Consult Physician Routine Consulting Provider: Bowen Green Reason/Comments: dyspnea Do you want consulting provider notified?: Yes Primary care physician: Catie Akhtar Hospital Course: Final diagnosis -COPD exacerbation -Bronchitis probably bacterial -Type 2 diabetes mellitus -hyperlipidemia -hypertension -Hypothyroidism -Gastroesophageal reflux disease -DVT prophylaxis -GI prophylaxis Discharge disposition Patient is being discharged in a stable condition with guarded prognosis to home and will follow-up with her primary care provider Dr. Akhtar upon discharge. Patient will also follow-up with pulmonary in the outpatient setting in one week. Patient will continue on a short course of oral antibiotics in the form of doxycycline twice daily for 1 week. Patient will also continue with the prednisone taper upon discharge. Total time taken is 35 minutes. History of present illness 78-year-old the pleasant female came in with complaints of cough and congestion with green sputum production patient symptoms has not been improving patient completed course of levofloxacin without any significant improvement in her symptoms. Patient shortness of breath is not bad but the bit short of breath wheezing patient uses solids and only on as-needed basis presently on 2 L of oxygen. Patient denied any fever chills patient and her nausea vomiting. Patient quit smoking years ago does have diagnosis of COPD. during hospitalization patient underwent bronchoscopy with BAL Dr. Green and specimens were sent and patient will follow up with pulmonary in the outpatient setting in 1 week for follow-up and also discuss test results. Currently patient's condition is stable and would like to go home today. Patient denies any chest pain, shortness of breath, or palpitations. Patient is afebrile. Patient den ies any nausea or vomiting and is tolerating diet. On exam vital signs are stable. Temp is 98.2F, pulse is 69, respirations are 16, blood pressure is 141/73, oxygen saturation is 97% on room air. Cardio S1, S2 are present. Respiratory system shows diminished breath sounds at the bases with mild expiratory wheezing noted. Abdomen is soft and nontender. Nervous system shows no focal deficits. Please refer to medication reconciliation sheet for a list of medications. Patient Condition at Discharge: Stable Plan - Discharge Summary Discharge Rx Participant: Yes New Discharge Prescriptions: New predniSONE 10 mg PO DIRECTED #30 tab Doxycycline [Vibramycin] 100 mg PO BID 7 Days #14 cap Continue Aspirin 81 mg PO DAILY chew Metoprolol Tartrate [Lopressor] 25 mg PO BID #60 tab Levothyroxine Sodium [Synthroid] 50 mcg PO DAILY metFORMIN HCL [Glucophage] 500 mg PO BID Montelukast [Singulair] 10 mg PO DAILY Losartan Potassium 50 mg PO DAILY Atorvastatin [Lipitor] 80 mg PO HS Pantoprazole [Protonix] 40 mg PO DAILY Discharge Medication List Aspirin 81 mg PO DAILY chew 07/29/16 [Rx] Metoprolol Tartrate [Lopressor] 25 mg PO BID #60 tab 07/29/16 [Rx] Levothyroxine Sodium [Synthroid] 50 mcg PO DAILY 02/25/17 [History] Montelukast [Singulair] 10 mg PO DAILY 05/02/18 [History] metFORMIN HCL [Glucophage] 500 mg PO BID 05/02/18 [History] Losartan Potassium 50 mg PO DAILY 10/07/18 [History] Atorvastatin [Lipitor] 80 mg PO HS 06/07/19 [History] Pantoprazole [Protonix] 40 mg PO DAILY 06/07/19 [History] Doxycycline [Vibramycin] 100 mg PO BID 7 Days #14 cap 06/09/19 [Rx] predniSONE 10 mg PO DIRECTED #30 tab 06/09/19 [Rx] Follow up Appointment(s)/Referral(s): Catie Akhtar MD [Primary Care Provider] - 06/14/19 12:15 pm Maynor Vance MD [STAFF PHYSICIAN] - 07/01/19 1:30 pm Patient Instructions/Handouts: Doxycycline (By mouth), Prednisone (By mouth), COPD (Chronic Obstructive Pulmonary Disease) (DC) Activity/Diet/Wound Care/Special Instructions: Activity Limited until follow-up Continue current diet Continue antibiotics until finished Continue with prednisone taper Follow-up with primary care provider upon discharge Follow-up with pulmonary in one week Discharge Disposition: HOME SELF-CARE
--- NOTE | 2019-06-09 15:02 | P.PN ---
Subjective Progress Note Date: 06/08/19 Principal diagnosis: 78-year-old the pleasant female came in with complaints of cough and congestion with green sputum production patient symptoms has not been improving patient co mpleted course of levofloxacin without any significant improvement in her symptoms. Patient shortness of breath is not bad but the bit short of breath wheezing patient uses solids and only on as-needed basis presently on 2 L of oxygen. Patient denied any fever chills patient and her nausea vomiting. Patient quit smoking years ago does have diagnosis of COPD 06/08/2019 Patient is sitting up in the bed and appears to be in no acute distress. Patient continues to have a cough with sputum production but is not able to really get up and out. Patient is scheduled to undergo a bronchoscopy with BAL with pulmonary today. No acute overnight issues. Patient will continue on IV steroids along with breathing inhalational treatments. Objective - Vital Signs Vital signs: - Exam GENERAL: The patient is alert and oriented x3, not in any acute distress. Well developed, well nourished. Patient actually looks much younger than her stated age HEENT: Pupils are round and equally reacting to light. EOMI. No scleral icterus. No conjunctival pallor. Normocephalic, atraumatic. Patient does have pharyngeal erythema. No thyromegaly. CARDIOVASCULAR: S1 and S2 present. No murmurs, rubs, or gallops. PULMONARY: Diminished breath sounds at the bases with expiratory wheezing noted ABDOMEN: Soft, nontender, nondistended, normoactive bowel sounds. No palpable organomegaly. MUSCULOSKELETAL: No joint swelling or deformity. EXTREMITIES: No cyanosis, clubbing, or pedal edema. NEUROLOGICAL: Gross neurological examination did not reveal any focal deficits. SKIN: No rashes. - Labs CBC & Chem 7: 06/09/19 09:28 06/09/19 09:28 Labs: Abnormal Lab Results - Last 24 Hours (Table) 06/08/19 06/08/19 06/09/19 Range/Units 17:14 20:16 07:08 WBC (3.8-10.6) k/uL Neutrophils # (1.3-7.7) k/uL BUN (7-17) mg/dL Glucose (74-99) mg/dL POC Glucose (mg/dL) 301 H 271 H 153 H (75-99) mg/dL 06/09/19 06/09/19 06/09/19 Range/Units 09:28 09:28 12:00 WBC 11.6 H (3.8-10.6) k/uL Neutrophils # 9.7 H (1.3-7.7) k/uL BUN 32 H (7-17) mg/dL Glucose 305 H (74-99) mg/dL POC Glucose (mg/dL) 278 H (75-99) mg/dL Microbiology - Last 24 Hours (Table) 06/08/19 13:50 Gram Stain - Preliminary Bronchoalviolar Lavage - Right Bronchial Washings Culture - Preliminary 06/08/19 03:00 Gram Stain - Final Sputum Sputum Culture - Final 06/08/19 13:50 Fungal Culture - Preliminary Bronchoalviolar Lavage - Right 06/08/19 13:50 Acid Fast Bacilli Culture - Preliminary Bronchoalviolar Lavage - Right 06/07/19 13:04 Blood Culture - Preliminary Blood No Growth after 24 hours Assessment and Plan Assessment: -COPD exacerbation: Patient will be continued on systemic steroids continue with inhalational treatments. -Bronchitis probably bacterial patient is comparing of greenish sputum production patient will be started on doxycycline she completed antibiotic therapy with the levofloxacin the bacteria that was not covered by levofloxacin staph aureus because of which I'm starting her on doxycycline. Which also covers other, and oral bacteria that normally causes bronchitis -Type 2 diabetes mellitus her blood sugars are expected to be uncontrolled and elevated due to systemic steroids will resume her metformin along with that will also use sliding scale insulin -hyperlipidemia hypertension -Hypothyroidism -Gastroesophageal reflux disease for above mentioned chronic medical problems patient will be resumed on appropriate home medications -DVT prophylaxis with subcutaneous heparin and GI prophylaxis with Protonix Plan: Continue with medications, management, and symptomatic treatment. Patient is scheduled to undergo bronchoscopy with BAL with pulmonary today. Will continue to monitor closely. Will continue with IV steroids along with oral doxycycline as well as breathing inhalational treatments. Further recommendations to follow. Possible discharge in 24 hours.
== END 2019-06-09 12:50 | disposition home or self-care (01) ==
LOC: EC 11:38 → 6NMEDSUR 14:17 → 4SSUR 17:03 → 5NMEDONC 17:26
PROVIDERS: ADMIT Internal Medicine; ATTEND Internal Medicine
DX: J18.0 Bronchopneumonia, unspecified organism (principal); J44.1 Chronic obstructive pulmonary disease with (acute) exacerbation; E11.65 Type 2 diabetes mellitus with hyperglycemia; E78.5 Hyperlipidemia, unspecified; I10 Essential (primary) hypertension; E03.9 Hypothyroidism, unspecified; K21.9 Gastro-esophageal reflux disease without esophagitis; I25.10 Atherosclerotic heart disease of native coronary artery without angina pectoris; I25.2 Old myocardial infarction; H91.93 Unspecified hearing loss, bilateral; J45.40 Moderate persistent asthma, uncomplicated; J96.91 Respiratory failure, unspecified with hypoxia; J47.0 Bronchiectasis with acute lower respiratory infection; Z79.82 Long term (current) use of aspirin; Z79.890 Hormone replacement therapy; Z79.899 Other long term (current) drug therapy; Z79.4 Long term (current) use of insulin; Z87.09 Personal history of other diseases of the respiratory system; Z86.69 Personal history of other diseases of the nervous system and sense organs; Z86.2 Personal history of diseases of the blood and blood-forming organs and certain disorders involving the immune mechanism; Z87.81 Personal history of (healed) traumatic fracture; Z97.4 Presence of external hearing-aid; Z90.89 Acquired absence of other organs; Z95.5 Presence of coronary angioplasty implant and graft; Z90.710 Acquired absence of both cervix and uterus; Z98.890 Other specified postprocedural states; Z87.891 Personal history of nicotine dependence; Z87.01 Personal history of pneumonia (recurrent); Z81.8 Family history of other mental and behavioral disorders; Z84.2 Family history of other diseases of the genitourinary system
CPT/HCPCS: 96372; 96376 ×2; 96365; 96375; 99285; 36415; 94640 ×5; 87798 ×3; 87496; 87498; 87529; 88108; 88305; 80053; 80048; 89050; 85025 ×2; 87040; 87252; 87502 ×2; 87634; 87070; 87205; 87116; 87102; 87206; 71046; 31624; G0378 ×4; J2001 ×2; J1644 ×3; J2920 ×3; J2930; J3010; J1956; J2704

== ENCOUNTER → 2019-07-06 | Outpatient (CLI) | payer MEDICARE | END | disposition home or self-care (01) | LOC: LABWHC1 10:32 | PROVIDERS: ATTEND Internal Medicine Critical Care Medicine | DX: J45.901 Unspecified asthma with (acute) exacerbation (principal) | CPT/HCPCS: 36415; 82785; 86606 ==

== ENCOUNTER 2020-11-07 07:31 | Inpatient (IN) | payer MEDICARE ==
[2020-11-07] MEDS ORDERED: methylPREDNISolone SOD SUCCI 125 MG/2 ML VIAL IV STA (07:36)
--- NOTE | 2020-11-07 07:42 | ED ---
SOB HPI - General Chief Complaint: Shortness of Breath Stated Complaint: SOB Time Seen by Provider: 11/07/20 07:31 Source: patient, EMS, RN notes reviewed, old records reviewed Mode of arrival: EMS Limitations: no limitations - History of Present Illness Initial Comments: This is a 80-year-old female history of COPD coronary artery disease bronchitis history pneumonia in the past who presents by EMS with complaints of shortness of breath began early this morning. She has a cough with green phlegm she states she denies any chest pain no fevers no chills no sweats. He states she did see her doctor yesterday and seemed to be okay at that time. She does states she feels similar to when she had her SC. She was brought in by EMS given a nebulizer treatment in route she was noted have a pulse ox in the 70s initially. No other current complaints or modifying factors MD Complaint: shortness of breath, cough, anxiety - Related Data Home Medications Medication Instructions Recorded Confirmed Levothyroxine Sodium [Synthroid] 50 mcg PO DAILY 02/25/17 11/07/20 Montelukast [Singulair] 10 mg PO DAILY 05/02/18 11/07/20 metFORMIN HCL [Glucophage] 500 mg PO BID 05/02/18 11/07/20 Losartan Potassium 50 mg PO DAILY 10/07/18 11/07/20 Atorvastatin [Lipitor] 80 mg PO DAILY 06/07/19 11/07/20 Pantoprazole [Protonix] 40 mg PO DAILY 06/07/19 11/07/20 Albuterol Nebulized [Ventolin 2.5 mg INHALATION RT-TID PRN 11/07/20 11/07/20 Nebulized] Fluticasone Propion/Salmeterol 1 puff INHALATION RT-BID 11/07/20 11/07/20 [Wixela 500-50 Inhub] Levofloxacin [Levaquin] 500 mg PO DAILY 11/07/20 11/07/20 predniSONE [Deltasone] 20 mg PO DAILY 11/07/20 11/07/20 Previous Rx's Medication Instructions Recorded Aspirin 81 mg PO DAILY chew 07/29/16 Metoprolol Tartrate [Lopressor] 25 mg PO BID #60 tab 07/29/16 Allergies Allergy/AdvReac Type Severity Reaction Status Date / Time No Known Drug Allergies Allergy Unknown Verified 11/07/20 08:19 Review of Systems ROS Statement: Those systems with pertinent positive or pertinent negative responses have been documented in the HPI. ROS Other: All systems not noted in ROS Statement are negative. Past Medical History Past Medical History: Asthma, Coronary Artery Disease (CAD), COPD, Diabetes Mellitus, Hearing Disorder / Deafness, Hyperlipidemia, Hypertension, Myocardial Infarction (SC), Thyroid Disorder Additional Past Medical History / Comment(s): Tracheobronchitis, bronchiectasis, home O2 at @2L/NC prn, NIDDM type II, hypothyroid, past migraines, sinus problems, anemia, past L wrist fracture, [employer] [place] bilaterally-wears aides. Last Myocardial Infarction Date:: 07/25/2016 History of Any Multi-Drug Resistant Organisms: None Reported Past Surgical History: Adenoidectomy, Heart Catheterization With Stent, Hysterectomy, Tonsillectomy Additional Past Surgical History / Comment(s): cystocele, rectocele, D&C Past Anesthesia/Blood Transfusion Reactions: No Reported Reaction Date of Last Stent Placement:: 07/2016 Past Psychological History: No Psychological Hx Reported Past Alcohol Use History: None Reported Past Drug Use History: None Reported - Past Family History Mother Family Medical History: Dementia, Memory Impairment Father Family Medical History: Prostate Disorder General Exam - General Exam Comments Initial Comments: This is a well-developed sec appearing female who is awake alert oriented 3 Limitations: no limitations General appearance: alert, in distress Head exam: Present: atraumatic, normocephalic, normal inspection Eye exam: Present: normal appearance, PERRL, EOMI. Absent: scleral icterus, conjunctival injection, periorbital swelling ENT exam: Present: mucous membranes dry Neck exam: Present: normal inspection, full ROM, other. Absent: tenderness, meningismus, lymphadenopathy Respiratory exam: Present: normal lung sounds bilaterally, wheezes (This is a coarse breath sounds especially on the left upper and lower lobes), decreased breath sounds (No stridor JVD or bruits). Absent: respiratory distress, rales, rhonchi, stridor Cardiovascular Exam: Present: normal rhythm, tachycardia, normal heart sounds. Absent: systolic murmur, diastolic murmur, rubs, gallop, clicks GI/Abdominal exam: Present: soft, normal bowel sounds. Absent: distended, tenderness, guarding, rebound, rigid Extremities exam: Present: normal inspection, full ROM, normal capillary refill. Absent: tenderness, pedal edema, joint swelling, calf tenderness Back exam: Present: normal inspection Neurological exam: Present: alert, oriented X3, CN II-XII intact Psychiatric exam: Present: normal affect, normal mood Skin exam: Present: warm, dry, intact, normal color. Absent: rash Course Vital Signs 11/07/20 11/07/20 11/07/20 07:32 07:36 08:16 Temperature 97.7 F Pulse Rate 128 H 109 H Respiratory 35 H 35 H 25 H Rate Blood Pressure 143/98 121/94 O2 Sat by Pulse 97 97 Oximetry 11/07/20 11/07/20 11/07/20 08:55 10:58 11:09 Temperature Pulse Rate 105 H Respiratory Rate Blood Pressure O2 Sat by Pulse 90 L 87 L Oximetry 11/07/20 11/07/20 11/07/20 11:10 12:06 12:20 Temperature Pulse Rate 100 101 H Respiratory Rate Blood Pressure O2 Sat by Pulse 95 Oximetry - Reevaluation(s) Reevaluation #1: 11/07/20 11:13 (The chest was reviewed by me as well as Dr. Pelayo who did call me regarding findings no evidence PE however evidence of right lower lobe bronchiolitis additionally possibility of free air seen under the diaphragm a CAT scan the abdomen pelvis is ordered and pending at this time. Reevaluation #2: 11/07/20 12:30 Patient was remained dyspneic and did require repeat treatment. Medical Decision Making - Medical Decision Making Patient did get some improvement after the repeat nebulizer treatment she did get 1 upon arrival from paramedics. I did discuss case with Dr. Wolfe. Patient will be admitted consultation by Dr. Vance. There is elevation of the troponin and d-dimer serial troponins will be performed. - Lab Data Result diagrams: 11/07/20 07:39 11/07/20 08:37 Lab Results 11/07/20 11/07/20 11/07/20 Range/Units 07:37 07:39 07:39 WBC 9.3 (3.8-10.6) k/uL RBC 5.32 (3.80-5.40) m/uL Hgb 15.7 (11.4-16.0) gm/dL Hct 47.3 H (34.0-46.0) % MCV 88.9 (80.0-100.0) fL MCH 29.5 (25.0-35.0) pg MCHC 33.2 (31.0-37.0) g/dL RDW 14.1 (11.5-15.5) % Plt Count 208 (150-450) k/uL MPV 8.8 Neutrophils % 84 % Lymphocytes % 12 % Monocytes % 4 % Eosinophils % 0 % Basophils % 0 % Neutrophils # 7.8 H (1.3-7.7) k/uL Lymphocytes # 1.1 (1.0-4.8) k/uL Monocytes # 0.3 (0-1.0) k/uL Eosinophils # 0.0 (0-0.7) k/uL Basophils # 0.0 (0-0.2) k/uL PT (9.0-12.0) sec INR (<1.2) APTT (22.0-30.0) sec D-Dimer (<0.60) mg/L FEU Sodium (137-145) mmol/L Potassium (3.5-5.1) mmol/L Chloride (98-107) mmol/L Carbon Dioxide (22-30) mmol/L Anion Gap mmol/L BUN (7-17) mg/dL Creatinine (0.52-1.04) mg/dL Est GFR (CKD-EPI)AfAm (>60 ml/min/1.73 sqM) Est GFR (CKD-EPI)NonAf (>60 ml/min/1.73 sqM) Glucose (74-99) mg/dL Calcium (8.4-10.2) mg/dL Magnesium (1.6-2.3) mg/dL Total Bilirubin (0.2-1.3) mg/dL AST (14-36) U/L ALT (4-34) U/L Alkaline Phosphatase (38-126) U/L Creatine Kinase (30-135) U/L Troponin I (0.000-0.034) ng/mL NT-Pro-B Natriuret Pep 145 pg/mL Total Protein (6.3-8.2) g/dL Albumin (3.5-5.0) g/dL Coronavirus (PCR) Not Detected (Not Detectd) 11/07/20 11/07/20 11/07/20 Range/Units 08:37 08:37 08:37 WBC (3.8-10.6) k/uL RBC (3.80-5.40) m/uL Hgb (11.4-16.0) gm/dL Hct (34.0-46.0) % MCV (80.0-100.0) fL MCH (25.0-35.0) pg MCHC (31.0-37.0) g/dL RDW (11.5-15.5) % Plt Count (150-450) k/uL MPV Neutrophils % % Lymphocytes % % Monocytes % % Eosinophils % % Basophils % % Neutrophils # (1.3-7.7) k/uL Lymphocytes # (1.0-4.8) k/uL Monocytes # (0-1.0) k/uL Eosinophils # (0-0.7) k/uL Basophils # (0-0.2) k/uL PT 10.1 (9.0-12.0) sec INR 0.9 (<1.2) APTT 19.1 L (22.0-30.0) sec D-Dimer 0.90 H (<0.60) mg/L FEU Sodium 141 (137-145) mmol/L Potassium 3.6 (3.5-5.1) mmol/L Chloride 108 H (98-107) mmol/L Carbon Dioxide 20 L (22-30) mmol/L Anion Gap 13 mmol/L BUN 30 H (7-17) mg/dL Creatinine 0.50 L (0.52-1.04) mg/dL Est GFR (CKD-EPI)AfAm >90 (>60 ml/min/1.73 sqM) Est GFR (CKD-EPI)NonAf >90 (>60 ml/min/1.73 sqM) Glucose 265 H (74-99) mg/dL Calcium 9.2 (8.4-10.2) mg/dL Magnesium 1.8 (1.6-2.3) mg/dL Total Bilirubin 0.5 (0.2-1.3) mg/dL AST 40 H (14-36) U/L ALT 32 (4-34) U/L Alkaline Phosphatase 138 H (38-126) U/L Creatine Kinase 123 (30-135) U/L Troponin I 0.075 H* (0.000-0.034) ng/mL NT-Pro-B Natriuret Pep pg/mL Total Protein 6.6 (6.3-8.2) g/dL Albumin 4.3 (3.5-5.0) g/dL Coronavirus (PCR) (Not Detectd) - EKG Data -: EKG Interpreted by Me EKG shows normal: sinus rhythm Rate: tachycardia EKG Comments: Sinus tachycardia rate 114 AK interval 142 QRS 84 QT since QTC 338/465 poor R- wave progression no acute ST-T wave changes - Radiology Data Radiology results: report reviewed (Did review the imaging x-rays are unremarkable CAT scan does show evidence of a right lower lobe bronchitis bronchiolitis. No evidence of PE in the CAT scan there was question of free air CAT scan the abdomen pelvis shows no evidence of this.), image reviewed Critical Care Time Critical Care Time: Yes Total Critical Care Time: 37 Critical Care Time: Critical care time includes initial presentation with history physical labs x- rays discussed with paramedics upon arrival review of old charting. Multiple reevaluation the patient. Multiple discussions with the patient family discuss with the beta physician discussion with the radiologist admission orders and documentation of the above. Disposition Clinical Impression: Acute exacerbation of chronic obstructive pulmonary disease (COPD), Right lower lobe pneumonitis, Elevated troponin, Hypoxemia Disposition: ADMITTED IP TO THIS HOSP Condition: Fair Referrals: Catie Akhtar MD [Primary Care Provider] - 1-2 days
[2020-11-07 07:59] LABS: Basophils % (A) 0 %; Eosinophils % (A) 0 %; HCT 47.3 % (34.0-46.0); HGB 15.7 gm/dL (11.4-16.0); Lymphocytes # (A) 1.1 k/uL (1.0-4.8); Lymphocytes % (A) 12 %; MCH 29.5 pg (25.0-35.0); MCHC 33.2 g/dL (31.0-37.0); MCV 88.9 fL (80.0-100.0); Mean Platelet Volume 8.8; Monocytes # (A) 0.3 k/uL (0-1.0); Monocytes % (A) 4 %; Neutrophils # (A) 7.8 k/uL (1.3-7.7); Neutrophils % (A) 84 %; Platelet Count 208 k/uL (150-450); RBC 5.32 m/uL (3.80-5.40); RDW 14.1 % (11.5-15.5); WBC 9.3 k/uL (3.8-10.6)
--- NOTE | 2020-11-07 08:05 | XR ---
EXAMINATION TYPE: XR chest 2V DATE OF EXAM: 11/07/2020 COMPARISON: 06/07/2019 HISTORY: Productive cough TECHNIQUE: Frontal and lateral views of the chest are obtained. FINDINGS: The lungs are hyperinflated without large airspace disease, pleural effusion or pneumothor ax. No significant pulmonary edema is seen. Cardiac silhouette is borderline enlarged, unchanged since prior exam. IMPRESSION: No acute cardiopulmonary process.
[2020-11-07 09:14] LABS: ALT 32 U/L (4-34); AST 40 U/L (14-36); African American GFR (CKD) >90 (>60 ml/min/1.73 sqM); Albumin 4.3 g/dL (3.5-5.0); Alkaline Phosphatase 138 U/L (38-126); Anion Gap 13 mmol/L; Blood Urea Nitrogen 30 mg/dL (7-17); Calcium 9.2 mg/dL (8.4-10.2); Carbon Dioxide 20 mmol/L (22-30); Chloride 108 mmol/L (98-107); Creatine Kinase 123 U/L (30-135); Glucose 265 mg/dL (74-99); Magnesium 1.8 mg/dL (1.6-2.3); Non-African American GFR(CKD) >90 (>60 ml/min/1.73 sqM); Potassium 3.6 mmol/L (3.5-5.1); Sodium 141 mmol/L (137-145); Total Bilirubin 0.5 mg/dL (0.2-1.3); Total Protein 6.6 g/dL (6.3-8.2)
[2020-11-07 09:22] LABS: INR 0.9 (<1.2); Prothrombin Time 10.1 sec (9.0-12.0)
[2020-11-07 09:37] LABS: D-Dimer 0.9 mg/L FEU (<0.60); Partial Thromboplastin Time 19.1 sec (22.0-30.0)
[2020-11-07] MEDS ORDERED: SODIUM CHLORIDE 0.9% 1,000 ML IV STA ×2 (09:42)
--- NOTE | 2020-11-07 10:56 | CT ---
EXAMINATION TYPE: CT angio chest DATE OF EXAM: 11/07/2020 10:22 AM COMPARISON: CT chest August 31, 2012 HISTORY: SOB and elevated d-dimer. CT DLP: 217.4 mGycm Automated exposure control for dose reduction was used. CONTRAST: CTA scan of the thorax is performed with IV Contrast, patient injected with 77 mL of Isovue 370, pulm onary embolism protocol. MIP images are created and reviewed. FINDINGS: LUNGS: Mild to moderate underlying emphysematous change is redemonstrated. There is moderate bibasila r linear scarring and/or atelectasis on current study. There is right infrahilar peribronchial wall t hickening with intraluminal opacity suspected retained secretions, areas of endobronchial obstruction are present in the right lower lobe smaller bronchi extending inferiorly. Findings extend to the bro mdhus intermedius coronal image 77 for reference. No pleural effusion or pneumothorax seen. MEDIASTINUM: There is satisfactory enhancement of the pulmonary artery and its branches, there is no CT evidence for pulmonary embolism. There are no greater than 1 cm hilar or mediastinal lymph nodes. Small to tiny pericardial effusion is seen. No cardiomegaly. OTHER: Small foci of nondependent air suspicious for pneumoperitoneum anterior to the liver beginnin g axial images 128 through 137. IMPRESSION: 1. No CT evidence for acute pulmonary embolism. 2. Mild to moderate emphysematous change with right lower lobe bronchial wall thickening and areas of narrowing and occlusion, correlate for possible bronchiolitis. Areas of mucous plugging are thought present. 3. Suggestion of free air. Correlate clinically. Consider CT abdomen to further evaluate. Results discussed with ER physician via telephone at time of dictation.
[2020-11-07] MEDS ORDERED: IPRATROPIUM-ALBUTEROL 3 ML NEB INHALATION STA (11:25)
--- NOTE | 2020-11-07 11:42 | CT ---
EXAMINATION TYPE: CT abdomen pelvis wo con DATE OF EXAM: 11/07/2020 HISTORY: Epigastric pain, abnormal recent CT CT DLP: 376.8 mGycm. Automated Exposure Control for Dose Reduction was Utilized. TECHNIQUE: CT scan of the abdomen and pelvis is performed without oral or IV contrast. COMPARISON: Same day CT chest for FINDINGS: Within the limitations of a non-contrast study, the following observations are made. LUNG BASES: Please refer to same day CTA chest report for complete details. LIVER/GB: No significant abnormality is appreciated. PANCREAS: No significant abnormality is seen. SPLEEN: Single punctate calcification in the spleen axial image 20.. ADRENALS: No significant abnormality is seen. KIDNEYS: Satisfactory excretion from both kidneys without hydronephrosis. Occasional subcentimeter lo w dense lesion presumed benign. Contrast filling the bladder in the pelvis. BOWEL: No suspicious small or large bowel dilatation. Some motion artifact degradation. Colonic diver ticulosis without convincing CT evidence for acute diverticulitis.. Large roughly 3.6 cm duodenal div erticulum with air-fluid level on image 32 near junction of second and third portion. GENITAL ORGANS: Uterus surgically absent. Scattered bilateral pelvic phleboliths. LYMPH NODES: No greater than 1cm abdominal or pelvic lymph nodes are appreciated. OSSEOUS STRUCTURES: Moderate axial joint space loss both hips with mild to moderate acetabular spurri ng. Facet arthropathy lower lumbar levels. OTHER: Correspond to abnormality on recent CT there is colonic interposition with nondilated air-fill ed bowel extending anterior to the liver mimicking free air, this is an proximal transverse colon and is new from the 2013 CT. IMPRESSION: No free air observed. Suboptimal study with motion artifact degradation. No acute finding s evident.
[2020-11-07] MEDS ORDERED: IPRATROPIUM-ALBUTEROL 3 ML NEB INHALATION PRN ×2 (12:58→13:44)
[2020-11-07] MEDS ORDERED: LEVOFLOXACIN 500 MG TAB PO STA (13:01)
[2020-11-07] MEDS ORDERED: NITROGLYCERIN SL TABS 0.4 MG TAB SUBLINGUAL PRN (13:04)
--- NOTE | 2020-11-07 13:48 | P.CNPUL ---
History of Present Illness Consult date: 11/07/20 Reason for consult: dyspnea, COPD History of present illness: 80-year-old female patient with known history of COPD, CAD, diabetes mellitus, h ypertension, presenting to the emergency department because of worsening shortness of breath and the patient was often greenish sputum. No fever. No chills. No chest pain. No angina. No palpitations. At the time of the arrival to the emergency department, the patient was afebrile with a temperature of 97.7. She has found to be hypoxic and she was placed on 100% nonrebreather facemask. A chest x-ray was done and showed no acute cardio pulmonary process. A CT of the chest was done and showed emphysematous changes bilaterally along with moderate bibasilar linear scarring/atelectasis. There was also some right infrahilar peribronchial wall thickening probably related to secretions. No pleural effusion. No pneumothorax and there was adequate enhancement of pulmonary arteries. There was a small full-thickness of nondependent areas suspicious for pneumoperitoneum anterior to the liver and for that reason a CAT scan of the abdomen was done. The CAT scan of the abdomen was essentially negative. There was no free air observed. No acute findings was observed. The blood work showed a troponin of 0.07. Normal renal function. Serum bicarb was 20. LFTs were normal. ProBNP level was 145. Coagulation profile was normal. D-dimer was low at 0.9. White cell count was at 9.3 with hemoglobin of 15.7. EKG showed sinus tachycardia, anterolateral infarct with Q waves, old finding. Noted the patient symptoms started approximately 7-10 days ago. She has started seeing her primary care physician. She was given a 5 day course of antibiotics with Levaquin and prednisone on outpatient basis without any improvement. She subsequently got short of breath and she had called EMS who brought into the hospital. My Review of Systems Constitutional: Denies chills, Denies fever Eyes: denies blurred vision, denies pain Ears, nose, mouth and throat: Denies headache, Denies sore throat Cardiovascular: Denies chest pain, Denies shortness of breath Respiratory: Reports cough with sputum, Reports dyspnea, Reports home oxygen, D enies cough Gastrointestinal: Denies abdominal pain, Denies diarrhea, Denies nausea, Denies vomiting Genitourinary: Denies dysuria, Denies hematuria Musculoskeletal: Denies myalgias Integumentary: Denies pruritus, Denies rash Neurological: Denies numbness, Denies weakness Psychiatric: Denies anxiety, Denies depression Endocrine: Denies fatigue, Denies weight change Past Medical History Past Medical History: Asthma, Coronary Artery Disease (CAD), COPD, Diabetes Mellitus, Hearing Disorder / Deafness, Hyperlipidemia, Hypertension, Myocardial Infarction ([place]), Thyroid Disorder Additional Past Medical History / Comment(s): Tracheobronchitis, bronchiectasis, home O2 at @2L/[place] prn, NIDDM type II, hypothyroid, past migraines, sinus problems, anemia, past L wrist fracture, [place] bilaterally-wears aides. Last Myocardial Infarction Date:: 07/25/2016 History of Any Multi-Drug Resistant Organisms: None Reported Past Surgical History: Adenoidectomy, Heart Catheterization With Stent, Hyst erectomy, Tonsillectomy Additional Past Surgical History / Comment(s): cystocele, rectocele, D&C Past Anesthesia/Blood Transfusion Reactions: No Reported Reaction Date of Last Stent Placement:: 07/2016 Past Psychological History: No Psychological Hx Reported Past Alcohol Use History: None Reported Past Drug Use History: None Reported - Past Family History Mother Family Medical History: Dementia, Memory Impairment Father Family Medical History: Prostate Disorder Medications and Allergies Home Medications Medication Instructions Recorded Confirmed Type Aspirin 81 mg PO DAILY chew 07/29/16 11/07/20 Rx Metoprolol Tartrate [Lopressor] 25 mg PO BID #60 tab 07/29/16 11/07/20 Rx Levothyroxine Sodium [Synthroid] 50 mcg PO DAILY 02/25/17 11/07/20 History Montelukast [Singulair] 10 mg PO DAILY 05/02/18 11/07/20 History metFORMIN HCL [Glucophage] 500 mg PO BID 05/02/18 11/07/20 History Losartan Potassium 50 mg PO DAILY 10/07/18 11/07/20 History Atorvastatin [Lipitor] 80 mg PO DAILY 06/07/19 11/07/20 History Pantoprazole [Protonix] 40 mg PO DAILY 06/07/19 11/07/20 History Albuterol Nebulized [Ventolin 2.5 mg INHALATION RT-TID PRN 11/07/20 11/07/20 History Nebulized] Fluticasone Propion/Salmeterol 1 puff INHALATION RT-BID 11/07/20 11/07/20 History [Wixela 500-50 Inhub] Levofloxacin [Levaquin] 500 mg PO DAILY 11/07/20 11/07/20 History predniSONE [Deltasone] 20 mg PO DAILY 11/07/20 11/07/20 History Allergies Allergy/AdvReac Type Severity Reaction Status Date / Time No Known Drug Allergies Allergy Unknown Verified 11/07/20 08:19 Physical Exam Vitals: Vital Signs Temp Pulse Resp BP Pulse Ox 11/07/20 13:14 86 16 98 11/07/20 12:20 101 H 11/07/20 12:06 100 11/07/20 11:10 95 11/07/20 11:09 87 L 11/07/20 10:58 90 L 11/07/20 08:55 105 H 11/07/20 08:16 109 H 25 H 121/94 97 11/07/20 07:36 35 H 11/07/20 07:32 97.7 F 128 H 35 H 143/98 97 Intake and Output 11/06/20 11/07/20 11/07/20 22:59 06:59 14:59 Other: Weight 55.792 kg GENERAL EXAM: Alert, very pleasant, 78-year-old white female, on 100%NRB oxygen, with pulse ox of 96% comfortable in no apparent distress. HEAD: Normocephalic/atraumatic. EYES: Normal reaction of pupils, equal size. Conjunctiva pink, sclera white. NOSE: Clear with pink turbinates. THROAT: No erythema or exudates. NECK: No masses, no JVD, no thyroid enlargement, no adenopathy. CHEST: No chest wall deformity. Symmetrical expansion. LUNGS: Equal air entry with diffuse wheezes, congested cough CVS: Regular rate and rhythm, normal S1 and S2, no gallops, no murmurs, no rubs ABDOMEN: Soft, nontender. No hepatosplenomegaly, normal bowel sounds, no guarding or rigidity. EXTREMITIES: No clubbing, no edema, no cyanosis, 2+ pulses and upper and lower extremities. MUSCULOSKELETAL: Muscle strength and tone normal. SPINE: No scoliosis or deformity SKIN: No rashes CENTRAL NERVOUS SYSTEM: Alert and oriented -3. No focal deficits, tone is normal in all 4 extremities. PSYCHIATRIC: Alert and oriented -3. Appropriate affect. Intact judgment and insight. Results - Laboratory Findings CBC and BMP: 11/07/20 07:39 11/07/20 08:37 PT/INR, D-dimer PT 10.1 sec (9.0-12.0) 11/07/20 08:37 INR 0.9 (<1.2) 11/07/20 08:37 D-Dimer 0.90 mg/L FEU (<0.60) H 11/07/20 08:37 Abnormal lab findings: Abnormal Labs 11/07/20 11/07/20 11/07/20 07:39 08:37 08:37 Hct 47.3 H Neutrophils # 7.8 H APTT D-Dimer Chloride 108 H Carbon Dioxide 20 L BUN 30 H Creatinine 0.50 L Glucose 265 H AST 40 H Alkaline Phosphatase 138 H Troponin I 0.075 H* 11/07/20 08:37 Hct Neutrophils # APTT 19.1 L D-Dimer 0.90 H Chloride Carbon Dioxide BUN Creatinine Glucose AST Alkaline Phosphatase Troponin I - Diagnostic Findings Chest x-ray: image reviewed CT scan - chest: image reviewed Assessment and Plan Plan: 1. Acute exacerbation of moderate persistant asthma along with a possible component of COPD, , complicated by tracheobronchitis, chest x-ray showed no evidence for acute pulmonary disease, using the angiogram showed no evidence of any pulmonary embolism. pulmonary embolism. D-dimer is low. ProBNP is nonelevated. 2. Acute hypoxic respiratory failure secondary to above 3 History of right lower lobe pneumonia in March 2019, at which time patient required intubation and brief mechanical ventilator support, bronchial wash cultures were positive for Mae and penicillium species 4. Coronary artery disease along with previous history of stenting of the LAD, the patient did have some troponin leak and this will be monitored and possibly a cardiology consultation will be obtained knowing that she has underlying coronary artery disease. 5 Diabetes mellitus 6. Hypertension 7. Hyperlipidemia 8. History of myocardial infarction 9. Hypothyroidism Plan Thousand patient on DuoNeb nebulized treatments around the clock 4 times a day and also put on a combination of Pulmicort and Perforomist nebulized treatments twice a day IV Solu Medrol 60 mg every 6 hours Empiric antibiotic coverage with Levaquin 500 mg by mouth daily Monitor the blood sugar and treat steroid use hyperglycemia CT angiogram of the chest was noted. No evidence of any pulmonary embolism. There is evidence of bronchial thickening/bronchitis and the patient has a low d-dimer without evidence of any pulmonary embolism. Wean down the FiO2 as tolerated to maintain saturation above 90% Monitor cardiac enzymes Obtain a repeat echocardiogram. The last echocardiogram was some few years back Heparin subcu for DVT prophylaxis We'll continue to follow.
[2020-11-07] MEDS: IPRATROPIUM-ALBUTEROL 3 ML NEB INHALATION SCH ×2 (16:14→21:18)
--- NOTE | 2020-11-07 16:30 | P.HPIM ---
History of Present Illness 80-year-old the pleasant female came in with complains of shortness of breath and patient had remote smoking history many years ago quit in 1966 only smoked for 10 years. Never smoked after that but does have diagnosis of COPD, denied any previous history of asthma. CT of the chest did show emphysematous changes. Patient had a CT here to rule out pulmonary embolism. Patient was started on systemic steroids patient has minimally minimally decreased air entry without any wheezing although patient is on 3 L of oxygen. Patient the was on prednisone and levofloxacin as an outpatient. Patient was started back on levofloxacin here. Patient had a proBNP which is not elevated patient feels much better now. Patient uses oxygen as needed basis at home. Review of Systems REVIEW OF SYSTEMS: CONSTITUTIONAL: No fever, no malaise, no fatigue. HEENT: No recent visual problems or hearing problems. Denied any sore throat. CARDIOVASCULAR: No chest pain, orthopnea, PND, no palpitations, no syncope. PULMONARY: As mentioned in HPI GASTROINTESTINAL: No diarrhea, no nausea, no vomiting, no abdominal pain. NEUROLOGICAL: No headaches, no weakness, no numbness. HEMATOLOGICAL: Denies any bleeding or petechiae. GENITOURINARY: Denies any burning micturition, frequency, or urgency. MUSCULOSKELETAL/RHEUMATOLOGICAL: Denies any joint pain, swelling, or any muscle pain. ENDOCRINE: Denies any polyuria or polydipsia. The rest of the 14-point review of systems is negative. Past Medical History Past Medical History: Asthma, Coronary Artery Disease (CAD), COPD, Diabetes Mellitus, Hearing Disorder / Deafness, Hyperlipidemia, Hypertension, Myocardial Infarction ([place]), Thyroid Disorder Additional Past Medical History / Comment(s): Tracheobronchitis, bronchiectasis, home O2 at @2L/[place] prn, NIDDM type II, hypothyroid, past migraines, sinus problems, anemia, past L wrist fracture, [place] bilaterally-wears aides. Last Myocardial Infarction Date:: 07/25/2016 History of Any Multi-Drug Resistant Organisms: None Reported Past Surgical History: Adenoidectomy, Heart Catheterization With Stent, Hysterectomy, Tonsillectomy Additional Past Surgical History / Comment(s): cystocele, rectocele, D&C Past Anesthesia/Blood Transfusion Reactions: No Reported Reaction Date of Last Stent Placement:: 07/2016 Past Psychological History: No Psychological Hx Reported Past Alcohol Use History: None Reported Past Drug Use History: None Reported - Past Family History Mother Family Medical History: Dementia, Memory Impairment Father Family Medical History: Prostate Disorder Medications and Allergies Home Medications Medication Instructions Recorded Confirmed Type Aspirin 81 mg PO DAILY chew 07/29/16 11/07/20 Rx Metoprolol Tartrate [Lopressor] 25 mg PO BID #60 tab 07/29/16 11/07/20 Rx Levothyroxine Sodium [Synthroid] 50 mcg PO DAILY 02/25/17 11/07/20 History Montelukast [Singulair] 10 mg PO DAILY 05/02/18 11/07/20 History metFORMIN HCL [Glucophage] 500 mg PO BID 05/02/18 11/07/20 History Losartan Potassium 50 mg PO DAILY 10/07/18 11/07/20 History Atorvastatin [Lipitor] 80 mg PO DAILY 06/07/19 11/07/20 History Pantoprazole [Protonix] 40 mg PO DAILY 06/07/19 11/07/20 History Albuterol Nebulized [Ventolin 2.5 mg INHALATION RT-TID PRN 11/07/20 11/07/20 History Nebulized] Fluticasone Propion/Salmeterol 1 puff INHALATION RT-BID 11/07/20 11/07/20 History [Wixela 500-50 Inhub] Levofloxacin [Levaquin] 500 mg PO DAILY 11/07/20 11/07/20 History predniSONE [Deltasone] 20 mg PO DAILY 11/07/20 11/07/20 History Allergies Allergy/AdvReac Type Severity Reaction Status Date / Time No Known Drug Allergies Allergy Unknown Verified 11/07/20 08:19 Physical Exam Vitals: Vital Signs Temp Pulse Pulse Resp BP BP Pulse Ox 11/07/20 16:14 92 11/07/20 15:45 98.1 F 94 18 139/69 95 11/07/20 14:51 97 11/07/20 14:00 97.7 F 93 18 146/73 99 11/07/20 13:14 86 16 98 11/07/20 12:20 101 H 11/07/20 12:06 100 11/07/20 11:10 95 11/07/20 11:09 87 L 11/07/20 10:58 90 L 11/07/20 08:55 105 H 11/07/20 08:16 109 H 25 H 121/94 97 11/07/20 07:36 35 H 11/07/20 07:32 97.7 F 128 H 35 H 143/98 97 Intake and Output 11/07/20 11/07/20 11/07/20 06:59 14:59 22:59 Other: # Voids 1 Weight 55.792 kg PHYSICAL EXAMINATION: GENERAL: The patient is alert and oriented x3, not in any acute distress. Well developed, well nourished. HEENT: Pupils are round and equally reacting to light. EOMI. No scleral icterus. No conjunctival pallor. Normocephalic, atraumatic. No pharyngeal erythema. No thyromegaly. CARDIOVASCULAR: S1 and S2 present. No murmurs, rubs, or gallops. PULMONARY: Decreased air entry into bilateral lung velásquez ABDOMEN: Soft, nontender, nondistended, normoactive bowel sounds. No palpable o rganomegaly. MUSCULOSKELETAL: No joint swelling or deformity. EXTREMITIES: No cyanosis, clubbing, or pedal edema. NEUROLOGICAL: Gross neurological examination did not reveal any focal deficits. SKIN: No rashes. Results CBC & Chem 7: 11/07/20 07:39 11/07/20 08:37 Labs: Abnormal Lab Results - Last 24 Hours (Table) 11/07/20 11/07/20 11/07/20 Range/Units 07:39 08:37 08:37 Hct 47.3 H (34.0-46.0) % Neutrophils # 7.8 H (1.3-7.7) k/uL APTT (22.0-30.0) sec D-Dimer (<0.60) mg/L FEU Chloride 108 H (98-107) mmol/L Carbon Dioxide 20 L (22-30) mmol/L BUN 30 H (7-17) mg/dL Creatinine 0.50 L (0.52-1.04) mg/dL Glucose 265 H (74-99) mg/dL Plasma Lactic Acid Ramon (0.7-2.0) mmol/L AST 40 H (14-36) U/L Alkaline Phosphatase 138 H (38-126) U/L Troponin I 0.075 H* (0.000-0.034) ng/mL 11/07/20 11/07/20 11/07/20 Range/Units 08:37 13:46 13:46 Hct (34.0-46.0) % Neutrophils # (1.3-7.7) k/uL APTT 19.1 L (22.0-30.0) sec D-Dimer 0.90 H (<0.60) mg/L FEU Chloride (98-107) mmol/L Carbon Dioxide (22-30) mmol/L BUN (7-17) mg/dL Creatinine (0.52-1.04) mg/dL Glucose (74-99) mg/dL Plasma Lactic Acid Ramon 2.4 H* (0.7-2.0) mmol/L AST (14-36) U/L Alkaline Phosphatase (38-126) U/L Troponin I 0.464 H* (0.000-0.034) ng/mL Thrombosis Risk Factor Assmnt - Choose All That Apply Any of the Below Risk Factors Present?: Yes Each Factor Represents 1 point: Abnormal pulmonary function (COPD) Other Risk Factors: Yes Each Risk Factor Represents 3 Points: Age 75 years or older Thrombosis Risk Factor Assessment Total Risk Factor Score: 4 Thrombosis Risk Factor Assessment Level: Moderate Risk Assessment and Plan Plan: Acute Respiratory failure secondary to COPD exacerbation patient has significant improvement since admission, we'll cut down the IV steroids from 60 every 6-40 twice a day as patient has history of diabetes mellitus and concerns of elevated blood sugars and patient blood sugars are already. Patient has a tracheal bronchitis for which patient is on levofloxacin. -COPD with acute exacerbation x-ray and have an coronary artery disease next and-type 2 diabetes mellitus: Will will be started on long-acting insulin along with sliding scale -hypertension -Hyperlipidemia -Coronary artery disease -Hypothyroidism DVT prophylaxis subcutaneous heparin
[2020-11-07 16:58] LABS: Glucose,Whole Blood 319 mg/dL (75-99)
[2020-11-07] MEDS: SODIUM CHLORIDE 0.9% 1,000 ML IV SCH ×2 (17:21→17:36)
[2020-11-07] MEDS ORDERED: metFORMIN 500 MG TAB PO SCH (17:30)
[2020-11-07] MEDS: HEPARIN SODIUM,PORCINE/PF 5,000 UNIT/0.5 ML SYRINGE SQ SCH ×2 (17:39→23:15)
[2020-11-07] MEDS: INSULIN ASPART (NovoLOG) 100 UNIT/ML VIAL SQ SCH ×2 (17:39→20:34)
[2020-11-07] MEDS ORDERED: methylPREDNISolone SOD SUCCI 125 MG/2 ML VIAL IV SCH (18:00)
[2020-11-07] MEDS ORDERED: SYMBICORT 160-4.5 MCG INHALER INHALATION SCH (20:00)
[2020-11-07 20:10] LABS: Glucose,Whole Blood 343 mg/dL (75-99)
[2020-11-07] MEDS ORDERED: INSULIN ASPART (NovoLOG) 100 UNIT/ML VIAL SQ ONE (20:17)
[2020-11-07] MEDS: METOPROLOL TARTRATE 25 MG TAB PO SCH (20:40)
[2020-11-07] MEDS: methylPREDNISolone SOD SUCCI 40 MG/ML 1 ML VIAL IV SCH (20:40)
[2020-11-07] MEDS ORDERED: INSULIN DETEMIR (LEVEMIR) 100 UNIT/ML SYR SQ SCH ×2 (21:00)
[2020-11-07] MEDS: FORMOTEROL FUMARATE 20 MCG/2 ML NEBU INHALATION SCH (21:18)
[2020-11-07] MEDS: BUDESONIDE 1 MG/2 ML NEBU INHALATION SCH (21:18)
[2020-11-08 06:13] LABS: Glucose,Whole Blood 185 mg/dL (75-99)
[2020-11-08] MEDS: LEVOTHYROXINE 50 MCG TAB PO SCH (06:15)
[2020-11-08] MEDS: INSULIN ASPART (NovoLOG) 100 UNIT/ML VIAL SQ SCH ×4 (06:15→20:53)
[2020-11-08] MEDS: PANTOPRAZOLE 40 MG TABLET PO SCH (06:15)
[2020-11-08] MEDS: BUDESONIDE 1 MG/2 ML NEBU INHALATION SCH ×2 (08:03→22:06)
[2020-11-08] MEDS: IPRATROPIUM-ALBUTEROL 3 ML NEB INHALATION SCH ×4 (08:03→22:06)
[2020-11-08] MEDS: FORMOTEROL FUMARATE 20 MCG/2 ML NEBU INHALATION SCH ×2 (08:03→22:06)
[2020-11-08 08:31] LABS: HCT 43.5 % (34.0-46.0); HGB 14.5 gm/dL (11.4-16.0); MCH 28.9 pg (25.0-35.0); MCHC 33.2 g/dL (31.0-37.0); MCV 87.1 fL (80.0-100.0); Mean Platelet Volume 8.5; Platelet Count 235 k/uL (150-450); WBC 13.7 k/uL (3.8-10.6)
[2020-11-08 08:54] LABS: African American GFR (CKD) >90 (>60 ml/min/1.73 sqM); Anion Gap 11 mmol/L; Blood Urea Nitrogen 22 mg/dL (7-17); Carbon Dioxide 23 mmol/L (22-30); Chloride 107 mmol/L (98-107); Glucose 131 mg/dL (74-99); Non-African American GFR(CKD) 88 (>60 ml/min/1.73 sqM); Potassium 3.9 mmol/L (3.5-5.1); Sodium 141 mmol/L (137-145)
[2020-11-08] MEDS: ATORVASTATIN 80 MG TAB PO SCH (09:15)
[2020-11-08] MEDS: MONTELUKAST 10 MG TAB PO SCH (09:15)
[2020-11-08] MEDS: LOSARTAN 50 MG TAB PO SCH (09:15)
[2020-11-08] MEDS: METOPROLOL TARTRATE 25 MG TAB PO SCH ×2 (09:15→20:53)
[2020-11-08] MEDS: LEVOFLOXACIN 500 MG TAB PO SCH (09:15)
[2020-11-08] MEDS: ASPIRIN 81 MG PO SCH (09:15)
[2020-11-08] MEDS: methylPREDNISolone SOD SUCCI 40 MG/ML 1 ML VIAL IV SCH (09:18)
[2020-11-08] MEDS: SODIUM CHLORIDE 0.9% 1,000 ML IV SCH ×2 (09:23→09:25)
[2020-11-08] MEDS: HEPARIN SODIUM,PORCINE/PF 5,000 UNIT/0.5 ML SYRINGE SQ SCH ×2 (09:26→20:53)
[2020-11-08] MEDS ORDERED: ALPRAZolam 0.25 MG TAB PO PRN (10:16)
[2020-11-08] MEDS ORDERED: ALPRAZolam 0.5 MG TAB PO PRN (10:16)
[2020-11-08] MEDS ORDERED: HEPARIN SODIUM 1,000 UN/ML (10ML VL) IV PRN (10:18)
[2020-11-08] MEDS ORDERED: HEPARIN SOD,PORK IN 0.45% NACL 25,000 UNIT in 0.45% NACL 1 250ML.BAG IV SCH (10:30)
[2020-11-08 10:50] LABS: Glucose,Whole Blood 168 mg/dL (75-99)
[2020-11-08 10:56] LABS: Partial Thromboplastin Time 22.2 sec (22.0-30.0); Prothrombin Time 10.4 sec (9.0-12.0)
[2020-11-08 11:52] LABS: Glucose,Whole Blood 129 mg/dL (75-99)
--- NOTE | 2020-11-08 12:02 | ECHOF ---
Referral Reason:Elevated tropns MEASUREMENTS -------- HEIGHT: 152.4 cm WEIGHT: 55.8 kg BP: 131/61 RVIDd: 2.1 cm (< 3.3) IVSd: 1.0 cm (0.6 - 1.1) LVIDd: 4.3 cm (3.9 - 5.3) LVPWd: 1.2 cm (0.6 - 1.1) IVSs: 1.2 cm LVIDs: 3.7 cm LVPWs: 1.2 cm Ao Diam: 2.9 cm (2.0 - 3.7) AV Cusp: 1.7 cm (1.5 - 2.6) LA Diam: 2.6 cm (2.7 - 3.8) MV EXCURSION: 12.495 mm (> 18.000) MV EF SLOPE: 55 mm/s (70 - 150) EPSS: 0.5 cm MV E Osmin: 0.66 m/s MV DecT: 155 ms MV A Osmin: 0.85 m/s MV E/A Ratio: 0.78 AV maxP.17 mmHg AV meanP.79 mmHg RAP: 5.00 mmHg RVSP: 37.14 mmHg FINDINGS -------- Sinus rhythm. This was a technically difficult study with suboptimal views. The left ventricular size is normal. Left ventricular wall thickness is normal. Overall left vent ricular systolic function is moderately impaired with, an EF between 35 - 40 %. Mid anterior LV wal l motion is hypokinetic. Mid anteroseptal LV wall motion is hypokinetic. Apical anterior LV wal l motion is akinetic. Apical inferior LV wall motion is akinetic. Apical septum LV wall motion is akinetic. The right ventricle is normal in size. The left atrial size is normal. The right atrial size is normal. Lumason used The aortic valve was not well visualized. The mitral valve leaflets are mildly thickened. [id number] mitral regurgitation is present. The tricuspid valve appears structurally normal. Mild tricuspid regurgitation present. There is m ild pulmonary hypertension. The right ventricular systolic pressure, as measured by Doppler, is 37. 14mmHg. Trace/mild (physiologic) pulmonic regurgitation. The aortic root size is normal. IVC Not well visulized. There is no pericardial effusion. CONCLUSIONS -------- 1. Left ventricular wall thickness is normal. 2. Overall left ventricular systolic function is moderately impaired with, an EF between 35 - 40 %. 3. Mid anterior LV wall motion is hypokinetic. 4. Mid anteroseptal LV wall motion is hypokinetic. 5. Apical anterior LV wall motion is akinetic. 6. Apical inferior LV wall motion is akinetic. 7. Apical septum LV wall motion is akinetic. 8. The left atrial size is normal. 9. The aortic valve was not well visualized. 10. [id number] mitral regurgitation is present. 11. Mild tricuspid regurgitation present. 12. There is mild pulmonary hypertension. 13. Trace/mild (physiologic) pulmonic regurgitation. 14. There is no pericardial effusion. ASIC DESIGN ENGINEER: Nora Escobedo RDCS
--- NOTE | 2020-11-08 12:03 | P.CRDCN ---
History of Present Illness History of present illness: HISTORY OF PRESENTING ILLNESS This is a pleasant 80-year-old female past medical history significant for hypertension, diabetes, COPD, coronary artery disease status post PCI to proximal LAD in July 2016. She follows in the office with Dr. Mclean. We have been asked to see in consultation for elevated troponin. In 2017, patient had increased shortness of breath which initially she felt was related to her COPD however she was noted to have NSTEMI and underwent PCI to her LAD. Patient presents with the emergency department 11/06 with complaints of shortness of breath. She states that over the past 2 weeks she's been seeing her chief technical officer, they put her on prednisone for 5 days she was doing well. She actually had an appointment with her chief technical officer on Thursday she was told her lungs were clear and she was feeling much better. Patient states that yesterday around 5am woke up suddenly short of breath, felt that she could no breath. This continued and her called EMS and she was taken to the emergency department. She states that this is similiar to when she had a NSTEMI in 2017, having exertional shortness of breath but then she did have some chest sensation feeling that "water was coming up to my throat". This time she states she did not have this feeling. She denies chest pain, palpitations, lower extremity edema, fatigue, weakness, lightheadedness, syncope. Aggravating symptoms include activity. Alleviated symptoms include resting. On exam, she appears to be still short of breath, but improved. DIAGNOSTICS EKG reveals sinus tachycardia, heart rate 114, some ST depression in lead II. EKG this morning reveals HR 83, inverted P waves, short OH interval, T wave inversions in leads V2-V6. Prior EKG 2018, sinus rhythm, heart rate 85, T wave inversions in leads inferior leads and leads V2-V6 Last Cardiac Catheterization July 2016, with PCI to proximal LAD Telemetry tracings indicate sinus mechanism Chest xray no acute cardiopulmonary process, lungs are hyperinflated without large airspace disease. CT chest revealed no pulmonary embolism, mild to moderate emphysematous changes within the right lower lobe bronchial wall thickening in areas of narrowing and occlusion, correlate for possible bronchiolitis. Areas of mucous plugging present. Suggestion of free air CT abdomen/Pelvis- no free air noted Laboratory reviewed, troponin 0.07-->0.46-->0.69, Pro BNP 145, Covid-19 negative D-dimer slightly elevated at 0.9, Lactate 2.2-->1.8, sodium 141, potassium 3.9, BUN 22, serum creatinine 0.56. Most recent Lexiscan stress test 10/13/2017revealed no evidence of stress- induced ischemia Most recent echocardiogram 09/2016 in the office revealed EF 55%, mild aortic regurgitation, mild mitral regurgitation, mild tricuspid regurgitation, and intra-arterial septum is aneurysmal. Current home medications include metformin, metoprolol tartrate 25 mg twice a day, losartan 50 mg daily, atorvastatin 80 mg daily, aspirin 81 mg daily, prednisone 20 mg daily REVIEW OF SYSTEMS At the time of my exam: CONSTITUTIONAL: Denies fever or chills. CARDIOVASCULAR: +shortness of breath, +GAN Denies chest pain, orthopnea, PND or palpitations. RESPIRATORY: Denies cough. GASTROINTESTINAL: Denies abdominal pain, diarrhea, constipation, nausea or vomiting. MUSCULOSKELETAL: Denies myalgias. NEUROLOGIC: Denies numbness, tingling, headacbe or weakness. ENDOCRINE: Denies fatigue, weight change, polydipsia or polyurina. GENITOURINARY: Denies burning, hematuria or urgency with micturation. HEMATOLOGIC: Denies history of anemia or bleeding. PHYSICAL EXAMINATION Blood pressure 119/69 heart rate 100 afebrile and maintaining oxygen saturation on 96% on 2 L nasal cannula. CONSTITUTIONAL: Appears short of breath, walking back from the bathroom HEENT: Head is normocephalic. Pupils are equal, round. Sclerae anicteric. Mucous membranes of the mouth are moist. No JVD. No carotid bruit. CHEST EXAMINATION: Lungs are diminished in the bases to auscultation. No chest wall tenderness is noted on palpation or with deep breathing. HEART EXAMINATION: Regular rate and rhythm. S1, S2 heard. No murmurs, gallops or rub. ABDOMEN: Soft, nontender. Positive bowel sounds. EXTREMITIES: 2+ peripheral pulses, no lower extremity edema and no calf tenderness. SKIN: intact NEUROLOGIC EXAMINATION: Patient is awake, alert and oriented x3. ASSESSMENT Shortness of breath, possibly multifactorial with exacerbation of asthma/COPD vs ischemia Elevated troponin concern for NSTEMI Coronary artery disease with stent to LAD in july 2016 Hypertension Dyslipidemia Type 2 Diabetes mellitus COPD Asthma PLAN Obtain 2D echocardiogram and doppler study to assess cardiac structure and function. Pulmonary following appreciate recommendations. Recommend cardiac catheterization at this time. Patient is agreeable to the procedure. Procedure will be done by Dr. Mclean. I have discussed the risks, benefits and alternative therapies for the above- mentioned procedure and for both sedation/analgesia as well as necessary blood product administration, if indicated, as they pertain to this patient. The patient has indicated understanding and acceptance of the risks and procedures discussed. Questions have been answered appropriately and he is agreeable to move forward with the above-stated procedure. Further recommendations pending clinical course Nurse Practitioner note has been reviewed, I agree with a documented findings and plan of care. Patient was seen and examined. Past Medical History Past Medical History: Asthma, Coronary Artery Disease (CAD), COPD, Diabetes Mellitus, Hearing Disorder / Deafness, Hyperlipidemia, Hypertension, Myocardial Infarction (DE), Thyroid Disorder Additional Past Medical History / Comment(s): Tracheobronchitis, bronchiectasis, home O2 at @2L/NC prn, NIDDM type II, hypothyroid, past migraines, sinus problems, anemia, past L wrist fracture, POARCH bilaterally-wears aides. Last Myocardial Infarction Date:: 07/25/2016 History of Any Multi-Drug Resistant Organisms: None Reported Past Surgical History: Adenoidectomy, Heart Catheterization With Stent, Hysterectomy, Tonsillectomy Additional Past Surgical History / Comment(s): cystocele, rectocele, D&C Past Anesthesia/Blood Transfusion Reactions: No Reported Reaction Date of Last Stent Placement:: 07/2016 Past Psychological History: No Psychological Hx Reported Past Alcohol Use History: None Reported Past Drug Use History: None Reported - Past Family History Mother Family Medical History: Dementia, Memory Impairment Father Family Medical History: Prostate Disorder Medications and Allergies Home Medications Medication Instructions Recorded Confirmed Type Aspirin 81 mg PO DAILY chew 07/29/16 11/07/20 Rx Metoprolol Tartrate [Lopressor] 25 mg PO BID #60 tab 07/29/16 11/07/20 Rx Levothyroxine Sodium [Synthroid] 50 mcg PO DAILY 02/25/17 11/07/20 History Montelukast [Singulair] 10 mg PO DAILY 05/02/18 11/07/20 History metFORMIN HCL [Glucophage] 500 mg PO BID 05/02/18 11/07/20 History Losartan Potassium 50 mg PO DAILY 10/07/18 11/07/20 History Atorvastatin [Lipitor] 80 mg PO DAILY 06/07/19 11/07/20 History Pantoprazole [Protonix] 40 mg PO DAILY 06/07/19 11/07/20 History Albuterol Nebulized [Ventolin 2.5 mg INHALATION RT-TID PRN 11/07/20 11/07/20 History Nebulized] Fluticasone Propion/Salmeterol 1 puff INHALATION RT-BID 11/07/20 11/07/20 History [Wixela 500-50 Inhub] Levofloxacin [Levaquin] 500 mg PO DAILY 11/07/20 11/07/20 History predniSONE [Deltasone] 20 mg PO DAILY 11/07/20 11/07/20 History Allergies Allergy/AdvReac Type Severity Reaction Status Date / Time No Known Drug Allergies Allergy Unknown Verified 11/07/20 08:19 Physical Exam Vitals: Vital Signs Temp Pulse Pulse Resp BP BP Pulse Ox 11/07/20 14:00 97.7 F 93 18 146/73 99 11/07/20 13:14 86 16 98 11/07/20 12:20 101 H 11/07/20 12:06 100 11/07/20 11:10 95 11/07/20 11:09 87 L 11/07/20 10:58 90 L 11/07/20 08:55 105 H 11/07/20 08:16 109 H 25 H 121/94 97 11/07/20 07:36 35 H 11/07/20 07:32 97.7 F 128 H 35 H 143/98 97 Intake and Output 11/06/20 11/07/20 11/07/20 22:59 06:59 14:59 Other: Weight 55.792 kg Results 11/08/20 07:47 11/08/20 07:47 Cardiac Enzymes 11/07/20 11/07/20 11/07/20 Range/Units 08:37 08:37 13:46 AST 40 H (14-36) U/L Troponin I 0.075 H* 0.464 H* (0.000-0.034) ng/mL Coagulation 11/07/20 Range/Units 08:37 PT 10.1 (9.0-12.0) sec APTT 19.1 L (22.0-30.0) sec CBC 11/07/20 Range/Units 07:39 WBC 9.3 (3.8-10.6) k/uL RBC 5.32 (3.80-5.40) m/uL Hgb 15.7 (11.4-16.0) gm/dL Hct 47.3 H (34.0-46.0) % Plt Count 208 (150-450) k/uL Comprehensive Metabolic Panel 11/07/20 Range/Units 08:37 Sodium 141 (137-145) mmol/L Potassium 3.6 (3.5-5.1) mmol/L Chloride 108 H (98-107) mmol/L Carbon Dioxide 20 L (22-30) mmol/L BUN 30 H (7-17) mg/dL Creatinine 0.50 L (0.52-1.04) mg/dL Glucose 265 H (74-99) mg/dL Calcium 9.2 (8.4-10.2) mg/dL AST 40 H (14-36) U/L ALT 32 (4-34) U/L Alkaline Phosphatase 138 H (38-126) U/L Total Protein 6.6 (6.3-8.2) g/dL Albumin 4.3 (3.5-5.0) g/dL Current Medications Generic Name Dose Route Start Last Admin Trade Name Freq PRN Reason Stop Dose Admin Albuterol/Ipratropium 3 ml 11/07/20 12:58 Ipratropium-Albuterol 3 Ml Neb INHALATION RT-Q4H PRN Shortness Of Breath Or Wheezing Albuterol/Ipratropium 3 ml 11/07/20 16:00 Ipratropium-Albuterol 3 Ml Neb INHALATION RT-QID CLARISSA Albuterol/Ipratropium 3 ml 11/07/20 13:44 Ipratropium-Albuterol 3 Ml Neb INHALATION RT-Q2H PRN Shortness Of Breath Or Wheezing Aspirin 81 mg 11/08/20 09:00 Aspirin 81 Mg PO DAILY [facility] Atorvastatin Calcium 80 mg 11/08/20 09:00 Atorvastatin 80 Mg Tab PO DAILY [facility] Budesonide 1 mg 11/07/20 20:00 Budesonide 1 Mg/2 Ml Nebu INHALATION RT-BID CLARISSA Formoterol Fumarate 20 mcg 11/07/20 20:00 Formoterol Fumarate 20 Mcg/2 Ml Nebu INHALATION RT-BID CLARISSA Heparin Sodium (Porcine) 5,000 unit 11/07/20 16:00 Heparin Sodium,Porcine/Pf 5,000 Unit/0.5 Ml Syringe SQ Q8HR CLARISSA Sodium Chloride 1,000 mls @ 20 mls/hr 11/07/20 09:42 11/07/20 09:48 Saline 0.9% IV 11/08/20 09:41 Not Given .Q24H STA Sodium Chloride 1,000 mls @ 75 mls/hr 11/07/20 09:42 11/07/20 10:26 Saline 0.9% IV 11/07/20 23:01 75 mls/hr .[id number] STA Administration Levofloxacin 500 mg 11/08/20 09:00 Levofloxacin 500 Mg Tab PO 11/15/20 09:01 DAILY [facility] Levothyroxine Sodium 50 mcg 11/08/20 06:30 Levothyroxine 50 Mcg Tab PO DAILY@0630 [facility] Losartan Potassium 50 mg 11/08/20 09:00 Losartan 50 Mg Tab PO DAILY [facility] Metformin HCl 500 mg 11/07/20 17:30 Metformin 500 Mg Tab PO AC-BID [facility] Methylprednisolone Sodium Succinate 60 mg 11/07/20 18:00 Methylprednisolone Sod Succi 125 Mg/2 Ml Vial IV Q6HR [facility] Metoprolol Tartrate 25 mg 11/07/20 21:00 Metoprolol Tartrate 25 Mg Tab PO BID [facility] Montelukast Sodium 10 mg 11/08/20 09:00 Montelukast 10 Mg Tab PO DAILY [facility] Nitroglycerin 0.4 mg 11/07/20 13:04 Nitroglycerin Sl Tabs 0.4 Mg Tab SUBLINGUAL Q5M PRN Chest Pain Pantoprazole Sodium 40 mg 11/08/20 07:30 Pantoprazole 40 Mg Tablet PO AC-BRKFST [facility] Intake and Output 11/06/20 11/07/20 11/07/20 22:59 06:59 14:59 Other: Weight 55.792 kg Patient Weight 11/08/20 06:59 Weight 55.792 kg 11/07/20 07:39 11/07/20 08:37
[2020-11-08] MEDS ORDERED: LIDOCAINE 1% INJ 10MG/ML (20 ML MDV) SQ ONE (12:22)
[2020-11-08] MEDS ORDERED: fentaNYL (PF) 50 MCG/ML 2 ML AMP IV ONE (12:23)
[2020-11-08] MEDS ORDERED: IV FLUID CONTINUATION 500 ML IV ONE (12:23)
[2020-11-08] MEDS ORDERED: VERAPAMIL SYRINGE (5 MG/10 ML) INTRAARTER ONE (12:23)
[2020-11-08] MEDS ORDERED: MIDAZOLAM 2 MG/2 ML VIAL IV ONE (12:23)
[2020-11-08] MEDS ORDERED: HEPARIN SODIUM 1,000 UN/ML (10ML VL) IV ONE (12:25)
--- NOTE | 2020-11-08 12:41 | P.PN ---
Subjective Patient is a pleasant 80-year-old female came in with the shortness of breath and patient is being treated for COPD exacerbation patient doesn't have much of wheezing because of which CT of the chest was obtained which he did not show any pulmonary embolism. Patient had troponins are minimally elevated with some acute ST-T wave changes on the EKG and the cardiology evaluated the patient for that reason and patient's troponins were put and because of that reason echocardiogram was obtained which showed some almost temperament is and decreased EF of around 30-35%. Patient will undergo cardiac catheterization today presently not in heart failure exacerbation patient is still on 2 L of oxygen. Patient will be switched to oral prednisone. Constitutional: Denied any fatigue denied any fever. Cardio vascular: denied any chest pain, palpitations Gastrointestinal denied any nausea vomiting Pulmonary: Denied any shortness of breath cough Neurologic denied any new focal deficits All inpatient medications were reviewed and appropriate changes in these medications as dictated in the interval history and assessment and plan. Objective - Vital Signs Vital signs: Vital Signs Temp 98.0 F 11/08/20 09:12 Pulse 87 11/08/20 11:53 Resp 20 11/08/20 11:53 BP 121/79 11/08/20 11:53 Pulse Ox 96 11/08/20 11:53 Intake & Output 11/07/20 11/08/20 11/08/20 18:59 06:59 18:59 Intake Total 780 240 Balance 780 240 Weight 55.792 kg Intake: Oral 780 240 Other: Voiding Method Diaper Diaper Diaper # Voids 1 1 1 - Exam PHYSICAL EXAMINATION: GENERAL: The patient is alert and oriented x3, not in any acute distress. Well developed, well nourished. HEENT: Pupils are round and equally reacting to light. EOMI. No scleral icterus. No conjunctival pallor. Normocephalic, atraumatic. No pharyngeal erythema. No thyromegaly. CARDIOVASCULAR: S1 and S2 present. No murmurs, rubs, or gallops. PULMONARY: Decreased air entry into bilateral lung velásquez ABDOMEN: Soft, nontender, nondistended, normoactive bowel sounds. No palpable organomegaly. MUSCULOSKELETAL: No joint swelling or deformity. EXTREMITIES: No cyanosis, clubbing, or pedal edema. NEUROLOGICAL: Gross neurological examination did not reveal any focal deficits. SKIN: No rashes. - Labs CBC & Chem 7: 11/08/20 07:47 11/08/20 07:47 Labs: Abnormal Lab Results - Last 24 Hours (Table) 11/07/20 11/07/20 11/07/20 Range/Units 13:46 13:46 16:43 WBC (3.8-10.6) k/uL BUN (7-17) mg/dL Glucose (74-99) mg/dL POC Glucose (mg/dL) (75-99) mg/dL Plasma Lactic Acid Ramon 2.4 H* (0.7-2.0) mmol/L Troponin I 0.464 H* 0.690 H* (0.000-0.034) ng/mL 11/07/20 11/07/20 11/07/20 Range/Units 16:43 16:57 20:08 WBC (3.8-10.6) k/uL BUN (7-17) mg/dL Glucose (74-99) mg/dL POC Glucose (mg/dL) 319 H 343 H (75-99) mg/dL Plasma Lactic Acid Ramon 2.2 H* (0.7-2.0) mmol/L Troponin I (0.000-0.034) ng/mL 11/08/20 11/08/20 11/08/20 Range/Units 06:10 07:47 07:47 WBC 13.7 H (3.8-10.6) k/uL BUN 22 H (7-17) mg/dL Glucose 131 H (74-99) mg/dL POC Glucose (mg/dL) 185 H (75-99) mg/dL Plasma Lactic Acid Ramon (0.7-2.0) mmol/L Troponin I (0.000-0.034) ng/mL 11/08/20 11/08/20 Range/Units 10:44 11:50 WBC (3.8-10.6) k/uL BUN (7-17) mg/dL Glucose (74-99) mg/dL POC Glucose (mg/dL) 168 H 129 H (75-99) mg/dL Plasma Lactic Acid Ramon (0.7-2.0) mmol/L Troponin I (0.000-0.034) ng/mL Microbiology - Last 24 Hours (Table) 11/07/20 07:39 Blood Culture - Preliminary Blood No Growth after 24 hours Assessment and Plan Plan: Acute Respiratory failure , can be secondary to non-ST elevation myocardial infarction, patient will undergo cardiac catheterization today. There may be a competent of COPD exacerbation as well patient will be switched to oral steroids from IV steroids and the will decrease the dose of long-acting insulin -1 new-onset congestive to heart failure with EF of around 35% probably acute systolic dysfunction from acute AL patient doesn't have any pulmonary edema acute exacerbation of CHF at this time. -COPD with acute exacerbation x-ray and have an coronary artery disease -type 2 diabetes mellitus: Will will be started on long-acting insulin along with sliding scale -hypertension -Hyperlipidemia -Coronary artery disease -Hypothyroidism DVT prophylaxis subcutaneous heparin
--- NOTE | 2020-11-08 13:13 | P.PN ---
Subjective Progress Note Date: 11/08/20 80-year-old female patient with known history of COPD, CAD, diabetes mellitus, hypertension, presenting to the emergency department because of worsening shortness of breath and the patient was often greenish sputum. No fever. No chills. No chest pain. No angina. No palpitations. At the time of the arrival to the emergency department, the patient was afebrile with a temperature of 97.7. She has found to be hypoxic and she was placed on 100% nonrebreather facemask. A chest x-ray was done and showed no acute cardio pulmonary process. A CT of the chest was done and showed emphysematous changes bilaterally along with moderate bibasilar linear scarring/atelectasis. There was also some right infrahilar peribronchial wall thickening probably related to secretions. No pleural effusion. No pneumothorax and there was adequate enhancement of pulmonary arteries. There was a small full-thickness of nondependent areas suspicious for pneumoperitoneum anterior to the liver and for that reason a CAT scan of the abdomen was done. The CAT scan of the abdomen was essentially negative. There was no free air observed. No acute findings was observed. The blood work showed a troponin of 0.07. Normal renal function. Serum bicarb was 20. LFTs were normal. ProBNP level was 145. Coagulation profile was normal. D-dimer was low at 0.9. White cell count was at 9.3 with hemoglobin of 15.7. EKG showed sinus tachycardia, anterolateral infarct with Q waves, old finding. Noted the patient symptoms started approximately 7-10 days ago. She has started seeing her primary care physician. She was given a 5 day course of antibiotics with Levaquin and prednisone on outpatient basis without any improvement. She subsequently got short of breath and she had called EMS who brought into the [facility]. 11/08/2020, the patient stating that the patient is less short of breath compared to yesterday. The patient was Hospital as for an acute asthma exacerbation and the patient also had an acute hypoxic respiratory failure and the patient was on 100% nonrebreather facemask. Ultimately the patient was weaned off and the patient is currently on 2 L of oxygen by nasal cannula. She is able to speak in full sentences. No nausea. No vomiting. No chest pain. No pleurisy. No hemoptysis. No other significant events overnight patient remains on bronchodilators patient remains on systemic steroids. The patient is also on Levaquin 500 milligrams by mouth daily. There was a component of troponin leak and the troponins were 0.07 0.4 and 0.6 respectively 3. The patient was placed on IV heparin. She is free of any chest pain or angina at this point in time. Meanwhile, the patient was still kept on IV heparin. Echocardiac Julian showed an impairment of LV function with an ejection fraction of 35-40%. There was also segmental wall motion abnormalities involving the anteroseptal and inferior goodman of the myocardium. The patient has no significant valvular abnormalities. There is a mild degree of pulmonary hypertension with a PA pressure of 37. Objective - Vital Signs Vital signs: Vital Signs Temp 98.0 F 11/08/20 09:12 Pulse 87 11/08/20 11:53 Resp 20 11/08/20 11:53 BP 121/79 11/08/20 11:53 Pulse Ox 96 11/08/20 11:53 Intake & Output 11/07/20 11/08/20 11/08/20 18:59 06:59 18:59 Intake Total 780 240 Balance 780 240 Weight 55.792 kg Intake: Oral 780 240 Other: Voiding Method Diaper Diaper Diaper # Voids 1 1 1 - Exam GENERAL EXAM: Alert, very pleasant, 78-year-old white female, on 2 L of oxygen by nasal cannula HEAD: Normocephalic/atraumatic. EYES: Normal reaction of pupils, equal size. Conjunctiva pink, sclera white. NOSE: Clear with pink turbinates. THROAT: No erythema or exudates. NECK: No masses, no JVD, no thyroid enlargement, no adenopathy. CHEST: No chest wall deformity. Symmetrical expansion. LUNGS: Equal air entry with diffuse wheezes, congested cough CVS: Regular rate and rhythm, normal S1 and S2, no gallops, no murmurs, no rubs ABDOMEN: Soft, nontender. No hepatosplenomegaly, normal bowel sounds, no guarding or rigidity. EXTREMITIES: No clubbing, no edema, no cyanosis, 2+ pulses and upper and lower extremities. MUSCULOSKELETAL: Muscle strength and tone normal. SPINE: No scoliosis or deformity SKIN: No rashes CENTRAL NERVOUS SYSTEM: Alert and oriented -3. No focal deficits, tone is normal in all 4 extremities. PSYCHIATRIC: Alert and oriented -3. Appropriate affect. Intact judgment and insight. - Labs CBC & Chem 7: 11/08/20 07:47 11/08/20 07:47 Labs: Abnormal Lab Results - Last 24 Hours (Table) 11/07/20 11/07/20 11/07/20 Range/Units 13:46 13:46 16:43 WBC (3.8-10.6) k/uL BUN (7-17) mg/dL Glucose (74-99) mg/dL POC Glucose (mg/dL) (75-99) mg/dL Plasma Lactic Acid Ramon 2.4 H* (0.7-2.0) mmol/L Troponin I 0.464 H* 0.690 H* (0.000-0.034) ng/mL 11/07/20 11/07/20 11/07/20 Range/Units 16:43 16:57 20:08 WBC (3.8-10.6) k/uL BUN (7-17) mg/dL Glucose (74-99) mg/dL POC Glucose (mg/dL) 319 H 343 H (75-99) mg/dL Plasma Lactic Acid Ramon 2.2 H* (0.7-2.0) mmol/L Troponin I (0.000-0.034) ng/mL 11/08/20 11/08/20 11/08/20 Range/Units 06:10 07:47 07:47 WBC 13.7 H (3.8-10.6) k/uL BUN 22 H (7-17) mg/dL Glucose 131 H (74-99) mg/dL POC Glucose (mg/dL) 185 H (75-99) mg/dL Plasma Lactic Acid Ramon (0.7-2.0) mmol/L Troponin I (0.000-0.034) ng/mL 11/08/20 11/08/20 Range/Units 10:44 11:50 WBC (3.8-10.6) k/uL BUN (7-17) mg/dL Glucose (74-99) mg/dL POC Glucose (mg/dL) 168 H 129 H (75-99) mg/dL Plasma Lactic Acid Ramon (0.7-2.0) mmol/L Troponin I (0.000-0.034) ng/mL Microbiology - Last 24 Hours (Table) 11/07/20 07:39 Blood Culture - Preliminary Blood No Growth after 24 hours Assessment and Plan Plan: 1. Acute exacerbation of moderate persistant asthma along with a possible component of COPD, , complicated by tracheobronchitis, chest x-ray showed no evidence for acute pulmonary disease, using the angiogram showed no evidence of any pulmonary embolism. pulmonary embolism. D-dimer is low. ProBNP is nonelevated. 2. Acute hypoxic respiratory failure secondary to above 3 History of right lower lobe pneumonia in March 2019, at which time patient required intubation and brief mechanical ventilator support, bronchial wash cultures were positive for Mae and penicillium species 4. Coronary artery disease along with previous history of stenting of the LAD, the patient did have some troponin leak and this will be monitored and possibly a cardiology consultation will be obtained knowing that she has underlying coronary artery disease. 5 Diabetes mellitus 6. Hypertension 7. Hyperlipidemia 8. History of myocardial infarction 9. Hypothyroidism Plan Thousand patient on DuoNeb nebulized treatments around the clock 4 times a day and also put on a combination of Pulmicort and Perforomist nebulized treatments twice a day This continued IV Solu Medrol and put the patient on prednisone burst taper Empiric antibiotic coverage with Levaquin 500 mg by mouth daily and this will be continued Continue IV heparin and the plan is to undergo a cardiac catheterization by cardiology Monitor the blood sugar and treat steroid use hyperglycemia CT angiogram of the chest was noted. No evidence of any pulmonary embolism. There is evidence of bronchial thickening/bronchitis and the patient has a low d-dimer without evidence of any pulmonary embolism. Wean down the FiO2 as tolerated to maintain saturation above 90%, currently on 2 L about 2 by nasal cannula Monitor cardiac enzymes was noted and the troponin peaked at 0.6 Repeat echo cardiac exam showed an ejection fraction of 35-40% along with segmental wall motion abnormalities. Heparin subcu for DVT prophylaxis We'll continue to follow.
[2020-11-08] MEDS ORDERED: RX INFO: IV CONTRAST WAS GIVEN 1 EACH MISC MISCELLANE PRN (13:26)
[2020-11-08 13:42] LABS: Chol/HDL Ratio 2.92; Cholesterol 149 mg/dL (0-200); LDL Cholesterol,Calculated 75.6 mg/dL (0.0-131.0)
[2020-11-08 14:14] VITALS: RESP 18
[2020-11-08] MEDS: SPIRONOLACTONE 25 MG TAB PO SCH (16:03)
[2020-11-08 17:09] LABS: Glucose,Whole Blood 354 mg/dL (75-99)
--- NOTE | 2020-11-08 18:38 | P.CARDCATH ---
Description of Procedure: PROCEDURES PERFORMED: Left heart catheterization, bilateral coronary angiography, left ventriculogram INDICATION: Non-STEMI HISTORY: Patient is a pleasant 80-year-old female with history of hypertension, diabetes, COPD, coronary artery disease status post PCI to her LAD in 2017. She has been having increased episodes of shortness breath which initially was felt related to her COPD off and on over the last week however presented with worsening shortness of breath this morning at 5 AM and therefore presented to emergency department. She was found to have non-STEMI and therefore heart catheterization was recommended. CONSENT:I have discussed the risks, benefits and alternative therapies for the above-mentioned procedure and for both sedation/analgesia as well as necessary blood product administration, if indicated, as they pertain to this patient. The patient has indicated understanding and acceptance of the risks and procedures discussed. PROCEDURE: After the risks, benefits and alternatives of the above mentioned procedure explained in detail with the patient, informed consent was obtained. Patient was taken to the catheterization lab and prepped and draped in usual fashion. 1% lidocaine was used to anesthetize the right radial artery. A 6- [place] sheath was placed in the right radial artery using modified Seldinger technique. Left coronary angiography was performed with a 5-B[place]ivian JL 3.5 catheter and right coronary angiography was performed with a 6-B[place]ivian AR2 catheter in various views. A 5-Bolivian pigtail catheter was inserted into the left ventricle and pressure measurements were obtained. Left ventriculography was performed in the JIMENEZ projection with a power injection. The right radial sheath was removed and a TR band was placed with hemostasis achieved. The patient tolerated the procedure well. Patient was transported back to the post catheterization holding area in stable condition. Conscious Sedation: Patient was monitored under the direct supervision of vision of myself for conscious sedation using Versed and fentanyl for a total duration of 23 minutes HEMODYNAMICS: Ao: 134/78 LV: 130/2, LVEDP 6mmHg SELECTIVE CORONARY ARTERIOGRAPHY: LEFT MAIN: The left main is a large caliber vessel which bifurcates into the LAD and circumflex. There is no significant stenosis. LEFT ANTERIOR DESCENDING CORONARY ARTERY: LAD is a large caliber vessel which wraps around to the apex. There is a proximal LAD stent which has 20-30% in- stent stenosis and otherwise is patent. There is 20-30% proximal diagonal 1 stenosis. LEFT CIRCUMFLEX CORONARY ARTERY: Left circumflex is a moderate caliber vessel without significant stenosis. RIGHT CORONARY ARTERY: The right coronary artery is a large caliber vessel which gives off a PDA and PLV branch and is the dominant vessel. There is no significant stenosis. LEFT VENTRICULOGRAPHY: Left ventricular ejection fraction is 45% with mid ca vitary hypokinesis consistent with mid cavitary Takotsubo's. There is no significant mitral regurgitation and no significant gradient with pullback across the aortic valve. FINAL IMPRESSION: 1. Mild CAD with patent LAD stent 2. Mild Cardiomyopathy with EF 45% consistent with mid cavitary Takotsubo's cardiomyopathy PLAN: 1. Aggressive risk factor modification per most recent ACC/AHA guidelines.
[2020-11-08 20:28] LABS: Glucose,Whole Blood 265 mg/dL (75-99)
[2020-11-08] MEDS ORDERED: INSULIN DETEMIR (LEVEMIR) 100 UNIT/ML SYR SQ SCH (21:00)
[2020-11-09 06:21] LABS: Glucose,Whole Blood 175 mg/dL (75-99)
[2020-11-09] MEDS: PANTOPRAZOLE 40 MG TABLET PO SCH (06:57)
[2020-11-09] MEDS: INSULIN ASPART (NovoLOG) 100 UNIT/ML VIAL SQ SCH ×2 (06:57→12:34)
[2020-11-09] MEDS: LEVOTHYROXINE 50 MCG TAB PO SCH (06:57)
[2020-11-09] MEDS ORDERED: HEPARIN SODIUM,PORCINE 10,000 UNIT in SODIUM CHLORIDE 0.9% 1,000 ML IRRIGATION PRN (07:00)
[2020-11-09] MEDS ORDERED: HEPARIN SODIUM,PORCINE 2,500 UNIT in SODIUM CHLORIDE 0.9% 250 ML IRRIGATION PRN (07:00)
[2020-11-09] MEDS: HEPARIN SODIUM,PORCINE/PF 5,000 UNIT/0.5 ML SYRINGE SQ SCH (08:30)
[2020-11-09] MEDS: LEVOFLOXACIN 500 MG TAB PO SCH (08:30)
[2020-11-09] MEDS: LOSARTAN 50 MG TAB PO SCH (08:31)
[2020-11-09] MEDS: MONTELUKAST 10 MG TAB PO SCH (08:31)
[2020-11-09] MEDS: ASPIRIN 81 MG PO SCH (08:31)
[2020-11-09] MEDS: ATORVASTATIN 80 MG TAB PO SCH (08:31)
[2020-11-09] MEDS: SPIRONOLACTONE 25 MG TAB PO SCH (08:31)
[2020-11-09] MEDS: METOPROLOL TARTRATE 25 MG TAB PO SCH (08:31)
[2020-11-09] MEDS: BUDESONIDE 1 MG/2 ML NEBU INHALATION SCH (08:47)
[2020-11-09] MEDS: FORMOTEROL FUMARATE 20 MCG/2 ML NEBU INHALATION SCH (08:47)
[2020-11-09] MEDS: IPRATROPIUM-ALBUTEROL 3 ML NEB INHALATION SCH ×3 (08:47→15:48)
[2020-11-09] MEDS ORDERED: predniSONE 20 MG TAB PO SCH (09:00)
[2020-11-09 09:20] LABS: African American GFR (CKD) >90 (>60 ml/min/1.73 sqM); Anion Gap 9 mmol/L; Blood Urea Nitrogen 22 mg/dL (7-17); Calcium 9.3 mg/dL (8.4-10.2); Carbon Dioxide 23 mmol/L (22-30); Chloride 106 mmol/L (98-107); Glucose 210 mg/dL (74-99); Non-African American GFR(CKD) 84 (>60 ml/min/1.73 sqM); Sodium 138 mmol/L (137-145)
[2020-11-09 10:31] VITALS: TEMP 97.7
--- NOTE | 2020-11-09 11:13 | P.PN ---
Subjective This is a pleasant 80-year-old female past medical history significant for hypertension, diabetes, COPD, coronary artery disease status post PCI to p roximal LAD in July 2016. She follows in the office with Dr. Mclean. We have been asked to see in consultation for elevated troponin. Patient presents with the emergency department 11/06 with complaints of shortness of breath. Waking up short of breath, felt as if she was choking on her phlegm. EKG reveals sinus tachycardia, heart rate 114, some ST depression in lead II. EKG this morning reveals HR 83, inverted P waves, short MS interval, T wave inversions in leads V2-V6. Prior EKG 2018, sinus rhythm, heart rate 85, T wave inversions in leads inferior leads and leads V2-V6 Troponin 0.07-->0.46-->0.69. There was concern for possible NSTEMI and cardiac catheterization was recommended. She underwent cardiac catheterization with Dr. Mclean which revealed mild CAD with patent LAD stent, mild cardiomyopathy with EF 45% consistent with mild Takotsubo's cardiomyopathy. Echocardiogram revealed left anterior systolic function is moderately impaired with an EF between 35-40%, with hypokinesis of the LV wall, mild to moderate mitral regurgitation, mild tricuspid regurgitation, mild pulmon catrachito hypertension. 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 11/09/2020: Patient seen and examined at bedside, no acute distress. Sitting up in the chair, feels much better. She is on room air. She denies chest pain, shortness of breath, palpitations, lightheadedness, dizziness. Laboratory data reviewed sodium 138, potassium 4.0, BUN 22, serum creatinine 0.65. Patient currently maintained on aspirin 81 mg daily, atorvastatin 80 mg daily, losartan 50 mg daily, metoprolol titrate 25 mg twice a day, spironolactone 12.5 mg daily PHYSICAL EXAMINATION Blood pressure 144/68 heart rate 94 afebrile and maintaining oxygen saturation on 94% on room air CONSTITUTIONAL: Breathing has improved, sitting up in chair HEENT: Head is normocephalic. No JVD. CHEST EXAMINATION: Lungs are diminished and mild wheezes in the bases to auscultation. HEART EXAMINATION: Regular rate and rhythm. S1, S2 heard. No murmurs, gallops or rub. ABDOMEN: Soft, nontender. Positive bowel sounds. EXTREMITIES: 2+ peripheral pulses, no lower extremity edema and no calf tende rness. SKIN: Right radial artery, clean dry, intact, no hematoma 2+pulses NEUROLOGIC EXAMINATION: Patient is awake, alert and oriented x3. ASSESSMENT Shortness of breath, most likely multifactorial Elevated troponin, most likely due to hypoxia and COPD exacerbation. Cardiac catheterization 11/08 with no significant stenosis Takotsubos Cardiomyopathy EF 45% Coronary artery disease with stent to LAD in july 2016 Hypertension Dyslipidemia Type 2 Diabetes mellitus COPD Asthma PLAN Started spironolactone 12.5mg daily Continue aspirin, statin, metoprolol From cardiology perspective, patient is stable to be discharged home and follow with Dr. Mclean in 1 week. Repeat BMP to assess electrolytes prior to appointment. This was discussed with the patient and she is in agreement. Nurse Practitioner note has been reviewed, I agree with a documented findings and plan of care. Patient was seen and examined. Objective - Vital Signs Vital signs: Vital Signs Temp 97.7 F 11/09/20 08:00 Pulse 88 11/09/20 09:06 Resp 18 11/09/20 04:00 BP 144/68 11/09/20 08:00 Pulse Ox 94 L 11/09/20 08:00 Intake & Output 11/08/20 11/09/20 11/09/20 18:59 06:59 18:59 Intake Total 720 540 660 Output Total 300 Balance 720 540 360 Weight 56.7 kg Intake: Oral 720 540 660 Output: Urine 300 Other: Voiding Method Diaper Diaper Diaper # Voids 1 1 - Labs CBC & Chem 7: 11/08/20 07:47 11/09/20 08:31 Labs: Abnormal Lab Results - Last 24 Hours (Table) 11/08/20 11/08/20 11/08/20 Range/Units 11:50 17:07 20:26 BUN (7-17) mg/dL Glucose (74-99) mg/dL POC Glucose (mg/dL) 129 H 354 H 265 H (75-99) mg/dL 11/09/20 11/09/20 Range/Units 06:15 08:31 BUN 22 H (7-17) mg/dL Glucose 210 H (74-99) mg/dL POC Glucose (mg/dL) 175 H (75-99) mg/dL Microbiology - Last 24 Hours (Table) 11/07/20 07:39 Blood Culture - Preliminary Blood No Growth after 48 hours
[2020-11-09 11:54] LABS: Glucose,Whole Blood 132 mg/dL (75-99)
--- NOTE | 2020-11-09 13:00 | P.DS ---
Providers Date of admission: 11/07/20 12:58 Attending physician: Jose Wolfe Consults: 11/07/20 12:58 Consult Physician Routine Consulting Provider: Maynor Vance Consult Reason/Comments: COPD exacerbation, right lower lobe pneumonitis Do you want consulting provider notified?: Already Contacted Consult Physician Routine Consulting Provider: Curtis Pérez Consult Reason/Comments: Elevated troponin, COPD exacerbation Do you want consulting provider notified?: Yes Primary care physician: Catie Layton Hospital Course: Patient is a pleasant 80-year-old female came in with shortness of breath initially believed to have bronchitis and COPD exacerbation patient was treated with systemic steroids and levofloxacin. Patient started having troponin elevation which slowly trended up. Because of which patient underwent cardiac catheterization. Patient also had decreased EF of around 30-35% on echocardiogram with wall motion abnormalities. Patient appeared to have mild coronary artery disease with patent LAD LAD stent on cardiac catheterization but appeared to have cardiomyopathy with a poor EF of 45% on ventriculogram with mid cavitary Takotsubo cardiomyopathy. Patient was started on low-dose of Aldactone presently in not in heart failure exacerbation patient is being discharged today. PHYSICAL EXAMINATION: GENERAL: The patient is alert and oriented x3, not in any acute distress. Well developed, well nourished. HEENT: Pupils are round and equally reacting to light. EOMI. No scleral icterus. No conjunctival pallor. Normocephalic, atraumatic. No pharyngeal erythema. No t hyromegaly. CARDIOVASCULAR: S1 and S2 present. No murmurs, rubs, or gallops. PULMONARY: Decreased air entry into bilateral lung velásquez ABDOMEN: Soft, nontender, nondistended, normoactive bowel sounds. No palpable organomegaly. MUSCULOSKELETAL: No joint swelling or deformity. EXTREMITIES: No cyanosis, clubbing, or pedal edema. NEUROLOGICAL: Gross neurological examination did not reveal any focal deficits. SKIN: No rashes. Assessment and Plan Plan: Acute Respiratory failure , probably multifactorial secondary to COPD exacerbation along with stress-induced cardiomyopathy. -1 new-onset congestive to heart failure with EF of around 35% acute systolic dysfunction from stress-induced cardiomyopathy no evidence of acute myocardial infarction after cardiac catheterization. -COPD with acute exacerbation x-ray - coronary artery disease -type 2 diabetes mellitus: Blood sugars are elevated and uncontrolled because of systemic steroids patient will be discharged on weaning dose of steroids will use sulfonylurea for steroid-induced hyperglycemia until she completes the steroid course -hypertension -Hyperlipidemia -Coronary artery disease -Hypothyroidism Patient Condition at Discharge: Fair Plan - Discharge Summary Discharge Rx Participant: Yes New Discharge Prescriptions: New glipiZIDE [Glucotrol] 2.5 mg PO AC-BID #20 tablet Spironolactone [Aldactone] 12.5 mg PO DAILY 30 Days #15 tab predniSONE 10 mg PO DAILY #30 tab Continue Aspirin 81 mg PO DAILY chew Metoprolol Tartrate [Lopressor] 25 mg PO BID #60 tab Levothyroxine Sodium [Synthroid] 50 mcg PO DAILY metFORMIN HCL [Glucophage] 500 mg PO BID Montelukast [Singulair] 10 mg PO DAILY Losartan Potassium 50 mg PO DAILY Atorvastatin [Lipitor] 80 mg PO DAILY Pantoprazole [Protonix] 40 mg PO DAILY Fluticasone Propion/Salmeterol [Wixela 500-50 Inhub] 1 puff INHALATION RT-BID Levofloxacin [Levaquin] 500 mg PO DAILY #0 Albuterol Nebulized [Ventolin Nebulized] 2.5 mg INHALATION RT-TID PRN PRN Reason: Shortness Of Breath Discontinued predniSONE [Deltasone] 20 mg PO DAILY Discharge Medication List Aspirin 81 mg PO DAILY chew 07/29/16 [Rx] Metoprolol Tartrate [Lopressor] 25 mg PO BID #60 tab 07/29/16 [Rx] Levothyroxine Sodium [Synthroid] 50 mcg PO DAILY 02/25/17 [History] Montelukast [Singulair] 10 mg PO DAILY 05/02/18 [History] metFORMIN HCL [Glucophage] 500 mg PO BID 05/02/18 [History] Losartan Potassium 50 mg PO DAILY 10/07/18 [History] Atorvastatin [Lipitor] 80 mg PO DAILY 06/07/19 [History] Pantoprazole [Protonix] 40 mg PO DAILY 06/07/19 [History] Albuterol Nebulized [Ventolin Nebulized] 2.5 mg INHALATION RT-TID PRN 11/07/20 [History] Fluticasone Propion/Salmeterol [Wixela 500-50 Inhub] 1 puff INHALATION RT-BID 11/07/20 [History] Levofloxacin [Levaquin] 500 mg PO DAILY #0 11/09/20 [Rx] Spironolactone [Aldactone] 12.5 mg PO DAILY 30 Days #15 tab 11/09/20 [Rx] glipiZIDE [Glucotrol] 2.5 mg PO AC-BID #20 tablet 11/09/20 [Rx] predniSONE 10 mg PO DAILY #30 tab 11/09/20 [Rx] Follow up Appointment(s)/Referral(s): Jason Mclean DO [STAFF PHYSICIAN] - 1 Week Catie Akhtar MD [Primary Care Provider] - 1-2 days Ambulatory/Diagnostic Orders: Basic Metabolic Panel [LAB.AMB] Time Frame: 3 Days, Location: None Selected
--- NOTE | 2020-11-09 14:35 | P.PN ---
Subjective Progress Note Date: 11/09/20 80-year-old female patient with known history of COPD, CAD, diabetes mellitus, hypertension, presenting to the emergency department because of worsening shortness of breath and the patient was often greenish sputum. No fever. No chills. No chest pain. No angina. No palpitations. At the time of the arrival to the emergency department, the patient was afebrile with a temperature of 97.7. She has found to be hypoxic and she was placed on 100% nonrebreather facemask. A chest x-ray was done and showed no acute cardio pulmonary process. A CT of the chest was done and showed emphysematous changes bilaterally along with moderate bibasilar linear scarring/atelectasis. There was also some right infrahilar peribronchial wall thickening probably related to secretions. No pleural effusion. No pneumothorax and there was adequate enhancement of pulmonary arteries. There was a small full-thickness of nondependent areas suspicious for pneumoperitoneum anterior to the liver and for that reason a CAT scan of the abdomen was done. The CAT scan of the abdomen was essentially negative. There was no free air observed. No acute findings was observed. The blood work showed a troponin of 0.07. Normal renal function. Serum bicarb was 20. LFTs were normal. ProBNP level was 145. Coagulation profile was normal. D-dimer was low at 0.9. White cell count was at 9.3 with hemoglobin of 15.7. EKG showed sinus tachycardia, anterolateral infarct with Q waves, old finding. Noted the patient symptoms started approximately 7-10 days ago. She has started seeing her primary care physician. She was given a 5 day course of antibiotics with Levaquin and prednisone on outpatient basis without any improvement. She subsequently got short of breath and she had called EMS who [facility] 11/08/2020, the patient stating that the patient is less short of breath compared to yesterday. The patient was Hospital as for an acute asthma exacerbation and the patient also had an acute hypoxic respiratory failure and the patient was on 100% nonrebreather facemask. Ultimately the patient was weaned off and the patient is currently on 2 L of oxygen by nasal cannula. She is able to speak in full sentences. No nausea. No vomiting. No chest pain. No pleurisy. No hemoptysis. No other significant events overnight patient remains on bronchodilators patient remains on systemic steroids. The patient is also on Levaquin 500 milligrams by mouth daily. There was a component of troponin leak and the troponins were 0.07 0.4 and 0.6 respectively 3. The patient was placed on IV heparin. She is free of any chest pain or angina at this point in time. Meanwhile, the patient was still kept on IV heparin. Echocardiac Julian showed an impairment of LV function with an ejection fraction of 35-40%. There was also segmental wall motion abnormalities involving the anteroseptal and inferior goodman of the myocardium. The patient has no significant valvular abnormalities. There is a mild degree of pulmonary hypertension with a PA pressure of 37. 11/09/2020, the patient is doing well. Less short of breath. Less mucus bronchospastic and wheezy and currently is on room air oxygen. Remains on bronchodilators. He remains on steroids. Furthermore, echo was abnormal and t he patient has impaired ejection fraction of 35-40% along with segmental wall motion abnormalities. Based on that, the patient underwent a cardiac catheterization today and she was told to have mild CAD with patent LAD stent. The patient was also confirmed to have mild cardiomyopathy with an ejection fraction of 45% consistent with mild condition of broken heart syndrome. Cardiology recommendation was aggressive risk modification and medical treatment. Otherwise, the patient is doing well. No specific complaints. Objective - Vital Signs Vital signs: Vital Signs Temp 97.7 F 11/09/20 08:00 Pulse 88 11/09/20 12:11 Resp 18 11/09/20 04:00 BP 144/68 11/09/20 08:00 Pulse Ox 94 L 11/09/20 08:00 Intake & Output 11/08/20 11/09/20 11/09/20 18:59 06:59 18:59 Intake Total 720 540 900 Output Total 700 Balance 720 540 200 Weight 56.7 kg Intake: Oral 720 540 900 Output: Urine 700 Other: Voiding Method Diaper Diaper Diaper # Voids 1 1 - Exam GENERAL EXAM: Alert, very pleasant, 78-year-old white female, on room air ox ygen for now HEAD: Normocephalic/atraumatic. EYES: Normal reaction of pupils, equal size. Conjunctiva pink, sclera white. NOSE: Clear with pink turbinates. THROAT: No erythema or exudates. NECK: No masses, no JVD, no thyroid enlargement, no adenopathy. CHEST: No chest wall deformity. Symmetrical expansion. LUNGS: Equal air entry with diffuse wheezes, congested cough CVS: Regular rate and rhythm, normal S1 and S2, no gallops, no murmurs, no rubs ABDOMEN: Soft, nontender. No hepatosplenomegaly, normal bowel sounds, no guarding or rigidity. EXTREMITIES: No clubbing, no edema, no cyanosis, 2+ pulses and upper and lower extremities. MUSCULOSKELETAL: Muscle strength and tone normal. SPINE: No scoliosis or deformity SKIN: No rashes CENTRAL NERVOUS SYSTEM: Alert and oriented -3. No focal deficits, tone is normal in all 4 extremities. PSYCHIATRIC: Alert and oriented -3. Appropriate affect. Intact judgment and insight. - Labs CBC & Chem 7: 11/08/20 07:47 11/09/20 08:31 Labs: Abnormal Lab Results - Last 24 Hours (Table) 11/08/20 11/08/20 11/09/20 Range/Units 17:07 20:26 06:15 BUN (7-17) mg/dL Glucose (74-99) mg/dL POC Glucose (mg/dL) 354 H 265 H 175 H (75-99) mg/dL 11/09/20 11/09/20 Range/Units 08:31 11:53 BUN 22 H (7-17) mg/dL Glucose 210 H (74-99) mg/dL POC Glucose (mg/dL) 132 H (75-99) mg/dL Microbiology - Last 24 Hours (Table) 11/07/20 07:39 Blood Culture - Preliminary Blood No Growth after 48 hours Assessment and Plan Plan: 1. Acute exacerbation of moderate persistant asthma along with a possible component of COPD, , complicated by tracheobronchitis, chest x-ray showed no evidence for acute pulmonary disease, using the angiogram showed no evidence of any pulmonary embolism. pulmonary embolism. D-dimer is low. ProBNP is nonelevated. 2. Acute hypoxic respiratory failure secondary to above, improving and the patient is currently on room air oxygen 3 History of right lower lobe pneumonia in March 2019, at which time patient required intubation and brief mechanical ventilator support, bronchial wash cultures were positive for Mae and penicillium species 4. Coronary artery disease along with previous history of stenting of the LAD, the patient did have some troponin leak and this will be monitored and possibly a cardiology consultation will be obtained knowing that she has underlying coronary artery disease. The cardiac catheterization was noted and it showed mild CAD and the stented LAD was essentially patent 5 Diabetes mellitus 6. Hypertension 7. Hyperlipidemia 8. History of myocardial infarction 9. Hypothyroidism 10 CHF with an ejection fraction of 45%, please refer to the echocardiogram, possible broken heart syndrome. Plan The patient can be discharged home on a prednisone burst taper, she'll be completing a course of Levaquin on outpatient basis, continue Singulair, continue Advair 500/50 one puff twice a day and albuterol nebulized tubes on as- needed basis. CT angiogram was noted and was negative. Cardiac catheterization was noted. The patient was seen back in the office.
[2020-11-09 15:09] VITALS: BP 139/88; PULSE 101
== END 2020-11-09 15:30 | disposition home or self-care (01) | DRG 286 ==
LOC: EC 07:31 → 3SCARD 12:58
PROVIDERS: ADMIT Internal Medicine; ATTEND Internal Medicine
PROC: B2151ZZ Fluoroscopy of Left Heart using Low Osmolar Contrast (ICD-10-PCS; principal; 2020-11-08 09:00)
PROC: B2111ZZ Fluoroscopy of Multiple Coronary Arteries using Low Osmolar Contrast (ICD-10-PCS; principal; 2020-11-08 09:00)
PROC: 4A023N7 Measurement of Cardiac Sampling and Pressure, Left Heart, Percutaneous Approach (ICD-10-PCS; principal; 2020-11-08 09:00)
DX: I51.81 Takotsubo syndrome (principal); J96.01 Acute respiratory failure with hypoxia; I50.21 Acute systolic (congestive) heart failure; J44.1 Chronic obstructive pulmonary disease with (acute) exacerbation; J45.41 Moderate persistent asthma with (acute) exacerbation; J98.11 Atelectasis; E03.9 Hypothyroidism, unspecified; E11.65 Type 2 diabetes mellitus with hyperglycemia; T38.0X5A Adverse effect of glucocorticoids and synthetic analogues, initial encounter; Z20.822 Contact with and (suspected) exposure to COVID-19; I25.10 Atherosclerotic heart disease of native coronary artery without angina pectoris; I25.2 Old myocardial infarction; I27.20 Pulmonary hypertension, unspecified; E78.5 Hyperlipidemia, unspecified; F41.9 Anxiety disorder, unspecified; H91.93 Unspecified hearing loss, bilateral; Z97.4 Presence of external hearing-aid; R77.8 Other specified abnormalities of plasma proteins; Z79.82 Long term (current) use of aspirin; Z79.84 Long term (current) use of oral hypoglycemic drugs; Z79.890 Hormone replacement therapy; Z79.899 Other long term (current) drug therapy; Z87.01 Personal history of pneumonia (recurrent); Z87.891 Personal history of nicotine dependence; Z90.710 Acquired absence of both cervix and uterus; Z95.5 Presence of coronary angioplasty implant and graft; Z90.89 Acquired absence of other organs; Z99.81 Dependence on supplemental oxygen; Z82.0 Family history of epilepsy and other diseases of the nervous system; Z84.2 Family history of other diseases of the genitourinary system; Z98.890 Other specified postprocedural states
CPT/HCPCS: 36415; 71046; 71275; 74176; 80048; 80053; 80061; 82550; 83605; 83735; 83880; 84484; 85025; 85027; 85379; 85610; 85730; 87040; 87635; 93005; 93306; 93458; 94640; 96374; 99291

== ENCOUNTER 2021-08-22 18:55 | Emergency (ER) | payer MEDICARE ==
[2021-08-22 19:10] VITALS: TEMP 97.7
[2021-08-22] MEDS ORDERED: FUROSEMIDE 10 MG/ML 4 ML VIAL IV STA (21:27)
[2021-08-22] MEDS ORDERED: NITROGLYCERIN OINT 1 INCH/GM PACKET TOPICAL STA (21:27)
--- NOTE | 2021-08-22 21:39 | ED ---
General Adult HPI - General Chief complaint: Upper Respiratory Infection Stated complaint: Recheck Time Seen by Provider: 08/22/21 21:08 Source: patient Mode of arrival: wheelchair Limitations: no limitations - History of Present Illness Initial comments: Is an 81-year-old woman presents to be evaluated for chest congestion, cough, shortness of breath. She states the symptoms have been getting worse over the course the past day or so. Patient was having approximately one to 2 weeks of preceding upper respiratory congestion, postnasal drip, cough. She did see her primary care physician and then also again in follow-up. She states she is currently on her second course of Zyrtec, prednisone, Levaquin. She became concerned when today she developed a chest symptoms. She states that this feels identical to previous episode of this she had when she was told she had a heart attack. She did not have chest pain at that time. She does not have chest pain at this time. She also does acknowledge orthopnea. No change in urination. No leg pain or swelling. No fever or chills. Onset/Timin -: days(s) Location: chest Severity scale (1-10): 0 Consistency: constant Improves with: none Worsens with: none Associated Symptoms: cough, shortness of breath Treatments Prior to Arrival: none - Related Data Home Medications Medication Instructions Recorded Confirmed Levothyroxine Sodium [Synthroid] 50 mcg PO DAILY 02/25/17 08/22/21 Montelukast [Singulair] 10 mg PO DAILY 05/02/18 08/22/21 metFORMIN HCL [Glucophage] 500 mg PO BID 05/02/18 08/22/21 Losartan Potassium 50 mg PO DAILY 10/07/18 08/22/21 Atorvastatin [Lipitor] 80 mg PO DAILY 06/07/19 08/22/21 Pantoprazole [Protonix] 40 mg PO DAILY 06/07/19 08/22/21 Albuterol Nebulized [Ventolin 2.5 mg INHALATION RT-TID PRN 11/07/20 08/22/21 Nebulized] Fluticasone Propion/Salmeterol 1 puff INHALATION RT-BID 11/07/20 08/22/21 [Wixela 500-50 Inhub] Cetirizine HCl [Zyrtec] 10 mg PO DAILY 08/22/21 08/22/21 Levofloxacin [Levaquin] 500 mg PO DAILY 08/22/21 08/22/21 predniSONE [Deltasone] 20 mg PO BID 08/22/21 08/22/21 Previous Rx's Medication Instructions Recorded Aspirin 81 mg PO DAILY chew 07/29/16 Metoprolol Tartrate [Lopressor] 25 mg PO BID #60 tab 07/29/16 Allergies Allergy/AdvReac Type Severity Reaction Status Date / Time No Known Allergies Allergy Verified 08/22/21 22:31 Review of Systems ROS Statement: Those systems with pertinent positive or pertinent negative responses have been documented in the HPI. ROS Other: All systems not noted in ROS Statement are negative. Constitutional: Denies: fever, chills, weakness Respiratory: Reports: cough, dyspnea. Denies: hemoptysis Cardiovascular: Reports: orthopnea. Denies: chest pain, palpitations, edema, syncope Gastrointestinal: Denies: abdominal pain, vomiting, diarrhea, constipation, melena, hematochezia Genitourinary: Denies: dysuria, hematuria Musculoskeletal: Denies: back pain Skin: Denies: rash Neurological: Denies: headache, weakness, numbness Past Medical History Past Medical History: Asthma, Coronary Artery Disease (CAD), COPD, Diabetes Mellitus, Hearing Disorder / Deafness, Hyperlipidemia, Hypertension, Myocardial Infarction ([place]), Thyroid Disorder Additional Past Medical History / Comment(s): Tracheobronchitis, bronchiectasis, home O2 at @2L/[place] prn, NIDDM type II, hypothyroid, past migraines, sinus problems, anemia, past L wrist fracture, [place] bilaterally-wears aides. Last Myocardial Infarction Date:: 07/25/2016 History of Any Multi-Drug Resistant Organisms: None Reported Past Surgical History: Adenoidectomy, Heart Catheterization With Stent, Hysterectomy, Tonsillectomy Additional Past Surgical History / Comment(s): cystocele, rectocele, D&C Past Anesthesia/Blood Transfusion Reactions: No Reported Reaction Date of Last Stent Placement:: 07/2016 Past Psychological History: No Psychological Hx Reported Smoking Status: Never smoker Past Alcohol Use History: None Reported Past Drug Use History: None Reported - Past Family History Mother Family Medical History: Dementia, Memory Impairment Father Family Medical History: Prostate Disorder General Exam Limitations: no limitations General appearance: alert, in no apparent distress Head exam: Present: atraumatic Eye exam: Present: normal appearance. Absent: scleral icterus, conjunctival injection Neck exam: Present: normal inspection Respiratory exam: Present: rales. Absent: respiratory distress, wheezes, rhonchi, stridor, accessory muscle use, decreased breath sounds Cardiovascular Exam: Present: regular rate, normal rhythm, normal heart sounds. Absent: systolic murmur, diastolic murmur, rubs, gallop GI/Abdominal exam: Present: soft. Absent: distended, tenderness, guarding, rebound, rigid, mass, pulsatile mass Extremities exam: Present: normal inspection, normal capillary refill. Absent: pedal edema, calf tenderness Back exam: Present: normal inspection. Absent: CVA tenderness (R), CVA tenderness (L) Neurological exam: Present: alert Skin exam: Present: warm, dry, intact, normal color. Absent: rash Course Vital Signs 08/22/21 08/22/21 08/23/21 19:06 22:00 00:24 Temperature 97.7 F Pulse Rate 102 H 87 88 Respiratory 18 16 Rate Blood Pressure 164/72 150/89 O2 Sat by Pulse 95 Oximetry 08/23/21 00:36 Temperature Pulse Rate 90 Respiratory Rate Blood Pressure O2 Sat by Pulse Oximetry Medical Decision Making - Lab Data Result diagrams: 08/22/21 21:56 08/22/21 21:56 Lab Results 08/22/21 08/22/21 08/22/21 Range/Units 21:56 21:56 21:56 WBC 16.1 H (3.8-10.6) k/uL RBC 5.25 (3.80-5.40) m/uL Hgb 15.2 (11.4-16.0) gm/dL Hct 45.8 (34.0-46.0) % MCV 87.3 (80.0-100.0) fL MCH 29.0 (25.0-35.0) pg MCHC 33.3 (31.0-37.0) g/dL RDW 13.6 (11.5-15.5) % Plt Count 217 (150-450) k/uL MPV 8.3 Neutrophils % 89 % Lymphocytes % 7 % Monocytes % 3 % Eosinophils % 1 % Basophils % 0 % Neutrophils # 14.3 H (1.3-7.7) k/uL Lymphocytes # 1.1 (1.0-4.8) k/uL Monocytes # 0.5 (0-1.0) k/uL Eosinophils # 0.1 (0-0.7) k/uL Basophils # 0.0 (0-0.2) k/uL PT 10.2 (9.0-12.0) sec INR 0.9 (<1.2) APTT 22.4 (22.0-30.0) sec D-Dimer 0.38 (<0.60) mg/L FEU Sodium 141 (137-145) mmol/L Potassium 4.0 (3.5-5.1) mmol/L Chloride 109 H (98-107) mmol/L Carbon Dioxide 19 L (22-30) mmol/L Anion Gap 13 mmol/L BUN 20 H (7-17) mg/dL Creatinine 0.58 (0.52-1.04) mg/dL Est GFR (CKD-EPI)AfAm >90 (>60 ml/min/1.73 sqM) Est GFR (CKD-EPI)NonAf 86 (>60 ml/min/1.73 sqM) Glucose 168 H (74-99) mg/dL Lactic Ac Sepsis Rflx Plasma Lactic Acid Ramon (0.7-2.0) mmol/L Calcium 9.6 (8.4-10.2) mg/dL Total Bilirubin 1.0 (0.2-1.3) mg/dL AST 32 (14-36) U/L ALT 33 (4-34) U/L Alkaline Phosphatase 104 (38-126) U/L Troponin I (0.000-0.034) ng/mL NT-Pro-B Natriuret Pep pg/mL Total Protein 7.4 (6.3-8.2) g/dL Albumin 4.5 (3.5-5.0) g/dL Coronavirus (PCR) (Not Detectd) 08/22/21 08/22/21 08/22/21 Range/Units 21:56 21:56 21:56 WBC (3.8-10.6) k/uL RBC (3.80-5.40) m/uL Hgb (11.4-16.0) gm/dL Hct (34.0-46.0) % MCV (80.0-100.0) fL MCH (25.0-35.0) pg MCHC (31.0-37.0) g/dL RDW (11.5-15.5) % Plt Count (150-450) k/uL MPV Neutrophils % % Lymphocytes % % Monocytes % % Eosinophils % % Basophils % % Neutrophils # (1.3-7.7) k/uL Lymphocytes # (1.0-4.8) k/uL Monocytes # (0-1.0) k/uL Eosinophils # (0-0.7) k/uL Basophils # (0-0.2) k/uL PT (9.0-12.0) sec INR (<1.2) APTT (22.0-30.0) sec D-Dimer (<0.60) mg/L FEU Sodium (137-145) mmol/L Potassium (3.5-5.1) mmol/L Chloride (98-107) mmol/L Carbon Dioxide (22-30) mmol/L Anion Gap mmol/L BUN (7-17) mg/dL Creatinine (0.52-1.04) mg/dL Est GFR (CKD-EPI)AfAm (>60 ml/min/1.73 sqM) Est GFR (CKD-EPI)NonAf (>60 ml/min/1.73 sqM) Glucose (74-99) mg/dL Lactic Ac Sepsis Rflx Plasma Lactic Acid Ramon 2.3 H* (0.7-2.0) mmol/L Calcium (8.4-10.2) mg/dL Total Bilirubin (0.2-1.3) mg/dL AST (14-36) U/L ALT (4-34) U/L Alkaline Phosphatase (38-126) U/L Troponin I <0.012 (0.000-0.034) ng/mL NT-Pro-B Natriuret Pep 179 pg/mL Total Protein (6.3-8.2) g/dL Albumin (3.5-5.0) g/dL Coronavirus (PCR) (Not Detectd) 08/22/21 08/22/21 Range/Units 22:23 23:30 WBC (3.8-10.6) k/uL RBC (3.80-5.40) m/uL Hgb (11.4-16.0) gm/dL Hct (34.0-46.0) % MCV (80.0-100.0) fL MCH (25.0-35.0) pg MCHC (31.0-37.0) g/dL RDW (11.5-15.5) % Plt Count (150-450) k/uL MPV Neutrophils % % Lymphocytes % % Monocytes % % Eosinophils % % Basophils % % Neutrophils # (1.3-7.7) k/uL Lymphocytes # (1.0-4.8) k/uL Monocytes # (0-1.0) k/uL Eosinophils # (0-0.7) k/uL Basophils # (0-0.2) k/uL PT (9.0-12.0) sec INR (<1.2) APTT (22.0-30.0) sec D-Dimer (<0.60) mg/L FEU Sodium (137-145) mmol/L Potassium (3.5-5.1) mmol/L Chloride (98-107) mmol/L Carbon Dioxide (22-30) mmol/L Anion Gap mmol/L BUN (7-17) mg/dL Creatinine (0.52-1.04) mg/dL Est GFR (CKD-EPI)AfAm (>60 ml/min/1.73 sqM) Est GFR (CKD-EPI)NonAf (>60 ml/min/1.73 sqM) Glucose (74-99) mg/dL Lactic Ac Sepsis Rflx Y Plasma Lactic Acid Ramon (0.7-2.0) mmol/L Calcium (8.4-10.2) mg/dL Total Bilirubin (0.2-1.3) mg/dL AST (14-36) U/L ALT (4-34) U/L Alkaline Phosphatase (38-126) U/L Troponin I (0.000-0.034) ng/mL NT-Pro-B Natriuret Pep pg/mL Total Protein (6.3-8.2) g/dL Albumin (3.5-5.0) g/dL Coronavirus (PCR) Not Detected (Not Detectd) Disposition Clinical Impression: COPD exacerbation Disposition: Left Against Medical Advice Condition: Fair Instructions (If sedation given, give patient instructions): COPD (Chronic Obstructive Pulmonary Disease) ([place]) Is patient prescribed a controlled substance at d/c from ED?: No Referrals: Catie Akhtar MD [Primary Care Provider] - 1-2 days
[2021-08-22 22:07] VITALS: RESP 16
[2021-08-22 22:08] LABS: Basophils % (A) 0 %; Eosinophils # (A) 0.1 k/uL (0-0.7); Eosinophils % (A) 1 %; HCT 45.8 % (34.0-46.0); HGB 15.2 gm/dL (11.4-16.0); Lymphocytes # (A) 1.1 k/uL (1.0-4.8); Lymphocytes % (A) 7 %; MCHC 33.3 g/dL (31.0-37.0); MCV 87.3 fL (80.0-100.0); Mean Platelet Volume 8.3; Monocytes # (A) 0.5 k/uL (0-1.0); Monocytes % (A) 3 %; Neutrophils # (A) 14.3 k/uL (1.3-7.7); Neutrophils % (A) 89 %; Platelet Count 217 k/uL (150-450); RBC 5.25 m/uL (3.80-5.40); RDW 13.6 % (11.5-15.5); WBC 16.1 k/uL (3.8-10.6)
[2021-08-22 22:18] LABS: ALT 33 U/L (4-34); AST 32 U/L (14-36); African American GFR (CKD) >90 (>60 ml/min/1.73 sqM); Albumin 4.5 g/dL (3.5-5.0); Alkaline Phosphatase 104 U/L (38-126); Anion Gap 13 mmol/L; Blood Urea Nitrogen 20 mg/dL (7-17); Calcium 9.6 mg/dL (8.4-10.2); Carbon Dioxide 19 mmol/L (22-30); Chloride 109 mmol/L (98-107); Glucose 168 mg/dL (74-99); Non-African American GFR(CKD) 86 (>60 ml/min/1.73 sqM); Sodium 141 mmol/L (137-145); Total Protein 7.4 g/dL (6.3-8.2)
[2021-08-22 22:32] LABS: INR 0.9 (<1.2); Partial Thromboplastin Time 22.4 sec (22.0-30.0); Prothrombin Time 10.2 sec (9.0-12.0)
--- NOTE | 2021-08-22 22:45 | XR ---
EXAMINATION TYPE: XR chest 2V DATE OF EXAM: 08/22/2021 COMPARISON: 11/07/2020 HISTORY: Short of breath TECHNIQUE: FINDINGS: There is mild blunting right costophrenic angle. No heart failure. Heart size is normal. Th ere are chest leads. Bony thorax is intact. IMPRESSION: There is small right pleural effusion that appears new compared to old exam. No heart yousuf lure. Normal heart.
[2021-08-22] MEDS ORDERED: ALBUTEROL NEBULIZED 2.5 MG/3 ML INHALATION STA (23:00)
[2021-08-22] MEDS ORDERED: SODIUM CHLORIDE 0.9% 500 ML 500 ML IV STA (23:00)
[2021-08-23 01:25] VITALS: BP 149/90; PULSE 82
== END 2021-08-23 01:25 | disposition left against medical advice (07) ==
LOC: EC 18:55
DX: J44.1 Chronic obstructive pulmonary disease with (acute) exacerbation (principal); J45.909 Unspecified asthma, uncomplicated; I25.10 Atherosclerotic heart disease of native coronary artery without angina pectoris; E11.9 Type 2 diabetes mellitus without complications; E78.5 Hyperlipidemia, unspecified; I10 Essential (primary) hypertension; I25.2 Old myocardial infarction; E07.9 Disorder of thyroid, unspecified; Z20.822 Contact with and (suspected) exposure to COVID-19; Z79.84 Long term (current) use of oral hypoglycemic drugs; Z79.82 Long term (current) use of aspirin; Z90.710 Acquired absence of both cervix and uterus
CPT/HCPCS: 99285; 96374; 36415; 94640; 93005; 85379; 83880; 80053; 83605; 84484; 85025; 85610; 85730; 84145; 87635; 71046; J1940

== ENCOUNTER 2021-11-16 14:42 | Emergency (ER) | payer MEDICARE ==
[2021-11-16 14:52] VITALS: BP 171/91; PULSE 101; RESP 18
--- NOTE | 2021-11-16 15:16 | ED ---
General Adult HPI - General Chief complaint: Fall Stated complaint: Fall Time Seen by Provider: 11/16/21 15:14 Source: patient, family Mode of arrival: EMS Limitations: no limitations - History of Present Illness Initial comments: Patient presents to the ED by ambulance for evaluation with her daughter and at bedside. Patient states that she accidentally bumped into her as he was coming through a door at the residence this afternoon, causing her to fall down backwards. Patient states that she has injured her right wrist. Patient denies having any right knee pain to me (this is in contrast what is documented in the triage nurse's note). Patient denies having any other symptoms or complaints besides right wrist pain. Patient denies head injury, LOC, headache, focal numbness/weakness/neuro deficit, neck/back/lower extremity pain, chest pain, dyspnea, dizziness, abdominal pain, nausea or vomiting, or any other symptoms or complaints. - Related Data Home Medications Medication Instructions Recorded Confirmed Levothyroxine Sodium [Synthroid] 50 mcg PO DAILY 02/25/17 08/30/21 Montelukast [Singulair] 10 mg PO DAILY 05/02/18 08/30/21 metFORMIN HCL [Glucophage] 500 mg PO BID 05/02/18 08/30/21 Losartan Potassium 50 mg PO DAILY 10/07/18 08/30/21 Atorvastatin [Lipitor] 80 mg PO DAILY 06/07/19 08/30/21 Pantoprazole [Protonix] 40 mg PO DAILY 06/07/19 08/30/21 Albuterol Nebulized [Ventolin 2.5 mg INHALATION RT-QID PRN 11/07/20 08/30/21 Nebulized] Fluticasone Propion/Salmeterol 1 puff INHALATION RT-BID 11/07/20 08/30/21 [Wixela 500-50 Inhub] Cetirizine HCl [Zyrtec] 10 mg PO DAILY 08/22/21 08/30/21 Ascorbic Acid [Vitamin C] 500 mg PO DAILY 08/30/21 08/30/21 Multivit-Min/FA/Lycopen/Lutein 1 tab PO DAILY 08/30/21 08/30/21 [Centrum Silver Tablet] Previous Rx's Medication Instructions Recorded Aspirin 81 mg PO DAILY chew 07/29/16 Metoprolol Tartrate [Lopressor] 25 mg PO BID #60 tab 07/29/16 Allergies Allergy/AdvReac Type Severity Reaction Status Date / Time No Known Allergies Allergy Verified 11/16/21 14:51 Review of Systems ROS Statement: Those systems with pertinent positive or pertinent negative responses have been documented in the HPI. ROS Other: All systems not noted in ROS Statement are negative. Past Medical History Past Medical History: Asthma, Coronary Artery Disease (CAD), COPD, Diabetes Mellitus, Hearing Disorder / Deafness, Hyperlipidemia, Hypertension, Myocardial Infarction ([place]), Thyroid Disorder Additional Past Medical History / Comment(s): Tracheobronchitis, bronchiectasis, home O2 at @2L/[place] prn, NIDDM type II, hypothyroid, past migraines, sinus problems, anemia, past L wrist fracture, [place] bilaterally-wears aides. Last Myocardial Infarction Date:: 07/25/2016 History of Any Multi-Drug Resistant Organisms: None Reported Past Surgical History: Adenoidectomy, Heart Catheterization With Stent, Hysterectomy, Tonsillectomy Additional Past Surgical History / Comment(s): cystocele, rectocele, D&C Past Anesthesia/Blood Transfusion Reactions: No Reported Reaction Date of Last Stent Placement:: 07/2016 Past Psychological History: No Psychological Hx Reported Smoking Status: Never smoker Past Alcohol Use History: None Reported Past Drug Use History: None Reported - Past Family History Mother Family Medical History: Dementia, Memory Impairment Father Family Medical History: Prostate Disorder General Exam Limitations: no limitations General appearance: alert, in no apparent distress Head exam: Present: atraumatic, normocephalic Eye exam: Present: normal appearance, EOMI ENT exam: Present: mucous membranes moist Neck exam: Present: other (Trachea is in midline). Absent: tenderness Respiratory exam: Present: normal lung sounds bilaterally. Absent: respiratory distress, wheezes, rales, rhonchi, stridor, chest wall tenderness Cardiovascular Exam: Present: regular rate, normal rhythm, normal heart sounds, other (Normal radial pulses bilaterally) GI/Abdominal exam: Present: soft. Absent: distended, tenderness, guarding Extremities exam: Present: other (Dorsal right wrist ecchymosis, swelling and tenderness; patient has full range of motion and no tenderness to bilateral knees and hips; pelvis is stable and nontender). Absent: pedal edema, calf tenderness Back exam: Absent: tenderness Neurological exam: Present: alert, oriented X3, CN II-XII intact. Absent: motor sensory deficit Psychiatric exam: Present: normal affect, normal mood Skin exam: Present: warm, dry, intact, normal color Course Vital Signs 11/16/21 14:44 Pulse Rate 101 H Respiratory 18 Rate Blood Pressure 171/91 O2 Sat by Pulse 96 Oximetry Procedures - Orthopedic Splinting/Casting Injury #1 Side: right Upper Extremity Injury Location: wrist Upper Extremity Immobilizer: sugar tong splint Medical Decision Making - Medical Decision Making Patient family are aware the patient's right wrist x-ray findings. A right wrist splint was applied myself in the ED. Patient family were counseled about wrist fractures and splint care, and they were clearly explained return and follow-up instructions. Patient was instructed to follow up closely with orthopedic surgery and to call Thursday morning for an appointment. Patient and family feel comfortable with this plan. Will discharge patient home with an EC starter pack of Tylenol #3's. - Radiology Data Right wrist x-rays: There is impacted transverse fracture distal radius metaphysis. There is extension fracture into the radiocarpal joint. There is mild anterior angulation at the fracture site. There is probably also impacted ulnar styloid process fracture. There is some posterior displacement of the lunate on the lateral view. Disposition Clinical Impression: Fall, Right wrist fracture Disposition: HOME SELF-CARE Condition: Stable Instructions (If sedation given, give patient instructions): Wrist Fracture in Adults (ED), Splint Care (ED), Fall Prevention (ED) Additional Instructions: Return to the ER immediately should you develop new or worsening pain or symptoms. Follow up closely with orthopedic surgery, as well as your primary care provider. Is patient prescribed a controlled substance at d/c from ED?: No Referrals: Catie Akhtar MD [Primary Care Provider] - 1-2 days Harinder Rankin MD [Medical Doctor] - 1-2 days Time of Disposition: 16:41
--- NOTE | 2021-11-16 15:59 | XR ---
EXAMINATION TYPE: XR wrist complete RT DATE OF EXAM: 11/16/2021 COMPARISON: NONE HISTORY: Pain. Fall TECHNIQUE: 4 views FINDINGS: There is impacted transverse fracture distal radial metaphysis. There is extension fracture into the radiocarpal joint. There is mild anterior angulation at the fracture site. There is probabl y also impacted ulnar styloid process fracture. There is some posterior displacement of the lunate on the lateral view. IMPRESSION: Impacted distal radius and ulna fractures as above. No dislocation.
[2021-11-16] MEDS ORDERED: HYDROcodone/APAP 5-325MG 1 EACH TAB PO STA (16:24)
[2021-11-16] MEDS ORDERED: ACET/COD 300 MG/30 MG STARTER PACK 6 TAB BTL PO STA (16:25)
--- NOTE | 2021-11-16 17:37 | XR ---
EXAMINATION TYPE: XR knee complete bilateral DATE OF EXAM: 11/16/2021 COMPARISON: NONE HISTORY: Fall. Pain TECHNIQUE: 6 view FINDINGS: There is no fracture nor dislocation. There is narrowing of the knee joint spaces and more on the left side. No sign of joint effusion. The patella appear intact. IMPRESSION: No fracture seen. There is some bilateral knee joint osteoarthritis that is more noticeab le on the left side.
== END 2021-11-16 19:23 | disposition home or self-care (01) ==
LOC: EC 14:42
DX: S52.591A Other fractures of lower end of right radius, initial encounter for closed fracture (principal); J44.9 Chronic obstructive pulmonary disease, unspecified; E11.9 Type 2 diabetes mellitus without complications; I25.10 Atherosclerotic heart disease of native coronary artery without angina pectoris; E78.5 Hyperlipidemia, unspecified; I25.2 Old myocardial infarction; I10 Essential (primary) hypertension; E03.9 Hypothyroidism, unspecified; Z79.899 Other long term (current) drug therapy; Z79.51 Long term (current) use of inhaled steroids; Z79.84 Long term (current) use of oral hypoglycemic drugs; Z79.890 Hormone replacement therapy; W19.XXXA Unspecified fall, initial encounter
CPT/HCPCS: 29125; 99283

== ENCOUNTER → 2021-11-19 | Outpatient (CLI) | payer MEDICARE ==
--- NOTE | 2021-11-20 00:02 | CT ---
EXAMINATION TYPE: CT wrist RT wo con DATE OF EXAM: 11/19/2021 COMPARISON: X-ray dated 11/19/2021 HISTORY: RT wrist FX CT DLP: 151.20 mGycm Automated exposure control for dose reduction was used. TECHNIQUE: CT scan of the right wrist joint without IV contrast administration. 3-D reconstruction im ages were generated on an independent workstation and reviewed. FINDINGS: Diffuse osteopenia. Comminuted impacted fracture of the distal radial metaphysis extending to the rad iocarpal and distal radioulnar articulations with multiple suspected bone fragments. Soft tissue calc ification is seen surrounding the fracture and also around the wrist joint. No significant healing ap preciated. Slight dorsal angulation of the distal fracture fragment. Fused lunate and triquetral bones. Mild degenerative changes of the first carpometacarpal articulatio n. No other definite acute fracture line identified however a subtle nondisplaced fracture cannot be excluded in the background of severe osteopenia. Soft tissue swelling and edema surrounding the wrist and at the dorsum of the hand. IMPRESSION: Severe osteopenia. Comminuted fracture of the distal radial end with other findings as detailed above .
== END | disposition home or self-care (01) ==
LOC: RADCTMAIN 18:57
PROVIDERS: ATTEND Orthopaedic Surgery Hand Surgery
DX: S52.501A Unspecified fracture of the lower end of right radius, initial encounter for closed fracture (principal)

== ENCOUNTER 2021-11-27 11:52 | Day surgery (SDC) | payer MEDICARE ==
[2021-11-21 10:45] VITALS: BMI 22.8
--- NOTE | 2021-11-26 12:07 | P.HPOR ---
History of Present Illness H&P Date: 11/26/21 Chief Complaint: Right comminuted intra-articular distal radius fracture Subjective: This is a 81 year old female that presents today for initial evaluation regarding a right wrist injury that occurred after a fall in her house when she bumped into her and fell onto an outstretched wrist. She has immediate pain and swelling and was taken to the ED for reduction and immobilization. She has been in her splint since. She denies any other areas of pain. She denies any paresthesias. She still ambulates without assist, lives with her , drives a car every day and lives an active lifestyle, this is her dominant right hand. Physical Examination: RUE: AIN/PIN/Radial/Ulnar/Median motor intact. Radial/Ulnar/Median SILT. 2+/4 Radial/Ulnar pulses palpated. 5/5 APB, 5/5 FDI. EPL intact. Bruising/swelling pr esent volarly and dorsally. Imaging: X-Rays of the right wrist demonstrate an impacted, comminuted,-intraarticular distal radius fracture with 50 degrees of dorsal angulation, extensive dorsal comminution with slight subluxation of lunotriquetral coalesced bone dorsally. Impression: 1.) Right impacted, comminuted, intra-articular distal radius fracture, greater than 3 parts. Plan: Diagnosis and non-operative and operative treatment options were discussed with the patient. We discussed the complexity of her intra-articular and comminuted fracture pattern. Due to the amount of displacement and carpal subluxation I recommend surgical intervention. We discussed the complexity of bone quality in combination with the comminuted nature of her fracture pattern will make volar plating difficult due to the distal and impacted nature of her fracture and that she may require temporary dorsal spanning plate fixation to provide her a stable and functional wrist. Risks and benefits of surgery including bleeding, infection, damage to surrounding tissue, need for further surgery, residual numbness were discussed and the patient wished to go forward with surgery. PCP/Cardiac clearance is requested and she is placed in a new brace. CT scan of the right wrist is ordered and surgery will be scheduled in the near future. -Aidan Cordon DO Orthopedic Hand/Upper Extremity Surgeon Past Medical History Past Medical History: Asthma, Coronary Artery Disease (CAD), COPD, Diabetes Mellitus, Hearing Disorder / Deafness, Hyperlipidemia, Hypertension, Myocardial Infarction ([place]), Thyroid Disorder Additional Past Medical History / Comment(s): Tracheobronchitis, bronchiectasis, home O2 at @2L/[place] prn, past migraines, hx anemia, [place] bilaterally-wears aides. splint on rt wrist-fell 11/16/21 fx right wrist Last Myocardial Infarction Date:: 07/25/2016 History of Any Multi-Drug Resistant Organisms: None Reported Past Surgical History: Adenoidectomy, Heart Catheterization With Stent, Hysterectomy, Tonsillectomy Additional Past Surgical History / Comment(s): cystocele/rectocele repair, D&C, Past Anesthesia/Blood Transfusion Reactions: No Reported Reaction Date of Last Stent Placement:: 07/2016 Smoking Status: Former smoker - Past Family History Mother Family Medical History: No Reported History Father Family Medical History: Prostate Disorder Medications and Allergies Home Medications Medication Instructions Recorded Confirmed Type Aspirin 81 mg PO DAILY chew 07/29/16 11/21/21 Rx Metoprolol Tartrate [Lopressor] 25 mg PO BID #60 tab 07/29/16 11/21/21 Rx Levothyroxine Sodium [Synthroid] 50 mcg PO DAILY 02/25/17 11/21/21 History Montelukast [Singulair] 10 mg PO DAILY 05/02/18 11/21/21 History metFORMIN HCL [Glucophage] 500 mg PO BID 05/02/18 11/21/21 History Losartan Potassium 50 mg PO DAILY 10/07/18 11/21/21 History Atorvastatin [Lipitor] 80 mg PO DAILY 06/07/19 11/21/21 History Pantoprazole [Protonix] 40 mg PO DAILY 06/07/19 11/21/21 History Albuterol Nebulized [Ventolin 2.5 mg INHALATION RT-QID PRN 11/07/20 11/21/21 History Nebulized] Ascorbic Acid [Vitamin C] 500 mg PO DAILY 08/30/21 11/21/21 History Multivit-Min/FA/Lycopen/Lutein 1 tab PO DAILY 08/30/21 11/21/21 History [Centrum Silver Tablet] Allergies Allergy/AdvReac Type Severity Reaction Status Date / Time No Known Allergies Allergy Verified 11/21/21 10:26 Physical Examination Osteopathic Statement: *. No significant issues noted on an osteopathic str uctural exam other than those noted in the History and Physical/Consult.
[~2021-11-27 11:52] MED LIST: DEXAMETHASONE SOD PHOSPHATE 4 MG/ML 1 ML VIAL IV ONE; HYDROmorphone 0.5 MG/0.5 ML SYRINGE IVP PRN; LACTATED RINGERS 1,000 ML IV SCH; MIDAZOLAM 2 MG/2 ML VIAL IV PRN; ONDANSETRON 4 MG/2 ML VIAL IVP ONE
[2021-11-27 12:44] LABS: Glucose,Whole Blood 131 mg/dL (70-110)
[2021-11-27 12:53] LABS: HCT 39.2 % (34.0-46.0); HGB 13.3 gm/dL (11.4-16.0); MCH 30.2 pg (25.0-35.0); MCHC 33.9 g/dL (31.0-37.0); MCV 89.2 fL (80.0-100.0); Mean Platelet Volume 8.1; Platelet Count 277 k/uL (150-450); Poikilocytosis Slight; RDW 14.1 % (11.5-15.5); WBC 7.7 k/uL (3.8-10.6)
[2021-11-27] MEDS ORDERED: MIDAZOLAM 2 MG/2 ML VIAL IVP ONE (12:58)
[2021-11-27] MEDS ORDERED: fentaNYL (PF) 50 MCG/ML 2 ML AMP IVP ONE (12:58)
[2021-11-27 13:03] LABS: African American GFR (CKD) >90 (>60 ml/min/1.73 sqM); Anion Gap 8 mmol/L; Blood Urea Nitrogen 29 mg/dL (7-17); Calcium 9.4 mg/dL (8.4-10.2); Carbon Dioxide 24 mmol/L (22-30); Chloride 108 mmol/L (98-107); Glucose 136 mg/dL (74-99); Non-African American GFR(CKD) >90 (>60 ml/min/1.73 sqM); Sodium 140 mmol/L (137-145)
[2021-11-27 13:13] LABS: Potassium 4.1 mmol/L (3.5-5.1)
[2021-11-27] MEDS ORDERED: ROPIVACAINE 5 MG/ML 30 ML VIAL ONE (13:33)
[2021-11-27] MEDS ORDERED: fentaNYL (PF) 50 MCG/ML 2 ML AMP ONE (13:33)
[2021-11-27] MEDS ORDERED: LIDOCAINE 2% INJ 20 MG/ML (2 ML VIAL) ONE (13:33)
[2021-11-27] MEDS ORDERED: SODIUM CHLORIDE 0.9% (PF) 10 ML VIAL ONE (13:33)
[2021-11-27] MEDS ORDERED: ePHEDrine 50 MG/ML 1 ML VIAL ONE (13:33)
[2021-11-27] MEDS ORDERED: PROPOFOL 10 MG/ML 20 ML VIAL IV ONE (13:33)
--- NOTE | 2021-11-27 14:09 | P.ANPRN ---
Procedure Note - Anesthesia - Nerve Block Performed Right Axillary Single Time Out Performed: Yes ([id number]) Date of Procedure: 11/27/21 Procedure Start Time: 12:58 Procedure Stop Time: 13:04 Location of Patient: PreOp Indication: Acute Post-Operative Pain, Requested by Surgeon Specifically requested for management of pain by DrJeff: Aidan Cordon Sedation Type: Sedate with meaningful contact maintained Preparation: Sterile Prep Position: Supine Catheter: None Needle Types: [place] Needle Gauge: 21 Ultrasound used to visualize needle placement: Yes Ultrasound used to observe medication spread: Yes Injectate: 0.5% Ropivacaine (see comment for volume) (30cc + 10cc nacl pf. 10 cc each at median, ulnar, radial and mskcut) Blood Aspirated: No Pain Paresthesia on Injection Noted: No Resistance on Injection: Normal Image Stored and Saved: Yes Events: Uneventful and Well Tolerated
[2021-11-27 15:21] VITALS: TEMP 98.5
[2021-11-27 16:29] LABS: Glucose,Whole Blood 141 mg/dL (70-110)
[2021-11-27 16:31] VITALS: BP 151/79; PULSE 71; RESP 17
--- NOTE | 2021-11-28 06:55 | P.OP ---
Date of Procedure: 11/27/21 Preoperative Diagnosis: Right intra-articular distal radius fracture, greater than 3 parts. Postoperative Diagnosis: Right intra-articular distal radius fracture, greater than 3 parts. Procedure(s) Performed: Open reduction internal fixation with wrist spanning internal bridge plate with demineralized bone matrix allografting Implants: 1.) Arthrex wrist spanning distal radius plate 2.) Arthrex Allosync Demineralized bone graft 3.) 0.062 K-wire x 1 Anesthesia: KATLINA, regional Surgeon: Aidan Cordon Estimated Blood Loss (ml): 5 Pathology: none sent Condition: stable Disposition: PACU Description of Procedure: This is a 81 year old female who sustained a comminuted, impacted and unstable intra-articular distal radius fracture after a fall from standing. Due to the patients activity demands and right hand dominance decision was made to proceed with surgical intervention. Risks and benefits of surgery were discussed with the patient including bleeding, damage to surrounding tissue, infection, need for further surgery, need for removal of hardware as well as risks of anesthesia including pulmonary embolism and even and the patient wished to proceed with surgical intervention. The patient was seen in the pre-operative area by myself. Consent and H&P were completed and updated. The correct extremity was marked in the pre-operative area by myself and all other questions were answered. Operative Narrative: The patient was brought to the operating room by the department of anesthesia. They remained on the portable stretcher and a rolling hand table was brought to the side of the operative extremity. Pre-operative time out was performed indicating the correct patient, procedure and laterality. All in the room agreed. Pre-operative antibiotics were given prior to skin incision. The patient was then drifted off to sleep by the department of anesthesia. A nonsterile tourniquet was then applied to the operative extremity and the right upper extremity was then prepped and draped in normal sterile fashion. The operative extremity was the exsanguinated with an esmarch bandage and the tourniquet was inflated to 250mmHg. Longitudinal incision was made centered over the mid and proximal portion of the third metacarpal, blunt dissection was taken down to periosteum. A second incision was made longitudinally just ulnar to Janes's Tubercle. There was hematoma dorsally. Further blunt dissection down to the the proximal portion of the extensor retinaculum was performed. The 3rd dorsal compartment was incised sharply and the EPL tendon was identified and transposed. The 4th dorsal compartment was then subperiosteally elevated from radial to ulnar to make room for the spanning plate. A third incision was made proximally over the dorsal aspect of the radius. Dissection was taken down to subcutaneous tissues, interval between ECRL/ECRB and Brachioradialis was identified and the superficial radial nerve was identified and protected. Dorsal radial shaft was then identified in the interval. A periosteal elevator was then used to make a tunnel from distal to proximal through the windows of the 3 incisions. An Arthrex dorsal wrist spanning plate was then tunneled through the previously created path centered at the 3rd metacarpal distally, at the floor of the 4th dorsal compartment, and then on the bare spot of the radius just adjacent to the wrist extensors. Lobster claw clamp was used to provisionally hold the plate in place and appropriate placement was appreciated on live fluoroscopy. The distal portion of the plate was drilled and a non-locking screw was placed in the metacarpal shaft. Attention was then brought to the most proximal incision and longitudinal traction was applied along with supination and ulnar deviation and the proximal hole was drilled and filled with a non-locking screws followed by locking screws in the remainder of the holes. Reduction was then checked on x- ray and was found to be acceptable with good distraction of the fracture site. The remainder of the metacarpal screws were filled with 2 additional locking screws after all non-locking screws were inserted. All fingers were flexed and extended and there appeared to be no entrapment of extensor tendons by the plate. A stab incision was then made along the radial aspect of the wrist though skin only, blunt dissection was taken down with hemostat to the radial styloid. A 0.062 K-wire was then inserted into the radial portion of the fracture and then levered distally to restore radial height and ulnar translation. There was complete destruction of the articular surface of the distal radius appreciated on imaging with multiple floating intra-articular and distally located articular fragements that were not amendable to standard fixation to the the amount of fragments, the very poor osteoporotoic bone quality and the distal location of the fragments. A large subchondral articular void of bone was present. Articular fragments were levered to try to restore the articular surface and Arthrex DMB bone allograft was used to fill the found of bone to provide some support to the articular surface fragments. Final imaging was then taken and radial height was restored. Pin was then cut and jergen ball placed over the tip. The wound was then irrigated. Closure was performed with 4-0 nylon suture. Sterile dressing consisting of adaptic, 4x4s, and a volar plaster splint was applied. Tourniquet was let down and the hand had immediate perfusion. The patient was then woken by the department of anesthesia and transferred to PACU in stable condition. Aidan Cordon DO Orthopedic Hand/Upper Extremity Surgeon
== END 2021-11-27 17:30 | disposition home or self-care (01) ==
LOC: OR 11:52
PROVIDERS: ATTEND Orthopaedic Surgery Hand Surgery
DX: S52.571A Other intraarticular fracture of lower end of right radius, initial encounter for closed fracture (principal); W18.30XA Fall on same level, unspecified, initial encounter; J44.9 Chronic obstructive pulmonary disease, unspecified; E11.9 Type 2 diabetes mellitus without complications; I25.10 Atherosclerotic heart disease of native coronary artery without angina pectoris; I10 Essential (primary) hypertension; E78.5 Hyperlipidemia, unspecified; Z87.891 Personal history of nicotine dependence; E07.9 Disorder of thyroid, unspecified; I25.2 Old myocardial infarction; Z98.890 Other specified postprocedural states; Z90.710 Acquired absence of both cervix and uterus; Z97.2 Presence of dental prosthetic device (complete) (partial); Z79.84 Long term (current) use of oral hypoglycemic drugs; Z79.82 Long term (current) use of aspirin; Z79.51 Long term (current) use of inhaled steroids; Z79.899 Other long term (current) drug therapy; Z79.890 Hormone replacement therapy
CPT/HCPCS: 64415; 76942; 80048; 85027; 25609; C1713; J2250; J1100; J0690; J2405; J3010; J2795; J2704; J2001

== ENCOUNTER 2022-02-26 10:47 | Day surgery (SDC) | payer MEDICARE ==
--- NOTE | 2022-02-25 10:59 | P.HPOR ---
History of Present Illness H&P Date: 02/25/22 Chief Complaint: Right distal radius fracture Subjective: This is a 81 year old female that presents today for a post-operative visit after undergoing right intra-articular, comminuted distal radius fracture ORIF with dorsal spanning wrist plate and bone grafting with k-wire fixation on 11/27/21. She has been working on finger ROM and has noticed improvement in her pain and is looking forward to having the plate removed. Physical Examination: RUE: AIN/PIN/Radial/Ulnar/Median motor intact. Radial/Ulnar/Median SILT. 2+/4 Radial/Ulnar pulses palpated. Dorsal incisions well healed. Able to make full fist. Bruising/swelling resolved. Imaging: X-Rays of the right wrist demonstrate dorsal spanning plate with radius held out to length. Signs of emelina healing present, no evidence of hardware failure screw backout at this time. Impression: 1.) S/P Right intra-articular, comminuted distal radius fracture ORIF with dorsal spanning wrist plate with bone grafting and k-wire fixation. Plan: Diagnosis and treatment options and were discussed with the patient. She would like to proceed with dorsal spanning plate removal now that her fracture has c onsolidate and healed. Risks and benefits of surgery including bleeding, infection, damage to surrounding tissue, need for further surgery, residual numbness were discussed and the patient wished to go forward with surgery. She is scheduled for right wrist removal of deep implant. -Aidan Cordon DO Orthopedic Hand/Upper Extremity Surgeon Past Medical History Past Medical History: Coronary Artery Disease (CAD), COPD, Diabetes Mellitus, Hearing Disorder / Deafness, Hyperlipidemia, Hypertension, Myocardial Infarction ([place]), Thyroid Disorder Additional Past Medical History / Comment(s): Tracheobronchitis, bronchiectasis, home O2 at @2L/[place] prn, NIDDM type II, hypothyroid, past migraines, sinus problems, anemia, past L wrist fracture, [place] bilaterally-wears aides. Last Myocardial Infarction Date:: 07/25/2016 History of Any Multi-Drug Resistant Organisms: None Reported Past Surgical History: Adenoidectomy, Heart Catheterization With Stent, Hysterectomy, Tonsillectomy Additional Past Surgical History / Comment(s): cystocele, rectocele, D&C Past Anesthesia/Blood Transfusion Reactions: No Reported Reaction Date of Last Stent Placement:: 07/2016 Smoking Status: Never smoker - Past Family History Mother Family Medical History: No Reported History Father Family Medical History: Prostate Disorder Medications and Allergies Home Medications Medication Instructions Recorded Confirmed Type Aspirin 81 mg PO DAILY chew 07/29/16 02/21/22 Rx Metoprolol Tartrate [Lopressor] 25 mg PO BID #60 tab 07/29/16 02/21/22 Rx Levothyroxine Sodium [Synthroid] 50 mcg PO DAILY 02/25/17 02/21/22 History Montelukast [Singulair] 10 mg PO DAILY 05/02/18 02/21/22 History metFORMIN HCL [Glucophage] 500 mg PO BID 05/02/18 02/21/22 History Losartan Potassium 50 mg PO DAILY 10/07/18 02/21/22 History Atorvastatin [Lipitor] 80 mg PO DAILY 06/07/19 02/21/22 History Pantoprazole [Protonix] 40 mg PO DAILY 06/07/19 02/21/22 History Ascorbic Acid [Vitamin C] 500 mg PO DAILY 08/30/21 02/21/22 History Multivit-Min/FA/Lycopen/Lutein 1 tab PO DAILY 08/30/21 02/21/22 History [Centrum Silver Tablet] Albuterol Nebulized [Ventolin 2.5 mg INHALATION Q4H 02/21/22 02/21/22 History Nebulized] Fluticasone Propion/Salmeterol 1 puff INHALATION DAILY 02/21/22 02/21/22 History [Wixela 500-50 Inhub] Allergies Allergy/AdvReac Type Severity Reaction Status Date / Time No Known Allergies Allergy Verified 02/21/22 14:42 Physical Examination Osteopathic Statement: *. No significant issues noted on an osteopathic structural exam other than those noted in the History and Physical/Consult.
[~2022-02-26 10:47] MED LIST changes: +LIDOCAINE 1% (10MG/ML) FOR IV START INTRADERMA PRN
[2022-02-26 12:34] LABS: Glucose,Whole Blood 127 mg/dL (70-110)
[2022-02-26] MEDS ORDERED: LACTATED RINGERS 1,000 ML IV ONE ×2 (12:35→15:00)
[2022-02-26] MEDS ORDERED: BUPIVACAINE (PF) 0.5% 30 ML VIAL SQ ONE (13:21)
[2022-02-26] MEDS ORDERED: fentaNYL (PF) 50 MCG/ML 2 ML AMP ONE (13:21)
[2022-02-26] MEDS ORDERED: ePHEDrine 50 MG/ML 1 ML VIAL ONE (13:21)
[2022-02-26] MEDS ORDERED: PROPOFOL 10 MG/ML 20 ML VIAL IV ONE (13:21)
[2022-02-26] MEDS ORDERED: LIDOCAINE 1% INJ 10MG/ML (20 ML MDV) SQ ONE (13:21)
[2022-02-26 14:38] VITALS: TEMP 97.2
[2022-02-26 15:34] VITALS: PULSE 77; RESP 18
[2022-02-26] MEDS ORDERED: ONDANSETRON 4 MG/2 ML VIAL ONE (15:49)
[2022-02-26 15:55] VITALS: BP 147/78
--- NOTE | 2022-02-27 07:38 | P.OP ---
Date of Procedure: 02/26/22 Preoperative Diagnosis: 1.) Right comminuted intra-articular distal radius fracture s/p temporary internal dorsal wrist spanning plate application Postoperative Diagnosis: 1.) Right comminuted intra-articular distal radius fracture s/p temporary internal dorsal wrist spanning plate application Procedure(s) Performed: 1.) Right wrist removal of deep orthopedic implant, bone. ( Dorsal spanning wrist plate) 2.) Right wrist extensor tenolysis, wrist and hand. Anesthesia: regional Surgeon: Aidan Cordon [employer] Worker #1: Nelson Johnson Estimated Blood Loss (ml): 5 Pathology: none sent Condition: stable Disposition: PACU Description of Procedure: This is a 81 year old female who presents today for a right wrist removal of deep hardware after undergoing temporary spanning fixation for a comminuted, distally located, intra-articular distal radius fracture on 11/28/21. Risks and benefits of surgery were discussed with the patient including bleeding, damage to surrounding tissue, infection, need for further surgery as well as risks of anesthesia including pulmonary embolism and even and the patient wished to proceed with surgical intervention. The patient was seen in the pre-operative area by myself. Consent and H&P were completed and updated. The correct extremity was marked in the pre-operative area by myself and all other questions were answered. The patient was brought to the operating room by the department of anesthesia. They remained on the portable stretcher and a rolling hand table was brought to the side of the operative extremity. Pre-operative time out was performed indicating the correct patient, procedure and laterality. All in the room agreed. Pre-operative antibiotics were given prior to skin incision. The patient was then drifted off to sleep by the department of anesthesia. A nonsterile tourniquet was then applied to the operative extremity and the right upper extremity was then prepped and draped in normal sterile fashion. The operative extremity was the exsanguinated with an esmarch bandage and the tourniquet was inflated to 250mmHg. Longitudinal incision was made centered over the mid and proximal portion of the third metacarpal at site of previous scar, blunt dissection was taken down to periosteum. A second incision was made longitudinally just ulnar to Janes's Tubercle at site of previous scar. Further blunt dissection down to the the proximal portion of the extensor retinaculum was performed. The 4th dorsal compartment was then subperiostally elevated from radial to ulnar to reveal the spanning plate. A third incision was made proximally over the dorsal aspect of the radius at the site of the previous incision. Dissection was taken down to subcutaneous tissues, interval between ECRL/ECRB and Brachioradialis was identified and the superficial radial nerve was identified and protected. Dorsal radial shaft was then identified in the interval with the proximal plate being identified. All screws were removed from the shaft. Third metacarpal shaft screws were then removed with screwdriver. A periosteal elevator was used to free the plate from surrounding bone to loosen the plate which was then removed. The wound was then irrigated. Extensor tenolysis was then performed through the middle window, freeing surrounding scar tissue from the third and four dorsal compartment tendons which were all found to be intact. Through the distal incision the third metacarpal extensor tendon was identified and found to be intact and scar tissue and adhesions were broken up and scar tissue was excised. Fluoroscopy was then utilized to confirm removal of all plates and screws. Wrist was flexed and extended under fluoroscopy and distal radius fracture was moving as a single unit and 30 degrees of flexion/extension was appreciated. There was solid union of the fracture site appreciated with taoist of volar tilt, radial height and inclination. Wounds were irrigated and subcutaneous closure was performed with 4-0 monocryl followed by skin closure with running 4- 0 nylon suture. Sterile dressing consisting of adaptic, 4x4s, and cast padding was applied. Tourniquet was let down and the hand had immediate perfusion. The patient was then woken by the department of anesthesia and transferred to PACU in stable condition. Tereza BROWN was present to assist in major portions of the case and protection of neurovascular structures. Aidan Cordon DO Orthopedic Hand/Upper Extremity Surgeon
== END 2022-02-26 16:24 | disposition home or self-care (01) ==
LOC: OR 10:47
PROVIDERS: ATTEND Orthopaedic Surgery Hand Surgery
DX: T84.89XA Other specified complication of internal orthopedic prosthetic devices, implants and grafts, initial encounter (principal); I25.10 Atherosclerotic heart disease of native coronary artery without angina pectoris; J44.9 Chronic obstructive pulmonary disease, unspecified; E11.9 Type 2 diabetes mellitus without complications; E78.5 Hyperlipidemia, unspecified; I10 Essential (primary) hypertension; E07.9 Disorder of thyroid, unspecified; J40 Bronchitis, not specified as acute or chronic; E03.9 Hypothyroidism, unspecified; G43.909 Migraine, unspecified, not intractable, without status migrainosus; D64.9 Anemia, unspecified; Z90.49 Acquired absence of other specified parts of digestive tract; Z95.5 Presence of coronary angioplasty implant and graft; Z90.710 Acquired absence of both cervix and uterus; Z79.899 Other long term (current) drug therapy; Z79.890 Hormone replacement therapy; Z79.82 Long term (current) use of aspirin; Z79.1 Long term (current) use of non-steroidal anti-inflammatories (NSAID); Z79.51 Long term (current) use of inhaled steroids; Z79.84 Long term (current) use of oral hypoglycemic drugs
CPT/HCPCS: 20680; 25295; J1100; J2405; J0690; J2001; J3010; J2704; J1170

== ENCOUNTER 2023-10-08 15:28 | Observation (INO) | payer MEDICARE ==
--- NOTE | 2023-10-08 15:39 | ED ---
General Adult HPI - General Stated complaint: JARED Time Seen by Provider: 10/08/23 15:28 Source: patient, RN notes reviewed, old records reviewed - History of Present Illness Initial comments: This is an 83-year-old female who presents to the emergency department the past medical history significant for cardiac disease as well as COPD. Patient comes in today because she had a difficult time breathing for the last week and she has been following up with her primary medical care doctor. Patient been treated with albuterol steroids and antibiotics as an outpatient has not been successful getting any better. Patient today was satting in the 70s according to EMS they gave her some oxygen and she started to perk up. Patient was given a breathing treatment and steroids on the way in. Patient still feels short of breath but she denies any chest pain palpitations. Patient denies any fever chills or cough. Patient denies abdominal pain patient has nausea vomiting diarrhea. - Related Data Home Medications Medication Instructions Recorded Confirmed Levothyroxine Sodium [Synthroid] 50 mcg PO DAILY 02/25/17 02/26/22 Montelukast [Singulair] 10 mg PO DAILY 05/02/18 02/26/22 metFORMIN HCL [Glucophage] 500 mg PO BID 05/02/18 02/26/22 Losartan Potassium 50 mg PO DAILY 10/07/18 02/26/22 Atorvastatin [Lipitor] 80 mg PO DAILY 06/07/19 02/26/22 Pantoprazole [Protonix] 40 mg PO DAILY 06/07/19 02/26/22 Ascorbic Acid [Vitamin C] 500 mg PO DAILY 08/30/21 02/26/22 Multivit-Min/FA/Lycopen/Lutein 1 tab PO DAILY 08/30/21 02/26/22 [Centrum Silver Tablet] Albuterol Nebulized [Ventolin 2.5 mg INHALATION Q4H 02/21/22 02/26/22 Nebulized] Fluticasone Propion/Salmeterol 1 puff INHALATION DAILY 02/21/22 02/26/22 [Wixela 500-50 Inhub] Previous Rx's Medication Instructions Recorded Aspirin 81 mg PO DAILY chew 07/29/16 Metoprolol Tartrate [Lopressor] 25 mg PO BID #60 tab 07/29/16 Allergies Allergy/AdvReac Type Severity Reaction Status Date / Time No Known Allergies Allergy Verified 10/08/23 15:56 Review of Systems ROS Statement: Those systems with pertinent positive or pertinent negative responses have been documented in the HPI. ROS Other: All systems not noted in ROS Statement are negative. Past Medical History Past Medical History: Coronary Artery Disease (CAD), COPD, Diabetes Mellitus, Hearing Disorder / Deafness, Hyperlipidemia, Hypertension, Myocardial Infarction ([place]), Thyroid Disorder Additional Past Medical History / Comment(s): Tracheobronchitis, bronchiectasis, home O2 at @2L/[place] prn, NIDDM type II, hypothyroid, past migraines, sinus p roblems, anemia, past L wrist fracture, [place] bilaterally-wears aides. Last Myocardial Infarction Date:: 07/25/2016 History of Any Multi-Drug Resistant Organisms: None Reported Past Surgical History: Adenoidectomy, Heart Catheterization With Stent, Hysterectomy, Tonsillectomy Additional Past Surgical History / Comment(s): cystocele, rectocele, D&C Past Anesthesia/Blood Transfusion Reactions: No Reported Reaction Date of Last Stent Placement:: 07/2016 Smoking Status: Never smoker - Past Family History Mother Family Medical History: No Reported History Father Family Medical History: Prostate Disorder General Exam - General Exam Comments Initial Comments: GENERAL: Patient is well-developed and well-nourished. Patient is nontoxic and well- hydrated and is in moderate distress. ENT: Neck is soft and supple. No significant lymphadenopathy is noted. Oropharynx is clear. Moist mucous membranes. Neck has full range of motion without eliciting any pain. EYES: The sclera were anicteric and conjunctiva were pink and moist. Extraocular movements were intact and pupils were equal round and reactive to light. Eyelids were unremarkable. PULMONARY: Patient has diminished breath sounds with expiratory wheezing CARDIOVASCULAR: There is a regular rate and rhythm without any murmurs gallops or rubs. ABDOMEN: Soft and nontender with normal bowel sounds. No palpable organomegaly was noted. There is no palpable pulsatile mass. SKIN: Skin is clear with no lesions or rashes and otherwise unremarkable. NEUROLOGIC: Patient is alert and oriented x3. Cranial nerves II through XII are grossly intact. Motor and sensory are also intact. Normal speech, volume and content. Symmetrical smile. MUSCULOSKELETAL: Normal extremities with adequate strength and full range of motion. No lower extremity swelling or edema. No calf tenderness. LYMPHATICS: No significant lymphadenopathy is noted PSYCHIATRIC: Normal psychiatric evaluation. Course Vital Signs 10/08/23 10/08/23 10/08/23 15:52 17:00 17:36 Temperature 98.0 F Pulse Rate 90 72 76 Respiratory 20 20 Rate Blood Pressure 152/80 129/75 O2 Sat by Pulse 95 95 Oximetry 10/08/23 10/08/23 17:58 18:00 Temperature Pulse Rate 95 96 Respiratory 20 Rate Blood Pressure 142/78 O2 Sat by Pulse 98 Oximetry Medical Decision Making - Medical Decision Making EKG is interpreted by myself EKG shows a sinus rhythm with occasional PAC at 82 bpm CO 153 QRS is 90 QT interval 361 QTc is 399. Patient's EKG shows no ST segment elevation Was pt. sent in by a medical professional or institution (, PA, [employer], urgent care, hospital, or penitentiary...) When possible be specific @ -Patient was sent in by her primary medical care doctor Dr. Akhtar Did you speak to anyone other than the patient for history (EMS, parent, family, police, friend...)? What history was obtained from this source @ -No Did you review nursing and triage notes (agree or disagree)? Why? @ -I reviewed and agree with nursing and triage notes Were old charts reviewed (outside hosp., previous admission, EMS record, old EKG, old radiological studies, urgent care reports/EKG's, penitentiary records)? Report findings @ -I compared. Today's chest x-ray with the prior chest x-ray and it shows no acute changes Differential Diagnosis (chest pain, altered mental status, abdominal pain women, abdominal pain men, vaginal bleeding, weakness, fever, dyspnea, syncope, headache, dizziness, GI bleed, back pain, seizure, CVA, palpatations, mental health, musculoskeletal)? @ -Differential Dyspnea: Coronary syndrome, arrhythmia, tamponade, asthma, COPD, pulmonary embolism, pneumonia, pneumothorax, pulmonary effusion, anaphylaxis, diabetic ketoacidosis, flailed chest, pulmonary contusion, diaphragmatic rupture, anemia, neuromuscular, this is not meant to be an all-inclusive list. EKG interpreted by me (3pts min.). @ -As above X-rays interpreted by me (1pt min.). @ -Chest x-ray shows no acute abnormality CT interpreted by me (1pt min.). @ -None done U/S interpreted by me (1pt. min.). @ -None done What testing was considered but not performed or refused? (CT, X-rays, U/S, labs)? Why? @ -None What meds were considered but not given or refused? Why? @ -None Did you discuss the management of the patient with other professionals (professionals i.e. , PA, [employer], lab, RT, psych nurse, foster care social worker, cat scanner operator, teacher, client sales and service officer, showcase trimmer)? Give summary @ -I spoke with [facility] they agreed admit the patient admit the patient I wrote admitting orders Was smoking cessation discussed for >3mins.? @ -No Was critical care preformed (if so, how long)? @ -No Were there social determinants of health that impacted care today? How? (Homelessness, low income, unemployed, alcoholism, drug addiction, transportation, low edu. Level, literacy, decrease access to med. care, [facility], rehab)? @ -No Was there de-escalation of care discussed even if they declined (Discuss DNR or withdrawal of care, Hospice)? DNR status @ -No What co-morbidities impacted this encounter? (DM, HTN, Smoking, COPD, CAD, Cancer, CVA, ARF, Chemo, Hep., AIDS, mental health diagnosis, sleep apnea, morbid obesity)? @ -None Was patient admitted / discharged? Hospital course, mention meds given and route, prescriptions, significant lab abnormalities, going to OR and other pertinent info. @ -Patient was given multiple breathing treatments and steroids in the emergency department. Patient will be started on antibiotics as well. Patient will be admitted to [facility] and treatment steroids and antibiotics will be continued on the floor Undiagnosed new problem with uncertain prognosis? @ -No Drug Therapy requiring intensive monitoring for toxicity (Heparin, Nitro, Insulin, Cardizem)? @ -No Were any procedures done? @ -No Diagnosis/symptom? @ -COPD exacerbation Acute, or Chronic, or Acute on Chronic? @ -Acute Uncomplicated (without systemic symptoms) or Complicated (systemic symptoms)? @ -Complicated Side effects of treatment? @ -No Exacerbation, Progression, or Severe Exacerbation? @ -No Poses a threat to life or bodily function? How? (Chest pain, [place], [place], pneumonia, PE, COPD, DKA, ARF, appy, cholecystitis, CVA, Diverticulitis, Homicidal, Suicidal, threat to staff... and all critical care pts) @ -Yes this can lead to hypoxia and endorgan dysfunction - Lab Data Result diagrams: 10/08/23 16:25 10/08/23 16:25 Lab Results 10/08/23 10/08/23 10/08/23 Range/Units 16:25 16:25 16:25 WBC 9.6 (3.8-10.6) k/uL RBC 4.87 (3.80-5.40) m/uL Hgb 14.3 (11.4-16.0) gm/dL Hct 42.7 (34.0-46.0) % MCV 87.6 (80.0-100.0) fL MCH 29.3 (25.0-35.0) pg MCHC 33.4 (31.0-37.0) g/dL RDW 14.1 (11.5-15.5) % Plt Count 183 (150-450) k/uL MPV 8.6 Neutrophils % 70 % Lymphocytes % 14 % Monocytes % 5 % Eosinophils % 10 % Basophils % 1 % Neutrophils # 6.7 (1.3-7.7) k/uL Lymphocytes # 1.3 (1.0-4.8) k/uL Monocytes # 0.5 (0-1.0) k/uL Eosinophils # 0.9 H (0-0.7) k/uL Basophils # 0.1 (0-0.2) k/uL PT 10.1 (10.0-12.5) sec INR 0.9 (<1.2) APTT 23.3 (22.0-30.0) sec D-Dimer 0.37 (<0.60) mg/L FEU Sodium 140 (137-145) mmol/L Potassium 4.4 (3.5-5.1) mmol/L Chloride 107 (98-107) mmol/L Carbon Dioxide 25 (22-30) mmol/L Anion Gap 8 mmol/L BUN 21 H (7-17) mg/dL Creatinine 0.52 (0.52-1.04) mg/dL Est GFR (CKD-EPI)AfAm >90 (>60 ml/min/1.73 sqM) Est GFR (CKD-EPI)NonAf 88 (>60 ml/min/1.73 sqM) Glucose 97 (74-99) mg/dL Plasma Lactic Acid Ramon (0.7-2.0) mmol/L Calcium 9.6 (8.4-10.2) mg/dL Magnesium 1.8 (1.6-2.3) mg/dL Total Bilirubin 0.8 (0.2-1.3) mg/dL AST 29 (14-36) U/L ALT 25 (4-34) U/L Alkaline Phosphatase 86 (38-126) U/L Troponin I (0.000-0.034) ng/mL NT-Pro-B Natriuret Pep 340 pg/mL Total Protein 6.5 (6.3-8.2) g/dL Albumin 4.0 (3.5-5.0) g/dL 10/08/23 10/08/23 Range/Units 16:25 16:25 WBC (3.8-10.6) k/uL RBC (3.80-5.40) m/uL Hgb (11.4-16.0) gm/dL Hct (34.0-46.0) % MCV (80.0-100.0) fL MCH (25.0-35.0) pg MCHC (31.0-37.0) g/dL RDW (11.5-15.5) % Plt Count (150-450) k/uL MPV Neutrophils % % Lymphocytes % % Monocytes % % Eosinophils % % Basophils % % Neutrophils # (1.3-7.7) k/uL Lymphocytes # (1.0-4.8) k/uL Monocytes # (0-1.0) k/uL Eosinophils # (0-0.7) k/uL Basophils # (0-0.2) k/uL PT (10.0-12.5) sec INR (<1.2) APTT (22.0-30.0) sec D-Dimer (<0.60) mg/L FEU Sodium (137-145) mmol/L Potassium (3.5-5.1) mmol/L Chloride (98-107) mmol/L Carbon Dioxide (22-30) mmol/L Anion Gap mmol/L BUN (7-17) mg/dL Creatinine (0.52-1.04) mg/dL Est GFR (CKD-EPI)AfAm (>60 ml/min/1.73 sqM) Est GFR (CKD-EPI)NonAf (>60 ml/min/1.73 sqM) Glucose (74-99) mg/dL Plasma Lactic Acid Ramon 2.3 H* (0.7-2.0) mmol/L Calcium (8.4-10.2) mg/dL Magnesium (1.6-2.3) mg/dL Total Bilirubin (0.2-1.3) mg/dL AST (14-36) U/L ALT (4-34) U/L Alkaline Phosphatase (38-126) U/L Troponin I <0.012 (0.000-0.034) ng/mL NT-Pro-B Natriuret Pep pg/mL Total Protein (6.3-8.2) g/dL Albumin (3.5-5.0) g/dL Disposition Clinical Impression: COPD exacerbation Disposition: ADMITTED IP TO THIS HOSP Referrals: Catie Akhtar MD [Primary Care Provider] - 1-2 days Time of Disposition: 19:19
[2023-10-08 17:00] LABS: Basophils # (A) 0.1 k/uL (0-0.2); Basophils % (A) 1 %; Eosinophils # (A) 0.9 k/uL (0-0.7); Eosinophils % (A) 10 %; HCT 42.7 % (34.0-46.0); HGB 14.3 gm/dL (11.4-16.0); Lymphocytes # (A) 1.3 k/uL (1.0-4.8); Lymphocytes % (A) 14 %; MCH 29.3 pg (25.0-35.0); MCHC 33.4 g/dL (31.0-37.0); MCV 87.6 fL (80.0-100.0); Mean Platelet Volume 8.6; Monocytes # (A) 0.5 k/uL (0-1.0); Monocytes % (A) 5 %; Neutrophils # (A) 6.7 k/uL (1.3-7.7); Neutrophils % (A) 70 %; Platelet Count 183 k/uL (150-450); RBC 4.87 m/uL (3.80-5.40); RDW 14.1 % (11.5-15.5); WBC 9.6 k/uL (3.8-10.6)
[2023-10-08 17:07] LABS: INR 0.9 (<1.2); Partial Thromboplastin Time 23.3 sec (22.0-30.0); Prothrombin Time 10.1 sec (10.0-12.5)
[2023-10-08 17:17] LABS: ALT 25 U/L (4-34); AST 29 U/L (14-36); African American GFR (CKD) >90 (>60 ml/min/1.73 sqM); Alkaline Phosphatase 86 U/L (38-126); Anion Gap 8 mmol/L; Blood Urea Nitrogen 21 mg/dL (7-17); Calcium 9.6 mg/dL (8.4-10.2); Carbon Dioxide 25 mmol/L (22-30); Chloride 107 mmol/L (98-107); Glucose 97 mg/dL (74-99); Magnesium 1.8 mg/dL (1.6-2.3); Non-African American GFR(CKD) 88 (>60 ml/min/1.73 sqM); Potassium 4.4 mmol/L (3.5-5.1); Sodium 140 mmol/L (137-145); Total Bilirubin 0.8 mg/dL (0.2-1.3); Total Protein 6.5 g/dL (6.3-8.2)
[2023-10-08 17:25] LABS: NT-Pro-B-Type Natriuretic Pept 340 pg/mL
[2023-10-08] MEDS: IPRATROPIUM 0.5 MG/2.5 ML NEBU INHALATION STA (17:36)
[2023-10-08] MEDS: ALBUTEROL NEBULIZED 2.5 MG/3 ML INHALATION STA (17:36)
--- NOTE | 2023-10-08 18:05 | XR ---
EXAMINATION: XR chest 2V: 10/08/2023 4:52 PM CLINICAL INDICATION: difficulty breathing TECHNIQUE: Departmental protocol COMPARISON: 08/30/2021 FINDINGS: The lungs are clear. There appears to be a tiny right pleural effusion. The pleural spaces are otherwise negative. The cardiac silhouette is not enlarged. Redemonstrated aortic ectasia. The skeletal structures and soft tissues are negative for acute findings. IMPRESSION: Tiny right pleural effusion.
[2023-10-08] MEDS ORDERED: IPRATROPIUM-ALBUTEROL 3 ML NEB INHALATION PRN (19:19)
[2023-10-08] MEDS ORDERED: NALOXONE 0.4 MG/ML 1 ML VIAL IVP PRN (19:19)
[2023-10-08] MEDS: IPRATROPIUM-ALBUTEROL 3 ML NEB INHALATION SCH (19:52)
[2023-10-08 21:11] LABS: Glucose,Whole Blood 217 mg/dL (70-110)
[2023-10-08] MEDS: AMOXIC-POT CLAV 875-125MG 1 EACH TAB PO SCH (22:25)
[2023-10-09] MEDS: methylPREDNISolone SOD SUCCI 125 MG/2 ML VIAL IV SCH (00:31)
[2023-10-09 07:49] LABS: Glucose,Whole Blood 238 mg/dL (70-110)
[2023-10-09] MEDS ORDERED: NITROGLYCERIN SL TABS 0.4 MG TAB SUBLINGUAL PRN (10:09)
[2023-10-09] MEDS ORDERED: NON FORMULARY DRUG (Albuterol Inhaler 90 MCG Puff) INHALATION PRN (10:09)
[2023-10-09] MEDS ORDERED: DEXTROSE 50% SYRINGE 50 ML IVP PRN ×2 (10:10)
[2023-10-09] MEDS: PANTOPRAZOLE 40 MG TABLET PO SCH (10:59)
[2023-10-09] MEDS: METOPROLOL TARTRATE 25 MG TAB PO SCH (10:59)
[2023-10-09] MEDS: ASPIRIN 81 MG PO SCH (10:59)
[2023-10-09] MEDS: MONTELUKAST 10 MG TAB PO SCH (10:59)
[2023-10-09] MEDS: metFORMIN 500 MG TAB PO SCH (10:59)
[2023-10-09] MEDS: ATORVASTATIN 80 MG TAB PO SCH (10:59)
[2023-10-09] MEDS: LEVOTHYROXINE 50 MCG TAB PO SCH (10:59)
[2023-10-09 11:13] LABS: Glucose,Whole Blood 255 mg/dL (70-110)
[2023-10-09] MEDS: INSULIN ASPART (NovoLOG) 100 UNIT/ML VIAL SQ SCH (12:06)
[2023-10-09 14:22] VITALS: BP 176/65; PULSE 102; RESP 17; TEMP 98.3
--- NOTE | 2023-10-09 14:40 | P.HPIM ---
History of Present Illness This is a pleasant 83 years old female with past medical history of COPD on 2 L home oxygen and follow-up with Dr. Vance in the outpatient setting Presents because of her breathing difficulties been going on for a few days, her oxygen saturation dropped to 77 at home as per patient She is complaining from normal producing more phlegm but no chest pain She quit smoking in 1966 and drinks alcohol occasionally. She denies any specific symptoms no chest pain Change in urine or bowel habits. No fever. Walks with no difficulty. Hemodynamically stable, currently she is saturating 95% on 2 L, she is mildly tachycardic 102 She has unremarkable CBC, INR, BMP and liver enzymes. Troponin is negative. D-dimer is -0.37. EKG showing sinus rhythm at [address]-T changes Chest x-ray showing tiny right pleural effusion proBNP is low at 340. Patient was started on Augmentin and IV Solu-Medrol 60 mg. Review of Systems Review of systems CONSTITUTIONAL: No fever, no malaise, no fatigue. HEENT: No recent visual problems or hearing problems. Denied any sore throat. CARDIOVASCULAR: No orthopnea, PND, no palpitations, no syncope. PULMONARY: No chest wall tenderness, no hemoptysis. GASTROINTESTINAL: No diarrhea, no nausea, no vomiting, no abdominal pain. Normoactive bowel sounds. NEUROLOGICAL: No headaches, no weakness, no numbness. HEMATOLOGICAL: Denies any bleeding or petechiae. GENITOURINARY: Denies any burning micturition, frequency, or urgency. MUSCULOSKELETAL/RHEUMATOLOGICAL: Denies any joint pain, swelling, or any muscle pain. ENDOCRINE: Denies any polyuria or polydipsia. Past Medical History Past Medical History: Coronary Artery Disease (CAD), COPD, Diabetes Mellitus, Hearing Disorder / Deafness, Hyperlipidemia, Hypertension, Myocardial Infarction ([place]), Thyroid Disorder Additional Past Medical History / Comment(s): Tracheobronchitis, bronchiectasis, home O2 at @2L/[place] prn, NIDDM type II, hypothyroid, past migraines, sinus problems, anemia, past L wrist fracture, [place] bilaterally-wears aides. Last Myocardial Infarction Date:: 07/25/2016 History of Any Multi-Drug Resistant Organisms: None Reported Past Surgical History: Adenoidectomy, Heart Catheterization With Stent, Hysterectomy, Tonsillectomy Additional Past Surgical History / Comment(s): cystocele, rectocele, D&C Past Anesthesia/Blood Transfusion Reactions: No Reported Reaction Date of Last Stent Placement:: 07/2016 Past Psychological History: No Psychological Hx Reported Additional Psychological History / Comment(s): Pt resides with her spouse. She has home oxygen and a nebulizer. She is independent Smoking Status: Former smoker Past Alcohol Use History: None Reported Additional Past Alcohol Use History / Comment(s): Pt started smoking in 1957 and quit in 1966. Past Drug Use History: None Reported - Past Family History Mother Family Medical History: No Reported History Father Family Medical History: Prostate Disorder Medications and Allergies Home Medications Medication Instructions Recorded Confirmed Type RX: Aspirin 81 mg PO DAILY chew 07/29/16 10/08/23 Rx RX: Metoprolol Tartrate [Lopressor] 25 mg PO BID #60 tab 07/29/16 10/08/23 Rx RX: Levothyroxine Sodium 50 mcg PO DAILY 02/25/17 10/08/23 History [Synthroid] RX: Montelukast [Singulair] 10 mg PO DAILY 05/02/18 10/08/23 History RX: metFORMIN HCL [Glucophage] 500 mg PO BID-W/MEALS 05/02/18 10/08/23 History RX: Losartan Potassium 50 mg PO DAILY 10/07/18 10/08/23 History RX: Atorvastatin [Lipitor] 80 mg PO DAILY 06/07/19 10/08/23 History RX: Pantoprazole [Protonix] 40 mg PO DAILY 06/07/19 10/08/23 History Albuterol Nebulized [Ventolin 2.5 mg INHALATION RT-Q8H 02/21/22 10/08/23 History Nebulized] Albuterol Inhaler [Ventolin Hfa 1 - 2 puff INHALATION RT-Q6H PRN 10/08/23 10/08/23 History Inhaler] Azithromycin [Zithromax Z Pack] See Taper PO DIRECTED 10/08/23 10/08/23 History Nitroglycerin Sl Tabs [Nitrostat] 0.4 mg SUBLINGUAL Q5M PRN 10/08/23 10/08/23 History Allergies Allergy/AdvReac Type Severity Reaction Status Date / Time No Known Allergies Allergy Verified 10/08/23 15:56 Physical Exam Vitals: Vital Signs Temp Pulse Pulse Resp BP BP Pulse Ox 10/09/23 09:38 20 10/09/23 08:38 100 10/09/23 08:24 110 H 96 10/09/23 07:29 97.5 F L 80 20 146/74 97 10/09/23 02:00 97.6 F 90 16 138/80 97 10/08/23 23:00 99 18 130/76 96 10/08/23 22:00 100 18 131/88 94 L 10/08/23 21:24 98.2 F 10/08/23 21:00 103 H 20 147/75 95 10/08/23 20:04 89 10/08/23 20:00 94 18 129/74 98 10/08/23 19:52 99 10/08/23 19:00 84 18 135/82 94 L 10/08/23 18:00 96 20 142/78 98 10/08/23 17:58 95 10/08/23 17:36 76 10/08/23 17:00 72 20 129/75 95 10/08/23 15:52 98.0 F 90 20 152/80 95 Intake and Output 10/08/23 10/09/23 10/09/23 22:59 06:59 14:59 Other: # Voids 1 2 Weight 43.545 kg GENERAL: The patient is alert and oriented x3, not in any acute distress. Well developed, well nourished. HEENT: Pupils are round and equally reacting to light. EOMI. No scleral icterus. No conjunctival pallor. Normocephalic, atraumatic. No pharyngeal erythema. No thyromegaly. CARDIOVASCULAR: S1 and S2 present. No murmurs, rubs, or gallops. -PULMONARY: Chest is clear to auscultation,mild bilateral expiratory wheezing , no crackles. ABDOMEN: Soft, nontender, nondistended, normoactive bowel sounds. No palpable organomegaly. MUSCULOSKELETAL: No joint swelling or deformity. EXTREMITIES: No cyanosis, clubbing, or pedal edema. NEUROLOGICAL: Gross neurological examination did not reveal any focal deficits. SKIN: No rashes. no petechiae. Results CBC & Chem 7: 10/08/23 16:25 10/08/23 16:25 Labs: Abnormal Lab Results - Last 24 Hours (Table) 10/08/23 10/08/23 10/08/23 Range/Units 16:25 16:25 16:25 Eosinophils # 0.9 H (0-0.7) k/uL BUN 21 H (7-17) mg/dL POC Glucose (mg/dL) (70-110) mg/dL Plasma Lactic Acid Ramon 2.3 H* (0.7-2.0) mmol/L 10/08/23 10/09/23 Range/Units 21:08 07:48 Eosinophils # (0-0.7) k/uL BUN (7-17) mg/dL POC Glucose (mg/dL) 217 H 238 H (70-110) mg/dL Plasma Lactic Acid Ramon (0.7-2.0) mmol/L Assessment and Plan Assessment: Acute COPD exacerbation Acute on chronic hypoxic respiratory failure Diabetes mellitus Hypertension Hyperlipidemia Hypothyroidism Plan: Continue with IV Solu-Medrol Check pro- Calcitonin left negative may consider discontinuing antibiotic Pulmonary team consulted Patient and at bedside, patient wants to be discharged home today or tomorrow once cleared by pulmonary service. Labs and medication were reviewed.. Continue same treatment. Continue with symptomatic treatment. Resume home medication. Monitor labs and vitals. DVT and GI prophylaxis. Further recommendations as per clinical course of the patient DVT prophylaxis: Subcutaneous heparin GI Prophylaxis: Pepcid
--- NOTE | 2023-10-09 14:56 | P.CNPUL ---
History of Present Illness Consult date: 10/09/23 Requesting physician: Jose Eduardo Chairez Reason for consult: dyspnea Chief complaint: Shortness of breath, mucus, sinus drainage History of present illness: This is a very pleasant 83-year-old female patient with a known history of diabetes mellitus, hypertension, hyperlipidemia, hypothyroidism, oxygen dependent chronic obstructive pulmonary disease and a very remote history of smoking. She follows in our office for the same. She presented here today mainly with complaints of sinus drainage and mucus getting caught in her throat. She did trial her nebulizer at home without much improvement. Chest x-ray reveals a tiny right pleural effusion otherwise clear lung velásquez. White count 9.6. Hemoglobin 14.3. Platelets 183. D-dimer 0.37. Sodium 140. Potassium 4.4. Bicarb 25. BUN 21. Creatinine 0.52. Glucose 217. Troponin negative x 1. He is currently sitting up in bed. Awake and alert in no acute distress. She denies any worsening shortness of breath, cough or congestion. No wheezing. No hemoptysis. She is feeling better today compared to yesterday. She was treated with steroids and bronchodilators. Heparin for DVT prophylaxis. Review of Systems REVIEW OF SYSTEMS: CONSTITUTIONAL: Denies any recent significant weight loss or weight gain. EYES: Denies change in vision. EARS, NOSE, MOUTH, THROAT: Positive for sinus drainage, denies headaches, denies sore throat. CARDIOVASCULAR: Denies chest pain, palpitations or syncopal episodes. RESPIRATORY: Positive for shortness of breath, cough, congestion no hemoptysis. GASTROINTESTINAL: Denies change in appetite, denies abdominal pain GENITOURINARY: Denies hematuria, denies infections. MUSKULOSKELETAL: Denies pain, denies swelling. INTEGUMENTARY: Denies rash, denies eczema. NEUROLOGICAL: Denies recent memory loss, no recent seizure activity. PSYCHIATRIC: Denies anxiety, denies depression. HEMATOLOGIC/LYMPHATIC: Denies anemia, denies enlarged lymph nodes. Past Medical History Past Medical History: Coronary Artery Disease (CAD), COPD, Diabetes Mellitus, Hearing Disorder / Deafness, Hyperlipidemia, Hypertension, Myocardial Infarction (MA), Thyroid Disorder Additional Past Medical History / Comment(s): Tracheobronchitis, bronchiectasis, home O2 at @2L/[place] prn, NIDDM type II, hypothyroid, past migraines, sinus problems, anemia, past L wrist fracture, [place] bilaterally-wears aides. Last Myocardial Infarction Date:: 07/25/2016 History of Any Multi-Drug Resistant Organisms: None Reported Past Surgical History: Adenoidectomy, Heart Catheterization With Stent, Hysterectomy, Tonsillectomy Additional Past Surgical History / Comment(s): cystocele, rectocele, D&C Past Anesthesia/Blood Transfusion Reactions: No Reported Reaction Date of Last Stent Placement:: 07/2016 Past Psychological History: No Psychological Hx Reported Additional Psychological History / Comment(s): Pt resides with her spouse. She has home oxygen and a nebulizer. She is independent Smoking Status: Former smoker Past Alcohol Use History: None Reported Additional Past Alcohol Use History / Comment(s): Pt started smoking in 1957 and quit in 1966. Past Drug Use History: None Reported - Past Family History Mother Family Medical History: No Reported History Father Family Medical History: Prostate Disorder Medications and Allergies Home Medications Medication Instructions Recorded Confirmed Type Aspirin 81 mg PO DAILY chew 07/29/16 10/08/23 Rx Metoprolol Tartrate [Lopressor] 25 mg PO BID #60 tab 07/29/16 10/08/23 Rx Levothyroxine Sodium [Synthroid] 50 mcg PO DAILY 02/25/17 10/08/23 History Montelukast [Singulair] 10 mg PO DAILY 05/02/18 10/08/23 History metFORMIN HCL [Glucophage] 500 mg PO BID-W/MEALS 05/02/18 10/08/23 History Losartan Potassium 50 mg PO DAILY 10/07/18 10/08/23 History Atorvastatin [Lipitor] 80 mg PO DAILY 06/07/19 10/08/23 History Pantoprazole [Protonix] 40 mg PO DAILY 06/07/19 10/08/23 History Albuterol Nebulized [Ventolin 2.5 mg INHALATION RT-Q8H 02/21/22 10/08/23 History Nebulized] Albuterol Inhaler [Ventolin Hfa 1 - 2 puff INHALATION RT-Q6H PRN 10/08/23 10/08/23 History Inhaler] Azithromycin [Zithromax Z Pack] See Taper PO DIRECTED 10/08/23 10/08/23 History Nitroglycerin Sl Tabs [Nitrostat] 0.4 mg SUBLINGUAL Q5M PRN 10/08/23 10/08/23 History Allergies Allergy/AdvReac Type Severity Reaction Status Date / Time No Known Allergies Allergy Verified 10/08/23 15:56 Physical Exam Vitals: Vital Signs Temp Pulse Pulse Resp BP BP Pulse Ox 10/09/23 14:00 98.3 F 102 H 17 176/65 95 10/09/23 11:40 104 H 10/09/23 11:29 107 H 10/09/23 09:38 20 10/09/23 08:38 100 10/09/23 08:24 110 H 96 10/09/23 07:29 97.5 F L 80 20 146/74 97 10/09/23 02:00 97.6 F 90 16 138/80 97 10/08/23 23:00 99 18 130/76 96 10/08/23 22:00 100 18 131/88 94 L 10/08/23 21:24 98.2 F 10/08/23 21:00 103 H 20 147/75 95 10/08/23 20:04 89 10/08/23 20:00 94 18 129/74 98 10/08/23 19:52 99 10/08/23 19:00 84 18 135/82 94 L 10/08/23 18:00 96 20 142/78 98 10/08/23 17:58 95 10/08/23 17:36 76 10/08/23 17:00 72 20 129/75 95 10/08/23 15:52 98.0 F 90 20 152/80 95 Intake and Output 10/08/23 10/09/23 10/09/23 22:59 06:59 14:59 Other: # Voids 1 2 Weight 43.545 kg GENERAL EXAM: Alert, very pleasant, thin 83-year-old female, on 2 L nasal cannula, comfortable in no apparent distress. HEAD: Normocephalic. EYES: Normal reaction of pupils, equal size. NOSE: Clear with pink turbinates. THROAT: No erythema or exudates. NECK: No masses, no JVD. CHEST: No chest wall deformity. LUNGS: Equal air entry with no crackles, wheeze, rhonchi or dullness. Diminished. CVS: S1 and S2 normal with no audible murmur, regular rhythm. ABDOMEN: No hepatosplenomegaly, normal bowel sounds, no guarding or rigidity. SPINE: No scoliosis or deformity SKIN: No rashes CENTRAL NERVOUS SYSTEM: No focal deficits, tone is normal in all 4 extremities. EXTREMITIES: There is no peripheral edema. No clubbing, no cyanosis. Peripheral pulses are intact. Results - Laboratory Findings CBC and BMP: 10/08/23 16:25 10/08/23 16:25 PT/INR, D-dimer PT 10.1 sec (10.0-12.5) 10/08/23 16: INR 0.9 (<1.2) 10/08/23 16:25 D-Dimer 0.37 mg/L FEU (<0.60) 10/08/23 16:25 Abnormal lab findings: Abnormal Labs 10/08/23 10/08/23 10/08/23 16:25 16:25 16:25 Eosinophils # 0.9 H BUN 21 H POC Glucose (mg/dL) Plasma Lactic Acid Ramon 2.3 H* 10/08/23 10/09/23 10/09/23 21:08 07:48 11:11 Eosinophils # BUN POC Glucose (mg/dL) 217 H 238 H 255 H Plasma Lactic Acid Ramon - Diagnostic Findings Chest x-ray: image reviewed Assessment and Plan Assessment: Acute exacerbation of chronic obstructive pulmonary disease History of surgeon dependent, chronic obstructive pulmonary disease, very remote history of smoking History of mild intermittent chronic bronchial asthma History of lumpectomy of the right breast in 2013 Plan: The patient was seen and evaluated Chest x-ray, labs and medications reviewed Currently stable for discharge Complete a prednisone taper starting at 30 mg daily Continue her home oxygen and pulmonary medications Follow-up in our office in 1 week I have personally seen and examined the patient, performed the documentation and the assessment and plan as written. Number of minutes spent on the visit: 20.
[2023-10-09] MEDS ORDERED: ALBUTEROL NEBULIZED 2.5 MG/3 ML INHALATION SCH (16:00)
[2023-10-09] MEDS ORDERED: HEPARIN SODIUM,PORCINE 5,000 UNIT/ML 1 ML VIAL SQ SCH (21:00)
== END 2023-10-09 15:39 | disposition home or self-care (01) ==
LOC: EC 15:28 → 4SSUR 19:19
PROVIDERS: ADMIT Hospitalist; ATTEND Hospitalist
DX: J44.1 Chronic obstructive pulmonary disease with (acute) exacerbation (principal); J96.21 Acute and chronic respiratory failure with hypoxia; I25.10 Atherosclerotic heart disease of native coronary artery without angina pectoris; E11.9 Type 2 diabetes mellitus without complications; E78.5 Hyperlipidemia, unspecified; I10 Essential (primary) hypertension; E03.9 Hypothyroidism, unspecified; I25.2 Old myocardial infarction; Z87.891 Personal history of nicotine dependence; Z95.5 Presence of coronary angioplasty implant and graft; Z99.81 Dependence on supplemental oxygen; Z79.890 Hormone replacement therapy; Z79.899 Other long term (current) drug therapy; Z79.84 Long term (current) use of oral hypoglycemic drugs; Z79.82 Long term (current) use of aspirin
CPT/HCPCS: 96376; 96375; 96365; 99285; 36415; 94640 ×3; 94760; 93005; 85379; 83880; 80053; 83605; 83735; 84484; 85025; 85610; 85730; 87040; 71046; G0378 ×2; J0696; J2919